=== PATIENT | female | born 1965 | race Caucasian/White ===

== ENCOUNTER → 2017-10-06 16:01 | Outpatient (CLI) | payer OTHER, SELFPAY ==
[2017-10-06 17:27] LABS: Free T3 2.7 pg/mL (2.18-3.98); T4 Free Direct 0.72 ng/dL (0.76-1.46); Thyroid Stim Hormone (TSH) 0.06 uIU/mL (0.358-3.74)
== END ==
PROVIDERS: Family Provider Family Medicine; PCP Family Medicine; Visit Provider Family Medicine
DX: E03.9 Hypothyroidism, unspecified (principal)
CPT/HCPCS: 36415; 84439; 84443; 84481

== ENCOUNTER → 2018-03-02 16:09 | Outpatient (CLI) | payer OTHER, SELFPAY ==
--- NOTE | 2018-03-02 16:12 | RAD_ITS ---
STUDY: X-RAY - CERVICAL SPINE REASON FOR EXAM: Female, 52 years old. Left neck pain TECHNIQUE: Three view(s) of the cervical spine were obtained. COMPARISON: Cervical spine report dated October 14, 2012 FINDINGS: Normal anterior atlantoaxial articulation. Normal odontoid process. There is mild reversal of the normal cervical lordosis. No significant abnormalities are seen in the vertebral bodies. There is moderate disc space narrowing at C5-6 and C6-7. There is mild disc space narrowing at C4-5 and C7-T1. There is no prevertebral soft tissue swelling. The lung apices are unremarkable. RAD/Cerv Spine 2 or 3 Views IMPRESSION: There are moderate degenerative disc changes at C5-6 and C6-7. There are mild degenerative disc changes at C4-5 and C7-T1. Electronically Signed: Aby Wilder MD at 0:14 EDT Tel Direct: [phone], Service support ,
--- NOTE | 2018-03-02 16:12 | RAD_ITS ---
STUDY: X-RAY - LUMBAR SPINE REASON FOR EXAM: Female, 52 years old. Pain TECHNIQUE: Three view(s) of the lumbar spine were obtained. COMPARISON: Lumbar spine MRI dated September 05, 2013 FINDINGS: Normal lumbar lordosis. There is no significant scoliosis. There is normal alignment of the vertebrae. The vertebral bodies show no significant abnormalities. Vertebral body heights are maintained. There is marked disc space narrowing at L5-S1. Cholecystectomy clips are present. RAD/Lumbar Spine 2 or 3 Views IMPRESSION: There are marked degenerative disc changes at L5-S1. This appears worsened compared to the prior MRI. Electronically Signed: Aby Wilder MD at 0:15 EDT Tel Direct: [phone], Service support ,
== END ==
PROVIDERS: Family Provider Family Medicine; PCP Family Medicine; Visit Provider Anesthesiology Pain Medicine
DX: M54.2 Cervicalgia (principal); M54.9 Dorsalgia, unspecified
CPT/HCPCS: 72040; 72100

== ENCOUNTER 2018-04-08 09:00 | Outpatient (RCR) | payer OTHER, SELFPAY ==
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
--- NOTE | 2018-04-15 09:25 | HP.PT.NRP ---
HP - Discharge Summary (1) - Patient Information MITESH KHAN was seen in my office for initial evaluation on 03/03/18. The following Plan of Care was established for this patient: Initial Frequency: 2-3x /Week Initial Duration: 3 Weeks - Anticipated Interventions Patient/Client Instruction: Educate patient on: Condition, Plan of Care For the Purpose of:: To improve self management Therapeutic Exercise to Include: Strength training, Body mechanics, Postural training, Dynamic Lumbar Stabilization For the Purpose of:: To decrease pain, To increase ROM, To improve muscle performance and motor function Cryotherapy (ice pack, ice massage): Yes Thermo therapy (hot pack): Yes For the Purpose of:: To decrease pain This patient was last seen in our office . Pertinent comments regarding their Physical therapy will appear below: Pt cancelled her last appointment. Pt reported she wanted to be finished with PT at this time. Pt is discontinued. At this point I will be discontinuing this patient from physical therapy. I would be happy to see this patient again in the future if found appropriate by the physician. Thank you! Chris More, PT,
== END 2018-04-08 19:00 | disposition home or self-care (01) ==
LOC: PT 09:00
PROVIDERS: Family Provider Family Medicine; PCP Family Medicine; Visit Provider Anesthesiology Pain Medicine
DX: M54.2 Cervicalgia (principal); M54.9 Dorsalgia, unspecified
CPT/HCPCS: 97110; 97162; 97530

== ENCOUNTER → 2018-12-03 | Outpatient (CLI) | payer OTHER, SELFPAY ==
--- NOTE | 2018-12-03 08:52 | BI_ITS ---
MAMMOGRAPHY - BILATERAL SCREENING REASON FOR EXAM: Female, 53 years old. Routine annual screening examination. PERTINENT HISTORY: Aunt with breast cancer. TECHNIQUE: Digital bilateral breast lit (3D mammographic acquisition) in the CC and MLO projections. 2-D mediolateral oblique (MLO) and craniocaudad (CC) views of both breasts were obtained. CAD: Full Field Digital Mammography with Computer Added Detection was performed. COMPARISON: Comparison is made with prior study dated August 26, 2017 and March 24, 2016. FINDINGS: Breast Composition: The breasts are heterogeneously dense, which may obscure small masses. There are no dominant masses or suspicious calcifications. No other significant abnormalities are identified. There has been no significant change since the prior study. BI/SCREEN MAMM (CAD) W/LIT BILAT IMPRESSION: Stable bilateral screening mammogram. Yearly follow-up mammogram recommended. (A) ASSESSMENT CATEGORY: BIRADS Category 1: Negative. A letter regarding these results will be sent to the patient by the facility within 30 days. Approximately 10% of breast cancers are not detected by mammography. A normal mammogram should not delay biopsy of a clinically suspicious abnormality. [id number] Electronically Signed: Linden Ibanez, at 8:14 EDT , Service support ,
== END | disposition home or self-care (01) ==
PROVIDERS: Family Provider Family Medicine; PCP Family Medicine; Referring Provider Family Medicine; Visit Provider Family Medicine
DX: Z12.31 Encounter for screening mammogram for malignant neoplasm of breast (principal)
CPT/HCPCS: 77063; 77067

== ENCOUNTER → 2018-12-21 | Outpatient (CLI) | payer OTHER, SELFPAY ==
[2018-12-21 17:08] LABS: Free T3 4.8 pg/mL (2.18-3.98); T4 Free Direct 0.92 ng/dL (0.76-1.46); Thyroid Stim Hormone (TSH) 0.01 uIU/mL (0.358-3.74)
== END | disposition home or self-care (01) ==
PROVIDERS: Family Provider Family Medicine; PCP Family Medicine; Referring Provider Family Medicine; Visit Provider Family Medicine
DX: E03.9 Hypothyroidism, unspecified (principal)
CPT/HCPCS: 36415; 84439; 84443; 84481

== ENCOUNTER → 2019-01-11 | Outpatient (CLI) | payer OTHER, SELFPAY ==
[2019-01-11 12:21] LABS: Absolute Lymphocyte Count 1.87 X10^3/uL (0.83-4.51); Absolute Neutrophil Count 2.5 X10^3/uL (2.0-7.7); Basophil# 0.04 X10^3/uL; Basophil% 0.8 % (0-1); Eosinophil# 0.21 X10^3/uL; Eosinophils% 4.2 % (0-5); Hemoglobin 13.9 g/dL (12.0-15.0); Lymphocyte # 1.87 X10^3/ul (4.0); Lymphocyte % 37.3 % (19-41); Mean Corp Hgb Conc 33.1 g/dL (32-36); Mean Corpuscular Hgb 30.2 pg (27.0-32.0); Mean Corpuscular Volume 91.1 fL (81-99); Mean Platelet Vol. 9.8 fl (6.2-12.0); Monocyte# 0.35 X10^3/uL; NRBC Flagged by Analyzer 0 % (0-5); Neutrophil # 2.52 X10^3/uL (2.7-7.7); Neutrophil % 50.3 % (47-70); Platelet Count 293 K/mm3 (150-450); RBC Distribution Width CV 12.6 % (11.6-14.6); RBC Distribution Width SD 41.8 fl (35.1-43.9); Red Blood Count 4.61 M/mm3 (4.2-5.4)
[2019-01-11 12:48] LABS: AST(SGOT) 17 U/L (15-37); Alanine Aminotransfer ALT/SGPT 27 U/L (13-56); Albumin, Serum 3.8 g/dL (3.2-5.0); Alkaline Phosphatase 108 U/L (45-117); Anion Gap 8 (5-15); BUN 13 mg/dL (7-18); BUN/Creat Ratio 16.5 RATIO (10-20); Calcium,Total 9.5 mg/dL (8.5-10.1); Chloride 106 mmol/L (98-107); Cholesterol 222 mg/dL (200); Creatinine, Serum 0.79 mg/dL (0.55-1.02); EST Glomerular Filtration Rate 81 mL/min (>60); Est Glom Filt Rate - Afr Amer 98 mL/min (>60); Globulin 3.7 g/dL (2.2-4.2); Glucose 80 mg/dL (74-106); High Density Lipoprotein 63 mg/dL; Protein, Total 7.5 g/dL (6.4-8.2); Sodium Level 142 mmol/L (136-145); Triglycerides 211 mg/dL; Very Low Density Lipoprotein 42 mg/dL (5-40)
[2019-01-11 13:27] LABS: Vitamin D,25 Hydroxy 26.4 ng/mL (29.95-100.01)
== END | disposition home or self-care (01) ==
LOC: BFHLAB 10:17
PROVIDERS: Family Provider Family Medicine; PCP Family Medicine; Visit Provider Family Medicine
DX: Z00.00 Encounter for general adult medical examination without abnormal findings (principal); R53.83 Other fatigue; E55.9 Vitamin D deficiency, unspecified
CPT/HCPCS: 36415; 80053; 80061; 82306; 82533; 85025

== ENCOUNTER → 2019-01-20 | Outpatient (CLI) | payer OTHER, SELFPAY ==
--- NOTE | 2019-01-20 17:03 | MRI_ITS ---
HISTORY: Diplopia, paresthesia COMPARISON: MRI brain 06/08/2014 TECHNIQUE: Multiphasic multiplanar MR imaging of the brain per department protocol without and with 18 ml of Dotarem intravenous gadolinium. # of images including paperwork: [id number] FINDINGS: BRAIN: Diffusion-weighted imaging shows no acute infarct. No remote parenchymal infarct. No parenchymal hemorrhage, intra-axial mass, mass effect, or midline shift. No abnormal extra-axial fluid collections. There are several small foci of scattered subcortical and deep white matter changes as seen by hyperintense signal on FLAIR and T2 weighting with mild interval increase in size particularly within the left frontal and posterior right frontal lobes (previously, these were tiny foci of white matter change). VENTRICLES: Ventricles are normal in size and configuration. No hydrocephalus. POST CONTRAST: No abnormal enhancing parenchymal or dural based lesions. OTHER: Paranasal sinuses are clear. Mastoid air cells are clear. Orbits are unremarkable. MRI/Brain W/WO Contrast IMPRESSION: 1. Several scattered small foci of nonspecific bilateral subcortical and white matter changes, nonspecific finding; with mild interval increase size from May 2014. This may represent sequela of small vessel ischemic disease versus migraine headache versus autoimmune/vasculitis. Demyelinating disease and sequela of postinfectious/postinflammatory process are felt to be less likely. 2. Otherwise, remainder of this pre-and postcontrast MRI brain is within normal limits. at 0302 Reported and signed by: Mane Ellis MD Electronically Signed: Mane Ellis MD at 3:00 EDT Tel , Service support ,
--- NOTE | 2019-01-20 17:03 | MRI_ITS ---
HISTORY: Neck pain and cervical radiculopathy COMPARISON: Cervical radiographs 03/02/2018 TECHNIQUE: Multisequence multiplanar MR imaging of the cervical spine was performed per department protocol without and with 18 ml of Dotarem intravenous gadolinium. # of images incl. 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 Straightening of cervical spine. No acute fracture or subluxation. Vertebral body heights are normal. Mild anterior marginal osteophytes C4, C5, C6 levels. Mild posterior discogenic osteophytosis at the C4-C5 and C5-C6 levels. Mild discogenic endplate marrow changes at the C5-C6 level. No focal marrow signal abnormality is seen to suggest a pathologic process. The visualized posterior fossa is normal in signal. CORD: Cervicomedullary junction and cervical cord are normal in caliber, morphology, and signal characteristics without abnormal enhancement. DISCS: Moderate disc space narrowing at C4-C5 and C5-C6 and C6-C7 levels with moderate disc desiccation at these levels. LEVELS: C2-3: No disc bulges, disc protrusions, canal stenosis or neural foraminal stenosis. C3-4: No disc bulges, disc protrusions, canal stenosis or neural foraminal stenosis. C4-5: Combination of 2 mm broad-based disc osteophyte complex and congenitally narrowed spinal canal results in mild canal stenosis. No neural foraminal stenosis. C5-6: Combination of 2 mm broad-based disc osteophyte complex and congenitally narrowed spinal canal results in mild canal stenosis. No neural foraminal stenosis. C6-7: There is an asymmetric to the left 3 mm broad-based disc protrusion which combines with congenitally narrowed canal results in mild canal stenosis and moderate left foraminal stenosis along the proximal aspect of the exiting nerve root. No right foraminal stenosis. C7-T1: No disc bulges, disc protrusions, canal stenosis or neural foraminal stenosis. POST CONTRAST: No abnormal enhancement is seen involving the cervical cord, nerve roots, or abnormal enhancing osseous or soft tissue lesions. SOFT TISSUES: Paravertebral soft tissues show no gross signal abnormalities. MRI/Spine Cervical W/WO Contrast IMPRESSION: 1. Congenitally narrowed spinal canal on the basis of short pedicles from C2 through the C6 level. 2. Mild canal stenosis at C4-C5 and C5-C6 levels. 3. Mild canal stenosis and moderate left foraminal stenosis at C6-C7. 4. No abnormal enhancement. at 0314 Reported and signed by: Mane Ellis MD Electronically Signed: Mane Ellis MD at 3:13 EDT Tel , Service support ,
== END | disposition home or self-care (01) ==
LOC: MRI 17:00
PROVIDERS: Family Provider Family Medicine; PCP Family Medicine; Referring Provider Family Medicine; Visit Provider Family Medicine
DX: H53.8 Other visual disturbances (principal); R20.2 Paresthesia of skin; R32 Unspecified urinary incontinence; M54.2 Cervicalgia
CPT/HCPCS: 70553; 72156; A9575

== ENCOUNTER → 2019-01-24 | Outpatient (CLI) | payer OTHER, SELFPAY ==
[2019-01-24 07:52] VITALS: BP 117/77; PULSE 54; RESP 16; TEMP 36.5; O2SAT 97; BMI 30.4
[2019-01-24] MEDS: Cosyntropin 0.25 MG Vial IV (08:09)
== END | disposition home or self-care (01) ==
LOC: MEDOUTP 07:44
PROVIDERS: Family Provider Family Medicine; PCP Family Medicine; Referring Provider Family Medicine; Visit Provider Family Medicine
DX: E27.40 Unspecified adrenocortical insufficiency (principal)
CPT/HCPCS: 96374; 82533; A4216; J0834

== ENCOUNTER → 2019-04-13 15:39 | Outpatient (CLI) | payer OTHER, SELFPAY ==
[2019-01-24 07:52] VITALS: BMI 30.4
[2019-04-13 17:36] LABS: T4 Free Direct 0.77 ng/dL (0.76-1.46)
== END ==
PROVIDERS: Family Provider Family Medicine; PCP Family Medicine; Visit Provider Family Medicine
DX: E03.9 Hypothyroidism, unspecified (principal)
CPT/HCPCS: 36415; 84439; 84443; 84481

== ENCOUNTER → 2019-07-19 16:12 | Outpatient (CLI) | payer OTHER, SELFPAY ==
[2019-01-24 07:52] VITALS: BMI 30.4
[2019-07-19 17:29] LABS: Free T3 3.3 pg/mL (2.18-3.98); T4 Free Direct 0.78 ng/dL (0.76-1.46)
== END ==
PROVIDERS: Family Provider Family Medicine; PCP Family Medicine; Visit Provider Family Medicine
DX: E03.9 Hypothyroidism, unspecified (principal)
CPT/HCPCS: 36415; 84439; 84443; 84481

== ENCOUNTER → 2019-11-17 09:18 | Outpatient (CLI) | payer OTHER, SELFPAY ==
[2019-01-24 07:52] VITALS: BMI 30.4
--- NOTE | 2019-11-17 09:22 | BI_ITS ---
MAMMOGRAPHY - BILATERAL DIAGNOSTIC REASON FOR EXAM: Female, 54 years old. Two-month history of left breast lumps. PERTINENT HISTORY: Aunt with breast cancer. Remote left breast aspiration. TECHNIQUE: Digital bilateral breast devyn (3D mammographic acquisition) in the CC and MLO projections. 2-D mediolateral oblique (MLO) and craniocaudad (CC) views of both breasts were obtained. CAD: Full Field Digital Mammography with Computer Added Detection was performed. COMPARISON: Comparison is made with prior examination dated December 03, 2018 and March 24, 2016. FINDINGS: Breast Composition: The breasts are heterogeneously dense, which may obscure small masses. There are no dominant masses or suspicious calcifications. No other significant abnormalities are identified. There has been no significant change since the prior study. BI/DIAG MAMM W/CAD, BILAT IMPRESSION: Stable bilateral diagnostic mammogram. With the patient''s history of palpable lumps in the upper outer quadrant of the left breast, correlation with ultrasound is recommended. ASSESSMENT CATEGORY: BIRADS Category 0: Incomplete. Need additional imaging evaluation. A letter regarding these results will be sent to the patient by the facility within 30 days. Approximately 10% of breast cancers are not detected by mammography. A normal mammogram should not delay biopsy of a clinically suspicious abnormality. Electronically Signed: Linden Ibanez, at 10:25 EDT , Service support ,
--- NOTE | 2019-11-17 10:03 | US_ITS ---
STUDY: ULTRASOUND BREAST - LEFT REASON FOR EXAM: Female, 54 years old. Palpable lump left breast. TECHNIQUE: Axial and longitudinal images of the LEFT breast were performed with a high resolution ultrasound transducer. # OF IMAGES: 57 COMPARISON: Comparison is made with prior mammogram done earlier in the day. FINDINGS: LEFT Breast: The palpable abnormality corresponds to a 1 cm x 0.8 cm x 0.8 cm irregular hypoechoic nodule at the 1:00 position of the breast at the 10 cm from the nipple. A biopsy is recommended. Incidental finding of 2 cysts at the 12:00 position of the breast at 3 cm from the nipple. The largest measures 6 mm x 5 mm x 4 mm. US/Breast Limited Unilateral IMPRESSION: The palpable abnormality corresponds to a 1 cm x 0.8 cm x 0.8 cm irregular hypoechoic solid nodule at the 1:00 position in the breast at 10 cm from nipple. Biopsy recommended. ASSESSMENT CATEGORY: BIRADS Category 4: Suspicious - Biopsy Should Be Considered. A letter regarding these results will be sent to the patient by the facility within 30 days. Electronically Signed: Linden Ibanez, at 12:34 EDT , Service support ,
== END ==
PROVIDERS: PCP Family Medicine; Referring Provider Obstetrics & Gynecology Gynecology; Visit Provider Obstetrics & Gynecology Gynecology
DX: N60.19 Diffuse cystic mastopathy of unspecified breast (principal)
CPT/HCPCS: 76642; 77062; 77066; G0279

== ENCOUNTER → 2019-12-07 09:31 | Outpatient (CLI) | payer OTHER, SELFPAY ==
[2019-01-24 07:52] VITALS: BMI 30.4
--- NOTE | 2019-12-07 09:37 | MRI_ITS ---
STUDY: BILATERAL BREAST MR WITHOUT AND WITH CONTRAST REASON FOR EXAM: Female, 54 years old. upper outer quad left breast ca, estrogen receptor positive, biopsy 11/24/2019 TECHNIQUE: Multi-sequence multi-echo imaging of both breasts was performed with a dedicated breast coil. T1-weighted and T2-weighted images were performed before the administration of contrast. T1-weighted images were also performed after the administration of IV Dotarem 19ml without complications. COMPARISON: Mammograms dated 11/17/2019, 12/03/2018 and a breast ultrasound dated 11/17/2019 FINDINGS: RIGHT BREAST: The breast tissue is heterogeneously dense with mild background enhancement. There are no abnormal enhancing masses or areas of non-mass enhancement in the right breast. LEFT BREAST: The breast tissue is heterogeneously dense with mild background enhancement. There is a 1 cm mass in the superior outer aspect of the left breast approximately 10 cm from the nipple. This area was biopsied and shown to represent a malignancy. There are no additional abnormal enhancing masses or areas of non-mass enhancement in the left breast. There are no enlarged or abnormal lymph nodes. There is no abnormality in the visualized regions of the chest or liver. MRI/Breast Bilateral W/O and W IMPRESSION: There is a known malignancy in the left breast. Surgical consultation is recommended as well as radiation oncology and medical oncology consultation. Short-term six-month follow-up mammogram is also recommended to document stability at the postbiopsy site. CATEGORY: BIRADS Category 6: Known Biopsy-Proven Malignancy - Appropriate Action Should Be Taken. A letter regarding these results will be sent to the patient by the facility within 30 days. Electronically Signed: Khushboo Yun DO at 6:08 EDT Tel , Service support ,
== END ==
PROVIDERS: PCP Family Medicine
DX: C50.412 Malignant neoplasm of upper-outer quadrant of left female breast (principal); Z17.0 Estrogen receptor positive status [ER+]
CPT/HCPCS: 77049; A9575; A4216; C8908

== ENCOUNTER → 2020-05-28 13:22 | Outpatient (CLI) | payer OTHER, SELFPAY ==
[2019-01-24 07:52] VITALS: BMI 30.4
[2020-01-23 09:03] VITALS: BMI 33.0
[2020-05-28 15:34] LABS: D-Dimer Quantitative (DVT/PE) 0.36 FEU/ug/m (0.27-0.49)
== END ==
PROVIDERS: PCP Family Medicine; Visit Provider Family Medicine
DX: M79.605 Pain in left leg (principal)
CPT/HCPCS: 36415; 85379

== ENCOUNTER → 2020-09-16 09:02 | Outpatient (CLI) | payer OTHER, SELFPAY ==
[2019-01-24 07:52] VITALS: BMI 30.4
[2020-01-23 09:03] VITALS: BMI 33.0
[2020-09-16 10:09] LABS: Absolute Lymphocyte Count 2.04 X10^3/uL (0.83-4.51); Basophil# 0.04 X10^3/uL; Basophil% 0.9 % (0-1); Eosinophils% 2.2 % (0-5); Hematocrit 43.3 % (37-47); Lymphocyte # 2.04 X10^3/ul (4.0); Mean Corp Hgb Conc 32.3 g/dL (32-36); Mean Corpuscular Hgb 29.5 pg (27.0-32.0); Mean Corpuscular Volume 91.2 fL (81-99); Mean Platelet Vol. 9.4 fl (6.2-12.0); Monocyte# 0.31 X10^3/uL; Monocyte% 6.8 % (0-10); NRBC Flagged by Analyzer 0 % (0-5); Neutrophil # 2.03 X10^3/uL (2.7-7.7); Neutrophil % 44.9 % (47-70); Platelet Count 288 K/mm3 (150-450); RBC Distribution Width CV 12.7 % (11.6-14.6); RBC Distribution Width SD 42.4 fl (35.1-43.9); Red Blood Count 4.75 M/mm3 (4.2-5.4); White Blood Count 4.5 K/mm3 (4.4-11.0)
[2020-09-16 10:37] LABS: Vitamin B12 509 pg/mL (211-911); Vitamin D,25 Hydroxy 46.8 ng/mL
[2020-09-16 10:42] LABS: ALB/GLOB Ratio 1.1 RATIO (0.9-2.4); AST(SGOT) 21 U/L (15-37); Alanine Aminotransfer ALT/SGPT 41 U/L (13-56); Albumin, Serum 3.8 g/dL (3.2-5.0); Alkaline Phosphatase 85 U/L (45-117); Anion Gap 5 (5-15); BUN 14 mg/dL (7-18); BUN/Creat Ratio 17.1 RATIO (10-20); Calcium,Total 9.2 mg/dL (8.5-10.1); Chloride 111 mmol/L (98-107); Cholesterol 230 mg/dL (200); Creatinine, Serum 0.82 mg/dL (0.55-1.02); EST Glomerular Filtration Rate 77 mL/min (>60); Est Glom Filt Rate - Afr Amer 94 mL/min (>60); Free T3 2.7 pg/mL (2.18-3.98); Globulin 3.6 g/dL (2.2-4.2); Glucose 92 mg/dL (74-106); High Density Lipoprotein 67 mg/dL; Potassium 3.9 mmol/L (3.5-5.1); Protein, Total 7.4 g/dL (6.4-8.2); Sodium Level 141 mmol/L (136-145); T4 Free Direct 0.76 ng/dL (0.76-1.46); Thyroid Stim Hormone (TSH) 0.02 uIU/mL (0.358-3.74); Triglycerides 170 mg/dL; Very Low Density Lipoprotein 34 mg/dL (5-40)
== END ==
PROVIDERS: PCP Family Medicine; Referring Provider Family Medicine; Visit Provider Family Medicine
DX: Z00.00 Encounter for general adult medical examination without abnormal findings (principal); R53.83 Other fatigue; E03.9 Hypothyroidism, unspecified; E55.9 Vitamin D deficiency, unspecified
CPT/HCPCS: 36415; 80053; 80061; 82306; 82607; 84439; 84443; 84481; 85025

== ENCOUNTER 2021-08-20 14:38 | Outpatient (CLI) | payer OTHER, SELFPAY ==
[2020-01-23 09:03] VITALS: BMI 33.0
[2021-08-20 17:21] LABS: T4 Free Direct 1.08 ng/dL (0.76-1.46); Thyroid Stim Hormone (TSH) 0.04 uIU/mL (0.358-3.74)
== END 2021-08-20 23:59 | disposition home or self-care (01) ==
LOC: BIMLAB 14:39
PROVIDERS: PCP Family Medicine; Referring Provider Internal Medicine Endocrinology, Diabetes & Metabolism; Visit Provider Internal Medicine Endocrinology, Diabetes & Metabolism
DX: E03.8 Other specified hypothyroidism (principal); E06.3 Autoimmune thyroiditis
CPT/HCPCS: 36415; 84439; 84443

== ENCOUNTER 2021-09-18 08:54 | Outpatient (CLI) | payer OTHER, SELFPAY ==
[2020-01-23 09:03] VITALS: BMI 33.0
== END 2021-09-18 23:59 | disposition home or self-care (01) ==
LOC: PSN 08:57
PROVIDERS: PCP Family Medicine; Referring Provider Internal Medicine Cardiovascular Disease; Visit Provider Internal Medicine Cardiovascular Disease
DX: R00.2 Palpitations (principal)
CPT/HCPCS: 93225; 93226

== ENCOUNTER 2021-12-09 11:14 | Outpatient (CLI) | payer OTHER, SELFPAY ==
[2020-01-23 09:03] VITALS: BMI 33.0
[2021-12-09 12:38] LABS: Vitamin D,25 Hydroxy 46.2 ng/mL
[2021-12-09 12:53] LABS: T4 Free Direct 1.01 ng/dL (0.76-1.46); Thyroid Stim Hormone (TSH) 0.15 uIU/mL (0.358-3.74)
== END 2021-12-09 23:59 | disposition home or self-care (01) ==
LOC: BIMLAB 11:15
PROVIDERS: PCP Family Medicine; Visit Provider Internal Medicine Endocrinology, Diabetes & Metabolism
DX: E03.8 Other specified hypothyroidism (principal); E06.3 Autoimmune thyroiditis; E55.9 Vitamin D deficiency, unspecified
CPT/HCPCS: 36415; 82306; 84439; 84443

== ENCOUNTER → 2022-02-13 | Outpatient (CLI) | payer OTHER, SELFPAY ==
[2020-01-23 09:03] VITALS: BMI 33.0
[2022-02-13 17:41] LABS: T3 Total - Triiodothyronine 1.16 ng/mL (0.6-1.81)
[2022-02-13 17:48] LABS: ALB/GLOB Ratio 1.2 RATIO (0.9-2.4); AST(SGOT) 20 U/L (15-37); Alanine Aminotransfer ALT/SGPT 30 U/L (13-56); Albumin, Serum 4.2 g/dL (3.2-5.0); Alkaline Phosphatase 88 U/L (45-117); Anion Gap 6 (5-15); BUN 20 mg/dL (7-18); BUN/Creat Ratio 19.4 RATIO (10-20); Calcium,Total 9.1 mg/dL (8.5-10.1); Chloride 106 mmol/L (98-107); Creatinine, Serum 1.03 mg/dL (0.55-1.02); EST Glomerular Filtration Rate 59 mL/min (>60); Est Glom Filt Rate - Afr Amer 71 mL/min (>60); Free T3 2.8 pg/mL (2.18-3.98); Globulin 3.4 g/dL (2.2-4.2); Glucose 90 mg/dL (74-106); Potassium 4.3 mmol/L (3.5-5.1); Protein, Total 7.6 g/dL (6.4-8.2); Sodium Level 138 mmol/L (136-145); T4 Free Direct 1.28 ng/dL (0.76-1.46); T4 Total, Thyroxin 12.3 ug/dL (4.8-13.9); Thyroid Stim Hormone (TSH) 0.23 uIU/mL (0.358-3.74)
== END | disposition home or self-care (01) ==
LOC: MTLAB 15:25
PROVIDERS: PCP Family Medicine; Referring Provider Family Medicine; Visit Provider Family Medicine
DX: E03.9 Hypothyroidism, unspecified (principal); R60.9 Edema, unspecified
CPT/HCPCS: 36415; 80053; 84436; 84439; 84443; 84480; 84481

== ENCOUNTER → 2022-04-08 | Outpatient (CLI) | payer OTHER, SELFPAY ==
[2020-01-23 09:03] VITALS: BMI 33.0
== END | disposition home or self-care (01) ==
LOC: LAB.FUTURE 10:47 → LAB 04-14 15:29
PROVIDERS: PCP Family Medicine; Visit Provider Family Medicine
DX: Z00.00 Encounter for general adult medical examination without abnormal findings (principal)

== ENCOUNTER → 2022-04-14 | Outpatient (CLI) | payer OTHER, SELFPAY ==
[2020-01-23 09:03] VITALS: BMI 33.0
[2022-04-14 16:45] LABS: Free T3 2.2 pg/mL (2.18-3.98); T4 Free Direct 0.63 ng/dL (0.76-1.46); Thyroid Stim Hormone (TSH) 2.47 uIU/mL (0.358-3.74)
== END | disposition home or self-care (01) ==
LOC: LAB 15:33
PROVIDERS: PCP Family Medicine; Referring Provider Family Medicine; Visit Provider Family Medicine
DX: E03.9 Hypothyroidism, unspecified (principal)
CPT/HCPCS: 36415; 84439; 84443; 84481

== ENCOUNTER 2022-05-11 19:01 | Outpatient (CLI) | payer OTHER, SELFPAY ==
[2020-01-23 09:03] VITALS: BMI 33.0
--- NOTE | 2022-05-11 19:20 | CT_ITS ---
STUDY: CT BRAIN WITHOUT CONTRAST REASON FOR EXAM: Female, 56 years old. FACIAL WEAKNESS TECHNIQUE: Transaxial CT imaging of the brain was performed without administration of intravenous contrast material. Individualized dose optimization techniques were used for this CT. COMPARISON: MRI 01/20/2019 FINDINGS: Normal calvarium. Normal soft tissues. Normal size ventricles and extra-axial spaces for the patient''s age. There are areas of decreased attenuation within the white matter tracts of the supratentorial brain, consistent with microvascular disease changes. Normal basal ganglia and thalami. Normal brainstem. Normal cerebellum. There is no intracranial hemorrhage. There are no findings of an acute ischemic infarction. Degenerative changes of the mandibular condyles. ASPECTS 10 CT/Brain/Head without Contrast IMPRESSION: There are no acute intracranial findings. Electronically Signed: Chris Ramirez MD at 19:40 EST ,
== END 2022-05-11 23:59 | disposition home or self-care (01) ==
LOC: CT 19:02
PROVIDERS: PCP Family Medicine; Referring Provider Family Medicine; Visit Provider Family Medicine
DX: R29.810 Facial weakness (principal); Z82.3 Family history of stroke
CPT/HCPCS: 70450

== ENCOUNTER → 2022-06-16 | Outpatient (CLI) | payer OTHER, SELFPAY ==
[2020-01-23 09:03] VITALS: BMI 33.0
--- NOTE | 2022-06-16 16:15 | RAD_ITS ---
INDICATION: BACK,LEG, AND HIP PAIN EXAMINATION/TECHNIQUE: X-RAY - XR Spine Lumbar Min 4 Views COMPARISON: 03/02/2018 FINDINGS: VERTEBRAE: Preserved vertebral body height. No fracture. No spondylolisthesis. Preservation of the normal lumbar lordosis. No significant facet arthropathy. DISCS: Moderate L5-S1 disc space narrowing with vacuum phenomenon. INCLUDED ABDOMEN: Included bowel gas pattern is non-obstructive. RAD/L/S Spine Min 4 Views IMPRESSION: L5-S1 disc space narrowing, similar to 03/02/2018. Electronically Signed: Aman Becker MD at 20:25 EST ,
== END | disposition home or self-care (01) ==
LOC: MTRAD 16:09
PROVIDERS: PCP Family Medicine; Referring Provider Family Medicine; Visit Provider Family Medicine
DX: M54.17 Radiculopathy, lumbosacral region (principal); M25.559 Pain in unspecified hip; M79.606 Pain in leg, unspecified
CPT/HCPCS: 72110

== ENCOUNTER → 2022-07-16 | Outpatient (CLI) | payer OTHER, SELFPAY ==
[2020-01-23 09:03] VITALS: BMI 33.0
--- NOTE | 2022-07-16 16:14 | MRI_ITS ---
STUDY: MRI LUMBAR SPINE WITHOUT CONTRAST REASON FOR EXAM: Female, 57 years old. RIGHT LUMBAR RADICULOPATHY; HISTORY OF BREAST CANCER TECHNIQUE: Standardized fat and water weighted pulse sequences were obtained in the sagittal and axial planes. COMPARISON: Lumbar spine radiographs 06/16 2022. MRI lumbar spine without contrast 09/05/2013. FINDINGS: T10-T11: (Sagittal only). Normal T11 superior endplate. Normal partially included posterior T10 inferior endplate. Normal disc height, hydration and morphology. Normal central canal and the barely included portions of the bilateral intervertebral neural foramina. T11-T12 and T12-L1: (Sagittal only). Normal endplates. Normal disc height, hydration and morphology. No ventral extradural defects. Normal facet joints. Normal central canal and bilateral intervertebral neural foramina. Round to ovoid benign focal fatty infiltration in the left side of T12 vertebral body is unchanged. Normal lumbar lordosis. There is no substantial scoliosis. Normal conus medullaris that terminates at the lower T12 vertebral body level. L1-2: Normal endplates. Normal disc height, hydration and morphology. Normal bilateral facet joints. Normal central canal and bilateral lateral recesses. Normal bilateral intervertebral neural foramina. L2-3: Normal endplates. Normal disc height, hydration and morphology. Normal bilateral facet joints. Normal central canal and bilateral lateral recesses. Normal bilateral intervertebral neural foramina. L3-4: Normal endplates. Minimal disc space height narrowing is unchanged. No ventral extradural defect. Mild right degenerative facet arthropathy. Normal left facet joint. Normal central canal and bilateral lateral recesses. Prominent dorsal epidural lipomatosis. Normal bilateral intervertebral neural foramina. Benign focal fatty infiltration in the left posterior L3 pedicle is unchanged. L4-5: Normal endplates. Normal disc height, hydration and morphology. Mild increase of mild bilateral degenerative facet arthropathy. Normal central canal and bilateral lateral recesses. Normal bilateral intervertebral neural foramina. L5-S1: Moderate Modic type II degenerative vertebral marrow fat infiltration underneath the vertebral endplates, previously mild Modic type I. Pronounced disc space height narrowing. No significant facet arthropathy. Normal central canal and bilateral lateral recesses. Normal bilateral intervertebral neural foramina. Normal visualized sacral ala. Normal visualized paraspinous soft tissue structures. MRI/Spine Lumbar (Routine) IMPRESSION: 1. No MRI evidence of bone metastatic disease to the lumbar spine and included portions of the sacrum. 2. Pronounced L5-S1 disc space height narrowing with moderate Modic type II degenerative changes underneath the vertebral endplates, previously minimal Modic type I. 3. No MRI evidence of lumbar extruded disc fragment, disc protrusion, nerve root displacement or spinal stenosis. 4. Mild increase of mild bilateral L4-5 degenerative facet arthropathy, right more than left. Electronically Signed: Guevara Whitlock MD at 9:42 EST ,
== END | disposition home or self-care (01) ==
LOC: MRI 16:07
PROVIDERS: PCP Family Medicine; Visit Provider Family Medicine
DX: M47.816 Spondylosis without myelopathy or radiculopathy, lumbar region (principal); M54.16 Radiculopathy, lumbar region; M51.36 Other intervertebral disc degeneration, lumbar region; M51.37 Other intervertebral disc degeneration, lumbosacral region; Z85.3 Personal history of malignant neoplasm of breast
CPT/HCPCS: 72148

== ENCOUNTER 2022-10-06 22:49 | Emergency (ER) | payer OTHER, SELFPAY ==
[2020-01-23 09:03] VITALS: BMI 33.0
[2022-10-06 22:51] VITALS: BP 142/86; PULSE 60; RESP 18; TEMP 35.7; O2SAT 97
--- NOTE | 2022-10-07 00:14 | EKG12_ITS ---
Test Reason : HTN Blood Pressure : / mmHG Vent. Rate : 055 BPM Atrial Rate : 055 BPM P-R Int : 210 ms QRS Dur : 080 ms QT Int : 432 ms P-R-T Axes : 015 008 -02 degrees QTc Int : 413 ms Sinus bradycardia with sinus arrhythmia with 1st degree A-V block Inferior infarct , age undetermined Abnormal ECG Confirmed by MATILDE FOSS, GROVER ([id number]), editor news BHANU SOMMERS ([id number]) on 10/12/2022 10:47:02 AM Referred By: BELEM Confirmed By:GROVER CLAYTON MD
[2022-10-07 00:36] VITALS: BMI 32.7
[2022-10-07 00:43] LABS: Absolute Lymphocyte Count 3.29 X10^3/uL (0.83-4.51); Absolute Neutrophil Count 2.7 X10^3/uL (2.0-7.7); Basophil# 0.05 X10^3/uL; Basophil% 0.7 % (0-1); Eosinophil# 0.19 X10^3/uL; Eosinophils% 2.8 % (0-5); Hematocrit 44.5 % (37-47); Hemoglobin 14.3 g/dL (12.0-15.0); Lymphocyte # 3.29 X10^3/ul (0.83-4.51); Lymphocyte % 48.7 % (19-41); Mean Corp Hgb Conc 32.1 g/dL (32-36); Mean Corpuscular Hgb 30.4 pg (27.0-32.0); Mean Corpuscular Volume 94.5 fL (81-99); Mean Platelet Vol. 9.1 fl (6.2-12.0); Monocyte# 0.48 X10^3/uL; Monocyte% 7.1 % (0-10); NRBC Flagged by Analyzer 0 % (0-5); Neutrophil # 2.73 X10^3/uL (2.7-7.7); Neutrophil % 40.6 % (47-70); Platelet Count 284 K/mm3 (150-450); RBC Distribution Width SD 45.6 fl (35.1-43.9); Red Blood Count 4.71 M/mm3 (4.2-5.4); White Blood Count 6.8 K/mm3 (4.4-11.0)
[2022-10-07 01:14] LABS: Anion Gap 3 (5-15); BUN 17 mg/dL (7-18); BUN/Creat Ratio 17.2 RATIO (10-20); Calcium,Total 9.4 mg/dL (8.5-10.1); Chloride 107 mmol/L (98-107); Creatinine, Serum 0.99 mg/dL (0.55-1.02); EST Glomerular Filtration Rate 62 mL/min (>60); Est Glom Filt Rate - Afr Amer 75 mL/min (>60); Glucose 99 mg/dL (74-106); Potassium 3.9 mmol/L (3.5-5.1); Sodium Level 139 mmol/L (136-145); Thyroid Stim Hormone (TSH) 3.19 uIU/mL (0.358-3.74); Troponin-I HS 5 pg/mL (3.0-54.0)
[2022-10-07 02:15] VITALS: BP 119/74; PULSE 54; RESP 13; O2SAT 95
--- NOTE | 2022-10-07 02:34 | EX.ED.DYSGE1 ---
HPI History of Present Illness Chief Complaint: Hypertension Informant: patient and spouse/S.O. Narrative Narrative: Patient is a 57-year-old female with past medical history of Sofía's thyroiditis. She denies any true diagnosis of hypertension. She states however recently she has been checking her blood pressure and it has been elevated. She states that this evening she was checking her blood pressure and it spiked to a value of approximately 170/100. She states that this concerned her and secondary to this she comes in for evaluation. Patient denies any headache chest pain or change in vision associated with the hypertension. 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 Migraine Polycystic ovaries Home Medications rizatriptan 10 mg tablet See Rx Instructions PO .COMPLEX 09/09/21 [History Last Taken Unknown] cholecalciferol (vitamin D3) 50 mcg (2,000 unit) capsule 50 mcg PO DAILY 10/09/21 [History Last Taken Unknown] levothyroxine 112 mcg tablet 112 mcg PO DAILY #90 tabs 10/09/21 [Rx Last Taken Unknown] hydrochlorothiazide 25 mg tablet 25 mg PO DAILY #30 tabs 10/05/22 [Rx Last Taken Unknown] Allergy/AdvReac Type Severity Reaction Status Date / Time cefazolin Allergy Intermediate hives Verified 10/09/21 16:36 anastrozole AdvReac Intermediate Cough, Verified 10/09/21 16:36 facial swelling, body aches Seasonal Allergies: Uncoded AdvReac Intermediate ITCHY, Verified 02/03/22 11:33 WATERY EYES duloxetine AdvReac Tachycardia Verified 10/09/21 16:36 Family History Aunt Breast cancer Grandfather Prostate cancer Surgical History H/O exploratory laparotomy H/O: hysterectomy (10/19/12) History of lumpectomy of left breast (12/24/19) Hx of cholecystectomy (02/19/98) Status post left breast lumpectomy Social History Smoking Status: Never smoker ROS ROS ED Constitutional Constitutional ED: Denies chills or fever(s) Eyes Eyes: Denies change in vision ENT ENT ED: Denies sore throat Cardiovascular Cardiovascular: Denies chest pain, palpitations or racing heartbeat Respiratory/Chest Respiratory/Chest: Denies cough or dyspnea Gastrointestinal Gastrointestinal: Denies abdominal pain, diarrhea, nausea or vomiting Genitourinary Genitourinary ED: Denies dysuria Musculoskeletal Musculoskeletal: Denies myalgias Integumentary Denies rash Neurologic Neurologic: Denies headache(s) or paresthesias Psychiatric Psychiatric: Denies anxiety Hematologic/Lymphatic Hematologic/Lymphatic: Denies easy bleeding or easy bruising EXAM Physical Exam Const Vital Signs: 10/06/22 22:51 10/07/22 00:49 10/07/22 02:15 Temperature 96.3 F L Temperature Source Temporal Pulse Rate 60 54 L Respiratory Rate 18 13 Respiratory Effort Normal Respiratory Pattern Normal Blood Pressure 142/86 H 119/74 Blood Pressure Mean 104 89 Pulse Ox 97 95 Oxygen Delivery Method Room Air Room Air Positive well nourished and well developed General Appearance ED: well developed HEENT Reports moist mucous membranes Eyes PERRL and EOMs intact bilaterally Neck supple Neck Narrative: No nuchal rigidity or meningeal signs Carotid pulses are plus 2 out of 4 bilaterally are equal and symmetric Resp normal respiratory effort and clear to auscultation bilaterally Cardio regular rate and regular rhythm Rate: other Other Details: Radial pulses are plus 2 out of 4 bilaterally are equal and symmetric GI normal to inspection, nondistended, normoactive bowel sounds, non-tender, non-distended and no masses GI Narrative: No voluntary guarding or rigidity no pulsatile mass or fluid wave Auscultation: normoactive bowel sounds Palpation: soft Extremity normal to inspection Extremity Narrative: No asymmetric edema no pitting edema negative Homans' sign bilaterally Neuro oriented x3, CN's II-XII intact bilaterally and no sensory deficits noted Neuro Narrative: Cranial nerves II through XII are grossly intact there are no focal neurologic deficits. No pronator drift no dysmetria no truncal ataxia. NIH stroke scale score of 0 Sensorium / Orientation: alert Psych mental status grossly normal Skin no rashes or lesions noted MDM MDM MDM Narrative Medical decision making narrative: Patient presented to the ER hypertensive but better than she had reported at home without any type of treatment. She had no report or physical exam findings of endorgan damage but with concern for this secondary to her hypertension a basic work-up was obtained. Labs revealed no sign of cardiac event or acute kidney injury and as she did not have a headache or change in mental status she does not have hypertensive encephalopathy or concern for spontaneous rupture of an aneurysm. The patient was watched in the ER for multiple hours her blood pressure slowly improved without treatment and his work-up reveals no signs of endorgan damage blood pressure is now resolved she is otherwise safe for discharge History & Record Review Discussion w/independent historian: Patient and Family Lab Data Attestation: I reviewed the patient's lab results. Labs: Laboratory Results - last 24 hr 10/07/22 10/07/22 00:38 00:38 WBC 6.8 RBC 4.71 Hgb 14.3 Hct 44.5 MCV 94.5 MCH 30.4 MCHC 32.1 RDW Std Deviation 45.6 H RDW Coeff of Luis 13.0 Plt Count 284 MPV 9.1 Immature Gran % (Auto) 0.100 Neut % (Auto) 40.6 L Lymph % (Auto) 48.7 H [place] % (Auto) 7.1 Eos % (Auto) 2.8 Baso % (Auto) 0.7 Absolute Neuts (auto) 2.7 Absolute Lymphs (auto) 3.29 Nucleated RBC % 0 Sodium 139 Potassium 3.9 Chloride 107 Carbon Dioxide 29.0 Anion Gap 3 L BUN 17 Creatinine 0.99 Estim Creat Clear Calc 61.70 Est GFR (MDRD) Af Amer 75 Est GFR (MDRD) Non-Af 62 BUN/Creatinine Ratio 17.2 Glucose 99 Calcium 9.4 Troponin I High Sens 5 TSH 3.19 Discharge Plan Triage Chief Complaint: Hypertension ED Provider: Russel Castillo Dx/Rx/DC Orders Clinical Impression: Accelerated hypertension Instructions: ED Hypertension, To Be Confirmed Prescriptions: No Action rizatriptan 10 mg tablet See Rx Instructions PO .COMPLEX Rx Instructions: take 1 tab at onset of headache; if no relief may repeat 1 tab after at least 2 hrs; max = 3 tabs/24 hr PO cholecalciferol (vitamin D3) 50 mcg (2,000 unit) capsule 50 mcg PO DAILY levothyroxine 112 mcg tablet 112 mcg PO DAILY Qty: 90 3RF hydrochlorothiazide 25 mg tablet 25 mg PO DAILY Qty: 30 11RF Primary Care Provider: Juan Ramon Myles Referrals: Juan Ramon Myles, [Primary Care Provider] - Activity Restrictions/Additional Instructions: Please continue to check your blood pressure a few times each week but deya's visit did not show any signs of endorgan damage associated with this and without treatment your blood pressure returned to normal. Follow-up with your family doctor to discuss need for further testing or the beginning of blood pressure medications and return to the ER should you have any further concerns Disposition Disposition: Home, Self Care Discharge Date/Time: 10/07/22 02:50
[2022-10-07 02:49] VITALS: BP 119/74
== END 2022-10-07 02:50 | disposition home or self-care (01) ==
PROVIDERS: Emergency Provider Emergency Medicine; PCP Family Medicine; Visit Provider Emergency Medicine
DX: I10 Essential (primary) hypertension (principal); G43.909 Migraine, unspecified, not intractable, without status migrainosus; Z79.899 Other long term (current) drug therapy; E03.8 Other specified hypothyroidism; Z85.3 Personal history of malignant neoplasm of breast; Z90.710 Acquired absence of both cervix and uterus; Z90.49 Acquired absence of other specified parts of digestive tract
CPT/HCPCS: 80048; 84443; 84484; 85025; 93005; 99284; A4216

== ENCOUNTER → 2023-03-26 | Outpatient (CLI) | payer OTHER, SELFPAY ==
[2020-01-23 09:03] VITALS: BMI 33.0
--- NOTE | 2023-03-26 15:55 | RAD_ITS ---
STUDY: X-RAY - PELVIS AND RIGHT HIP REASON FOR EXAM: Female, 57 years old. Hip pain. TECHNIQUE: 3 views of the pelvis and right hip. COMPARISON: Right hip radiographs dated 12/20/2013. FINDINGS: There is a non-specific bowel gas pattern. Normal visualized soft tissue structures. Normal bilateral iliac wings, sacroiliac joints and visualized sacrum. Normal bilateral superior and inferior pubic rami. Normal pubic symphysis. Normal bilateral ischial tuberosities. Normal visualized femoral head. There is minimal osteoarthritic spur formation of the acetabular rims bilaterally. There is no significant hip joint space narrowing. There is no acute fracture. RAD/HIP, UNI W/ Pelvis 2-3 Views IMPRESSION: Minimal degenerative arthrosis of the hip joints bilaterally. No acute fracture. Electronically Signed: Tomas Weaver MD at 14:07 EDT ,
== END | disposition home or self-care (01) ==
LOC: MTRAD 15:52
PROVIDERS: PCP Family Medicine; Referring Provider Nurse Practitioner Family; Visit Provider Nurse Practitioner Family
DX: M25.551 Pain in right hip (principal)
CPT/HCPCS: 73502

== ENCOUNTER → 2023-10-18 | Outpatient (CLI) | payer OTHER, SELFPAY ==
[2020-01-23 09:03] VITALS: BMI 33.0
[2023-10-18 18:05] LABS: Rubella IgG Reactive (Nonreactive)
[2023-10-18 18:27] LABS: Free T3 4.8 pg/mL (2.18-3.98); T4 Free Direct 0.83 ng/dL (0.76-1.46); Thyroid Stim Hormone (TSH) 0.37 uIU/mL (0.358-3.74)
[2023-10-20 06:09] LABS: Rubeola IgG Ab 33.4 AU/mL (Immune >16.4)
== END | disposition home or self-care (01) ==
LOC: BFHLAB 16:15
PROVIDERS: PCP Family Medicine; Visit Provider Family Medicine
DX: E03.9 Hypothyroidism, unspecified (principal); Z28.39 Other underimmunization status
CPT/HCPCS: 36415; 84439; 84443; 84481; 86762; 86765

== ENCOUNTER 2024-05-18 07:16 | Inpatient (IN) | payer OTHER, SELFPAY ==
[2020-01-23 09:03] VITALS: BMI 33.0
[2024-05-18] VITALS (11 sets, daily range): BP systolic 91–148; BP diastolic 46–81; PULSE 57–92; RESP 14–18; TEMP 36.4–36.8; O2SAT 87–100; BMI 25.2; BMI 25.7
[2024-05-18] MEDS: Ondansetron 4 MG/2 ML Vial IV ×2 (08:02→09:18)
[2024-05-18] MEDS: 0.9% Normal Saline (1000mL) 1,000 ML 999 ML IV (08:02)
[2024-05-18] MEDS: Morphine 4 MG/ML Syringe IV ×2 (08:03→09:13)
[2024-05-18] MEDS: Dicyclomine 20 MG/2 ML Vial IM (08:06)
[2024-05-18 08:09] LABS: Absolute Lymphocyte Count 2.03 X10^3/uL (0.83-4.51); Absolute Neutrophil Count 4.4 X10^3/uL (2.0-7.7); Basophil# 0.04 X10^3/uL; Basophil% 0.6 % (0-1); Eosinophil# 0.04 X10^3/uL; Eosinophils% 0.6 % (0-5); Hematocrit 42.4 % (37-47); Hemoglobin 14.3 g/dL (12.0-15.0); Lymphocyte # 2.03 X10^3/ul (0.83-4.51); Mean Corp Hgb Conc 33.7 g/dL (32-36); Mean Corpuscular Volume 88.9 fL (81-99); Monocyte# 0.46 X10^3/uL; Monocyte% 6.6 % (0-10); NRBC Flagged by Analyzer 0 % (0-5); Neutrophil # 4.43 X10^3/uL (2.7-7.7); Neutrophil % 63.1 % (47-70); Platelet Count 269 K/mm3 (150-450); RBC Distribution Width CV 12.8 % (11.6-14.6); Red Blood Count 4.77 M/mm3 (4.2-5.4)
[2024-05-18 08:31] LABS: AST(SGOT) 17 U/L (15-37); Alanine Aminotransfer ALT/SGPT 14 U/L (13-56); Albumin, Serum 3.7 g/dL (3.2-5.0); Alkaline Phosphatase 65 U/L (45-117); Anion Gap 6 (5-15); BUN 10 mg/dL (7-18); BUN/Creat Ratio 10.4 RATIO (10-20); Bilirubin, Direct 0.09 mg/dL (0.00-0.30); Calcium,Total 9.9 mg/dL (8.5-10.1); Chloride 107 mmol/L (98-107); Creatinine, Serum 0.96 mg/dL (0.55-1.02); EST Glomerular Filtration Rate 63 mL/min (>60); Est Glom Filt Rate - Afr Amer 77 mL/min (>60); Estimated Creatinine Clearance 62.87 ml/min; Globulin 3.3 g/dL (2.2-4.2); Glucose 108 mg/dL (74-106); Lipase 40 U/L (13-75); Potassium 3.5 mmol/L (3.5-5.1); Sodium Level 142 mmol/L (136-145)
[2024-05-18] MEDS: LORazepam 2 MG/ML Syringe 1 MG IV (09:20)
[2024-05-18] MEDS: Pantoprazole Sodium 40 MG in 0.9% Normal Saline (100mL MB+) 100 ML 330 MG IV ×2 (10:30→22:01)
[2024-05-18] MEDS: proCHLORPERazine 10 MG/2 ML Vial 5 MG IV (12:33)
[2024-05-18] MEDS: Morphine 2 MG/ML Syringe IV (12:33)
[2024-05-18] MEDS: 0.9% Saline Lock 10 ML Syringe IV (12:33)
[2024-05-18] MEDS: 0.9% Normal Saline (1000mL) 1,000 ML 150 ML IV ×2 (12:34→18:36)
[2024-05-18] MEDS: Acetaminophen 325 MG Tablet 650 MG PO (19:59)
[2024-05-19] MEDS: Acetaminophen 325 MG Tablet 650 MG PO ×2 (02:00→08:34)
[2024-05-19 02:04] VITALS: BP 114/62; PULSE 65; RESP 16; TEMP 36.9; O2SAT 95
[2024-05-19 04:14] VITALS: PULSE 55
[2024-05-19 07:45] LABS: Amphetamine Urine VISTA NEGATIVE (<1000 ng/mL); Barbiturate Urine VISTA NEGATIVE (< 200 ng/mL); Benzodiazepine Urine VISTA NEGATIVE (< 200 ng/mL); Cocaine Urine VISTA NEGATIVE (< 300 ng/mL); Ecstacy Urine VISTA NEGATIVE (< 500 ng/mL); Methadone Urine VISTA NEGATIVE (< 300 ng/mL); PCP Urine VISTA NEGATIVE (< 25 ng/mL); THC Urine VISTA NEGATIVE (< 50 ng/mL); Vista UDS pH Range 5
[2024-05-19 07:56] LABS: Absolute Neutrophil Count 3.1 X10^3/uL (2.0-7.7); Basophil# 0.05 X10^3/uL; Basophil% 0.8 % (0-1); Eosinophil# 0.15 X10^3/uL; Eosinophils% 2.4 % (0-5); Hematocrit 36.7 % (37-47); Hemoglobin 12.1 g/dL (12.0-15.0); Lymphocyte % 40.3 % (19-41); Mean Corpuscular Volume 91.1 fL (81-99); Mean Platelet Vol. 9.7 fl (6.2-12.0); Monocyte# 0.43 X10^3/uL; Monocyte% 6.9 % (0-10); NRBC Flagged by Analyzer 0 % (0-5); Neutrophil # 3.06 X10^3/uL (2.7-7.7); Neutrophil % 49.4 % (47-70); Platelet Count 219 K/mm3 (150-450); RBC Distribution Width CV 13.2 % (11.6-14.6); RBC Distribution Width SD 43.8 fl (35.1-43.9); Red Blood Count 4.03 M/mm3 (4.2-5.4); White Blood Count 6.2 K/mm3 (4.4-11.0)
[2024-05-19 07:59] VITALS: O2SAT 93
[2024-05-19] MEDS: Ondansetron 4 MG/2 ML Vial IV (08:28)
[2024-05-19] MEDS: 0.9% Saline Lock 10 ML Syringe IV ×2 (08:28→08:45)
[2024-05-19 08:40] VITALS: BP 127/75; PULSE 61; RESP 18; TEMP 36.6; O2SAT 98
[2024-05-19] MEDS: Pantoprazole Sodium 40 MG in 0.9% Normal Saline (100mL MB+) 100 ML 330 MG IV (08:45)
[2024-05-19] MEDS: Enoxaparin 40 MG/0.4 ML Syringe SC (08:45)
[2024-05-19 09:13] LABS: ALB/GLOB Ratio 1.2 RATIO (0.9-2.4); AST(SGOT) 12 U/L (15-37); Alanine Aminotransfer ALT/SGPT 13 U/L (13-56); Alkaline Phosphatase 49 U/L (45-117); Anion Gap 5 (5-15); BUN 7 mg/dL (7-18); BUN/Creat Ratio 7.4 RATIO (10-20); Calcium,Total 8.7 mg/dL (8.5-10.1); Chloride 110 mmol/L (98-107); Creatinine, Serum 0.95 mg/dL (0.55-1.02); EST Glomerular Filtration Rate 64 mL/min (>60); Est Glom Filt Rate - Afr Amer 78 mL/min (>60); Estimated Creatinine Clearance 68.94 ml/min; Globulin 2.6 g/dL (2.2-4.2); Glucose 86 mg/dL (74-106); Potassium 3.7 mmol/L (3.5-5.1); Protein, Total 5.6 g/dL (6.4-8.2); Sodium Level 142 mmol/L (136-145)
[2024-05-19 10:11] VITALS: PULSE 65
[2024-05-19 15:41] VITALS: BP 123/62; PULSE 62; RESP 18; TEMP 36.7
== END 2024-05-19 15:52 | disposition home or self-care (01) | DRG 392 ==
LOC: ED 11:04 → MS3 11:21
PROVIDERS: Emergency Provider Emergency Medicine; PCP Family Medicine
DX: K29.70 Gastritis, unspecified, without bleeding (principal); E03.9 Hypothyroidism, unspecified; Z90.710 Acquired absence of both cervix and uterus; Z85.3 Personal history of malignant neoplasm of breast; Z90.49 Acquired absence of other specified parts of digestive tract; Z79.899 Other long term (current) drug therapy
CPT/HCPCS: 36415; 74177; 80048; 80053; 80076; 80307; 83690; 85025; 87506; 97802; 99284; J7030; Q9967; A4216; J2405

== ENCOUNTER → 2024-07-11 | Outpatient (CLI) | payer BC, SELFPAY ==
[2020-01-23 09:03] VITALS: BMI 33.0
--- NOTE | 2024-07-11 07:32 | MRI_ITS ---
HISTORY: Low back pain, upper back pain radiates to right ribs and front, pain increasing in frequency and intensity, NKI, history of breast cancer. TECHNIQUE: Multiplanar and multisequence MR images of the thoracic spine were obtained before and after the intravenous administration of 14 cc clear scan. 241 images. COMPARISON: None. FINDINGS: VERTEBRAE: Vertebral body heights maintained. Mild degenerative bone marrow endplate changes at T7-8 and T8-9. Vertebral body hemangioma incidentally noted at T12. No other significant bone marrow signal abnormality or abnormal enhancing lesion. ALIGNMENT: No significant anterior or posterior subluxation. No scoliosis. SPINAL CANAL: Thoracic cord unremarkable in signal and morphology. Morphology and position of the conus medullaris at the lower T12 level. No gross epidural collection or enhancing intradural extramedullary mass. Artifact of the upper thoracic spine on the postcontrast images from incomplete fat saturation. INTERVERTEBRAL DISCS: No pathologic enhancement. Mild posterior disc protrusion at T6/7 without significant central canal stenosis or foraminal narrowing. No significant posterior disc protrusion, central canal stenosis, or foraminal narrowing at the levels. SOFT TISSUES: No paraspinal fluid collections or enhancing soft tissue mass. MRI/Spine Thoracic W/WO Contrast IMPRESSION: Mild degenerative change of the thoracic spine without significant spinal canal stenosis or foraminal narrowing. No evidence for metastatic disease. Electronically Signed: Amanda Haley MD at 14:15 EST ,
== END | disposition home or self-care (01) ==
LOC: MRI 07:18
PROVIDERS: PCP Family Medicine; Referring Provider Family Medicine; Visit Provider Family Medicine
DX: M54.6 Pain in thoracic spine (principal); Z85.3 Personal history of malignant neoplasm of breast; D49.2 Neoplasm of unspecified behavior of bone, soft tissue, and skin
CPT/HCPCS: 72157; A9575

== ENCOUNTER 2024-07-26 05:43 | Day surgery (SDC) | payer BC, SELFPAY ==
[2020-01-23 09:03] VITALS: BMI 33.0
--- NOTE | 2024-07-25 16:28 | PAT.ANESEVAL ---
Pre-Assessment Diagnosis/Proposed Procedure Planned Operative Procedure(s): (N/A) Colonoscopy,EGD Anesthesia History Anesthesia History - section beamer: Anesthesia History - section beamer Hx Hospitalization Yes: ABD ISSUES 04/202407/24/24 11:24 Any Problems With Anesthesia Yes: PONV 07/24/24 11:24 Cholinesterase deficiency No 07/24/24 11:24 You/Your Family Experience No 07/24/24 11:24 fever (hyperthermia) with Relationship Recent Exposure to Contagious Disease Does patient have nerve No 07/24/24 11:24 stimulator Patient instructed to have device shut off --Does patient have Pacemaker or ICD? When Was Last Pacemaker Check QUESTION #4 FULL TEXT: You/Your Family Experience fever (hyperthermia) with Anesthesia Last Oral Intake Last Oral intake: Last Oral Intake NPO since Meds taken in AM with sips of water? Meds patient instructed to take am of surgery PONV PONV - section beamer: PONV - section beamer Female Yes 07/24/24 11:24 HX of Motion Sickness No 07/24/24 11:24 HX of N/V After Surgery Yes 07/24/24 11:24 Non-Smoker Yes 07/24/24 11:24 Duration of Surgery greater No 07/24/24 11:24 than 60 minutes Number of Risk Factors 3 07/24/24 11:24 PONV Score Moderate Risk 07/24/24 11:24 Height & Weight Height & Weight: Anesthesia: Height & Weight Height 5 ft 7 in 05/19/24 13:14 Respiratory Assessment Respiratory Assessment - section beamer: Respiratory Tract Infection Hx - section beamer Hx Respiratory Tract Infection No 07/24/24 11:24 STOP Sleep Apnea STOP Sleep Apnea - section beamer: STOP Sleep Apnea - section beamer Hx Hypertension Yes: DURING 07/24/24 11:24 Hx Sleep Apnea No 07/24/24 11:24 CPAP BIPAP Do you snore loudly (louder No 07/24/24 11:24 than talking or can be heard Do you often feel tired/ No 07/24/24 11:24 fatigued/ sleepy during daytime? Has anyone observed you stop No 07/24/24 11:24 breathing during sleep? STOP Results Negative 07/24/24 11:24 QUESTION #5 FULL TEXT : Do you snore loudly (louder than talking or can be heard through closed doors)? 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 Specify any problems Hx of Preganancy in last 3 No 07/24/24 11:24 Months Nurse Filling Out Transfusion MGJOSE 07/24/24 11:24 & Questions: Date: 07/24/24 07/24/24 11:24 Time: 11:26 07/24/24 11:24 Patient unable to answer at this time (ie. confused, unrespo /Reproduction History /Reproductive History - section beamer: /Reproductive Hx- section beamer Hx Now No 07/24/24 11:24 Gestational Age (in weeks): EDC: Hx Hx Para Hx Section SAB No 07/24/24 11:24 [facility] Medical History (Updated 07/24/24 @ 11:36 by Ara Frias) Wears glasses Cancer Alcohol use PONV (postoperative nausea and vomiting) Non-smoker History of Holter monitoring History of rheumatic fever History of echocardiogram Cardiology follow-up encounter History of irregular heartbeat COVID (04/2020) Breast cancer, left breast History of pre-eclampsia Endometriosis 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 Polycystic ovaries Migraine Sofía's thyroiditis Home Medications ?Medication ?Instructions ?Recorded ?Last Taken ?Type rizatriptan 10 mg tablet See Rx Instructions PO .COMPLEX 09/09/21 Unknown History cholecalciferol (vitamin D3) 50 50 mcg PO DAILY 10/09/21 05/15/24 History mcg (2,000 unit) capsule magnesium L-threonate 48 mg 48 mg PO DAILY 05/18/24 05/17/24 History magnesium (667 mg) capsule (MagMind) magnesium glycinate (LC-655) 118 mg PO DAILY 05/18/24 05/17/24 History omega 3 350 mg-dha 235 mg-epa 90 1 cap PO DAILY 05/18/24 05/17/24 History mg-fish oil 597 mg capsule,delay rel ([place]-3) thyroid (pork) 90 mg tablet 90 mg PO DAILY 05/18/24 05/18/24 History (Adthyza) tirzepatide (weight loss) 10 7.5 mg subcut KRAUS 05/18/24 07/16/24 History mg/0.5 mL subcutaneous pen injector acetaminophen 325 mg tablet 1,000 mg (3.0769 x 325 mg) PO Q8H 05/19/24 Unknown Rx PRN Pain 1-10 Or Fever >100.7 #0 tabs dicyclomine 10 mg capsule 10 mg PO TID PRN abdominal cramp 05/19/24 Unknown Rx #20 caps omeprazole 20 mg capsule,delayed 20 mg PO DAILY #30 caps 05/19/24 Unknown Rx release Allergy/AdvReac Type Severity Reaction Status Date / Time cefazolin Allergy Intermediate hives Verified 07/24/24 11:21 anastrozole AdvReac Intermediate Cough, Verified 07/24/24 11:21 facial swelling, body aches Seasonal Allergies: Uncoded AdvReac Intermediate ITCHY, Verified 07/24/24 11:21 WATERY EYES duloxetine AdvReac Tachycardia Verified 07/24/24 11:21 Family History Aunt Breast cancer Grandfather Prostate cancer Surgical History (Updated 07/24/24 @ 11:24 by Ara Frias) History of lumpectomy of right breast Status post left breast lumpectomy H/O exploratory laparotomy Hx of cholecystectomy (02/19/98) H/O: hysterectomy (10/19/12) History of lumpectomy of left breast (12/24/19) Social History Smoking Status: Never smoker Audit: Pertinent Findings Pertinent Findings EKG Perinent findings: October 12, 2022. Sinus bradycardia at 55 bpm with sinus arrhythmia and first-degree AV block. Inferior infarct age undetermined. April 26, 2023. Sinus bradycardia at 59 bpm. Inferior myocardial infarction age undetermined. Echo (EF%) pertinent findings: April 28, 2023. Ejection fraction 65%. Tricuspid aortic valve. Right ventricular systolic pressure is 27 mmHg. No aortic stenosis noted. Consult pertinent findings: April 26, 2023. Dr. Rowe. 1. Rule out coronary artery disease-patient has elevated blood pressures on occasion. History of breast cancer. Chronic chest pain. Irregular heartbeats. Sometimes gets pressure-like sensation in her chest. Current EKG shows normal sinus rhythm and possible inferior wall PA. To rule out coronary artery disease plan for echo. Additional pertinent findings: Holter monitor on September 18, 2021. Patient ranged from sinus bradycardia at 41 bpm to 174 bpm-tachycardia during exercise. There were a total of 784 premature ventricular beats comprising 0.8% of the total complexes. No atrial fibrillation was noted. Patient diary had 1 symptom of feeling thumping and pauses which was noted to have PVCs at that time. Recommendation Anesthesia Recommendation Anesthesia recommendation: OPTIMIZED for anesthesia
[2024-07-26] VITALS (8 sets, daily range): BP systolic 86–98; BP diastolic 61–65; PULSE 68–90; RESP 16; TEMP 36.2–36.8; O2SAT 93–98; BMI 24.3
--- NOTE | 2024-07-26 06:59 | EX.PCM.CON.G ---
HPI Consult Data Date of Consult: 07/26/24 HPI Narrative HPI Narrative: MITESH KHAN, is a 59 F who presentsChief Complaint: pain Details: 58y/o female presents for consultation of vomiting and diarrhea. She was admitted 05/18/2024 after presenting to ED with complaints of abdominal cramping, diarrhea and emesis. CT was revealing for marked gastric wall thickening mid to distal stomach. Lipase, CBC and transaminases were unremarkable. Patient notes a prior cholecystectomy as well as multiple laparoscopic surgeries for endometriosis in the past. PMH of breast CA Abdomen/Pelvis CT 05/18/24 Marked gastric wall thickening. This may be due to inflammatory process such as gastritis, or other process including malignancy. Endoscopic correlation may be helpful. No bowel obstruction. - 3 episodes - 1st episode about 12 hours - 2nd episodes 2 days - 3rd episode 4 days - she reports she is eating small meals - denies any ongoing N/V or pain - denies any bleeding - stools are back to normal - she c/o intermittent right flank pain that wraps around to the front and this is associated with RUQ fullness CCX 1997 - she started Terzepitide October 2023 - her first episode of this pain was February, second episode a week later - reports all episodes were associated with a couple weeks of Terzepitide - weight loss of about 30lbs - denies any h/o Colon or EGD [facility] Medical History Wears glasses Cancer Alcohol use PONV (postoperative nausea and vomiting) Non-smoker History of Holter monitoring History of rheumatic fever History of echocardiogram Cardiology follow-up encounter History of irregular heartbeat COVID (04/2020) Breast cancer, left breast History of pre-eclampsia Endometriosis 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 Polycystic ovaries Migraine Sofía's thyroiditis Home Medications ?Medication ?Instructions ?Recorded ?Last Taken ?Type rizatriptan 10 mg tablet See Rx Instructions PO .COMPLEX 09/09/21 Unknown History cholecalciferol (vitamin D3) 50 50 mcg PO DAILY 10/09/21 05/15/24 History mcg (2,000 unit) capsule magnesium L-threonate 48 mg 48 mg PO DAILY 05/18/24 05/17/24 History magnesium (667 mg) capsule (MagMind) magnesium glycinate (LC-655) 118 mg PO DAILY 05/18/24 05/17/24 History omega 3 350 mg-dha 235 mg-epa 90 1 cap PO DAILY 05/18/24 05/17/24 History mg-fish oil 597 mg capsule,delay rel ([place]-3) thyroid (pork) 90 mg tablet 90 mg PO DAILY 05/18/24 07/25/24 History (Adthyza) tirzepatide (weight loss) 10 7.5 mg subcut KRAUS 05/18/24 07/16/24 History mg/0.5 mL subcutaneous pen injector acetaminophen 325 mg tablet 1,000 mg (3.0769 x 325 mg) PO Q8H 05/19/24 Unknown Rx PRN Pain 1-10 Or Fever >100.7 #0 tabs dicyclomine 10 mg capsule 10 mg PO TID PRN abdominal cramp 05/19/24 Unknown Rx #20 caps omeprazole 20 mg capsule,delayed 20 mg PO DAILY #30 caps 05/19/24 Unknown Rx release Allergy/AdvReac Type Severity Reaction Status Date / Time cefazolin Allergy Intermediate hives Verified 07/26/24 06:17 anastrozole AdvReac Intermediate Cough, Verified 07/26/24 06:17 facial swelling, body aches Seasonal Allergies: Uncoded AdvReac Intermediate ITCHY, Verified 07/26/24 06:17 WATERY EYES duloxetine AdvReac Tachycardia Verified 07/26/24 06:17 Family History Aunt Breast cancer Grandfather Prostate cancer Surgical History History of lumpectomy of right breast Status post left breast lumpectomy H/O exploratory laparotomy Hx of cholecystectomy (02/19/98) H/O: hysterectomy (10/19/12) History of lumpectomy of left breast (12/24/19) Social History Smoking Status: Never smoker ROS Constitutional Constitutional: Denies fatigue, fever(s), poor appetite, weight gain or weight loss Gastrointestinal Gastrointestinal: Denies belching, bloating, change in bowel habits, change in stool character, chewing difficulty, coffee ground emesis, constipation, cramping, diarrhea, dyspepsia, dysphagia, early satiety, excessive flatus, fecal incontinence, heartburn, hematemesis, hematochezia, hemorrhoids, loose stools, melena, nausea, odynophagia, rectal bleeding, tenesmus, vomiting or weight changes Physical Exam Const alert, oriented x3, no apparent distress and healthy appearing General Appearance: cooperative GI normal to inspection, nondistended, normoactive bowel sounds, soft to palpation, non-tender and non-distended Percussion: normal to percussion Rectal Exam: deferred Assessment & Plan Assessment/Plan (1) Abnormal CT scan, gastrointestinal tract: (2) Gastritis: QUALIFIERS: Gastritis type: unspecified gastritis Chronicity: acute Gastritis bleeding: without bleeding Qualified Code(s): K29.00 - Acute gastritis without bleeding PLAN: Plan Plan 58y/o female presents for consultation of vomiting and diarrhea. She was admitted 05/18/2024 after presenting to ED with her 3rd bout of complaints of abdominal cramping, diarrhea and emesis. She reports this episode was the most severe and the only thing she can associate with all three episodes was a small consumption of alcohol prior to onset. CT was revealing for marked gastric wall thickening mid to distal stomach. Lipase, CBC and transaminases were unremarkable. She reports symptoms are sudden onset with burning and grabbing epigastric pain followed by diarrhea and emesis. She reports her prior GB pain was similar to her current pain. She will continue Omeprazole 20mg daily and schedule colonoscopy and EGD. If she has a recurrent episode of pain she will start dicyclomine. In terms of tirzepatide, we have discussed potential s/e; however, she has been on GLP1 since October 2023 and denies any recent dose increase prior to onset of symtpoms. From a GI standpoint I advised she may resume tirzepatide and monitor symptoms. Plan Details Follow Up: 8 Weeks
--- NOTE | 2024-07-26 07:00 | IMM_PTH ---
PATIENT: MITESH KHAN LOC: EN U#:[id number] AGE/SX: 59/F ROOM: RE07/26/[address]: Dr. Go Aguila DO : 1965 BED: DIS: 07/26/2024 SPEC #: [id number] RECD: 07/26/24 14:37 STATUS: BRAULIO REQ #: [id number] VIDHI: 07/26/24 07:[address]: Go Aguila DEPT: IMMUNOHISTOCHEMISTRY RECD BY: Quang Cisneros ENTERED: 07/26/24 14:37 SP TYPE: IMMUNO OTHR DR: Dr. Juan Ramon Myles DO Tissues: A - Gastric mucous membrane Procedures: H Pylori (initial) PHYSICIAN & INSTITUTION [place] [id number] SPECIMEN INFORMATION: Tissue Source: A- Gastric body biopsy Clinical Info: Abnormal CT scan, gastrointestinal tract, gastritis Specimen Number: [id number] CPT code: 67355 METHODOLOGY: Deparaffinized sections of prefer/formalin-fixed tissue or PAP/DQ stained slides are incubated with monoclonal/polyclonal antibodies/oligonucleotide probes. Localization is made via biotin free immunoperoxidase method. Appropriate controls are performed and reacted as expected. Results on target cell population are indicated in the following table: RESULTS: ANTIBODY / CLONE RESULT Block AH Pylori (polyclonal) negative These tests were developed and their performance characteristics determined by [facility]. They may not have been cleared or approved by the U.S. Food and Drug Administration. The FDA has determined that such clearance or approval is not necessary. The above immunohistochemical/dualISH markers are ordered and reviewed by the Pathologist. INTERPRETATION: A. Gastric body, biopsy: Negative for Helicobacter pylori organisms. 07/27/2024
--- NOTE | 2024-07-26 07:00 | COLBX_PTH ---
PATIENT: MITESH KHAN LOC: EN U#:[id number] AGE/SX: 59/F ROOM: RE07/26/[address]: Dr. Go Aguila DO : 1965 BED: DIS: 07/26/2024 SPEC #: [id number] RECD: 07/26/24 12:30 STATUS: BRAULIO BRENNA #: [id number] VIDHI: 07/26/24 07:[address]: Go Aguila DEPT: SURGICAL PATHOLOGY RECD BY: Cristo Farmer ENTERED: 07/26/24 13:23 SP TYPE: COLON BX OTHR DR: Dr. Juan Ramon Myles DO Tissues: A - Gastric mucous membrane B - Duodenum, NOS C - Esophagus, NOS D - Ileum, NOS E - COLON BIOPSY Procedures: Special Stain Group I Surgery Specimen Level IV Alcian Blue/PAS (control) HEADER OPERATION: Colonoscopy, EGD with biopsy PRE-OP DIAGNOSIS: Abnormal CT scan, gastrointestinal tract, gastritis TISSUE SUBMITTED: A- Gastric body biopsy, B- Duodenum biopsy, C- Distal esophagus biopsy, D- Terminal ileum biopsy, E- Random colon biopsy MICROSCOPIC DIAGNOSIS A. Gastric body, biopsy: Mild gastritis. See microscopic description and comment. B. Duodenum, biopsy: A fragment of duodenal mucosa, no pathologic diagnosis. C. Distal esophagus, biopsy: Fragments of gastroesophageal mucosa with chronic inflammation. Intestinal metaplasia (goblet cell metaplasia) not identified. See comment. D. Terminal ileum, biopsy: Fragments of small intestinal mucosa, no pathologic diagnosis. See comment. E. Colon, random biopsy: Fragments of colonic mucosa, no pathologic diagnosis. SJ. 07/27/2024 COMMENT A. The results of immunohistochemistry for Helicobacter pylori will be reported separately ([id number]). C. Alcian blue/PAS stain with matched control is used in the evaluation of the specimen. D. Prominent lymphoid aggregates are noted. MICROSCOPIC DESCRIPTION Slides are reviewed. A. The specimen shows fragments of gastric mucosa with chronic inflammatory cell infiltrates in the lamina propria consisting of lymphocytes and plasma cells, consistent with mild chronic gastritis. GROSS DESCRIPTION A. Received in fixative is one container labeled with the patient's name and designated Gastric body biopsy. The specimen consists of multiple irregular fragments of light almeida soft tissue that in aggregate measure 1.2 x 0.4 x 0.2 cm. The specimen is totally submitted in one cassette. B. Received in fixative is one container labeled with the patient's name and designated Duodenum biopsy. The specimen consists of one irregular fragment of light almeida soft tissue that measures 0.7 x 0.3 x 0.1 cm. The specimen is totally submitted in one cassette. C. Received in fixative is one container labeled with the patient's name and designated Distal esophagus biopsy. The specimen consists of two irregular fragments of light almeida soft tissue that in aggregate measure 0.9 x 0.3 x 0.2 cm. The specimen is totally submitted in one cassette. D. Received in fixative is one container labeled with the patient's name and designated Terminal ileum biopsy. The specimen consists of multiple irregular fragments of light almeida soft tissue that in aggregate measure 1.5 x 0.3 x 0.2 cm. The specimen is totally submitted in one cassette. E. Received in fixative is one container labeled with the patient's name and designated Random colon biopsy. The specimen consists of multiple irregular fragments of light almeida soft tissue that in aggregate measure 2.5 x 0.3 x 0.2 cm. The specimen is totally submitted in one cassette. JULY 07/26/2024 TC:3 CPT:[id number]
--- NOTE | 2024-07-26 07:01 | PCM.PRE.AN2 ---
ASA Classification* ASA Classification ASA Classification: 2 Assessment & Plan Anesthesia* Anesthesia Assessment Anesthesia Assessment: Discussed sedation and/or anesthesia options, risks, benefits, and alternatives with patient/parents/legal guardian/POA. Questions invited. The patient/parents/legal guardian/POA seems to understand and agrees to proceed with anesthesia plan. Reviewed the physical assessment, medical history, allergy history and patient home medications list prior to surgery/procedure/anesthetic and documented any changes. Performed airway and anesthesia risk assessments. Anesthesia Type Anesthesia Type: MAC Anesthesia Focused Assessment* Temperature: 97.9 F Pulse Rate: 70 Blood Pressure: 93/61 Respiratory Rate: 16 Pulse Ox: 98 Airway Assessment Mouth opens: >3 cm Mallampati Score: II Focused Labs Anesthesia Preop lab: CBC WBC 6.2 K/mm3 (4.4-11.0) 05/19/24 06:52 05/19/24 RBC 4.03 M/mm3 (4.2-5.4) L 05/19/24 06:52 05/19/24 Hgb 12.1 g/dL (12.0-15.0) 05/19/24 06:52 05/19/24 Hct 36.7 % (37-47) L 05/19/24 06:52 05/19/24 Plt Count 219 K/mm3 (150-450) 05/19/24 06:52 05/19/24 CHEMISTRY Potassium 3.7 mmol/L (3.5-5.1) 05/19/24 06:52 05/19/24 Sodium 142 mmol/L (136-145) 05/19/24 06:52 05/19/24 BUN 7 mg/dL (7-18) 05/19/24 06:52 05/19/24 Creatinine 0.95 mg/dL (0.55-1.02) 05/19/24 06:52 05/19/24 Glucose 86 mg/dL (74-106) 05/19/24 06:52 05/19/24 TSH 0.37 uIU/mL (0.358-3.74) 10/18/23 16:15 10/18/23 COAG Pre-Assessment Diagnosis/Proposed Procedure Planned Operative Procedure(s): (N/A) Colonoscopy,EGD Anesthesia History Anesthesia History - intermediate project manager: Anesthesia History - intermediate project manager Hx Hospitalization Yes: ABD ISSUES 04/202407/24/24 11:24 Any Problems With Anesthesia Yes: PONV 07/24/24 11:24 Cholinesterase deficiency No 07/24/24 11:24 You/Your Family Experience No 07/24/24 11:24 fever (hyperthermia) with Relationship Recent Exposure to Contagious No 07/26/24 06:18 Disease Does patient have nerve No 07/24/24 11:24 stimulator Patient instructed to have device shut off --Does patient have Pacemaker No 07/26/24 06:18 or ICD? When Was Last Pacemaker Check QUESTION #4 FULL TEXT: You/Your Family Experience fever (hyperthermia) with Anesthesia Last Oral Intake Last Oral intake: Last Oral Intake NPO since 17:00 07/26/24 06:18 Meds taken in AM with sips of No 07/26/24 06:18 water? Meds patient instructed to take am of surgery PONV PONV - intermediate project manager: PONV - intermediate project manager Female Yes 07/24/24 11:24 HX of Motion Sickness No 07/24/24 11:24 HX of N/V After Surgery Yes 07/24/24 11:24 Non-Smoker Yes 07/24/24 11:24 Duration of Surgery greater No 07/24/24 11:24 than 60 minutes Number of Risk Factors 3 07/24/24 11:24 PONV Score Moderate Risk 07/24/24 11:24 Height & Weight Height & Weight: Anesthesia: Height & Weight Height 5 ft 7 in 07/26/24 06:18 Weight: 70.307 kg 07/26/24 06:18 Body Mass Index (BMI) 24.3 07/26/24 06:18 Respiratory Assessment Respiratory Assessment - intermediate project manager: Respiratory Tract Infection Hx - intermediate project manager Hx Respiratory Tract Infection No 07/24/24 11:24 STOP Sleep Apnea STOP Sleep Apnea - intermediate project manager: STOP Sleep Apnea - intermediate project manager Hx Hypertension Yes: DURING 07/24/24 11:24 Hx Sleep Apnea No 07/24/24 11:24 CPAP BIPAP Do you snore loudly (louder No 07/24/24 11:24 than talking or can be heard Do you often feel tired/ No 07/24/24 11:24 fatigued/ sleepy during daytime? Has anyone observed you stop No 07/24/24 11:24 breathing during sleep? STOP Results Negative 07/24/24 11:24 QUESTION #5 FULL TEXT : Do you snore loudly (louder than talking or can be heard through closed doors)? 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 Specify any problems Hx of Preganancy in last 3 No 07/24/24 11:24 Months Nurse Filling Out Transfusion MGRIFFITH 07/24/24 11:24 & Questions: Date: 07/24/24 07/24/24 11:24 Time: 11:26 07/24/24 11:24 Patient unable to answer at this time (ie. confused, unrespo /Reproduction History /Reproductive History - intermediate project manager: /Reproductive Hx- intermediate project manager Hx Now No 07/24/24 11:24 Gestational Age (in weeks): EDC: Hx Hx Para Hx Section SAB No 07/24/24 11:24 [facility] Medical History Wears glasses Cancer Alcohol use PONV (postoperative nausea and vomiting) Non-smoker History of Holter monitoring History of rheumatic fever History of echocardiogram Cardiology follow-up encounter History of irregular heartbeat COVID (04/2020) Breast cancer, left breast History of pre-eclampsia Endometriosis 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 Polycystic ovaries Migraine Sofía's thyroiditis Home Medications ?Medication ?Instructions ?Recorded ?Last Taken ?Type rizatriptan 10 mg tablet See Rx Instructions PO .COMPLEX 09/09/21 Unknown History cholecalciferol (vitamin D3) 50 50 mcg PO DAILY 10/09/21 05/15/24 History mcg (2,000 unit) capsule magnesium L-threonate 48 mg 48 mg PO DAILY 05/18/24 05/17/24 History magnesium (667 mg) capsule (MagMind) magnesium glycinate (LC-655) 118 mg PO DAILY 05/18/24 05/17/24 History omega 3 350 mg-dha 235 mg-epa 90 1 cap PO DAILY 05/18/24 05/17/24 History mg-fish oil 597 mg capsule,delay rel (Telluride-3) thyroid (pork) 90 mg tablet 90 mg PO DAILY 05/18/24 07/25/24 History (Adthyza) tirzepatide (weight loss) 10 7.5 mg subcut KRAUS 05/18/24 07/16/24 History mg/0.5 mL subcutaneous pen injector acetaminophen 325 mg tablet 1,000 mg (3.0769 x 325 mg) PO Q8H 05/19/24 Unknown Rx PRN Pain 1-10 Or Fever >100.7 #0 tabs dicyclomine 10 mg capsule 10 mg PO TID PRN abdominal cramp 05/19/24 Unknown Rx #20 caps omeprazole 20 mg capsule,delayed 20 mg PO DAILY #30 caps 05/19/24 Unknown Rx release Allergy/AdvReac Type Severity Reaction Status Date / Time cefazolin Allergy Intermediate hives Verified 07/26/24 06:17 anastrozole AdvReac Intermediate Cough, Verified 07/26/24 06:17 facial swelling, body aches Seasonal Allergies: Uncoded AdvReac Intermediate ITCHY, Verified 07/26/24 06:17 WATERY EYES duloxetine AdvReac Tachycardia Verified 07/26/24 06:17 Family History Aunt Breast cancer Grandfather Prostate cancer Surgical History History of lumpectomy of right breast Status post left breast lumpectomy H/O exploratory laparotomy Hx of cholecystectomy (02/19/98) H/O: hysterectomy (10/19/12) History of lumpectomy of left breast (12/24/19) Social History Smoking Status: Never smoker Review of Systems (Anesthesia) ROS Narrative System reviewed and no additional complaints, except as documented.
--- NOTE | 2024-07-26 07:38 | PCM.POST.ANE ---
Anesthesia: Postop Eval I Current Vital Signs Temperature: 98.2 F Pulse Rate: 90 Blood Pressure: 91/65 Respiratory Rate: 16 Pulse Ox: 94 Oxygen Delivery Method: Room Air Assessment Airway patent: Yes Spontaneous unlabored respirations: Yes Mental status: Awake and Calm nausea: No Vomiting: No Anesthesia Complication: No Fluid Hydration Crystalloid volume administer (ml): 10 Total IV fluid infused: 10 Progress Note Anesthesia document: Postop Eval 1 completed: Yes
--- NOTE | 2024-07-26 07:44 | OP.CCLET_ITS ---
07/26/2024 Juan Ramon Myles [address] [facility] [place] [address] Re : Upper GI endoscopy procedure for Marva Crawley Dear Dr. Myles This procedure was performed on Friday, July 26, 2024. My impressions and recommendations are as follows: Impressions : - LA Grade B reflux esophagitis with no bleeding. Biopsied. - Medium-sized hiatal hernia. - Chronic gastritis. Biopsied. - Erythematous duodenopathy. Biopsied. Recommendations : - Discharge patient to home. - Resume previous diet. - Continue present medications. - Await pathology results. - Repeat upper endoscopy to check healing. My findings are described in the full procedure note, which is enclosed. If I can be of further assistance, please feel free to contact me at . Sincerely, Go Aguila, 07/26/2024 7:44:36 AM This report has been signed electronically.
--- NOTE | 2024-07-26 07:44 | OP.EGD_ITS ---
Patient Name: Marva Crawley Procedure Date: 07/26/2024 7:06 AM Date of : 1965 Age: 59 Procedure: Upper GI endoscopy Indications: Epigastric abdominal pain, Dyspepsia Providers: Go Aguila DO Referring MD: Juan Ramon Myles Medicines: Monitored Anesthesia Care Patient Profile: This is a 59 year old female. Refer to note in patient chart for documentation of history and physical. Patient has symptoms of acute epigastric abdominal pain and acute dyspepsia. Complications: No immediate complications. Procedure: Pre-Anesthesia Assessment: - Prior to the procedure, a History and Physical was performed, and patient medications and allergies were reviewed. The patient is competent. The risks and benefits of the procedure and the sedation options and risks were discussed with the patient. All questions were answered and informed consent was obtained. Patient identification and proposed procedure were verified by the physician in the pre-procedure area. Mental Status Examination: alert and oriented. Airway Examination: normal oropharyngeal airway and neck mobility. Respiratory Examination: clear to auscultation. CV Examination: normal. Prophylactic Antibiotics: The patient does not require prophylactic antibiotics. Prior Anticoagulants: The patient has taken no anticoagulant or antiplatelet agents. ASA Grade Assessment: II - A patient with mild systemic disease. After reviewing the risks and benefits, the patient was deemed in satisfactory condition to undergo the procedure. The anesthesia plan was to use monitored anesthesia care (MAC). Immediately prior to administration of medications, the patient was re-assessed for adequacy to receive sedatives. The heart rate, respiratory rate, oxygen saturations, blood pressure, adequacy of pulmonary ventilation, and response to care were monitored throughout the procedure. The physical status of the patient was re-assessed after the procedure. After obtaining informed consent, the endoscope was passed under direct vision. Throughout the procedure, the patient's blood pressure, pulse, and oxygen saturations were monitored continuously. The Colonoscope was introduced through the mouth, and advanced to the second part of duodenum. The upper GI endoscopy was accomplished without difficulty. The patient tolerated the procedure well. Scope In: 7:15:23 AM Scope Out: 7:20:24 AM Total Procedure Duration Time 0 hours 5 minutes 1 second Findings: LA Grade B (one or more mucosal breaks greater than 5 mm, not extending between the tops of two mucosal folds) esophagitis with no bleeding was found 38 to 41 cm from the incisors. Biopsies were taken with a cold forceps for histology. Verification of patient identification for the specimen was done. Estimated blood loss was minimal. A medium-sized hiatal hernia was present. Patchy moderate inflammation characterized by erosions, erythema, friability and granularity was found in the gastric body. Biopsies were taken with a cold forceps for histology. Verification of patient identification for the specimen was done. Estimated blood loss was minimal. Biopsies were taken with a cold forceps for Helicobacter pylori testing. Verification of patient identification for the specimen was done. Estimated blood loss was minimal. Diffuse mildly erythematous mucosa without active bleeding and with no stigmata of bleeding was found in the second portion of the duodenum. Biopsies were taken with a cold forceps for histology. Verification of patient identification for the specimen was done. Estimated blood loss was minimal. Impression: - LA Grade B reflux esophagitis with no bleeding. Biopsied. - Medium-sized hiatal hernia. - Chronic gastritis. Biopsied. - Erythematous duodenopathy. Biopsied. Recommendation: - Discharge patient to home. - Resume previous diet. - Continue present medications. - Await pathology results. - Repeat upper endoscopy to check healing. Procedure Code(s): --- Professional --- 70669, Esophagogastroduodenoscopy, flexible, transoral; with biopsy, single or multiple CPT copyright 2021 [employer]. All rights reserved. The codes documented in this report are preliminary and upon clinical nursing director review may be revised to meet current compliance requirements. Go Aguila DO 07/26/2024 7:44:36 AM This report has been signed electronically. Number of Addenda: 0 Note Initiated On: 07/26/2024 7:06 AM
--- NOTE | 2024-07-26 08:06 | OP.CCLET_ITS ---
07/26/2024 Juan Ramon Myles [address] [place] [address] Re : Colonoscopy procedure for Marva Crawley Dear Dr. Myles This procedure was performed on Friday, July 26, 2024. My impressions and recommendations are as follows: Impressions : - Congested mucosa in the entire examined colon. Biopsied. - Mild inflammation was found in the ileum secondary to ileitis. Biopsied. - Internal hemorrhoids were also seen Recommendations : - Discharge patient to home. - Resume previous diet. - Continue present medications. - Await pathology results. - Repeat colonoscopy in 10 years for screening purposes. My findings are described in the full procedure note, which is enclosed. If I can be of further assistance, please feel free to contact me at . Sincerely, Go Friend, 07/26/2024 8:05:35 AM This report has been signed electronically.
--- NOTE | 2024-07-26 08:06 | OP.COLON_ITS ---
Patient Name: Marva Crawley Procedure Date: 07/26/2024 7:20 AM Date of : 1965 Age: 59 Procedure: Colonoscopy Indications: Clinically significant diarrhea of unexplained origin Providers: Go Aguila DO Referring MD: Juan Ramon Myles Medicines: Monitored Anesthesia Care Patient Profile: This is a 59 year old female. Refer to note in patient chart for documentation of history and physical. Patient has symptoms of acute epigastric abdominal pain and acute dyspepsia. Last Colonoscopy: none. The patient's first colonoscopy is today. Complications: No immediate complications. Procedure: Pre-Anesthesia Assessment: - Prior to the procedure, a History and Physical was performed, and patient medications and allergies were reviewed. The patient is competent. The risks and benefits of the procedure and the sedation options and risks were discussed with the patient. All questions were answered and informed consent was obtained. Patient identification and proposed procedure were verified by the physician in the pre-procedure area. Mental Status Examination: alert and oriented. Airway Examination: normal oropharyngeal airway and neck mobility. Respiratory Examination: clear to auscultation. CV Examination: normal. Prophylactic Antibiotics: The patient does not require prophylactic antibiotics. Prior Anticoagulants: The patient has taken no anticoagulant or antiplatelet agents. ASA Grade Assessment: II - A patient with mild systemic disease. After reviewing the risks and benefits, the patient was deemed in satisfactory condition to undergo the procedure. The anesthesia plan was to use monitored anesthesia care (MAC). Immediately prior to administration of medications, the patient was re-assessed for adequacy to receive sedatives. The heart rate, respiratory rate, oxygen saturations, blood pressure, adequacy of pulmonary ventilation, and response to care were monitored throughout the procedure. The physical status of the patient was re-assessed after the procedure. After I obtained informed consent, the scope was passed under direct vision. Throughout the procedure, the patient's blood pressure, pulse, and oxygen saturations were monitored continuously. The Colonoscope was introduced through the anus and advanced to the terminal ileum. The colonoscopy was performed without difficulty. The patient tolerated the procedure well. The quality of the bowel preparation was adequate. The terminal ileum, ileocecal valve, appendiceal orifice, and rectum were photographed. Scope In: 7:22:35 AM Scope Withdrawal Time 0 hours 7 minutes 26 seconds Scope Out: 7:31:32 AM Total Procedure Duration Time 0 hours 8 minutes 57 seconds Findings: The perianal and digital rectal examinations were normal. An area of moderately congested mucosa was found in the entire colon. Biopsies were taken with a cold forceps for histology. Verification of patient identification for the specimen was done. Estimated blood loss was minimal. Patchy mild inflammation characterized by erythema was found in the terminal ileum. Biopsies were taken with a cold forceps for histology. Verification of patient identification for the specimen was done. Estimated blood loss was minimal. Impression: - Congested mucosa in the entire examined colon. Biopsied. - Mild inflammation was found in the ileum secondary to ileitis. Biopsied. - Internal hemorrhoids were also seen Recommendation: - Discharge patient to home. - Resume previous diet. - Continue present medications. - Await pathology results. - Repeat colonoscopy in 10 years for screening purposes. Procedure Code(s): --- Professional --- 10709, Colonoscopy, flexible; with biopsy, single or multiple CPT copyright 2021 [employer]. All rights reserved. The codes documented in this report are preliminary and upon direct support professional caregiver review may be revised to meet current compliance requirements. Go Aguila DO 07/26/2024 8:05:35 AM This report has been signed electronically. Number of Addenda: 0 Note Initiated On: 07/26/2024 7:20 AM
--- NOTE | 2024-07-26 08:51 | POSTOPAN2_ITS ---
Anesthesia Postop Eval I Sum Postop Eval Completion status Anesthesia document: Postop Eval 1 completed: Yes Anesthesia Postop Eval I Summary Anesthesia Postop Eval I Summary: Anesthesia Postop Eval I: Assessment Summary Airway patent Yes 07/26/24 08:42 DIRECTOR OF RECRUITMENT.[email or web address] Spontaneous unlabored Yes 07/26/24 08:42 DIRECTOR OF RECRUITMENT.GDOTT respirations Mental status Awake,Calm 07/26/24 08:42 DIRECTOR OF RECRUITMENT.GDOTT nausea No 07/26/24 08:42 DIRECTOR OF RECRUITMENT.GDOTT Vomiting No 07/26/24 08:42 DIRECTOR OF RECRUITMENT.GDOTT Anesthesia Postop Eval I: Fluid Summary Crystalloid volume administer 10 07/26/24 08:42 DIRECTOR OF RECRUITMENT.GDOTT (ml) Colloids volume administered ( ml) Blood Product volume administered (ml) Total IV fluid infused 10 07/26/24 08:42 DIRECTOR OF RECRUITMENT.GDOTT Anesthesia Postop Eval I: Summary Notes Anesthesia Complication No 07/26/24 08:42 DIRECTOR OF RECRUITMENT.GDOTT Anesthesia Complication Comment: Post-operative progress note Anesthesia: Postop Eval II Evaluation Mental status: Awake Pain Level: 0 nausea: No Vomiting: No
--- NOTE | 2024-07-26 08:51 | PCM.POSTANE2 ---
Anesthesia Postop Eval I Sum Postop Eval Completion status Anesthesia document: Postop Eval 1 completed: Yes Anesthesia Postop Eval I Summary Anesthesia Postop Eval I Summary: Anesthesia Postop Eval I: Assessment Summary Airway patent Yes 07/26/24 08:42 TOWER EQUIPMENT REPAIRER.GDOTT Spontaneous unlabored Yes 07/26/24 08:42 TOWER EQUIPMENT REPAIRER.GDOTT respirations Mental status Awake,Calm 07/26/24 08:42 TOWER EQUIPMENT REPAIRER.GDOTT nausea No 07/26/24 08:42 TOWER EQUIPMENT REPAIRER.GDOTT Vomiting No 07/26/24 08:42 TOWER EQUIPMENT REPAIRER.GDOTT Anesthesia Postop Eval I: Fluid Summary Crystalloid volume administer 10 07/26/24 08:42 TOWER EQUIPMENT REPAIRER.GDOTT (ml) Colloids volume administered ( ml) Blood Product volume administered (ml) Total IV fluid infused 10 07/26/24 08:42 TOWER EQUIPMENT REPAIRER.GDOTT Anesthesia Postop Eval I: Summary Notes Anesthesia Complication No 07/26/24 08:42 TOWER EQUIPMENT REPAIRER.GDOTT Anesthesia Complication Comment: Post-operative progress note Anesthesia: Postop Eval II Evaluation Mental status: Awake Pain Level: 0 nausea: No Vomiting: No
== END 2024-07-26 08:20 | disposition home or self-care (01) ==
LOC: EN 05:44 → AC 05:45
PROVIDERS: PCP Family Medicine; Referring Provider Family Medicine; Visit Provider Internal Medicine Gastroenterology
PROC: 0DJD8ZZ Inspection of Lower Intestinal Tract, Via Natural or Artificial Opening Endoscopic (ICD-10-PCS; CPT 45378; principal; 2024-07-26 06:55)
DX: K29.00 Acute gastritis without bleeding (principal); K44.9 Diaphragmatic hernia without obstruction or gangrene; Z90.710 Acquired absence of both cervix and uterus; K29.50 Unspecified chronic gastritis without bleeding; K21.00 Gastro-esophageal reflux disease with esophagitis, without bleeding; K64.8 Other hemorrhoids; Z90.49 Acquired absence of other specified parts of digestive tract; Z85.3 Personal history of malignant neoplasm of breast; R93.3 Abnormal findings on diagnostic imaging of other parts of digestive tract; K31.89 Other diseases of stomach and duodenum; K52.9 Noninfective gastroenteritis and colitis, unspecified
CPT/HCPCS: 45380; 43239; 88305; 88312; 88342; A4216

== ENCOUNTER → 2024-07-28 | Outpatient (CLI) | payer BC, SELFPAY ==
[2020-01-23 09:03] VITALS: BMI 33.0
== END | disposition home or self-care (01) ==
LOC: BFHLAB 11:05 → LAB.FUTURE 11:07
PROVIDERS: PCP Family Medicine; Visit Provider Family Medicine
DX: Z00.00 Encounter for general adult medical examination without abnormal findings (principal); E03.9 Hypothyroidism, unspecified

== ENCOUNTER → 2024-07-31 | Outpatient (CLI) | payer BC, SELFPAY ==
[2020-01-23 09:03] VITALS: BMI 33.0
[2024-07-31 13:06] LABS: Cholesterol 241 mg/dL (200); Free T3 2.6 pg/mL (2.18-3.98); High Density Lipoprotein 67 mg/dL; T4 Free Direct 0.86 ng/dL (0.76-1.46); Triglycerides 121 mg/dL; Very Low Density Lipoprotein 24 mg/dL (5-40)
== END | disposition home or self-care (01) ==
LOC: BFHLAB 09:21
PROVIDERS: PCP Family Medicine; Referring Provider Family Medicine; Visit Provider Family Medicine
DX: Z00.00 Encounter for general adult medical examination without abnormal findings (principal); E03.9 Hypothyroidism, unspecified
CPT/HCPCS: 36415; 80061; 84439; 84443; 84481

== ENCOUNTER 2024-10-13 13:00 | Outpatient (RCR) | payer BC, SELFPAY ==
[2020-01-23 09:03] VITALS: BMI 33.0
--- NOTE | 2024-08-21 16:02 | HP.PTEVAL ---
Patient's Visit Information Visit Information Visit Information: MITESH KHAN is a 59 year old F referred to Physical Therapy by Dr. Juan Ramon Myles DO with a diagnosis of Thoracic back pain. Date of Evaluation: 08/21/24 Physical Therapist: Dani Roger DPT Visit Plan Frequency: 2x /Week Duration: 6 Weeks Plan: 1) manual to R erector spinae 2) trunk extension, and rotational stretching 3) DN to erector spinae Subjective Subjective: Pt. is here today for her initial evaluation with diagnosis of thoracic spine pain. pt. reports having pain in her back for no major reason. She thinks it may have stemmed from an accident where she was doing the splits and slipped causing her move awkwardly. Pt. reports pain in the R side of her lower thoracic spine that wraps around the R side at times. pt. reports no issues with breathing, no marked trigger of her symptoms. Pt. will have times where she is fine and other times where it is more intense. no N/T. Pt. did have a CT with nothing showing. Pt. reports no distal LE symptoms. She reports not much change in symptoms with changing of positions well. Pt. is hopeful to reduce symptoms in order to get back to all recreational activities without limitations. 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 Pain Thoracic spine: Pain Intensity (Out of 10): 1 Comment: R side lower aspect. Objective Objective: POSTURE: Pt. has fairly normal posture in stance. Normal lumbar positioning and normal iliac crest heights. PALPATION: Pt. has tenderness along R side of lower thoracic and upper lumbar paraspinals. Pt. has no pain with spring testing throughout thoracic spine, slight soreness at L4/L5 region. No pain with testing of Ribs in either side. NEURO: Pt. has normal sensation of BUEs and BLEs. Pt. is able to rise on heels and toes without issues. ROM: Pt. has good ROM of lumbar and thoracic spine. Slight increase in symptoms with thoracic rotation. Pt. has tightness in her R hip flexor, but is very flexible everywhere else. MMT: Pt. has 5/5 strength throughout B distal LEs. Pt. hsa 4+/5 bilateral hips. Fair- core strength. GAIT: Pt. ambulates well without increase in thoracic pain. Normal pattern noted. STAIRS: normal. Special Tests Thoracic Sitting: Flexion - Mechanical Response: No effect Thoracic Sitting: Flexion - Symptoms During Testing: No effect Thoracic Sitting: Flexion - Symptoms After Testing: No effect Thoracic Sitting: Extension - Mechanical Response: No effect Thoracic Sitting: Extension - Symptoms During Testing: No effect Thoracic Sitting: Extension - Symptoms After Testing: No effect Thoracic Sitting: Left rotation - Mechanical Response: No effect Thoracic Sitting: Left Rotation - Symptoms During Testing: Increases Thoracic Sitting: Left Rotation - Symptoms After Testing: No worse L/S Slump test left side: Negative L/S Slump test right side: Negative L/S Left Straight Leg Raise: Negative L/S Right Straight Leg Raise: Negative Balance/Special Test Scores Oswestry Low Back Score: 19 Goals Goal 1:: LTG: Pt. to be I with HEP. Goal Time Frame: 4-6 Weeks Goal 2:: STG: Pt. to be able to sit for 30min without increase in thoracic spine pain. Goal Time Frame: 2-4 Weeks Goal 3:: LTG: pt. to be able to complete all ADLs and work activities without increase in symptoms. Goal Time Frame: 4-6 Weeks Goal 4:: LTG: Pt. to have full lumbar and thoracic spine ROM without increase in symptoms. Goal Time Frame: 4-6 Weeks Rehabilitation Potential Physical Therapy Diagnosis: Pt. has signs and symptoms consistent with thoracic pain. She did not have nay pain with PAs throughout thoracic spine, but more so in the surrounding musculature. Pt. did not have any N/T, symptoms suggest more soft tissue issues. Rehabilitation Potential: Excellent Anticipated Interventions Patient/Client Instruction: Educate patient on: Condition, Plan of Care, Risk Factors and Benefits of Fitness Program For the Purpose of:: To improve health and function, To foster healthy habits, To improve decision making, To facilitate caregiver knowledge, To improve self management, To prevent re-injury and To improve ability to perform tasks related to life management Therapeutic Exercise to Include: Strength training, Power training, Postural training, Flexibilty training, Passive ROM, Active ROM and Dynamic Lumbar Stabilization For the Purpose of:: To decrease pain, To increase ROM, To improve nutrient delivery to tissue, To increase oxygenation perfusion, To improve muscle performance and motor function, To improve ability to perform ADL's, To decrease soft tissue restriction and To increase flexibility/ROM Manual Therapy Techniques to Include: Scar massage, Mobilization, Functional dry needling and Soft tissue mobilization Comment: IASTIM For the Purpose of:: To decrease pain, To increase ROM, To improve nutrient delivery to tissue, To increase oxygenation perfusion and To improve muscle performance and motor function Text: Thank you for the opportunity to evaluate your patient. For Medicare and Medicare HMO plans, please review the plan of care and approve it. It will need to be FAXED BACK to us at [phone] for Medicare purposes. For Medicare only, by signing this I certify the plan of care. Please let me know if there are questions or concerns regarding this plan of care. Physician Signature: Date:
== END 2024-10-13 19:00 | disposition home or self-care (01) ==
LOC: PT 13:00
PROVIDERS: PCP Family Medicine; Referring Provider Family Medicine; Visit Provider Family Medicine
DX: M54.6 Pain in thoracic spine (principal)
CPT/HCPCS: 97110; 97140; 97161

== ENCOUNTER → 2025-01-24 | Outpatient (CLI) | payer BC, SELFPAY ==
[2020-01-23 09:03] VITALS: BMI 33.0
--- OUTSIDE RECORDS SUMMARY | 2025-01-24 11:37 | XMS RPT_ITS | CCD ---
Author Organization [facility] Care Team Providers Care Swatch Clerk Name Role Phone Dr. Patricia Winston Primary Care Provider Shi Mendoza Attending Provider Unavailable Dr. Patricia Winston Referring Provider [phone] Dr. Liam Chou Attending Provider Patricia Winston DO Primary Care Provider Owen FOSS MD, Daesung Unavailable Filomena Rizvi MD Unavailable Jackie RN, Bethany Unavailable Unavailable Masci DO, Aman A Unavailable Dr. Torres Robin Attending Provider Patricia Winston DO Primary Care Provider Owen FOSS MD, Daesung Unavailable Filomena Rizvi MD Unavailable [phone] Jackie RN, Bethany Unavailable Unavailable Masci DO, Aman A Unavailable Patriica Winston DO Primary Care Provider Owen FOSS MD, Daesung Unavailable Filomena Rizvi MD Unavailable Jackie RN, Bethany Unavailable Unavailable Masci DO, Aman A Unavailable [facility] Miller Referring Unavailable Dr. Patricia Winston Primary Care Unavaila Dr. David Hammond Attending Unava ilclaire Mejia RN, Bethany Unavailable Unavailable Soledad FOSS, Audrey Unavailable Owen FOSS, Daesung Unavailable Catrachitoisaac VANEGAS, Patricia A Primary Care Provider SUZANNE GONZALEZ Attending Unavailable ISABEL WATT Referring Unavailable CATRACHITO, PATRICIA A Primary Care Unavailable CATRACHITO , DR GOMEZ A Primary Care Physician JOSE ALFREDO IVEY MD Attending Unavail able CATRACHITO DO, DR GOMEZ A Primary Care Unavailab le Catrachito, Patricia Attending Unavailable Catrachito, Patricia Referring Unavailable Catrachito, Patricia Primary Care Unavailable Catrachito, Patricia Primary Care Unavailable Jopperi, Jay Attending Unavailable Jopperi, Jay Admitting Unavailable Friend, Go Attending Unavailable Catrachito, Patricia Referring Unavailable Catrachito, Patricia Primary Care Unavailable Catrachito, Patricia Attending Unavailable Catrachito, Patricia Referring Unavailable Catrachito, Patricia Primary Care Unavailable Catrachito, Patricia Primary Care Unavailable Catrachito, Patricia Attending Unavailable Friend, Go Consulting Unavailable Friend, Go Attending Unavailable Catrachito, Patricia Referring Unavailable Catrachito, Patricia Primary Care Unavailable Jopperi, Jay Attending Unavailable Jopperi, Jay Admitting Unavailable Jopperi, Jay Consulting Unavailable Catrachito, Patricia Primary Care Unavailable Aby Figueroa Attending Unavailable Catrachito, Patricia Referring Unavailable Catrachito, Patricia Primary Care Unavailable Aby Figueroa Attending Unavailable Catrachito, Patricia Referring Unavailable Catrachito, Patricia Primary Care Unavailable Friend, Go Attending Unavailable Catrachito, Patricia Primary Care Unavailable Catrachito, Patricia Attending Unavailable Catrachito, Patricia Primary Care Unavailable Catrachito, Patricia Attending Unavailable Catrachito, Patricia Referring Unavailable Catrachito, Patricia Primary Care Unavailable FILOMENA RIZVI Referring Unavailable CATRACHITO, PATRICIA A Primary Care Unavailable FILOMENA RIZVI Attending Unavailable CATRACHITO, PATRICIA Felton Referring Unavailable CATRACHITO, PATRICIA A Primary Care Unavailable FILOMENA RIZVI Referring Unavailable CATRACHITO, PATRICIA A Primary Care Unavailable CATRACHITO, PATRICIA A Primary Care Unavailable LACY REYNOLDS Attending Unavailable CATRACHITO, PATRICIA A Referring Unavailable Allergies Allergy Classification Reported Allergen(s) Allergy Type Date of Onset Reaction(s) Facility (11 sources) anastrozole Drug Allergy 06-27-19 21 Cough, Other: See Comments [facility] (20 sources) ceFAZolin; Translations: [CEFAZOLIN] Drug Allergy 12-18-19 20 Hives [facility] (20 sources) DULoxetine; Translations: [DULOXETINE] Drug Allergy 01-24-20 19 Other: See Comments [facility] (2 sources) Seasonal allergy Propensity to adverse reactions 09-11-19 22 itchy, watery eyes [facility] Work Phone: (1 source) letrozole Drug Allergy 06-27-19 21 Cough [facility] (20 sources) Shellfish; Translations: [SHELLFISH CONTAINING PRODUCTS] Drug Intolerance 11-06-19 17 Diarrhea, GI Upset [facility] (20 sources) Homeopathic Products Propensity to adverse reactions 09-11-19 09 Itching [facility] Work Phone: (9 sources) Seasonal Allergies: Uncoded; Translations: [Seasonal Allergies: Uncoded] Propensity to adverse reactions 02-04-20 22 ITCHY, WATERY EYES [facility] (1 source) thyroid (SHELTER); Translations: [thyroid desiccated] Drug Allergy Swelling (morphologic abnormality) [facility] (1 source) anastrozole Drug Allergy 08-09-19 25 [facility] (1 source) ceFAZolin Drug Allergy 08-09-19 25 [facility] (1 source) DULoxetine Drug Allergy 08-09-19 25 [facility] Rep[facility] Medications Current Medications Medication Drug Class(es) Dates Sig (Normalized) Sig (Original) acetaminophen 500 mg oral tablet (20 sources) Start: 07-30-2023 take 2 tablets by mouth every six hours as needed acetaminophen (TYLENOL EXTRA STRENGTH) 500 mg tablet Take 2 tablets by mouth every 6 hours as needed for pain. 20 tablet 07/30/2023 Active End: 11-15-2024 take 1 tablet by mouth every eight hours as needed acetaminophen (TYLENOL EXTRA STRENGTH) 500 mg tablet Take 500 mg by mouth every 8 hours as needed. 11/15/2024 Discontinued (Course of therapy completed) Comment on above: Take 500 mg by mouth every 8 hours as needed. Take 2 tablets by mo ut every 6 hours as needed for pain. cholecalciferol 0.05 mg oral capsule (20 sources) Vitamin D Start: 2 take 50 ug by mouth once daily Cholecalciferol (Vitamin D3) Active 50 MCG PO DAILY October 09, 2021 12:00am take 1 tablet by mouth once jerry y cholecalciferol (VITAMIN D3) 50 mcg (2,000 unit) tablet Take 2,000 Units by mouth once daily. Active Comment on above: Take 2,000 Units by mouth once daily. hydroCHLOROthiazide 25 mg oral tablet (2 sources) Thiazide Diuretic Start: 023 take 25 mg by mouth once daily Hydrochlorothiazide Active 25 MG PO DAILY October 05, 2022 12:00am levothyroxine sodium 0.112 mg oral tablet (20 sources) l-Thyroxine Start: 022 take 112 ug by mouth once daily Levothyroxine Active 112 MCG PO DAILY October 09, 2021 12:00am Start: 05-05-2021 End: 04-26-2023 levothyroxine (SYNTHROID) 12 5 mcg tablet Take 112 mcg by mouth once daily. 0 05/05/2021 04/26/2023 Discontinued (Course of therapy completed) Start: 05-05-2021 End: 10-09-2021 take 125 ug by mouth once daily Levothyroxine Discontinued 125 MCG PO DAILY May 05, 2021 1:00am October 09, 2021 4:47pm Comment on above: Take 125 mcg by mout h once daily. Take 112 mcg by mout h once daily. MAGNESIUM MAL, THREON, CHELATE ORAL (17 sources) take 1 capsule by mouth once daily MAGNESIUM MAL, THREON, CHELATE ORAL Take 1 capsule by mouth once daily. Active take 1 capsule by mouth once steffany ly MAGNESIUM MAL, THREON, CHELATE ORAL Take 1 capsule by mouth once daily. 0 Active Comment on above: Take 1 capsule by mo uth once daily. meloxicam 15 mg oral tablet (1 source) Nonsteroidal Anti-inflammatory Drug Start: 03-12-2022 End: 04-11-2022 take 1 tablet by mouth once daily meloxicam (MOBIC) 15 mg tablet Take 1 tablet by mouth once daily. 30 tablet 1 03/12/2022 04/11/2022 Active Comment on above: Take 1 tablet by kanwal once daily. nosta-6-cbm-epa-dpa -fish oil 1,050 mg(300 mg -675 mg-75 mg) cap (1 source) take 1 capsule by mouth once daily mumjg-2-utw-epa-dp a-fish oil 1,050 mg(300 mg -675 mg-75 mg) cap Take 1 capsule by mouth once daily. Active OTC PRODUCT (18 sources) take 1 capsule by mouth once daily OTC PRODUCT Take 1 capsule by mouth once daily. K2 Active take 1 capsule by mouth once steffany ly OTC PRODUCT Take 1 capsule by mouth once daily. Rauri mushroom gummy- 3000 mg of functional mushrooms Active take 1 capsule by mouth once steffany ly OTC PRODUCT Take 1 capsule by mouth once daily. Rauri mushroom gummy- 3000 mg of functional mushrooms 0 Active Comment on above: Take 1 capsule by mo uth once daily. 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 naturethroid 0 04/26/2023 Discontinued (Course of therapy completed) take 2 tablets by mo ut once daily thyroid 30 mg tablet Take 60 mg by mouth once daily. naturethroid 0 Active Comment on above: Take 60 mg by mouth once daily. naturethroid Take 90 mg by mouth once daily. naturethroid Take 90 mg by mouth once daily. thyroid (SHELTER) 90 MG Oral Tablet [Adthyza] (1 source) Start: 025 take 1 tablet by mouth once daily in the morning Adthyza 90 mg oral tablet take 1 tablet by mouth every morning ON empty contents Start Date: 08/03/24 Status: Ordered Repeat number: 1 tirzepatide (MOUNJARO) 5 mg/0.5 mL pen injector (11 sources) inject 5 mg by subcutaneous injection every week tirzepatide (MOUNJARO) 5 mg/0.5 mL pen injector Inject 5 mg subcutaneously one time a week. Active inject 5 mg by subcu taneous injection every week tirzepatide (MOUNJARO) 5 mg/0.5 mL pen injector Inject 5 mg subcutaneously one time a week. 0 Active Completed/Discontinued Medications Medication Drug Class(es) Dates Sig (Normalized) Sig (Original) anastrozole 1 mg oral tablet (13 sources) Aromatase Inhibitor Start: 12-09-2021 take 1 tablet by mouth once daily anastrozole (ARIMIDEX) 1 mg tablet Take 1 tablet by mouth once daily. 90 tablet 3 12/09/2021 Active Start: 03-07-2020 End: 09-09-2021 take 1 mg by mouth once daily Anastrozole Discontinued 1 MG PO DAILY March 07, 2020 12:00am September 09, 2021 1:20pm Comment on above: Take 1 tablet by kanwal th once daily. Ascorbic Acid (4 sources) Vitamin C take 1 tablet by mouth once daily ascorbic acid (VITAMIN C ORAL) Take 1 tablet by mouth once daily. 0 Active Comment on above: Take 1 tablet by kanwal th once daily. exemestane 25 mg oral tablet (10 sources) Aromatase Inhibitor Start: 2 End: 2 take 25 mg by mouth once daily after mealtime Exemestane Discontinued 25 MG PO DAILY September 09, 2021 12:00am September 10, 2021 11:51am must administer after a meal flaxseed oil (OMEGA 3 ORAL) (20 sources) End: 5 take 1 capsule by mouth once daily flaxseed oil (OMEGA 3 ORAL) Take 1 capsule by mouth once daily. 11/15/2024 Discontinued (Course of therapy completed) take 1 capsule by mouth once steffany ly flaxseed oil (OMEGA 3 ORAL) Take 1 capsule by mouth once daily. Active take 1 capsule by mouth once steffany ly flaxseed oil (OMEGA 3 ORAL) Take 1 capsule by mouth once daily. 0 Active take 1 tablet by mouth once jerry y flaxseed oil (OMEGA 3 ORAL) Take 1 tablet by mouth once daily. 0 Active Comment on above: Take 1 tablet by kanwal th once daily. Take 1 capsule by mo [facility] once daily. hydroquinone 40 mg/ml topical cream (4 sources) Melanin Synthesis Inhibitor Start: 3 End: 3 hydroquinone (ELDOQUIN FORTE) 4 % cream Apply to face daily at night 46 g 0 08/05/2022 04/26/2023 Discontinued (Course of therapy completed) Comment on above: Apply to face daily at night ibuprofen 600 mg oral tablet (20 sources) Nonsteroidal Anti-inflammatory Drug Start: End: take 1 tablet by mouth every eight hours as needed ibuprofen (MOTRIN) 600 mg tablet Take 1 tablet by mouth every 8 hours as needed for pain. 15 tablet 07/30/2023 11/15/2024 Discontinued (Course of therapy completed) Start: 09-09-2021 End: 09-10-2021 take 400 mg by mouth once daily Ibuprofen Discontinued 400 MG PO DAILY September 09, 2021 12:00am September 10, 2021 11:51am Comment on above: Take 1 tablet by kanwal th every 8 hours as needed for pain. iv contrast (will be provided with radiology test) (20 sources) Start: 04-18-2024 End: 04-19-2024 iv contrast (will be provided with radiology test) MRI Breast TIM Inject, intravenously, once for 1 dose. No IV access, insert saline lock prior to the beginning of sedation, infusion, injection of imaging exam. Discontinue saline lock post exam. If Pt has a central line or IVAD, may access for administration according to line specific nursing protocol. Once exam is complete flush line and de-access according to line specific nursing protocol in the MR contrast administration guidelines link 1 Each 04/18/2024 04/19/2024 Start: 04-29-2023 End: 04-30-2023 iv contrast (will be provide d with radiology test) MRI RT Breast Bx Inject, intravenously, once for 1 dose. No IV access, insert saline lock prior to the beginning of sedation, infusion, injection of imaging exam. Discontinue saline lock post exam. If Pt has a central line or IVAD, may access for administration according to line specific nursing protocol. Once exam is complete flush line and de-access according to line specific nursing protocol in the MR contrast administration guidelines link 1 Each 0 04/29/2023 04/30/2023 Start: 04-29-2023 End: 04-30-2023 iv contrast (will be provide d with radiology test) MRI RT Breast Bx Inject, intravenously, once for 1 dose. No IV access, insert saline lock prior to the beginning of sedation, infusion, injection of imaging exam. Discontinue saline lock post exam. If Pt has a central line or IVAD, may access for administration according to line specific nursing protocol. Once exam is complete flush line and de-access according to line specific nursing protocol in the MR contrast administration guidelines link 1 Each 0 04/29/2023 04/30/2023 Active Start: 11-30-2022 End: 11-15-2024 iv contrast (will be provide d with radiology test) MRI Breast TIM Inject, intravenously, once for 1 dose. No IV access, insert saline lock prior to the beginning of sedation, infusion, injection of imaging exam. Discontinue saline lock post exam. If Pt has a central line or IVAD, may access for administration according to line specific nursing protocol. Once exam is complete flush line and de-access according to line specific nursing protocol in the MR contrast administration guidelines link 1 Each 11/30/2022 11/15/2024 Discontinued (Course of therapy completed) Start: 11-30-2022 iv contrast (w ill be provided with radiology test) MRI Breast TIM Inject, intravenously, once for 1 dose. No IV access, insert saline lock prior to the beginning of sedation, infusion, injection of imaging exam. Discontinue saline lock post exam. If Pt has a central line or IVAD, may access for administration according to line specific nursing protocol. Once exam is complete flush line and de-access according to line specific nursing protocol in the MR contrast administration guidelines link 1 Each 11/30/2022 Active Start: 11-30-2022 iv contrast (w ill be provided with radiology test) MRI Breast TIM Inject, intravenously, once for 1 dose. No IV access, insert saline lock prior to the beginning of sedation, infusion, injection of imaging exam. Discontinue saline lock post exam. If Pt has a central line or IVAD, may access for administration according to line specific nursing protocol. Once exam is complete flush line and de-access according to line specific nursing protocol in the MR contrast administration guidelines link 1 Each 0 11/30/2022 Active Comment on above: MRI Breast TIM Injec t, intravenously, once for 1 dose. No IV access, insert saline lock prior to the beginning of sedation, infusion, injection of imaging exam. Discontinue saline lock post exam. If Pt has a central line or IVAD, may access for administration according to line specific nursing protocol. Once exam is complete flush line and de-access according to line specific nursing protocol in the MR contrast administration guidelines link MRI RT Breast Bx Inj ect, intravenously, once for 1 dose. No IV access, insert saline lock prior to the beginning of sedation, infusion, injection of imaging exam. Discontinue saline lock post exam. If Pt has a central line or IVAD, may access for administration according to line specific nursing protocol. Once exam is complete flush line and de-access according to line specific nursing protocol in the MR contrast administration guidelines link magnesium gluconate 550 mg oral tablet (10 sources) Start: 0 End: 2 Magnesium Discontinued 30 MG PO March 07, 2020 12:00am September 09, 2021 1:22pm magnesium Z-bfnhqu-ypzynbjvl de 42 mg (500 mg)- 250 mg TbER (13 sources) End: 3 take 1 capsule by mouth once daily magnesium L-mzcida-mzewozxycgj 42 mg (500 mg)- 250 mg TbER Take 1 capsule by mouth once daily. 0 04/26/2023 Discontinued (Course of therapy completed) take 1 capsule by mouth once steffany ly magnesium X-lpnhay-njxpgdbedqy 42 mg (500 mg)- 250 mg TbER Take 1 capsule by mouth once daily. 0 Active Comment on above: Take 1 capsule by [facility] once daily. naltrexone hydrochloride 50 mg oral tablet (10 sources) Opioid Antagonist Start: 01-23-20 End: 09-10-19 take 1 mg by mouth once daily Naltrexone Discontinued 1 MG PO DAILY January 23, 2020 12:00am September 09, 2021 1:22pm prescribed off label for velma nitroglycerin 0.3 mg sublingual tablet (17 sources) Nitrate Vasodilator Start: 04-26-20 End: 11-16-19 25 take 1 tablet under the tongue once nitroglycerin sublingual (NITROQUICK) 0.3 mg SL tablet Dissolve 1 tablet under the tongue one time only for 1 dose. To be administered in Radiology for CTA exam 1 tablet 04/26/2023 11/15/2024 Discontinued (Course of therapy completed) Comment on above: Dissolve 1 tablet un [place] the tongue one time only for 1 dose. To be administered in Radiology for CTA exam 24 hr oxybutynin chloride 10 mg extended release oral tablet (10 sources) Cholinergic Muscarinic Antagonist Start: 09-10-19 End: 09-11-19 take 10 mg by mouth once daily Oxybutynin Chloride Discontinued 10 MG PO DAILY September 09, 2021 12:00am September 10, 2021 11:51am Pediatric Multivitamin (10 sources) Start: 03-07-20 End: 09-11-19 Pediatric Multivitamin Discontinued 1 EACH PO DAILY March 07, 2020 9:31am September 10, 2021 11:51am Start: 03-07-2020 End: 09-10-2021 Pediatric Multivitamin Disco ntinued 1 EACH PO DAILY March 06, 2020 11:00pm September 10, 2021 10:51am Start: 03-07-2020 End: 09-10-2021 Pediatric Multivitamin Disco ntinued 1 EACH PO DAILY March 07, 2020 12:00am September 10, 2021 11:51am rizatriptan 5 mg oral tablet (20 sources) Serotonin-1b and Serotonin-1d Receptor Agonist Start: 03-07-2020 End: 09-09-2021 Rizatriptan Discontinued 5 MG PO .X1 PRN March 07, 2020 12:00am September 09, 2021 1:21pm Start: 12-28-2019 take 1 tablet by kanwal th every two hours rizatriptan (MAXALT) 10 mg tablet take 1 tablet by mouth AT ONSET OF MIGRAINE - REPEAT IN 2 HOURS IF NEEDED 12/28/2019 Active Comment on above: take 1 tablet by kanwal th AT ONSET OF MIGRAINE - REPEAT IN 2 HOURS IF NEEDED tamoxifen 20 mg oral tablet (9 sources) Estrogen Agonist/Antagoni st Start: 02-05-20 End: 04-26-20 take 1 tablet by mouth once daily tamoxifen (NOLVADEX) 20 mg tablet Take 1 tablet (20 mg) by mouth once daily. 90 tablet 3 02/04/2022 04/26/2023 Discontinued (Course of therapy completed) Comment on above: Take 1 tablet (20 mg ) by mouth once daily. TIRZEPATIDE 20MG/ML (VIAL) (1ML) (2 DOSES/VIAL) 10MG/0.5ML (1 source) Start: 08-03-19 inject 0.5 mL by subcutaneous injection every week TIRZEPATIDE 20MG/ML (VIAL) (1ML) (2 DOSES/VIAL) 10MG/0.5ML TIRZEPATIDE 20MG/ML (VIAL) (1ML) (2 DOSES/VIAL) 10MG/0.5ML, Inject 0.5 ML (10mg) subcutaneously ONCE WEEKLY Start Date: 08/03/24 Status: Ordered Repeat number: 1 tretinoin 0.25 mg/ml topical cream (4 sources) Retinoid Start: 08-05-19 End: 04-26-20 tretinoin (RETIN-A) 0.025 % topical cream Apply to face every morning 45 g 0 08/05/2022 04/26/2023 Discontinued (Course of therapy completed) Comment on above: Apply to face every morning Vitamin B Complex (20 sources) Start: 01-23-20 End: 09-11-19 Vitamin B Complex Discontinued 1 EACH PO DAILY January 23, 2020 9:02am September 10, 2021 11:51am Start: 01-23-2020 End: 09-10-2021 Vitamin B Complex Discontinu ed 1 EACH PO DAILY January 22, 2020 11:00pm September 10, 2021 10:51am Start: 01-23-2020 End: 09-10-2021 Vitamin B Complex Discontinu ed 1 EACH PO DAILY January 23, 2020 12:00am September 10, 2021 11:51am End: 11-15-2024 take 1 capsule by mouth once daily vitamin B complex (B COMPLEX 1 ORAL) Take 1 capsule by mouth once daily. 11/15/2024 Discontinued (Course of therapy completed) take 1 capsule by mo uth once daily vitamin B complex (B COMPLEX 1 ORAL) Take 1 capsule by mouth once daily. Active take 1 capsule by mo uth once daily vitamin B complex (B COMPLEX 1 ORAL) Take 1 capsule by mouth once daily. 0 Active Comment on above: Take 1 capsule by mo uth once daily. Vitamin D3 (10 sources) Start: 01-23-2020 End: 09-10-2021 take 5000 mg by mouth once daily Vitamin D3 Discontinued 5000 MG PO DAILY January 23, 2020 9:02am September 10, 2021 11:51am Start: 01-23-2020 End: 09-10-2021 take 5000 mg by mouth once daily Vitamin D3 Discontinued 5000 MG PO DAILY January 22, 2020 11:00pm September 10, 2021 10:51am Start: 01-23-2020 End: 09-10-2021 take 5000 mg by mouth once daily Vitamin D3 Discontinued 5000 MG PO DAILY January 23, 2020 12:00am September 10, 2021 11:51am vitamin e 100 unt oral capsule (10 sources) Start: 01-23-2020 End: 09-10-2021 take 100 [IU] by mouth once daily Vitamin E Discontinued 100 UNIT PO DAILY January 23, 2020 12:00am September 10, 2021 11:52am Start: 01-23-2020 End: 09-10-2021 take 100 [IU] by mouth once daily Vitamin E Discontinued 100 UNIT PO DAILY January 23, 2020 12:00am September 10, 2021 11:52am Problems Active Problems Problem Classification Problem Date Documented Date Episodic/Chronic Acquired foot deformities (1 source) Acquired hallux limitus of right great toe; Translations: [Other deformities of toe(s) (acquired), right foot] Episodic Anxiety disorders (1 source) Anxiety 07-28-2024 Chronic Cancer of breast (20 sources) Malignant tumor of breast ; Translations: [Malignant neoplasm of unspecified site of left female breast] Onset: 12-05-2019 12-18-2019 Chronic Comment on above: left Cardiac dysrhythmias (20 sources) Supraventricular tachycardia; Translations: [Supraventricular tachycardia] Onset: 07-20-2023 09-09-2021 Chronic Complications of surgical procedures or medical care (20 sources) Postsurgical menopause; 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] Onset: 11-05-2016 11-05-2016 Chronic Conduction disorders (1 source) Atrioventricular block 07-28-2024 Chronic Comment on above: 1st degree Endometriosis (20 sources) Endometriosis (clinical); Translations: [Endometriosis, unspecified] Onset: 11-05-2016 11-05-2016 Chronic Essential hypertension (4 sources) Malignant hypertension; Translations: [Essential (primary) hypertension] 10-07-2022 Chronic Gastritis and duodenitis (5 sources) Gastritis; Translations: [Gastritis, unspecified, without bleeding] Onset: 05-19-2024 05-30-2024 Episodic Headache; including migraine (20 sources) Migraine; Translations: [Migraine without aura, not intractable, without status migrainosus] Onset: 11-05-2016 11-05-2016 Chronic Nonmalignant breast conditions (13 sources) Lump of axillary tail of right breast; Translations: [Unspecified lump in axillary tail of the right breast] Onset: 11-15-2024 Episodic Nonspecific chest pain (2 sources) Chest pain; Translations: [Chest pain, unspecified] 04-26-2023 Episodic Nutritional deficiencies (20 sources) Vitamin D deficiency; Translations: [Vitamin D deficiency, unspecified] Onset: 11-05-2016 11-05-2016 Chronic Osteoarthritis (1 source) Osteoarthritis 07-28-2024 Chronic Other and unspecified benign neoplasm (20 sources) Papilloma of breast; Translations: [Benign neoplasm of right breast] Onset: 06-07-2023 07-23-2023 Episodic Other connective tissue disease (1 source) Plantar fasciitis of left foot; Translations: [Plantar fascial fibromatosis] Episodic Other diseases of veins and lymphatics (20 sources) Lymphedema; Translations: [Lymphedema, not elsewhere classified] Onset: 03-05-2021 03-05-2021 Chronic Other endocrine disorders (1 source) Polycystic ovary syndrome 07-28-2024 Chronic Other lower respiratory disease (1 source) Rib pain 08-03-2024 Episodic Other nervous system disorders (1 source) Peripheral nerve disease 07-28-2024 Chronic Other nutritional; endocrine; and metabolic disorders (20 sources) Obese class I; Translations: [Obesity, unspecified] Onset: 11-24-2019 11-24-2019 Chronic Residual codes; unclassified (10 sources) History of pre-eclampsia; Translations: [Personal history of other complications of , childbirth and the puerperium] 09-09-2021 Episodic Residual codes; unclassified (2 sources) Pain; Translations: [Pain, unspecified] Episodic Residual codes; unclassified (2 sources) Patient encounter status; Translations: [Encounter for cosmetic surgery] Episodic Residual codes; unclassified (1 source) Insomnia 07-28-2024 Episodic Spondylosis; intervertebral disc disorders; other back problems (1 source) Cervical spondylosis 07-28-2024 Chronic Thyroid disorders (20 sources) 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; Translations: [Other specified hypothyroidism] Onset: 10-31-2015 Resolved: 11-05-2016 11-05-2016 Chronic Unclassified (1 source) Mitotane (substance) 07-28-2024 Comment on above: thoracic degenerativ e disc disease Viral infection (1 source) Herpes zoster 07-28-2024 Episodic Past or Other Problems Problem Classification Problem Date Documented Da te Episodic/Chronic Abdominal pain (1 source) Unspecified abdominal pain; Translations: [Unspecified abdominal pain] Onset: 05-24-2024 Episodic Cancer of breast (20 sources) History of malignant neoplasm of breast; Translations: [Personal history of malignant neoplasm of breast] Onset: 11-30-2022 11-30-2022 Episodic Cardiac dysrhythmias (20 sources) Palpitations; Translations: [Palpitations] Onset: 07-20-2023 Episodic Malaise and fatigue (20 sources) Fatigue; Translations: [Other fatigue] Onset: 11-05-2016 11-05-2016 Episodic Nausea and vomiting (13 sources) Postoperative nausea and vomiting; Translations: [Nausea with vomiting, unspecified] Onset: 07-30-2023 07-30-2023 Episodic Other and unspecified benign neoplasm (1 source) Benign neoplasm of right breast; Translations: [Papilloma of right breast] Onset: 07-30-2023 Episodic Other gastrointestinal disorders (20 sources) Constipation; Translations: [Constipation, unspecified] Onset: 11-05-2016 11-05-2016 Episodic Other gastrointestinal disorders (1 source) Diarrhea, unspecified; Translations: [Diarrhea, unspecified] Onset: 05-24-2024 Episodic Other screening for suspected conditions (not mental disorders or infectious disease) (20 sources) Breast finding ; Translations: [Inconclusive mammogram] Onset: 11-24-2019 Resolved: 11-30-2022 11-24-2019 Episodic Residual codes; unclassified (20 sources) Disturbance in sleep behavior; Translations: [Sleep disorder, unspecified] Onset: 11-05-2016 11-05-2016 Episodic Residual codes; unclassified (20 sources) Exposure to mercury; Translations: [Contact with and (suspected) exposure to other hazardous metals] Onset: 11-05-2016 11-05-2016 Episodic Residual codes; unclassified (20 sources) Family history of breast cancer; Translations: [Family history of malignant neoplasm of breast] Onset: 11-24-2019 11-24-2019 Episodic Spondylosis; intervertebral disc disorders; other back problems (20 sources) Acute low back pain; Translations: [Acute low back pain without sciatica] Onset: 11-05-2016 11-05-2016 Episodic Results Test Name Value Interpretation Reference Range Facility [facility] 11-15-2024 CNOV Office Visit (HEMBAK ) MARVA KHAN ([id number]) 1965 F Date Time Provider Department 11/15/24 9:00 AM LACY REYNOLDS During your visit today, we recorded the following information about you: Pulse Blood pressure Weight Height 51/minute 118/72 68.5 kg 1.702 m Noe Spann LPN 11/15/2024 1:39 PM Signed Marva Khan is a 59 year old female who presents to follow up for 6 Month Exam and Results Pt c/o 4/10 bilateral breast pain, onset left breast 2020 and right breast 9 mo and right nipple itching. Pt also c/o pain under breast that radiated into the right side of ribs. C/o Right nipple retraction LM Bosch Amy, APRN.JEREMIAH 11/15/2024 1:39 PM Signed [facility] [address] [place], [place] [id number] Date of Visit: 11/15/2024 Patient Name: Marva Khan Date of : 1965 Established / High Risk Surveillance Visit Breast Surgeon: Filomena Rizvi MD Medical Oncologist: Radiation Oncologist: SUBJECTIVE Chief Complaint: Patient presents with: 6 Month Exam Results HPI Marva Khan is a 59 year old female who presents today for review of recent breast MRI (11/02/2024) and clinical breast exam. She is an established [facility] patient and was last seen in the [facility] 04/18/2024. She denies palpable breast lumps or masses, enlarged lymph nodes, skin changes, erythema, nipple discharge or breast trauma. She does, however, present with a lengthy history of bilateral breast pain which she relates to surgery. She rates LEFT breast pain as a 4/10 with onset 2019, RIGHT breast pain approximately 9 months ago. She describes RIGHT breast pain as starting at both lower quadrants and wrapping around her right side. She further describes pain as not constant but is often triggered by holding her hands in front of her. Pain generally stops if she is flat on her back, does not always start immediately when she stands up but often does. She further describes RIGHT breast pain as low grade to burning to sharp, sometime starting at the areola and extending to the axilla. History of left breast cancer. 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 Final pathology showed 4 negative lymph nodes and 0.8 cm cancer with negative margins. Final pathological stage IA [pT1b(0.8cm)N0(0/4)M0]. Completed adjuvant radiation in January 2020. No longer seeing Dr Cardoso. No chemo due to low oncotype.Unable to tolerate adjuvant endocrine. She is status post excision of papilloma of right breast on 07/30/2023. Pathology benign. There are no exam notes on file for this visit. No question data found. Family and personal medical histories reviewed and updated. REVIEW OF SYSTEMS: Complete 10 system ROS done and negative except as stated above in the HPI. Current Outpatient Medications Medication Sig Dispense Refill OTC PRODUCT Take 1 capsule by mouth once daily. K2 [id number]-epa-dpa-fis h oil 1,050 mg(300 mg -675 mg-75 mg) cap Take 1 capsule by mouth once daily. tirzepatide (MOUNJARO) 5 mg/0.5 mL pen injector Inject 5 mg subcutaneously one time a week. acetaminophen (TYLENOL EXTRA STRENGTH) 500 mg tablet Take 2 tablets by mouth every 6 hours as needed for pain. 20 tablet 0 OTC PRODUCT Take 1 capsule by mouth once daily. Rauri mushroom gummy- 3000 mg of functional mushrooms ARMOUR THYROID 90 mg tablet Take 90 mg by mouth once daily. MAGNESIUM MAL, THREON, CHELATE ORAL Take 1 capsule by mouth once daily. cholecalciferol (VITAMIN D3) 50 mcg (2,000 unit) tablet Take 2,000 Units by mouth once daily. rizatriptan (MAXALT) 10 mg tablet take 1 tablet by mouth AT ONSET OF MIGRAINE - REPEAT IN 2 HOURS IF NEEDED No current facility-administered medications for this visit. I have performed the physical exam on 11/15/2024 - all new findings noted below. PAST MEDICAL HISTORY Diagnosis Date Breast cancer (HCC) 2019 radiation and left lumpectomy COVID 04/2020 Delayed emergence from anesthesia Velma's thyroiditis oN SYNTHROID EQUIVALENT Irregular heart beat Noted when she was first diagonsed with the thytoriditis and when on synthoid. Is pressure like and heavy and can go fastand stutters and then a big one Migraine Papilloma of right breast PONV (postoperative nausea and vomiting) Macy Martins auricular syndrome PAST SURGICAL HISTORY Procedure Laterality Date ASPIRATION/BIOPSY Left 2011 breast FNA BX OF BREAST; INCISIONAL 06/07/2023 BX OF BREAST; INCISIONAL Right 07/30/2023 CHOLECYSTECTOMY 1998 HYSTERECTOMY HX 2012 with rso PARTIAL MASTECTOMY Left 2019 Social History Tobacco Use Smoking status: Never Smokeless tobacco: Never Tobacco comments: Smoked very little in colle (more content not included)... Normal [facility] MR Breast - bilateral WO and W contrast Kennedy 11-02-2024 IMPRESSION: There is no MRI evidence of malignancy in either breast. Routine screening mammogram is recommended. Annual mammogram will be due in 1 year. Patient is followed by Dr. Rizvi. BI-RADS Category 2: Benign Interpreting Radiologist: Abdiaziz Hammond M.D. Electronically signed on: 11/02/2024 Electro Mechanical Engineer: CANDY Transcribe Date/Time: Nov 02 2024 7:37A Dictated by : ABDIAZIZ HAMMOND MD This examination was interpreted and the report reviewed and electronically signed by: ABDIAZIZ HAMMOND MD on Nov 02 2024 10:33AM [facility] RADIOLOGY SYNGO * * *Final Report* * * DATE OF EXAM: Nov 02 2024 8:06AM [facility] 0773 - MRI BREAST WO/W IVCON TIM / PROCEDURE REASON: Malignant neoplasm of female breast, unspecified estrogen receptor status, unspe * * * * Physician Interpretation * * * * [facility] [address] [place] [address] #[id number] - MRI BREAST WO/W IVCON TIM HISTORY: 59 year-old patient seen for diagnostic evaluation of personal breast cancer history. The patient has the following personal history of breast cancer: breast cancer in the left breast in 2019. The patient has a family history of breast and ovarian cancer. This patient has a remote history of left breast cancer; status post left lumpectomy and radiation therapy. Additionally, she had a papilloma excised from the right breast 07-30-23. MRI to evaluate for occult disease. COMPARISON STUDIES: The present examination has been compared to prior imaging studies dated 04/27/2023 (MRI), 05/18/2023 (ultrasound), 06/03/2023 (mammogram), 07/23/2023 (mammogram), 04/18/2024 (ultrasound) and 04/18/2024 (mammogram). BREAST MRI: TECHNIQUE: The patient was studied using the dedicated breast coil in the Siemens 1.5 Amanda scanner. Initial axial T1W NFS, STIR imaging was carried out followed by axial T1-weighted GRE imaging both before and after IV administration of 7.3 ml of Elucirem. Subsequently, subtraction imaging and 3-D reconstruction were completed on an independent workstation. An additional 9-dobzdc-yukx resolution sequence was performed after the first two 1 minute post-contrast sequences. Complex volumetric analysis requiring post processing was performed using a semi-automated software Dyn[employer]ad, on an independent workstation by the physician, with images created, reviewed, and archived. FINDINGS: There is scattered fibroglandular tissue. There is mild background parenchymal enhancement. The background parenchymal enhancement is symmetrical. Left breast: There are changes related to prior left lumpectomy and radiation therapy. There is no suspicious mass or enhancement in the left breast. There is no left axillary nor internal mammary lymphadenopathy. Right breast: There are changes related to prior right excisional biopsy in the upper outer, anterior right breast. Previously described enhancing mass is no longer present. There is no new suspicious mass or enhancement in the right breast. There is no right axillary nor internal mammary lymphadenopathy. [facility] Provider, [facility] - 11/02/2024 * * *Final Report* * * DATE OF EXAM: Nov 02 2024 8:06AM [facility] 0773 - MRI BREAST WO/W IVCON TIM / PROCEDURE REASON: Malignant neoplasm of female breast, unspecified estrogen receptor status, unspe * * * * Physician Interpretation * * * * [facility] [address] [facility] [place] [id number] #[id number] - MRI BREAST WO/W IVCON TIM HISTORY: 59 year-old patient seen for diagnostic evaluation of personal breast cancer history. The patient has the following personal history of breast cancer: breast cancer in the left breast in 2019. The patient has a family history of breast and ovarian cancer. This patient has a remote history of left breast cancer; status post left lumpectomy and radiation therapy. Additionally, she had a papilloma excised from the right breast 07-30-23. MRI to evaluate for occult disease. COMPARISON STUDIES: The present examination has been compared to prior imaging studies dated 04/27/2023 (MRI), 05/18/2023 (ultrasound), 06/03/2023 (mammogram), 07/23/2023 (mammogram), 04/18/2024 (ultrasound) and 04/18/2024 (mammogram). BREAST MRI: TECHNIQUE: The patient was studied using the dedicated breast coil in the Siemens 1.5 Amanda scanner. Initial axial T1W NFS, STIR imaging was carried out followed by axial T1-weighted GRE imaging both before and after IV administration of 7.3 ml of Elucirem. Subsequently, subtraction imaging and 3-D reconstruction were completed on an independent workstation. An additional 7-gptrzc-nmpg resolution sequence was performed after the first two 1 minute post-contrast sequences. Complex volumetric analysis requiring post processing was performed using a semi-automated software [employer]acad, on an independent workstation by the physician, with images created, reviewed, and archived. FINDINGS: There is scattered fibroglandular tissue. There is mild background parenchymal enhancement. The background parenchymal enhancement is symmetrical. Left breast: There are changes related to prior left lumpectomy and radiation therapy. There is no suspicious mass or enhancement in the left breast. There is no left axillary nor internal mammary lymphadenopathy. Right breast: There are changes related to prior right excisional biopsy in the upper outer, anterior right breast. Previously described enhancing mass is no longer present. There is no new suspicious mass or enhancement in the right breast. There is no right axillary nor internal mammary lymphadenopathy. IMPRESSION IMPRESSION: There is no MRI evidence of malignancy in either breast. Routine screening mammogram is recommended. Annual mammogram will be due in 1 year. Patient is followed by Dr. Rizvi. BI-RADS Category 2: Benign Interpreting Radiologist: Abdiaziz Hammond M.D. Electronically signed on: 11/02/2024 Electro Mechanical Engineer: CANDY Transcribe Date/Time: Nov 02 2024 7:37A Dictated by : ABDIAZIZ HAMMOND MD This examination was interpreted and the report reviewed and electronically signed by: ABDIAZIZ HAMMOND MD on Nov 02 2024 10:33AM EST [facility] Radiology Study observation (narrative) [facility] MR Breast - bilateral WO and W contrast IVOrdered By: [facility] Provider on 11-02-2024 [facility] MRI BREAST WO/W IVCON BILon 11-02-2024 MRI BREAST WO/W IVCON TIM * * *Final Report* * * DATE OF EXAM: Nov 02 2024 8:06AM [facility] 0773 - MRI BREAST WO/W IVCON TIM / PROCEDURE REASON: Malignant neoplasm of female breast, unspecified estrogen receptor status, unspe * * * * Physician Interpretation * * * * [facility] [address] [facility] [place] [id number] #[id number] - MRI BREAST WO/W IVCON TIM HISTORY: 59 year-old patient seen for diagnostic evaluation of personal breast cancer history. The patient has the following personal history of breast cancer: breast cancer in the left breast in 2019. The patient has a family history of breast and ovarian cancer. This patient has a remote history of left breast cancer; status post left lumpectomy and radiation therapy. Additionally, she had a papilloma excised from the right breast 07-30-23. MRI to evaluate for occult disease. COMPARISON STUDIES: The present examination has been compared to prior imaging studies dated 04/27/2023 (MRI), 05/18/2023 (ultrasound), 06/03/2023 (mammogram), 07/23/2023 (mammogram), 04/18/2024 (ultrasound) and 04/18/2024 (mammogram). BREAST MRI: TECHNIQUE: The patient was studied using the dedicated breast coil in the Siemens 1.5 Amanda scanner. Initial axial T1W NFS, STIR imaging was carried out followed by axial T1-weighted GRE imaging both before and after IV administration of 7.3 ml of Elucirem. Subsequently, subtraction imaging and 3-D reconstruction were completed on an independent workstation. An additional 1-kvzhxu-bhxv resolution sequence was performed after the first two 1 minute post-contrast sequences. Complex volumetric analysis requiring post processing was performed using a semi-automated software [employer] ([employer]acad, on an independent workstation by the physician, with images created, reviewed, and archived. FINDINGS: There is scattered fibroglandular tissue. There is mild background parenchymal enhancement. The background parenchymal enhancement is symmetrical. Left breast: There are changes related to prior left lumpectomy and radiation therapy. There is no suspicious mass or enhancement in the left breast. There is no left axillary nor internal mammary lymphadenopathy. Right breast: There are changes related to prior right excisional biopsy in the upper outer, anterior right breast. Previously described enhancing mass is no longer present. There is no new suspicious mass or enhancement in the right breast. There is no right axillary nor internal mammary lymphadenopathy. IMPRESSION: There is no MRI evidence of malignancy in either breast. Routine screening mammogram is recommended. Annual mammogram will be due in 1 year. Patient is followed by Dr. Rizvi. BI-RADS Category 2: Benign Interpreting Radiologist: Abdiaziz Hammond M.D. Electronically signed on: 11/02/2024 Electro Mechanical Engineer: CANDY Transcribe Date/Time: Nov 02 2024 7:37A Dictated by : ABDIAZIZ HAMMOND MD This examination was interpreted and the report reviewed and electronically signed by: ABDIAZIZ HAMMOND MD on Nov 02 2024 10:33AM EST [id number] [facility] AGUSTIAN Telephone (AGGBRCR) MARVA KHAN ([id number]) 1965 F Date Time Provider Department 10/11/24 LACY REYNOLDS During your visit today, we recorded the following information about you: Lacy Reynolds APRN.CNP 10/11/2024 2:12 PM Signed Peer to Peer completed with Dr Saleem at [facility]. Breast MRI was approved - scheduled for 10/17/2024. Authorization # [id number], valid 10/11/2024 - 11/30/2024. Lacy Reynolds APRN-OCCUPATIONAL WORK EXPERIENCE TEACHER Allergies As of Date: 10/11/2024 Noted Allergy Reaction ANCEF (CEFAZOLIN) 12/18/2019 4 - Hives DULOXETINE 01/23/2019 14 - Other: See Comments SHELLFISH CONTAINING PRODUCTS 11/05/2016 6 - Diarrhea 8 - GI Upset Date Reviewed: 04/18/2024 Reviewed by: Filomena Rizvi MD - Fully Assessed Reason for Visit: Breast MRI approval [Other] Prescriptions as of 10/11/2024 - tirzepatide (MOUNJARO) 5 mg/0.5 mL pen injector Inject 5 mg subcutaneously one time a week. - acetaminophen (TYLENOL EXTRA STRENGTH) 500 mg tablet Take 500 mg by mouth every 8 hours as needed. - acetaminophen (TYLENOL EXTRA STRENGTH) 500 mg tablet Take 2 tablets by mouth every 6 hours as needed for pain. - ibuprofen (MOTRIN) 600 mg tablet Take 1 tablet by mouth every 8 hours as needed for pain. - flaxseed oil (OMEGA 3 ORAL) Take 1 capsule by mouth once daily. - vitamin B complex (B COMPLEX 1 ORAL) Take 1 capsule by mouth once daily. - OTC PRODUCT Take 1 capsule by mouth once daily. Rauri mushroom gummy- 3000 mg of functional mushrooms - ARMOUR THYROID 90 mg tablet Take 90 mg by mouth once daily. - MAGNESIUM MAL, THREON, CHELATE ORAL Take 1 capsule by mouth once daily. - nitroglycerin sublingual (NITROQUICK) 0.3 mg SL tablet Dissolve 1 tablet under the tongue one time only for 1 dose. To be administered in Radiology for CTA exam - iv contrast (will be provided with radiology test) MRI Breast TIM Inject, intravenously, once for 1 dose. No IV access, insert saline lock prior to the beginning of sedation, infusion, injection of imaging exam. Discontinue saline lock post exam. If Pt has a central line or IVAD, may access for administration according to line specific nursing protocol. Once exam is complete flush line and de-access according to line specific nursing protocol in the MR contrast administration guidelines link - cholecalciferol (VITAMIN D3) 50 mcg (2,000 unit) tablet Take 2,000 Units by mouth once daily. - rizatriptan (MAXALT) 10 mg tablet take 1 tablet by mouth AT ONSET OF MIGRAINE - REPEAT IN 2 HOURS IF NEEDED Problem List As Of Date 10/11/2024 Noted Resolved Acquired hypothyroidism [E03.9] 10/31/2015 11/05/2016 Velma's disease [E06.3] 11/05/2016 Fatigue [R53.83] 11/05/2016 Sleep disturbance [G47.9] 11/05/2016 Surgical menopause [E89.40] 11/05/2016 Constipation [K59.00] 11/05/2016 Nonintractable migraine [G43.009] 11/05/2016 Endometriosis [N80.9] 11/05/2016 Acute low back pain without sciatica [M54.50] 11/05/2016 Vitamin D deficiency [E55.9] 11/05/2016 Exposure to mercury [Z77.018] 11/05/2016 Obesity, Class I, BMI 30-34.9 [E66.811] 11/24/2019 Dense breast tissue [R92.30] 11/24/2019 11/30/2022 Family history of breast cancer [Z80.3] 11/24/2019 Malignant neoplasm of upper-outer quadrant of l*12/05/2019 Lymphedema [I89.0] 03/05/2021 History of breast cancer [Z85.3] 11/30/2022 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] 06/07/2023 Supraventricular tachycardia [I47.10] 07/20/2023 Diagnosed: 07/20/2023 Palpitations [R00.2] 07/20/2023 Diagnosed: 07/20/2023 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 [place] [address] / REHABILITATION SERVICES INITIAL EVALUATION MR#: [id number] Acct: [id number] Name: MARVA KHAN Rep #: [id number] : 1965 59 From: Dani HOWARDT Referring Dr.: Dr. Patricia Winston DO Status: RE G RCR Insurance: [employer] SELF PAY INSURANCE Patient's Visit Information Visit Information Visit Information: MARVA KHAN is a 59 year old F referred to Physical Therapy by Dr. Patricia Winston DO with a diagnosis of Thoracic back pain. Date of Evaluation: 08/21/24 Physical Therapist: Dani Roger DPT Visit Plan Frequency: 2x /Week Duration: 6 Weeks Plan: 1) manual to R erector spinae 2) trunk extension, and rotational stretching 3) DN to erector spinae Subjective Subjective: Pt. is here today for her initial evaluation with diagnosis of thoracic spine pain. pt. reports having pain in her back for no major reason. She thinks it may have stemmed from an accident where she was doing the splits and slipped causing her move awkwardly. Pt. reports pain in the R side of her lower thoracic spine that wraps around the R side at times. pt. reports no issues with breathing, no marked trigger of her symptoms. Pt. will have times where she is fine and other times where it is more intense. no N/T. Pt. did have a CT with nothing showing. Pt. reports no distal LE symptoms. She reports not much change in symptoms with changing of positions well. Pt. is hopeful to reduce symptoms in order to get back to all recreational activities without limitations. 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 Pain Thoracic spine: Pain Intensity (Out of 10): 1 Comment: R side lower aspect. Objective Objective: POSTURE: Pt. has fairly normal posture in stance. Normal lumbar positioning and normal iliac crest heights. PALPATION: Pt. has tenderness along R side of lower thoracic and upper lumbar paraspinals. Pt. has no pain with spring testing throughout thoracic spine, slight soreness at L4/L5 region. No pain with testing of Ribs in either side. NEURO: Pt. has normal sensation of BUEs and BLEs. Pt. is able to rise on heels and toes without issues. ROM: Pt. has good ROM of lumbar and thoracic spine. Slight increase in symptoms with thoracic rotation. Pt. has tightness in her R hip flexor, but is very flexible everywhere else. MMT: Pt. has 5/5 strength throughout B distal LEs. Pt. hsa 4+/5 bilateral hips. Fair- core strength. GAIT: Pt. ambulates well without increase in thoracic pain. Normal pattern noted. STAIRS: normal. Special Tests Thoracic Sitting: Flexion - Mechanical Response: No effect Thoracic Sitting: Flexion - Symptoms During Testing: No effect Thoracic Sitting: Flexion - Symptoms After Testing: No effect Thoracic Sitting: Extension - Mechanical Response: No effect Thoracic Sitting: Extension - Symptoms During Testing: No effect Thoracic Sitting: Extension - Symptoms After Testing: No effect Thoracic Sitting: Left rotation - Mechanical Response: No effect Thoracic Sitting: Left Rotation - Symptoms During Testing: Increases Thoracic Sitting: Left Rotation - Symptoms After Testing: No worse L/S Slump test left side: Negative L/S Slump test right side: Negative L/S Left Straight Leg Raise: Negative L/S Right Straight Leg Raise: Negative Balance/Special Test Scores Oswestry Low Back Score: 19 Goals Goal 1:: LTG: Pt. to be I with HEP. Goal Time Frame: 4-6 Weeks Goal 2:: STG: Pt. to be able to sit for 30min without increase in thoracic spine pain. Goal Time Frame: 2-4 Weeks Goal 3:: LTG: pt. to be able to complete all ADLs and work activities without increase in symptoms. Goal Time Frame: 4-6 Weeks Goal 4:: LTG: Pt. to have full lumbar and thoracic spine ROM without increase in symptoms. Goal Time Frame: 4-6 Weeks Rehabilitation Potential Physical Therapy Diagnosis: Pt. has signs and symptoms consistent with thoracic pain. She did not have nay pain with PAs throughout thoracic spine, but more so in the surrounding musculature. Pt. did not have any N/T, symptoms suggest more soft tissue issues. Rehabilitation Potential: Excellent Anticipated Interventions Patient/Client Instruction: Educate patient on: Condition, Plan of Care, Risk Factors and Benefits of Fitness Program For the Purpose of:: To improve health and function, To foster healthy habits, To improve decision making, To facilitate caregiver knowledge, To improve self management, To prevent re-injury and To improve ability to perform tasks related to life management Therapeutic Exercise to Include: Strength training, Power training, Postural training, Flexibilty training, Passive ROM, Active ROM and Dynamic Lumbar Stabilization For the Purpose of:: To decrease pain, To increase ROM, To improve nutrient delivery to tissue, To increase oxygenation perfusion (more content not included)... Normal [facility] Gastroenterology Visit Repor ton 08-09-2024 Gastroenterology Visit Report [facility]astroenterology [address] [place] [address] OFFICE VISIT Date of Service: 08/09/24 MR#: [id number] Acct: [id number] Name: MARVA KHAN [facility] Rep #: [id number] : 1965 Provider: LIZETH john Age/Sex: 59/F [place] [facility]: Signed Intake Vital Signs 05/19/24 13:14 07/26/24 06:18 08/09/24 09:33 Height 5 ft 7 in 5 ft 7 in 5 ft 7 in Weight: 160 lb BMI 25.0 BP 97/64 Respiration 16 Pulse 69 Pulse Oximetry (%) 97 Oxygen Delivery Method room air Intake Visit Reasons: Test Result Chief Complaint: pain 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: No Is patient in pain?: No Allergies cefazolin Allergy (Intermediate, Verified 08/09/24 09:36) hives anastrozole Adverse Reaction (Intermediate, Verified 08/09/24 09:36) Cough, facial swelling, body aches Seasonal Allergies: Uncoded Adverse Reaction (Intermediate, Verified 08/09/24 09:36) ITCHY, WATERY EYES duloxetine Adverse Reaction (Verified 08/09/24 09:36) Tachycardia Medications ???Medication ???Instructions ???Recorded ???Confirmed ???Type rizatriptan 10 mg tablet See Rx Instructions PO .COMPLEX 08/09/24 History cholecalciferol (vitamin D3) 50 50 mcg PO DAILY 10/09/21 08/09/24 History mcg (2,000 unit) capsule magnesium L-threonate 48 mg 48 mg PO DAILY 05/18/24 08/09/24 H istory magnesium (667 mg) capsule (MagMind) magnesium glycinate (LC-655) 118 mg PO DAILY 05/18/24 08/09/24 History omega 3 350 mg-dha 235 mg-epa 90 1 cap PO DAILY 05/18/24 08/09/24 H istory mg-fish oil 597 mg capsule,delay rel ([place]-3) thyroid (pork) 90 mg tablet 90 mg PO DAILY 05/18/24 08/09/24 H istory (Adthyza) tirzepatide (weight loss) 10 7.5 mg subcut KRAUS 05/18/24 08/09/24 History mg/0.5 mL subcutaneous pen injector acetaminophen 325 mg tablet 1,000 mg (3.0769 x 325 mg) PO Q8H 05/19/24 08/09/24 Rx PRN Pain 1-10 Or Fever >100.7 #0 tabs vonoprazan 20 mg tablet (Voquezna) 20 mg PO QDAY #30 tabs 08/09/24 08/09/24 Rx PFSH Medical History Wears glasses Cancer Alcohol use PONV (postoperative nausea and vomiting) Non-smoker History of Holter monitoring History of rheumatic fever History of echocardiogram Cardiology follow-up encounter History of irregular heartbeat COVID (04/2020) Breast cancer, left breast History of pre-eclampsia Endometriosis 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 She was admitted 05/18/2024 after presenting to ED with her 3rd bout of complaints of abdominal cramping, diarrhea and emesis. She reports this episode was the most severe and the only thing she can associate with all three episodes was a small consumption of alcohol prior to onset. CT was revealing for marked gastric wall thickening mid to distal stomach. Lipase, CBC and transaminases were unremarkable. She reports symptoms are sudden onset with burning and grabbing epigastric pain followed by diarrhea and emesis. She reports her prior GB pain was similar to her current pain. She will continue Omeprazole 20mg daily and schedule colonoscopy and EGD. If she has a recurrent episode of pain she will start dicyclomine. In terms of tirzepatide, we have discussed potential s/e; however, she has been on GLP1 since October 2023 and denies any recent dose increase prior to onset of symptoms. From a GI standpoint I advised she may resume tirzepatide and monitor symptoms. EGD: 07/26/2024 - negative for Zavala's, H. pylori and celiac sprue - LA Grade B reflux esophagitis with no bleeding. Biopsied. - Medium-sized hiatal hernia. - Chronic gastritis. Biopsied. - Erythematous duodenopathy. Biopsied. COLON: 07/26/2024 - TI and random colon biopsies unremarkable Congested mucosa in the entire examined colon. Biopsied. - Mild inflammation was found in the ileum secondary to ileitis. Biopsied. - Internal hemorrhoids were also seen -she reports having periodic episodes of bloating - she is taking OTC digestive enzymes that are helping (more content not included)... Normal [facility] Ivan 08-02-2024 [facility] Telephone (CATHMN) ERINMARVA ([id number]) 1965 F Date Time Provider Department 08/02/24 AUDREY ROWE During your visit today, we recorded the following information about you: Hi Mercado Babita 08/02/2024 7:54 AM Signed Allergies As of Date: 08/02/2024 Noted Allergy Reaction ANCEF (CEFAZOLIN) 12/18/2019 4 - Hives DULOXETINE 01/23/2019 14 - Other: See Comments SHELLFISH CONTAINING PRODUCTS 11/05/2016 6 - Diarrhea 8 - GI Upset Date Reviewed: 04/18/2024 Reviewed by: Filomena Rizvi MD - Fully Assessed Reason for Visit: Office note faxed [Other] Cmt: to [facility] dated 04/26/23 Prescriptions as of 08/02/2024 - tirzepatide (MOUNJARO) 5 mg/0.5 mL pen injector Inject 5 mg subcutaneously one time a week. - acetaminophen (TYLENOL EXTRA STRENGTH) 500 mg tablet Take 500 mg by mouth every 8 hours as needed. - acetaminophen (TYLENOL EXTRA STRENGTH) 500 mg tablet Take 2 tablets by mouth every 6 hours as needed for pain. - ibuprofen (MOTRIN) 600 mg tablet Take 1 tablet by mouth every 8 hours as needed for pain. - flaxseed oil (OMEGA 3 ORAL) Take 1 capsule by mouth once daily. - vitamin B complex (B COMPLEX 1 ORAL) Take 1 capsule by mouth once daily. - OTC PRODUCT Take 1 capsule by mouth once daily. Rauri mushroom gummy- 3000 mg of functional mushrooms - ARMOUR THYROID 90 mg tablet Take 90 mg by mouth once daily. - MAGNESIUM MAL, THREON, CHELATE ORAL Take 1 capsule by mouth once daily. - nitroglycerin sublingual (NITROQUICK) 0.3 mg SL tablet Dissolve 1 tablet under the tongue one time only for 1 dose. To be administered in Radiology for CTA exam - iv contrast (will be provided with radiology test) MRI Breast TIM Inject, intravenously, once for 1 dose. No IV access, insert saline lock prior to the beginning of sedation, infusion, injection of imaging exam. Discontinue saline lock post exam. If Pt has a central line or IVAD, may access for administration according to line specific nursing protocol. Once exam is complete flush line and de-access according to line specific nursing protocol in the MR contrast administration guidelines link - cholecalciferol (VITAMIN D3) 50 mcg (2,000 unit) tablet Take 2,000 Units by mouth once daily. - rizatriptan (MAXALT) 10 mg tablet take 1 tablet by mouth AT ONSET OF MIGRAINE - REPEAT IN 2 HOURS IF NEEDED Problem List As Of Date 08/02/2024 Noted Resolved Acquired hypothyroidism [E03.9] 10/31/2015 11/05/2016 Velma's disease [E06.3] 11/05/2016 Fatigue [R53.83] 11/05/2016 Sleep disturbance [G47.9] 11/05/2016 Surgical menopause [E89.40] 11/05/2016 Constipation [K59.00] 11/05/2016 Nonintractable migraine [G43.009] 11/05/2016 Endometriosis [N80.9] 11/05/2016 Acute low back pain without sciatica [M54.50] 11/05/2016 Vitamin D deficiency [E55.9] 11/05/2016 Exposure to mercury [Z77.018] 11/05/2016 Obesity, Class I, BMI 30-34.9 [E66.811] 11/24/2019 Dense breast tissue [R92.30] 11/24/2019 11/30/2022 Family history of breast cancer [Z80.3] 11/24/2019 Malignant neoplasm of upper-outer quadrant of l*12/05/2019 Lymphedema [I89.0] 03/05/2021 History of breast cancer [Z85.3] 11/30/2022 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] 06/07/2023 Supraventricular tachycardia [I47.10] 07/20/2023 Diagnosed: 07/20/2023 Palpitations [R00.2] 07/20/2023 Diagnosed: 07/20/2023 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, [address] Free T3on 07-31-2024 Free T3 [Mass/Vol] 2.6 pg/mL Normal 2.18-3.98 [facility] Comment on above: Performed By: #### L 501.9520, L501.10558, L506.0400, L500.4100 ####[facility] [address] [place], [address] Lipid Profileon 07-31-2024 Cholesterol [Mass/Vol] 241 mg/dL High 200 [facility] Comment on above: Result Comment: <200 mg/dL Desirable 200-240 mg/dL Borderline >240 mg/dL High Risk Performed By: #### L 501.9520, L501.38811, L506.0400, L500.4100 ####[facility] [address] [place], [address] Cholesterol in HDL [Mass/Vol] 67 mg/dL Normal [facility] Comment on above: Result Comment: The drugs N-Acetylcysteine and Metamizole may falsely depress this assay. Reference Range HDL <40 mg/dL Low HDL Cholesterol HDL >or= 60 mg/dL High HDL Cholesterol Performed By: #### L 501.9520, L501.52065, L506.0400, L500.4100 ####[facility] [address] [place], [address] Cholesterol in LDL [Mass/Vol] 150 mg/dL High 0-130 [facility] Comment on above: Performed By: #### L 501.9520, L501.57665, L506.0400, L500.4100 ####[facility] [address] [place], [address] Cholesterol in VLDL [Mass/Vol] 24 mg/dL Normal 5-40 [facility] Comment on above: Performed By: #### L 501.9520, L501.50825, L506.0400, L500.4100 ####[facility] [address] [place], [address] Triglyceride [Mass/Vol] 121 mg/dL Normal [facility] Comment on above: Result Comment: The drugs N-Acetylcysteine and Metamizole may falsely depress this assay. Serum Triglycerides Reference Interval Normal <150 mg/dL Borderline high 150 - 199 mg/dL High 200 - 499 mg/dL Very High > or = 500 mg/dL Performed By: #### L 501.9520, L501.99778, L506.0400, L500.4100 ####[facility] [address] [place], [address] T4 Free Directon 07-31-2024 T4 FREE DIRECT 0.86 ng/dL Normal 0.76-1.46 [facility] Comment on above: Performed By: #### L 501.9520, L501.47488, L506.0400, L500.4100 ####[facility] [address] [place], [address] Colonoscopy Reporton 025 Colonoscopy Report [facility] Medical Records Department [address] [place] [address] Colonoscopy Report MR#: [id number] Acct: [id number] Name: MARVA KHAN [facility] Rep #: [id number] : 1965 59 From: Go Aguila DO PCP: Dr. Patricia Winston DO Status:[facility] [place] Patient Name: Marva Khan Procedure Date: 07/26/2024 7:20 AM Date of : 1965 Age: 59 Procedure: Colonoscopy Indications: Clinically significant diarrhea of unexplained origin Providers: Go Aguila DO Referring MD: Patricia Winston Medicines: Monitored Anesthesia Care Patient Profile: This is a 59 year old female. Refer to note in patient chart for documentation of history and physical. Patient has symptoms of acute epigastric abdominal pain and acute dyspepsia. Last Colonoscopy: none. The patient's first colonoscopy is today. Complications: No immediate complications. Procedure: Pre-Anesthesia Assessment: - Prior to the procedure, a History and Physical was performed, and patient medications and allergies were reviewed. The patient is competent. The risks and benefits of the procedure and the sedation options and risks were discussed with the patient. All questions were answered and informed consent was obtained. Patient identification and proposed procedure were verified by the physician in the pre-procedure area. Mental Status Examination: alert and oriented. Airway Examination: normal oropharyngeal airway and neck mobility. Respiratory Examination: clear to auscultation. CV Examination: normal. Prophylactic Antibiotics: The patient does not require prophylactic antibiotics. Prior Anticoagulants: The patient has taken no anticoagulant or antiplatelet agents. ASA Grade Assessment: II - A patient with mild systemic disease. After reviewing the risks and benefits, the patient was deemed in satisfactory condition to undergo the procedure. The anesthesia plan was to use monitored anesthesia care (MAC). Immediately prior to administration of medications, the patient was re-assessed for adequacy to receive sedatives. The heart rate, respiratory rate, oxygen saturations, blood pressure, adequacy of pulmonary ventilation, and response to care were monitored throughout the procedure. The physical status of the patient was re-assessed after the procedure. After I obtained informed consent, the scope was passed under direct vision. Throughout the procedure, the patient's blood pressure, pulse, and oxygen saturations were monitored continuously. The Colonoscope was introduced through the anus and advanced to the terminal ileum. The colonoscopy was performed without difficulty. The patient tolerated the procedure well. The quality of the bowel preparation was adequate. The terminal ileum, ileocecal valve, appendiceal orifice, and rectum were photographed. Scope In: 7:22:35 AM Scope Withdrawal Time 0 hours 7 minutes 26 seconds Scope Out: 7:31:32 AM Total Procedure Duration Time 0 hours 8 minutes 57 seconds Findings: The perianal and digital rectal examinations were normal. An area of moderately congested mucosa was found in the entire colon. Biopsies were taken with a cold forceps for histology. Verification of patient identification for the specimen was done. Estimated blood loss was minimal. Patchy mild inflammation characterized by erythema was found in the terminal ileum. Biopsies were taken with a cold forceps for histology. Verification of patient identification for the specimen was done. Estimated blood loss was minimal. Impression: - Congested mucosa in the entire examined colon. Biopsied. - Mild inflammation was found in the ileum secondary to ileitis. Biopsied. - Internal hemorrhoids were also seen Recommendation: - Discharge patient to home. - Resume previous diet. - Continue present medications. - Await pathology results. - Repeat colonoscopy in 10 years for screening purposes. Procedure Code(s): --- Professional --- 37417, Colonoscopy, flexible; with biopsy, single or multiple CPT copyright 2021 [employer]. All rights reserved. The codes documented in this report are preliminary and upon operator maintainer review may be revised to meet current compliance requirements. Go Aguila DO 07/26/2024 8:05:35 AM This report has been signed electronically. Number of Addenda: 0 Note Initiated On: 07/26/2024 7:20 AM 07/26/24 0805 Date Go Aguila DO Cosigner Signature: Date (if indicated) CC: Dr. Patricia Winston DO; Go Aguila DO Date Dictated: 07/26/24 0720 Date Transcribed: Electro Mechanical Engineer: RL Signed Normal [facility] EGD Reporton 07-26-2024 EGD Report [facility] Medical Records Department [address] [place] [address] EGD Report MR#: [id number] Acct: [id number] Name: MARVA KHAN [facility] Rep #: [id number] : 1965 59 From: Go Aguila DO PCP: Dr. Patricia Winston DO Status:[facility] [place] [place] Patient Name: Marva Khan Procedure Date: 07/26/2024 7:06 AM Date of : 1965 Age: 59 Procedure: Upper GI endoscopy Indications: Epigastric abdominal pain, Dyspepsia Providers: Go Aguila DO Referring MD: Ptaricia Winston Medicines: Monitored Anesthesia Care Patient Profile: This is a 59 year old female. Refer to note in patient chart for documentation of history and physical. Patient has symptoms of acute epigastric abdominal pain and acute dyspepsia. Complications: No immediate complications. Procedure: Pre-Anesthesia Assessment: - Prior to the procedure, a History and Physical was performed, and patient medications and allergies were reviewed. The patient is competent. The risks and benefits of the procedure and the sedation options and risks were discussed with the patient. All questions were answered and informed consent was obtained. Patient identification and proposed procedure were verified by the physician in the pre-procedure area. Mental Status Examination: alert and oriented. Airway Examination: normal oropharyngeal airway and neck mobility. Respiratory Examination: clear to auscultation. CV Examination: normal. Prophylactic Antibiotics: The patient does not require prophylactic antibiotics. Prior Anticoagulants: The patient has taken no anticoagulant or antiplatelet agents. ASA Grade Assessment: II - A patient with mild systemic disease. After reviewing the risks and benefits, the patient was deemed in satisfactory condition to undergo the procedure. The anesthesia plan was to use monitored anesthesia care (MAC). Immediately prior to administration of medications, the patient was re-assessed for adequacy to receive sedatives. The heart rate, respiratory rate, oxygen saturations, blood pressure, adequacy of pulmonary ventilation, and response to care were monitored throughout the procedure. The physical status of the patient was re-assessed after the procedure. After obtaining informed consent, the endoscope was passed under direct vision. Throughout the procedure, the patient's blood pressure, pulse, and oxygen saturations were monitored continuously. The Colonoscope was introduced through the mouth, and advanced to the second part of duodenum. The upper GI endoscopy was accomplished without difficulty. The patient tolerated the procedure well. Scope In: 7:15:23 AM Scope Out: 7:20:24 AM Total Procedure Duration Time 0 hours 5 minutes 1 second Findings: LA Grade B (one or more mucosal breaks greater than 5 mm, not extending between the tops of two mucosal folds) esophagitis with no bleeding was found 38 to 41 cm from the incisors. Biopsies were taken with a cold forceps for histology. Verification of patient identification for the specimen was done. Estimated blood loss was minimal. A medium-sized hiatal hernia was present. Patchy moderate inflammation characterized by erosions, erythema, friability and granularity was found in the gastric body. Biopsies were taken with a cold forceps for histology. Verification of patient identification for the specimen was done. Estimated blood loss was minimal. Biopsies were taken with a cold forceps for Helicobacter pylori testing. Verification of patient identification for the specimen was done. Estimated blood loss was minimal. Diffuse mildly erythematous mucosa without active bleeding and with no stigmata of bleeding was found in the second portion of the duodenum. Biopsies were taken with a cold forceps for histology. Verification of patient identification for the specimen was done. Estimated blood loss was minimal. Impression: - LA Grade B reflux esophagitis with no bleeding. Biopsied. - Medium-sized hiatal hernia. - Chronic gastritis. Biopsied. - Erythematous duodenopathy. Biopsied. Recommendation: - Discharge patient to home. - Resume previous diet. - Continue present medications. - Await pathology results. - Repeat upper endoscopy to check healing. Procedure Code(s): --- Professional --- 83779, Esophagogastroduodenosc opy, flexible, transoral; with biopsy, single or multiple CPT copyright 2021 [employer]. All rights reserved. The codes documented in this report are preliminary and upon operator maintainer review may be revised to meet current compliance requirements. Go Aguila DO 07/26/2024 7:44:36 AM This report has been signed electronically. Number of Addenda: 0 Note Initiated On: 07/26/2024 7:06 AM 07/26/24 0744 Date Go Carter (more content not included)... Normal [facility] H Pylori (initial)on 025 H Pylori (initial) --- Patient Age/Sex Location Account Attending Physician MARVA KHAN NVLindsay 59/F EN [id number] Go Aguila DO Specimen: [id number] Received: 07/26/24 Status: BRAULIO Moore Num: [id number] Spec Type: IMMUNO Subm Dr: Go Aguila, PHYSICIAN INSTITUTION [place] [address] SPECIMEN INFORMATION: Tissue Source: A- Gastric body biopsy Clinical Info: Abnormal CT scan, gastrointestinal tract, gastritis Specimen Number: [id number] CPT code: 90102 METHODOLOGY: Deparaffinized sections of prefer/formalin-fixed tissue or PAP/DQ stained slides are incubated with monoclonal/polyclonal antibodies/oligonucleot jamie probes. Localization is made via biotin free immunoperoxidase method. Appropriate controls are performed and reacted as expected. Results on target cell population are indicated in the following table: RESULTS: ANTIBODY / CLONE RESULT Block AH Pylori (polyclonal) negative These tests were developed and their performance characteristics determined by [facility]. They may not have been cleared or approved by the U.S. Food and Drug Administration. The FDA has determined that such clearance or approval is not necessary. The above immunohistochemical/anupam Bisi markers are ordered and reviewed by the Pathologist. INTERPRETATION: A. Gastric body, biopsy: Negative for Helicobacter pylori organisms. 07/27/2024 Signed (signature on file) Dr. Frank Barba MD 07/27/24 1247 Normal [facility] Comment on above: Performed By: #### P H.PYLORI #### [facility] [address] [facility] [place], [address] MR/CON.PCM.GIon 07-26-2024 MR/CON.PCM.GI [facility] Medical Records Department [address] [place] [address] Consultation - GI 07/26/24 0659 MR#: [id number] Acct: [id number] Name: MARVA KHAN [facility] Rep #: [id number] : 1965 59 From: Go Friend DO PCP: Dr. Patricia Winston, DO Status:[facility] Location: [place] [address] HPI Consult Data Date of Consult: 07/26/24 HPI Narrative HPI Narrative: MARVA KHAN, is a 59 F who presentsChief Complaint: pain Details: 58y/o female presents for consultation of vomiting and diarrhea. She was admitted 05/18/2024 after presenting to ED with complaints of abdominal cramping, diarrhea and emesis. CT was revealing for marked gastric wall thickening mid to distal stomach. Lipase, CBC and transaminases were unremarkable. Patient notes a prior cholecystectomy as well as multiple laparoscopic surgeries for endometriosis in the past. PMH of breast CA Abdomen/Pelvis CT 05/18/24 Marked gastric wall thickening. This may be due to inflammatory process such as gastritis, or other process including malignancy. Endoscopic correlation may be helpful. No bowel obstruction. - 3 episodes - 1st episode about 12 hours - 2nd episodes 2 days - 3rd episode 4 days - she reports she is eating small meals - denies any ongoing N/V or pain - denies any bleeding - stools are back to normal - she c/o intermittent right flank pain that wraps around to the front and this is associated with RUQ fullness CCX 1997 - she started Terzepitide October 2023 - her first episode of this pain was February, second episode a week later - reports all episodes were associated with a couple weeks of Terzepitide - weight loss of about 30lbs - denies any h/o Colon or EGD PFSH Medical History Wears glasses Cancer Alcohol use PONV (postoperative nausea and vomiting) Non-smoker History of Holter monitoring History of rheumatic fever History of echocardiogram Cardiology follow-up encounter History of irregular heartbeat COVID (04/2020) Breast cancer, left breast History of pre-eclampsia Endometriosis 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 Polycystic ovaries Migraine Velma's thyroiditis Home Medications ???Medication ???Instructions ???Recorded ???Last Taken ???Type rizatriptan 10 mg tablet See Rx Instructions PO .COMPLEX Unknown History cholecalciferol (vitamin D3) 50 50 mcg PO DAILY 10/09/21 05/15/24 History mcg (2,000 unit) capsule magnesium L-threonate 48 mg 48 mg PO DAILY 05/18/24 05/17/24 H istory magnesium (667 mg) capsule (MagMind) magnesium glycinate (LC-655) 118 mg PO DAILY 05/18/24 05/17/24 History omega 3 350 mg-dha 235 mg-epa 90 1 cap PO DAILY 11/28/24 11/27/24 H istory mg-fish oil 597 mg capsule,delay rel ([place]-3) thyroid (pork) 90 mg tablet 90 mg PO DAILY 05/18/24 07/25/24 H istory (Adthyza) tirzepatide (weight loss) 10 7.5 mg subcut KRAUS 05/18/24 07/16/24 History mg/0.5 mL subcutaneous pen injector acetaminophen 325 mg tablet 1,000 mg (3.0769 x 325 mg) PO Q8H 05/19/24 Unknown Rx PRN Pain 1-10 Or Fever >100.7 #0 tabs dicyclomine 10 mg capsule 10 mg PO TID PRN abdominal cramp 1 07/19/23 Unknown Rx #20 caps omeprazole 20 mg capsule,delayed 20 mg PO DAILY #30 caps 05/19/24 U nknown Rx release Allergy/AdvReac Type Severity Reaction Status Date / Time cefazolin Allergy Intermediate hives Verified 07/26/24 06:17 anastrozole AdvReac Intermediate Cough, Verified 07/26/24 06:17 facial swelling, body aches Seasonal Allergies: Uncoded AdvReac Intermediate ITCHY, Verified 07/26/24 06:17 WATERY EYES duloxetine AdvReac Tachycardia Verified 07/26/24 06:17 Family History Aunt Breast cancer Grandfather Prostate cancer Surgical History History of lumpectomy of right breast Status post left breast lumpectomy H/O exploratory laparotomy Hx of cholecystectomy (02/19/98) H/O: hysterectomy (10/19/12) History of lumpectomy of left breast (12/24/19) Social History Smoking Status: Never smoker ROS Constitutional Constitutional: Denies fatigue, fever(s), poor appetite, weight gain or weight loss Gastrointestinal Gastrointestinal: Denies belching, bloating, change in bowel habits, change in stool character, chewing difficulty, coffee ground emesis, constipation, cramping, diarrhea, dyspepsia, dysphagia, early satiety, excessive flatus, fecal incontinence, heartburn, hematemesis, hematochezia, hemorrhoids, loose stools, melena, nausea, odynophagia, rectal bleeding, tenesmus, vomiting or weight changes Physical Exam Const a (more content not included)... [facility] MR/POSTOP.ANEon 07-26-2024 MR/POSTOP.[facility] Medical Records Department [address] [address] Anesthesia Postop Eval I 07/26/24 0738 MR#: [id number] Acct: [id number] Name: MARVA KHAN [facility] Rep #: [id number] : 1965 59 From: Ashley Guillen PCP: Dr. Patricia Winston, DO Status:[facility] Y Race: C Location: EN Anesthesia: Postop Eval I Current Vital Signs Temperature: 98.2 F Pulse Rate: 90 Blood Pressure: 91/65 Respiratory Rate: 16 Pulse Ox: 94 Oxygen Delivery Method: Room Air Assessment Airway patent: Yes Spontaneous unlabored respirations: Yes Mental status: Awake and Calm nausea: No Vomiting: No Anesthesia Complication: No Fluid Hydration Crystalloid volume administer (ml): 10 Total IV fluid infused: 10 Progress Note Anesthesia document: Postop Eval 1 completed: Yes 07/26/24 0842 Date Ashley Joyce Signature: Date CC: Signed [facility] MR/EYJJWHNC8yr 07-26-2024 MR/POSTOPAN2 [facility] Medical Records Department [address] [place] [place] [address] Anesthesia Postop Eval II 07/26/24 0851 MR#: [id number] Acct: [id number] Name: MARVA KHAN [facility] Rep #: [id number] : 1965 59 From: Jamarcus Hill MD PCP: Dr. 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 Spontaneous unlabored Yes 07/26/24 08:42 BLOW MACHINE TENDER STARCH SPRAYING.GDOTT respirations Mental status Awake,Calm 07/26/24 08:42 BLOW MACHINE TENDER STARCH SPRAYING.GDOTT nausea No 07/26/24 08:42 BLOW MACHINE TENDER STARCH SPRAYING.GDOTT Vomiting No 07/26/24 08:42 BLOW MACHINE TENDER STARCH SPRAYING.GDOTT Anesthesia Postop Eval I: Fluid Summary Crystalloid volume administer 10 07/26/24 08:42 BLOW MACHINE TENDER STARCH SPRAYING.GDOTT (ml) Colloids volume administered ( ml) Blood Product volume administered (ml) Total IV fluid infused 10 07/26/24 08:42 BLOW MACHINE TENDER STARCH SPRAYING.GDOTT Anesthesia Postop Eval I: Summary Notes Anesthesia Complication No 07/26/24 08:42 BLOW MACHINE TENDER STARCH SPRAYING.GDOTT Anesthesia Complication Comment: Post-operative progress note Anesthesia: Postop Eval II Evaluation Mental status: Awake Pain Level: 0 nausea: No Vomiting: No 07/26/2451 Date Jamarcus Joyce Signature: Date CC: Signed Normal [facility] Special Stain Group Ion 02-0 Special Stain Group I ----- Patient Age/Sex Location Account Attending Physician ERINMARVA NATALIIA 59/F EN [id number] Go Aguila DO Specimen: [id number] Received: 07/26/24 Status: BRAULIO Oscar Num: [id number] Spec Type: COLON BX Subm Dr: Go Aguila DO HEADANNEMARIE OPERATION: Colonoscopy, EGD with biopsy PRE-OP DIAGNOSIS: Abnormal CT scan, gastrointestinal tract, gastritis TISSUE SUBMITTED: A- Gastric body biopsy, B- Duodenum biopsy, C- Distal esophagus biopsy, D- Terminal ileum biopsy, E- Random colon biopsy MICROSCOPIC DIAGNOSIS A. Gastric body, biopsy: Mild gastritis. See microscopic description and comment. B. Duodenum, biopsy: A fragment of duodenal mucosa, no pathologic diagnosis. C. Distal esophagus, biopsy: Fragments of gastroesophageal mucosa with chronic inflammation. Intestinal metaplasia (goblet cell metaplasia) not identified. See comment. D. Terminal ileum, biopsy: Fragments of small intestinal mucosa, no pathologic diagnosis. See comment. E. Colon, random biopsy: Fragments of colonic mucosa, no pathologic diagnosis. RODRIGUEZ. 07/27/2024 COMMENT A. The results of immunohistochemistry for Helicobacter pylori will be reported separately ([id number]). C. Alcian blue/PAS stain with matched control is used in the evaluation of the specimen. D. Prominent lymphoid aggregates are noted. MICROSCOPIC DESCRIPTION Slides are reviewed. A. The specimen shows fragments of gastric mucosa with chronic inflammatory cell infiltrates in the lamina propria consisting of lymphocytes and plasma cells, consistent with mild chronic gastritis. Patient Age/Sex Location Account Attending Physician MARVA KHAN NVLindsay 59/F EN [id number] Go Aguila DO GROSS DESCRIPTION A. Received in fixative is one container labeled with the patient's name and designated Gastric body biopsy. The specimen consists of multiple irregular fragments of light almeida soft tissue that in aggregate measure 1.2 x 0.4 x 0.2 cm. The specimen is totally submitted in one cassette. B. Received in fixative is one container labeled with the patient's name and designated Duodenum biopsy. The specimen consists of one irregular fragment of light almeida soft tissue that measures 0.7 x 0.3 x 0.1 cm. The specimen is totally submitted in one cassette. C. Received in fixative is one container labeled with the patient's name and designated Distal esophagus biopsy. The specimen consists of two irregular fragments of light almeida soft tissue that in aggregate measure 0.9 x 0.3 x 0.2 cm. The specimen is totally submitted in one cassette. D. Received in fixative is one container labeled with the patient's name and designated Terminal ileum biopsy. The specimen consists of multiple irregular fragments of light almeida soft tissue that in aggregate measure 1.5 x 0.3 x 0.2 cm. The specimen is totally submitted in one cassette. E. Received in fixative is one container labeled with the patient's name and designated Random colon biopsy. The specimen consists of multiple irregular fragments of light almeida soft tissue that in aggregate measure 2.5 x 0.3 x 0.2 cm. The specimen is totally submitted in one cassette. 07/26/2024 TC:3 [facility]:[id number] Patient Age/Sex Location Account Attending Physician MARVA KHAN 59/F XIMENA [id number] Go Aguila DO Signed (signature on file) Dr. Frank Barba MD 07/27/24 1224 Normal [facility] Comment on above: Performed By: #### P SSI ####[facility] [id number] [facility] [address] [place], [place], [address] MR/PATJUANJOSEon 07-25-2024 MR/PAT.[facility] Medical Records Department [address] [place] [address] PAT - Anesthesia 07/25/24 1628 MR#: [id number] Acct: [id number] Name: MARVA KHAN [facility] Rep #: [id number] : 1965 59 From: Johan Albright MD PCP: Dr. Patricia Winston, DO Status:PRE [facility] Y Race: C Location: EN Pre-Assessment Diagnosis/Proposed Procedure Planned Operative Procedure(s): (N/A) Colonoscopy,EGD Anesthesia History Anesthesia History - nurse leader: Anesthesia History - nurse leader Hx Hospitalization Yes: ABD ISSUES 04/202407/24/24 11:24 Any Problems With Anesthesia Yes: PONV 07/24/24 11:24 Cholinesterase deficiency No 07/24/24 11:24 You/Your Family Experience No 07/24/24 11:24 fever (hyperthermia) with Relationship Recent Exposure to Contagious Disease Does patient have nerve No 07/24/24 11:24 stimulator Patient instructed to have device shut off --Does patient have Pacemaker or ICD? When Was Last Pacemaker Check QUESTION #4 FULL TEXT: You/Your Family Experience fever (hyperthermia) with Anesthesia Last Oral Intake Last Oral intake: Last Oral Intake NPO since Meds taken in AM with sips of water? Meds patient instructed to take am of surgery PONV PONV - nurse leader: PONV - nurse leader Female Yes 07/24/24 11:24 HX of Motion Sickness No 07/24/24 11:24 HX of N/V After Surgery Yes 07/24/24 11:24 Non-Smoker Yes 07/24/24 11:24 Duration of Surgery greater No 07/24/24 11:24 than 60 minutes Number of Risk Factors 3 07/24/24 11:24 PONV Score Moderate Risk 07/24/24 11:24 Height Weight Height Weight: Anesthesia: Height Weight Height 5 ft 7 in 05/19/24 13:14 Respiratory Assessment Respiratory Assessment - nurse leader: Respiratory Tract Infection Hx - nurse leader Hx Respiratory Tract Infection No 07/24/24 11:24 STOP Sleep Apnea STOP Sleep Apnea - nurse leader: STOP Sleep Apnea - nurse leader Hx Hypertension Yes: DURING 07/24/24 11:24 Hx Sleep Apnea No 07/24/24 11:24 CPAP BIPAP Do you snore loudly (louder No 07/24/24 11:24 than talking or can be heard Do you often feel tired/ No 07/24/24 11:24 fatigued/ sleepy during daytime? Has anyone observed you stop No 07/24/24 11:24 breathing during sleep? STOP Results Negative 07/24/24 11:24 QUESTION #5 FULL TEXT : Do you snore loudly (louder than talking or can be heard through closed doors)? 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 Specify any problems Hx of Preganancy in last 3 No 07/24/24 11:24 Months Nurse Filling Out Transfusion TAMIE 07/24/24 11:24 Questions: Date: 07/24/24 07/24/24 11:24 Time: 11:26 07/24/24 11:24 Patient unable to answer at this time (ie. confused, unrespo /Reproduction History /Reproductive History - nurse leader: /Reproductive Hx- nurse leader Hx Now No 07/24/24 11:24 Gestational Age (in weeks): EDC: Hx Hx Para Hx Section SAB No 07/24/24 11:24 [facility] Medical History (Updated 07/24/24 @ 11:36 by Ara Frias) Wears glasses Cancer Alcohol use PONV (postoperative nausea and vomiting) Non-smoker History of Holter monitoring History of rheumatic fever History of echocardiogram Cardiology follow-up encounter History of irregular heartbeat COVID (04/2020) Breast cancer, left breast History of pre-eclampsia Endometriosis 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 Normal [facility] Spine Thoracic W/WO Contrast on 07-11-2024 Spine Thoracic W/WO Contrast [facility] Imaging Services [address] [place] [address] Spine Thoracic W/WO Contrast MR#: [id number] Acct: [id number] Name: MARVA KHAN [facility] Rep #: [id number] : 1965 F 59 From: Amanda beckman MD PCP: Dr. Patricia Winston DO Status: REG CLI Study: Spine Thoracic W/WO Contrast Date of Exam: Exam# [id number] Ordering Dr: [place] [id number] HISTORY: Low back pain, upper back pain radiates to right ribs and front, pain increasing in frequency and intensity, NKI, history of breast cancer. TECHNIQUE: Multiplanar and multisequence MR images of the thoracic spine were obtained before and after the intravenous administration of 14 cc clear scan. 241 images. COMPARISON: None. FINDINGS: VERTEBRAE: Vertebral body heights maintained. Mild degenerative bone marrow endplate changes at T7-8 and T8-9. Vertebral body hemangioma incidentally noted at T12. No other significant bone marrow signal abnormality or abnormal enhancing lesion. ALIGNMENT: No significant anterior or posterior subluxation. No scoliosis. SPINAL CANAL: Thoracic cord unremarkable in signal and morphology. Morphology and position of the conus medullaris at the lower T12 level. No gross epidural collection or enhancing intradural extramedullary mass. Artifact of the upper thoracic spine on the postcontrast images from incomplete fat saturation. INTERVERTEBRAL DISCS: No pathologic enhancement. Mild posterior disc protrusion at T6/7 without significant central canal stenosis or foraminal narrowing. No significant posterior disc protrusion, central canal stenosis, or foraminal narrowing at the levels. SOFT TISSUES: No paraspinal fluid collections or enhancing soft tissue mass. MRI/Spine Thoracic W/WO Contrast IMPRESSION: Mild degenerative change of the thoracic spine without significant spinal canal stenosis or foraminal narrowing. No evidence for metastatic disease. Electronically Signed: Amanda Haley MD at 14:15 EST , CC: Dr. 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 Normal [facility] ([id number]) 1965 F Date Time Provider Department 06/01/24 JONATHAN BARR During your visit today, we recorded the following information about you: Maliha Apple RN 06/01/2024 3:55 PM Signed Patient on schedule for EGD and colonoscopy with DR Barr Needs follow up after with ordering provider Suzanne Gonzalez sent to schedulers to schedule Maliha Apple RN June 01, 2024 3:54 PM Allergies As of Date: 06/01/2024 Noted Allergy Reaction ANCEF (CEFAZOLIN) 12/18/2019 4 - Hives DULOXETINE 01/23/2019 14 - Other: See Comments SHELLFISH CONTAINING PRODUCTS 11/05/2016 6 - Diarrhea 8 - GI Upset Date Reviewed: 04/18/2024 Reviewed by: Filomena Rizvi MD - Fully Assessed Reason for Visit: Appointment [[id number]] Prescriptions as of 06/05/2024 - tirzepatide (MOUNJARO) 5 mg/0.5 mL pen injector Inject 5 mg subcutaneously one time a week. - acetaminophen (TYLENOL EXTRA STRENGTH) 500 mg tablet Take 500 mg by mouth every 8 hours as needed. - acetaminophen (TYLENOL EXTRA STRENGTH) 500 mg tablet Take 2 tablets by mouth every 6 hours as needed for pain. - ibuprofen (MOTRIN) 600 mg tablet Take 1 tablet by mouth every 8 hours as needed for pain. - flaxseed oil (OMEGA 3 ORAL) Take 1 capsule by mouth once daily. - vitamin B complex (B COMPLEX 1 ORAL) Take 1 capsule by mouth once daily. - OTC PRODUCT Take 1 capsule by mouth once daily. Rauri mushroom gummy- 3000 mg of functional mushrooms - ARMOUR THYROID 90 mg tablet Take 90 mg by mouth once daily. - MAGNESIUM MAL, THREON, CHELATE ORAL Take 1 capsule by mouth once daily. - nitroglycerin sublingual (NITROQUICK) 0.3 mg SL tablet Dissolve 1 tablet under the tongue one time only for 1 dose. To be administered in Radiology for CTA exam - iv contrast (will be provided with radiology test) MRI Breast TIM Inject, intravenously, once for 1 dose. No IV access, insert saline lock prior to the beginning of sedation, infusion, injection of imaging exam. Discontinue saline lock post exam. If Pt has a central line or IVAD, may access for administration according to line specific nursing protocol. Once exam is complete flush line and de-access according to line specific nursing protocol in the MR contrast administration guidelines link - cholecalciferol (VITAMIN D3) 50 mcg (2,000 unit) tablet Take 2,000 Units by mouth once daily. - rizatriptan (MAXALT) 10 mg tablet take 1 tablet by mouth AT ONSET OF MIGRAINE - REPEAT IN 2 HOURS IF NEEDED Problem List As Of Date 06/01/2024 Noted Resolved Acquired hypothyroidism [E03.9] 10/31/2015 11/05/2016 Velma's disease [E06.3] 11/05/2016 Fatigue [R53.83] 11/05/2016 Sleep disturbance [G47.9] 11/05/2016 Surgical menopause [E89.40] 11/05/2016 Constipation [K59.00] 11/05/2016 Nonintractable migraine [G43.009] 11/05/2016 Endometriosis [N80.9] 11/05/2016 Acute low back pain without sciatica [M54.50] 11/05/2016 Vitamin D deficiency [E55.9] 11/05/2016 Exposure to mercury [Z77.018] 11/05/2016 Obesity, Class I, BMI 30-34.9 [E66.811] 11/24/2019 Dense breast tissue [R92.30] 11/24/2019 11/30/2022 Family history of breast cancer [Z80.3] 11/24/2019 Malignant neoplasm of upper-outer quadrant of l*12/05/2019 Lymphedema [I89.0] 03/05/2021 History of breast cancer [Z85.3] 11/30/2022 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] 06/07/2023 Supraventricular tachycardia [I47.10] 07/20/2023 Diagnosed: 07/20/2023 Palpitations [R00.2] 07/20/2023 Diagnosed: 07/20/2023 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 [*04/20/2022 Diagnosed: 07/20/2023 Pre-op testing [Z01.818] 07/20/2023 PONV (postoperative nausea and vomiting) [R11.2*07/30/2023 Preop testing [Z01.818] 07/30/2023 Encounter Status:Closed by MALIHA APPLE on 06/05/24 Normal [facility] Gastroenterology Visit Repor ton 05-24-2024 Gastroenterology Visit Report [facility] Gastroenterology [address] [place] [address] OFFICE VISIT Date of Service: 05/24/24 MR#: [id number] Acct: [id number] Name: MARVA KHAN [facility] Rep #: [id number] : 1965 Provider: LIZETH john Age/Sex: 58/F Location: [facility] [place] Status: Signed Intake Vital Signs 05/19/24 13:14 05/24/24 08:40 05/24/24 08:42 Height 5 ft 7 in Weight: 168 lb 4 oz BP 105/68 Respiration 16 Pulse 68 Pulse Oximetry (%) 94 Oxygen Delivery Method room air Intake Visit Reasons: Vomiting and diarrhea Chief Complaint: pain 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: No Is patient in pain?: Yes (stomach but not as bad as usual) Pain scale (1-10): 2 Allergies cefazolin Allergy (Intermediate, Verified 05/24/24 08:37) hives anastrozole Adverse Reaction (Intermediate, Verified 05/24/24 08:37) Cough, facial swelling, body aches Seasonal Allergies: Uncoded Adverse Reaction (Intermediate, Verified 05/24/24 08:37) ITCHY, WATERY EYES duloxetine Adverse Reaction (Verified 05/24/24 08:37) Tachycardia Medications ???Medication ???Instructions ???Recorded ???Confirmed ???Type rizatriptan 10 mg tablet See Rx Instructions PO .COMPLEX 09/09/21 05/24/24 History cholecalciferol (vitamin D3) 50 50 mcg PO DAILY 10/09/21 05/24/24 History mcg (2,000 unit) capsule magnesium L-threonate 48 mg 48 mg PO DAILY 05/18/24 05/24/24 History magnesium (667 mg) capsule (MagMind) magnesium glycinate (LC-655) 118 mg PO DAILY 05/18/24 05/24/24 History omega 3 350 mg-dha 235 mg-epa 90 1 cap PO DAILY 05/18/24 05/24/24 History mg-fish oil 597 mg capsule,delay rel ([place]-3) thyroid (pork) 90 mg tablet 90 mg PO DAILY 05/18/24 05/24/24 History (Adthyza) tirzepatide (weight loss) 10 7.5 mg subcut QWEEK 05/18/24 05/24/24 History mg/0.5 mL subcutaneous pen injector acetaminophen 325 mg tablet 1,000 mg (3.0769 x 325 mg) PO Q8H 05/19/24 05/24/24 Rx PRN Pain 1-10 Or Fever >100.7 #0 tabs dicyclomine 10 mg capsule 10 mg PO TID PRN abdominal cramp 05/19/24 05/24/24 Rx #20 caps omeprazole 20 mg capsule,delayed 20 mg PO DAILY #30 caps 05/19/24 05/24/24 Rx release Have you fallen in the past year?: No Nurse's Note: vomiting and diarrhea for 4 days last week. Unsure if there has been blood present. Abdominal spasm like cramping in mid area. 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 She was admitted 05/18/2024 after presenting to ED with complaints of abdominal cramping, diarrhea and emesis. CT was revealing for marked gastric wall thickening mid to distal stomach. Lipase, CBC and transaminases were unremarkable. Patient notes a prior cholecystectomy as well as multiple laparoscopic surgeries for endometriosis in the past. PMH of breast CA Abdomen/Pelvis CT 05/18/24 Marked gastric wall thickening. This may be due to inflammatory process such as gastritis, or other process including malignancy. Endoscopic correlation may be helpful. No bowel obstruction. - 3 episodes - 1st episode about 12 hours - 2nd episodes 2 days - 3rd episode 4 days - she reports she is eating small meals - denies any ongoing N/V or pain - denies any bleeding - stools are back to normal - she c/o intermittent right flank pain that wraps around to the front and this is associated with RUQ fullness CCX 1997 - she started Terzepitide October 2023 - her first episode of this pain was February, second episode a week later - reports all episodes were associated with a couple weeks of Terzepitide - weight loss of about 30lbs - denies any h/o Colon or EGD ROS Const Constitutional: Positive for fatigue and headache(s); No fever(s) or weight change ENT ENT: Positive for headache(s); No difficulty swallowing Cardio Cardiology: Positive for leg pain with exertion Gastro GI: Positive for abdominal pain, change in bowel habits, diarrhea, Vomiting blood/hematemesis and nausea/dyspepsia; No belching, bloating, change in stool character, coffee (more content not included)... Normal [facility] ENTERIC PATHOGEN PANEL STOOL on 05-20-2024 EP PANEL Normal Reference Ran ge = Not Detected GI pathogens Pnl Stl SUSI+probe Nucleic acid amplification test method GI pathogens Pnl Stl SUSI+probe Not detected for Campylobacter group, Salmonella species, Shigella species, Vibrio Group, Yersinia enterocolitica, EHEC (Shiga Toxin 1, Shiga Toxin 2), Norovirus Gl/Gll, and Rotavirus A. Other common stool pathogens are not detected on this panel include: Aeromonas/Plesiomonas or parasites. Order testing for these organisms separately if suspected. This is an amplified DNA test which makes it both specific and sensitive. CAMPYLOBACTER Not Detected Norovirus Not Detected Rotavirus Not Detected Salmonella Not Detected Shiga Toxin Not Detected Shigella sp. Not Detected VIBRIO Not Detected Yersinia Not Detected Normal [facility] Comment on above: Performed By: #### M 100.928 ####[facility] [address] [place], [address] CBC W/Diff, Automatedon 11- Absolute Lymph 2.50 X10 3/uL Normal 0.83-4.51 [facility] Comment on above: Performed By: #### L 500.4050, L100.0100 ####[facility] [address] [place], [address] Absolute Neut 3.1 X10 3/uL Normal 2.0-7.7 [facility] Comment on above: Performed By: #### L 500.4050, L100.0100 ####[facility] [address] [place], [address] Basophils/100 WBC (Bld) 0.8 % Normal 0-1 [facility] Comment on above: Performed By: #### L 500.4050, L100.0100 ####[facility] [address] [place], [address] Eosinophils/100 WBC (Bld) 2.4 % Normal 0-5 [facility] Comment on above: Performed By: #### L 500.4050, L100.0100 ####[facility] [address] [place], [address] Erythrocyte distribution width (RBC) [Ratio] 13.2 % Normal 11.6-14.6 [facility] Comment on above: Performed By: #### L 500.4050, L100.0100 ####[facility] [address] [place], [address] Hematocrit (Bld) [Volume fraction] 36.7 % Low 37-47 [facility] Comment on above: Performed By: #### L 500.4050, L100.0100 ####[facility] [address] [place], [address] Hemoglobin (Bld) [Mass/Vol] 12.1 g/dL Normal 12.0-15.0 [facility] Comment on above: Performed By: #### L 500.4050, L100.0100 ####[facility] [address] [place], [address] IG% 0.200 Normal 0.0-0.9 [facility] Comment on above: Result Comment: IG% - Immature Granulocytes (promyelocytes, myelocytes and metamyelocytes) > 1% indicates that a LEFT SHIFT is Present. Performed By: #### L 500.4050, L100.0100 ####[facility] [address] [place], [address] Lymphocytes/100 WBC (Bld) 40.3 % Normal 19-41 [facility] Comment on above: Performed By: #### L 500.4050, L100.0100 ####[facility] [address] [place], [address] MCH (RBC) [Entitic mass] 30.0 pg Normal 27.0-32.0 [facility] Comment on above: Performed By: #### L 500.4050, L100.0100 ####[facility] [address] [place], [address] MCHC (RBC) [Mass/Vol] 33.0 g/dL Normal 32-36 [facility] Comment on above: Performed By: #### L 500.4050, L100.0100 ####[facility] [address] [place], [address] MCV (RBC) [Entitic vol] 91.1 fL Normal 81-99 [facility] Comment on above: Performed By: #### L 500.4050, L100.0100 ####[facility] [address] [place], [address] Monocytes/100 WBC (Bld) 6.9 % Normal 0-10 [facility] Comment on above: Performed By: #### L 500.4050, L100.0100 ####[facility] [address] [place], [address] Neutrophils/100 WBC (Bld) 49.4 % Normal 47-70 [facility] Comment on above: Performed By: #### L 500.4050, L100.0100 ####[facility] [address] [place], [address] Nucleated RBC (Bld) [#/Vol] 0 10*3/uL Normal 0-5 [facility] Comment on above: Performed By: #### L 500.4050, L100.0100 ####[facility] [address] [place], [address] Platelet mean volume (Bld) [Entitic vol] 9.7 fL Normal 6.2-12.0 [facility] Comment on above: Performed By: #### L 500.4050, L100.0100 ####[facility] [address] [place], [address] Platelets (Bld) [#/Vol] 219 10*3/uL Normal 150-450 [facility] Comment on above: Performed By: #### L 500.4050, L100.0100 ####[facility] [address] [place], [address] RBC (Bld) [#/Vol] 4.03 10*6/uL Low 4.2-5.4 [facility] Comment on above: Performed By: #### L 500.4050, L100.0100 ####[facility] [address] [place], [address] RDW SD 43.8 fl Normal 35.1-43.9 [facility] Comment on above: Performed By: #### L 500.4050, L100.0100 ####[facility] [address] [place], [address] WBC (Bld) [#/Vol] 6.2 10*3/uL Normal 4.4-11.0 [facility] Comment on above: Performed By: #### L 500.4050, L100.0100 ####[facility] [address] [place], [address] Comprehensive Metabolic Prof ilon 05-19-2024 Albumin [Mass/Vol] 3.0 g/dL Low 3.2-5.0 [facility] Comment on above: Performed By: #### L 500.4050, L100.0100 ####[facility] [address] [place], [address] Albumin/Globulin [Mass ratio] 1.2 {ratio} Normal 0.9-2.4 [facility] Comment on above: Performed By: #### L 500.4050, L100.0100 ####[facility] [address] [place], [address] ALK P 49 U/L Normal 45-117 [facility] Comment on above: Performed By: #### L 500.4050, L100.0100 ####[facility] [address] [place], [address] ALT [Catalytic activity/Vol] 13 U/L Normal 13-56 [facility] Comment on above: Performed By: #### L 500.4050, L100.0100 ####[facility] [address] [place], [address] AST [Catalytic activity/Vol] 12 U/L Low 15-37 [facility] Comment on above: Performed By: #### L 500.4050, L100.0100 ####[facility] [address] [place], [address] Bilirubin [Mass/Vol] 0.30 mg/dL Normal 0.20-1.00 [facility] Comment on above: Result Comment: For patients on eltrombopag therapy, use of Dimension Kincaid TBIL is not recommended. Performed By: #### L 500.4050, L100.0100 ####[facility] [address] [place], [address] BUN/CRE 7.4 RATIO Low 10-20 [facility] Comment on above: Performed By: #### L 500.4050, L100.0100 ####[facility] [address] [place], [address] CA,Total 8.7 mg/dL Normal 8.5-10.1 [facility] Comment on above: Performed By: #### L 500.4050, L100.0100 ####[facility] [address] [place], [address] Chloride [Moles/Vol] 110 mmol/L High 98-107 [facility] Comment on above: Performed By: #### L 500.4050, L100.0100 ####[facility] [address] [place], [address] CO2 [Moles/Vol] 26.0 mmol/L Normal 21.0-32.0 [facility] Comment on above: Performed By: #### L 500.4050, L100.0100 ####[facility] [address] [place], [address] Creatinine [Mass/Vol] 0.95 mg/dL Normal 0.55-1.02 [facility] Comment on above: Result Comment: The validity of the calculated GFR GFRAA in patients over 70 years has not been determined. Clinical correlation is essential. Performed By: #### L 500.4050, L100.0100 ####[facility] [address] [place], [address] ECRCL 68.94 ml/min Normal [facility] Comment on above: Performed By: #### L 500.4050, L100.0100 ####[facility] [address] [place], [address] EST GFR - AA 78 mL/min Normal >60 [facility] Comment on above: Result Comment: Afri can Solomon Islander GFR Calc Performed By: #### L 500.4050, L100.0100 ####[facility] [address] [place], [address] GAP 5 Normal 5-15 [facility] Comment on above: Performed By: #### L 500.4050, L100.0100 ####[facility] [address] [place], [address] GFR/1.73 sq M.predicted among non-blacks MDRD (S/P/Bld) [Vol rate/Area] 64 mL/min/{1.73_m2} Normal >60 [facility] Comment on above: Result Comment: Non- GFR Calc Performed By: #### L 500.4050, L100.0100 ####[facility] [address] [place], [address] Globulin (S) [Mass/Vol] 2.6 g/dL Normal 2.2-4.2 [facility] Comment on above: Performed By: #### L 500.4050, L100.0100 ####[facility] [address] [place], [address] Glucose [Mass/Vol] 86 mg/dL Normal 74-106 [facility] Comment on above: Performed By: #### L 500.4050, L100.0100 ####[facility] [address] [place], [address] Potassium [Moles/Vol] 3.7 mmol/L Normal 3.5-5.1 [facility] Comment on above: Performed By: #### L 500.4050, L100.0100 ####[facility] [address] [place], [address] Sodium [Moles/Vol] 142 mmol/L Normal 136-145 [facility] Comment on above: Performed By: #### L 500.4050, L100.0100 ####[facility] [address] [place], [address] T PROT 5.6 g/dL Low 6.4-8.2 [facility] Comment on above: Performed By: #### L 500.4050, L100.0100 ####[facility] [address] [place], [address] Urea nitrogen [Mass/Vol] 7 mg/dL Normal 7-18 [facility] Comment on above: Performed By: #### L 500.4050, L100.0100 ####[facility] [address] [place], [address] Urine Drug Screen (VISTA)on 05-19-2024 AMPHETAMINES Negative Normal <1000 ng/mL [facility] Comment on above: Performed By: #### L 505.5000 ####[facility] [address] [place], [address] BARBITIURATES Negative Normal < 200 ng/mL [facility] Comment on above: Performed By: #### L 505.5000 ####[facility] [address] [place], [address] BENZODIAZIPINE Negative Normal < 200 ng/mL [facility] Comment on above: Performed By: #### L 505.5000 ####[facility] [address] [place], [address] COCAINE Negative Normal < 300 ng/mL [facility] Comment on above: Performed By: #### L 505.5000 ####[facility] [address] [place], [address] ECSTACY Negative Normal < 500 ng/mL [facility] Comment on above: Performed By: #### L 505.5000 ####[facility] [address] [place], [address] METHADONE Negative Normal < 300 ng/mL [facility] Comment on above: Performed By: #### L 505.5000 ####[facility] [address] [place], [address] OPIATES Positive Abnormal < 300 ng/mL [facility] Comment on above: Performed By: #### L 505.5000 ####[facility] [address] [place], [address] PCP Negative Normal < 25 ng/mL [facility] Comment on above: Performed By: #### L 505.5000 ####[facility] [address] [place], [address] THC Negative Normal < 50 ng/mL [facility] Comment on above: Performed By: #### L 505.5000 ####[facility] [address] [place], [address] VISTA UDS PH 5 Normal [facility] Comment on above: Performed By: #### L 505.5000 ####[facility] [address] [place], [address] Abdomen/Pelvis W IV Cont ONL Yon 05-18-2024 Abdomen/Pelvis W IV Cont ONLY [facility] [address] [place] [address] Abdomen/Pelvis W IV Cont ONLY MR#: [id number] Acct: [id number] Name: MARVA KHAN [facility] Rep #: [id number] : 1965 F 58 From: Regina Larkin PCP: Dr. Patricia Winston, Status: REG ER Study: Abdomen/Pelvis W IV Cont ONLY Date of Exam: Exam# [id number] Ordering [place]: [place] [id number] EXAM: CT Abdomen And Pelvis W/ Contrast Injection HISTORY: abdominal pain N/V/D ABD P AIN X4 DAYS HX-LEFT BREAST CA W/ LUMPECTOMY,POLYCYSTIC OVARIES SURG-GB,HYST TECHNIQUE: Routine protocol CT abdomen pelvis. IV Contrast: IV 100mL Isovue-370 . Oral Contrast: without. Sagittal and coronal images were reconstructed. RADIATION DOSAGE (If Supplied By Facility): CTDIvol = ( 14.62 ) mGy, DLP = ( 877.34 ) mGycm Individualized dose optimization techniques were used for this CT. COMPARISON: None. LIMITATIONS: None. FINDINGS: LOWER CHEST: Unremarkable. LIVER: Unremarkable. GALLBLADDER/BILE DUCTS: Gallbladder is surgically absent. PANCREAS: Unremarkable. SPLEEN: Unremarkable. ADRENAL GLANDS: Unremarkable. KIDNEYS / URETERS: Unremarkable. BOWEL / MESENTERY: Marked gastric wall thickening mid to distal stomach with relative luminal narrowing. No bowel obstruction. APPENDIX: Identified and normal. No evidence of acute appendicitis. PERITONEUM: No free air. No free fluid. VESSELS: Abdominal aorta is normal caliber. RETROPERITONEUM: Unremarkable. REPRODUCTIVE ORGANS: Uterus surgically absent. BLADDER: Unremarkable. ABDOMINAL WALL: Unremarkable. BONES: No acute abnormality. Degenerative changes lumbar spine. OTHER: None. CT/Abdomen/Pelvis W IV Cont ONLY IMPRESSION: Marked gastric wall thickening. This may be due to inflammatory process such as gastritis, or other process including malignancy. Endoscopic correlation may be helpful. No bowel obstruction. Electronically Signed: Regina Pool MD at 10:12 EST , CC: Dr. Hudson Medley, DO; Dr. Patricia Winston, DO Electro Mechanical Engineer: Signed Normal [facility] Basic Metabolic Profile (BMP )on 05-18-2024 BUN/CRE 10.4 RATIO Normal 10-20 [facility] Comment on above: Performed By: #### L 100.0100, L501.2450, L500.2500, L500.3400 #### [facility] [address] [place], [address] CA,Total 9.9 mg/dL Normal 8.5-10.1 [facility] Comment on above: Performed By: #### L 100.0100, L501.2450, L500.2500, L500.3400 #### [facility] [address] [place], [address] Chloride [Moles/Vol] 107 mmol/L Normal 98-107 [facility] Comment on above: Performed By: #### L 100.0100, L501.2450, L500.2500, L500.3400 #### [facility] [address] [place], [address] CO2 [Moles/Vol] 29.0 mmol/L Normal 21.0-32.0 [facility] Comment on above: Performed By: #### L 100.0100, L501.2450, L500.2500, L500.3400 #### [facility] [address] [place], [address] Creatinine [Mass/Vol] 0.96 mg/dL Normal 0.55-1.02 [facility] Comment on above: Result Comment: The validity of the calculated GFR GFRAA in patients over 70 years has not been determined. Clinical correlation is essential. Performed By: #### L 100.0100, L501.2450, L500.2500, L500.3400 #### [facility] [address] [place], [address] ECRCL 62.87 ml/min Normal [facility] Comment on above: Performed By: #### L 100.0100, L501.2450, L500.2500, L500.3400 #### [facility] [address] [place], [address] EST GFR - AA 77 mL/min Normal >60 [facility] Comment on above: Result Comment: Afri can [place] GFR Calc Performed By: #### L 100.0100, L501.2450, L500.2500, L500.3400 #### [facility] [address] [place], [address] GAP 6 Normal 5-15 [facility] Comment on above: Performed By: #### L 100.0100, L501.2450, L500.2500, L500.3400 #### [facility] [address] [place], [address] GFR/1.73 sq M.predicted among non-blacks MDRD (S/P/Bld) [Vol rate/Area] 63 mL/min/{1.73_m2} Normal >60 [facility] Comment on above: Result Comment: Non- GFR Calc Performed By: #### L 100.0100, L501.2450, L500.2500, L500.3400 #### [facility] [address] [place], [address] Glucose [Mass/Vol] 108 mg/dL High 74-106 [facility] Comment on above: Result Comment: Fast ing Glucose result from 100 to 125 mg/dL suggests IMPAIRED HOMEOSTASIS per A.D.A. criteria. Performed By: #### L 100.0100, L501.2450, L500.2500, L500.3400 #### [facility] [address] [place], [address] Potassium [Moles/Vol] 3.5 mmol/L Normal 3.5-5.1 [facility] Comment on above: Performed By: #### L 100.0100, L501.2450, L500.2500, L500.3400 #### [facility] [address] [place], [address] Sodium [Moles/Vol] 142 mmol/L Normal 136-145 [facility] Comment on above: Performed By: #### L 100.0100, L501.2450, L500.2500, L500.3400 #### [facility] [address] [place], [address] Urea nitrogen [Mass/Vol] 10 mg/dL Normal 7-18 [facility] Comment on above: Performed By: #### L 100.0100, L501.2450, L500.2500, L500.3400 #### [facility] [address] [place], [address] CBC W/Diff, Automatedon 11- Absolute Lymph 2.03 X10 3/uL Normal 0.83-4.51 [facility] Comment on above: Performed By: #### L 100.0100, L501.2450, L500.2500, L500.3400 #### [facility] [address] [place], [address] Absolute Neut 4.4 X10 3/uL Normal 2.0-7.7 [facility] Comment on above: Performed By: #### L 100.0100, L501.2450, L500.2500, L500.3400 #### [facility] [address] [place], [address] Basophils/100 WBC (Bld) 0.6 % Normal 0-1 [facility] Comment on above: Performed By: #### L 100.0100, L501.2450, L500.2500, L500.3400 #### [facility] [address] [place], [address] Eosinophils/100 WBC (Bld) 0.6 % Normal 0-5 [facility] Comment on above: Performed By: #### L 100.0100, L501.2450, L500.2500, L500.3400 #### [facility] [address] [place], [address] Erythrocyte distribution width (RBC) [Ratio] 12.8 % Normal 11.6-14.6 [facility] Comment on above: Performed By: #### L 100.0100, L501.2450, L500.2500, L500.3400 #### [facility] [address] [place], [address] Hematocrit (Bld) [Volume fraction] 42.4 % Normal 37-47 [facility] Comment on above: Performed By: #### L 100.0100, L501.2450, L500.2500, L500.3400 #### [facility] [address] [place], [address] Hemoglobin (Bld) [Mass/Vol] 14.3 g/dL Normal 12.0-15.0 [facility] Comment on above: Performed By: #### L 100.0100, L501.2450, L500.2500, L500.3400 #### [facility] [address] [place], [address] IG% 0.100 Normal 0.0-0.9 [facility] Comment on above: Result Comment: IG% - Immature Granulocytes (promyelocytes, myelocytes and metamyelocytes) > 1% indicates that a LEFT SHIFT is Present. Performed By: #### L 100.0100, L501.2450, L500.2500, L500.3400 #### [facility] [address] [place], [address] Lymphocytes/100 WBC (Bld) 29.0 % Normal 19-41 [facility] Comment on above: Performed By: #### L 100.0100, L501.2450, L500.2500, L500.3400 #### [facility] [address] [place], [address] MCH (RBC) [Entitic mass] 30.0 pg Normal 27.0-32.0 [facility] Comment on above: Performed By: #### L 100.0100, L501.2450, L500.2500, L500.3400 #### [facility] [address] [place], [address] MCHC (RBC) [Mass/Vol] 33.7 g/dL Normal 32-36 [facility] Comment on above: Performed By: #### L 100.0100, L501.2450, L500.2500, L500.3400 #### [facility] [address] [place], [address] MCV (RBC) [Entitic vol] 88.9 fL Normal 81-99 [facility] Comment on above: Performed By: #### L 100.0100, L501.2450, L500.2500, L500.3400 #### [facility] [address] [place], [address] Monocytes/100 WBC (Bld) 6.6 % Normal 0-10 [facility] Comment on above: Performed By: #### L 100.0100, L501.2450, L500.2500, L500.3400 #### [facility] [address] [place], [address] Neutrophils/100 WBC (Bld) 63.1 % Normal 47-70 [facility] Comment on above: Performed By: #### L 100.0100, L501.2450, L500.2500, L500.3400 #### [facility] [address] [place], [address] Nucleated RBC (Bld) [#/Vol] 0 10*3/uL Normal 0-5 [facility] Comment on above: Performed By: #### L 100.0100, L501.2450, L500.2500, L500.3400 #### [facility] [address] [place], [address] Platelet mean volume (Bld) [Entitic vol] 9.0 fL Normal 6.2-12.0 [facility] Comment on above: Performed By: #### L 100.0100, L501.2450, L500.2500, L500.3400 #### [facility] [address] [place], [address] Platelets (Bld) [#/Vol] 269 10*3/uL Normal 150-450 [facility] Comment on above: Performed By: #### L 100.0100, L501.2450, L500.2500, L500.3400 #### [facility] [address] [place], [place], [address] RBC (Bld) [#/Vol] 4.77 10*6/uL Normal 4.2-5.4 [facility] Comment on above: Performed By: #### L 100.0100, L501.2450, L500.2500, L500.3400 #### [facility] [address] [place], [address] RDW SD 42.0 fl Normal 35.1-43.9 [facility] Comment on above: Performed By: #### L 100.0100, L501.2450, L500.2500, L500.3400 #### [facility] [address] [place], [address] WBC (Bld) [#/Vol] 7.0 10*3/uL Normal 4.4-11.0 [facility] Comment on above: Performed By: #### L 100.0100, L501.2450, L500.2500, L500.3400 #### [facility] [address] [place], [address] Emergency Department Summary on 05-18-2024 Emergency Department Summary [facility] Medical Records Department [address] [place] [address] Emergency Department Summary 05/18/24 MR#: [id number] Acct: [id number] Name: MARVA KHAN [facility] Rep #: [id number] : 1965 58 From: Hudson Medley DO PCP: Dr. Patricia Winston DO Status:ADM IN Location: [facility] [id number] HPI History of Present Illness Chief Complaint: Nausea/Vomiting/Diarrhe a Informant: patient and spouse/S.O. Narrative Narrative: 58-year-old female presenting to the emergency room with intermittent abdominal cramping diarrhea and vomiting. Patient went out to eat Wednesday evening. She states that she had some some mild amount of solid and a glass of pain in her water. She states that she developed diarrhea and a central abdominal cramp-like gets severe and then backs off. She has not had fever runny nose sore throat. has recently been diagnosed with COVID. She describes the stool as brown watery. She states that she had 2 prior similar occurrences this but not as long lived recently when she drank some beer. Patient notes a prior cholecystectomy as well as multiple laparoscopic surgeries for endometriosis in the past. Patient describes her emesis now as a lot of dry heaving with some bilious vomiting. 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 Polycystic ovaries Migraine Velma's thyroiditis Home Medications ???Medication ???Instructions ???Recorded ???Last Taken ???Type rizatriptan 10 mg tablet See Rx Instructions PO .COMPLEX 09/09/21 Unknown History cholecalciferol (vitamin D3) 50 50 mcg PO DAILY 10/09/21 Unknown History mcg (2,000 unit) capsule magnesium L-threonate 48 mg 48 mg PO DAILY 05/18/24 05/17/24 History magnesium (667 mg) capsule (MagMind) magnesium glycinate (LC-655) 118 mg PO DAILY 05/18/24 05/17/24 History omega 3 350 mg-dha 235 mg-epa 90 1 cap PO DAILY 05/18/24 05/17/24 History mg-fish oil 597 mg capsule,delay rel ([place]-3) thyroid (pork) 90 mg tablet 90 mg PO DAILY 05/18/24 Unknown History (Adthyza) tirzepatide (weight loss) 10 7.5 mg subcut QWEEK 05/18/24 Unknown History mg/0.5 mL subcutaneous pen injector Allergy/AdvReac Type Severity Reaction Status Date / Time cefazolin Allergy Intermediate hives Verified 05/18/24 07:40 anastrozole AdvReac Intermediate Cough, Verified 05/18/24 07:40 facial swelling, body aches Seasonal Allergies: Uncoded AdvReac Intermediate ITCHY, Verified 05/18/24 07:40 WATERY EYES duloxetine AdvReac Tachycardia Verified 05/18/24 07:40 Family History Aunt Breast cancer Grandfather Prostate cancer Surgical History Status post left breast lumpectomy H/O exploratory laparotomy Hx of cholecystectomy (02/19/98) H/O: hysterectomy (10/19/12) History of lumpectomy of left breast (12/24/19) Social History Smoking Status: Never smoker ROS ROS ED Constitutional Constitutional ED: Denies chills, fever(s) or weight loss Eyes Eyes: Denies change in vision or diplopia ENT ENT ED: Denies ear pain, rhinorrhea or sore throat Cardiovascular Cardiovascular: Denies chest pain, orthopnea, palpitations or racing heartbeat Respiratory/Chest Respiratory/Chest: Denies cough, dyspnea or orthopnea Gastrointestinal Gastrointestinal: Reports abdominal pain, diarrhea, nausea and vomiting Genitourinary Genitourinary ED: Denies dysuria, hematuria or urinary frequency Musculoskeletal Musculoskeletal: Denies arthralgias or myalgias Integumentary Denies abscess or rash Neurologic Neurologic: Denies headache(s) or weakness Psychiatric Psychiatric: Denies anxiety, depression, suicidal ideation or suicidal thoughts Endocrine Endocrinology: Denies polydipsia, polyphagia or polyuria Allergic/Immunologic Allergic/Immunologic ED: Denies mouth swelling, tongue swelling or urticaria EXAM Physical Exam Narrative Exam Narrative: Patient laying on her left side with her knees drawn up. Intermittently wincing with pain. Const Vital Signs: 05/18/24 07:16 05/18/24 09:31 05/18/24 09:33 Temperature 97.9 F Temperature Source Oral Pulse Rate 92 64 63 Respiratory Rate 18 14 14 Blood Pressure 148/64 H 91/58 L 123/81 H Blood Pressure Mean 92 69 95 Pulse Ox 98 87 98 Oxygen Delivery Method Room Air Room Air Nasal Cannula Oxygen Flow Rate (L/min) 2.5 Positive well nourished and well developed General Appearance ED: well developed and NAD HEENT Reports normocephalic, head/scalp atraumatic and moist mucous (more content not included)... Normal [facility] H AND P Exam - Hospitaliston 05-18-2024 H&P Exam - Hospitalist [facility] Medical Records Department [address] [place] [address] H P Exam - Hospitalist 05/18/24 1150 MR#: [id number] Acct: [id number] Name: MARVA KHAN [facility] Rep #: [id number] : 1965 58 From: Jay Seymour DO PCP: Dr. Patricia Winston DO Status:ADM IN Location: [facility] [id number] HPI - General General Date of Admission: 05/18/24 Date of Service: 05/18/24 Chief Complaint: abdominal pain, vomiting, diarrhea. HPI Narrative MARVA KHAN, is a 58 F who presents with abdominal pain, vomiting and diarrhea that began on 05/15 after drinking some alcohol. This has happened before after having drank alcohol, but those episodes were less severe and shorter lived (she had not drank any alcohol in the interim). She presented to the ED and CT showed marked gastric wall thickening. Her abdominal pain is crampy and intermittent. She received ondansetron, morphine, dicyclomin lorazepam and pantoprazole in the ED. 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 Polycystic ovaries Migraine Velma's thyroiditis Home Medications ???Medication ???Instructions ???Recorded ???Last Taken ???Type rizatriptan 10 mg tablet See Rx Instructions PO .COMPLEX 09/09/21 Unknown History cholecalciferol (vitamin D3) 50 50 mcg PO DAILY 10/09/21 05/15/24 History mcg (2,000 unit) capsule magnesium L-threonate 48 mg 48 mg PO DAILY 05/18/24 05/17/24 History magnesium (667 mg) capsule (MagMind) magnesium glycinate (LC-655) 118 mg PO DAILY 05/18/24 05/17/24 History omega 3 350 mg-dha 235 mg-epa 90 1 cap PO DAILY 05/18/24 05/17/24 History mg-fish oil 597 mg capsule,delay rel ([place]-3) thyroid (pork) 90 mg tablet 90 mg PO DAILY 05/18/24 05/18/24 History (Adthyza) tirzepatide (weight loss) 10 7.5 mg subcut QWEEK 05/18/24 05/08/24 History mg/0.5 mL subcutaneous pen injector Allergy/AdvReac Type Severity Reaction Status Date / Time cefazolin Allergy Intermediate hives Verified 05/18/24 07:40 anastrozole AdvReac Intermediate Cough, Verified 05/18/24 07:40 facial swelling, body aches Seasonal Allergies: Uncoded AdvReac Intermediate ITCHY, Verified 05/18/24 07:40 WATERY EYES duloxetine AdvReac Tachycardia Verified 05/18/24 07:40 Family History Aunt Breast cancer Grandfather Prostate cancer Surgical History Status post left breast lumpectomy H/O exploratory laparotomy Hx of cholecystectomy (02/19/98) H/O: hysterectomy (10/19/12) History of lumpectomy of left breast (12/24/19) Social History Smoking Status: Never smoker ROS ROS Narrative Some abdominal distention. All review of systems were negative except as mentioned above in the history of present illness and the other review of systems. Vital Signs Vital Signs Vital Signs: 05/18/24 07:16 05/18/24 09:31 05/18/24 09:33 Temperature 36.6 C Temperature Source Oral Pulse Rate 92 64 63 Respiratory Rate 18 14 14 Blood Pressure 148/64 H 91/58 L 123/81 H Blood Pressure Mean 92 69 95 Pulse Ox 98 87 98 Oxygen Delivery Method Room Air Room Air Nasal Cannula Oxygen Flow Rate (L/min) 2.5 05/18/24 11:00 05/18/24 11:25 Temperature 36.7 C Temperature Source Pulse Rate 65 57 L Respiratory Rate 16 18 Blood Pressure 146/78 H 136/79 H Blood Pressure Mean 100 98 Pulse Ox 97 100 Oxygen Delivery Method Oxygen Flow Rate (L/min) Weight Weight: 73.028 kg Body Mass Index (BMI) 25.2 Physical Exam Const alert Constitutional Narrative: Alert but appears uncomfortable when her abdominal pain strikes her which happened several times during the encounter. HEENT normocephalic, head/scalp atraumatic, hearing grossly normal bilaterally and moist oral mucous membranes Eyes conjunctivae normal Eyes Narrative: no icterus. Resp normal respiratory effort, no retractions, no use of accessory muscles and clear to auscultation bilaterally Cardio regular rate, regular rhythm, S1 normal heart sound and S2 normal heart sound GI non-distended GI Narrative: epigastric abdominal tenderness. Auscultation: hypoactive bowel sounds Extremity normal to inspection and no clubbing, cyanosis or edema Neuro moves all extremities Sensorium / Orientation: awake and alert Psych Mood Affect: anxious Results Lab / Micro Data Attestation: I reviewed the patient's lab results. 05/18/24 08:04 05/18/24 08:04 Labs: Laboratory Results - last 24 hr 05/18/24 08:04: WBC 7.0, (more content not included)... Normal [facility] Lipaseon 05-18-2024 Lipase [Catalytic activity/Vol] 40 U/L Normal 13-75 [facility] Comment on above: Result Comment: Linette crews note: LIPASE revised reference range effective 22. New Lipase methodology. Expected to produce lower values than the previous assay method. NEW Reference Range: 13 - 75 U/L Performed By: #### L 100.0100, L501.2450, L500.2500, L500.3400 #### [facility] [address] [place], [address] Liver Profileon 05-18-2024 Albumin [Mass/Vol] 3.7 g/dL Normal 3.2-5.0 [facility] Comment on above: Performed By: #### L 100.0100, L501.2450, L500.2500, L500.3400 #### [facility] [address] [place], [address] ALK P 65 U/L Normal 45-117 [facility] Comment on above: Performed By: #### L 100.0100, L501.2450, L500.2500, L500.3400 #### [facility] [address] [place], [address] ALT [Catalytic activity/Vol] 14 U/L Normal 13-56 [facility] Comment on above: Performed By: #### L 100.0100, L501.2450, L500.2500, L500.3400 #### [facility] [address] [place], [address] AST [Catalytic activity/Vol] 17 U/L Normal 15-37 [facility] Comment on above: Performed By: #### L 100.0100, L501.2450, L500.2500, L500.3400 #### [facility] [address] [place], [address] Bilirubin [Mass/Vol] 0.30 mg/dL Normal 0.20-1.00 [facility] Comment on above: Result Comment: For patients on eltrombopag therapy, use of Dimension Kincaid TBIL is not recommended. Performed By: #### L 100.0100, L501.2450, L500.2500, L500.3400 #### [facility] [address] [place], [address] Bilirubin.direct [Mass/Vol] 0.09 mg/dL Normal 0.00-0.30 [facility] Comment on above: Performed By: #### L 100.0100, L501.2450, L500.2500, L500.3400 #### [facility] [address] [place], [address] Globulin (S) [Mass/Vol] 3.3 g/dL Normal 2.2-4.2 [facility] Comment on above: Performed By: #### L 100.0100, L501.2450, L500.2500, L500.3400 #### [facility] [address] [place], [address] T PROT 7.0 g/dL Normal 6.4-8.2 [facility] Comment on above: Performed By: #### L 100.0100, L501.2450, L500.2500, L500.3400 #### [facility] [address] [place], [address] CNOVon 04-18-2024 CN Office Visit ([facility]) MARVA KHAN ([id number]) 1965 F Date Time Provider Department 04/18/24 1:30 PM FILOMENA RIZVI [facility] During your visit today, we recorded the following information about you: Pulse Blood pressure Weight Height 52/minute 119/80 73.9 kg 1.702 Davidson Blakely LPN 05/01/2024 12:03 PM Signed Patient presents for follow up after imaging.Patient stated right side pain that wraps around her rib cage the pain is intermittent. LM Ibrahim Amanda M, MD 05/01/2024 12:03 PM Signed Filomena Rizvi MD [place] [phone] SUBJECTIVE Chief Complaint: Patient presents with: Follow Up Tests Results HPI Marva Khan is a 58 year old female here today for follow up. History of left breast cancer. 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 Final pathology showed 4 negative lymph nodes and 0.8 cm cancer with negative margins. Final pathological stage IA [pT1b(0.8cm)N0(0/4)M0]. Completed adjuvant radiation in January 2020. Seeing Dr Cardoso. No chemo due to low oncotype.Unable to tolerate adjuvant endocrine. She is status post excision of papilloma of right breast on 07/30/23. Pathology benign. Today, mammograms done which were negative for anything suspicious Breast density BIRADS B. There are no exam notes on file for this visit. No question data found. Review of Systems Constitutional: Negative for fever, malaise/fatigue and weight loss. Breast: See HPI PAST MEDICAL HISTORY Diagnosis Date Breast cancer (HCC) 2019 radiation and left lumpectomy COVID 04/2020 Delayed emergence from anesthesia Velma's thyroiditis oN SYNTHROID EQUIVALENT Irregular heart beat Noted when she was first diagonsed with the thytoriditis and when on synthoid. Is pressure like and heavy and can go fastand stutters and then a big one Migraine Papilloma of right breast PONV (postoperative nausea and vomiting) [place] Martins auricular syndrome PAST SURGICAL HISTORY Procedure Laterality Date ASPIRATION/BIOPSY Left 2011 breast FNA BX OF BREAST; INCISIONAL 06/07/2023 BX OF BREAST; INCISIONAL Right 07/30/2023 CHOLECYSTECTOMY 1998 HYSTERECTOMY HX 2012 with rso PARTIAL MASTECTOMY Left 2019 Social History Tobacco Use Smoking status: Never Smokeless tobacco: Never Tobacco comments: Smoked very little in college Vaping Use Vaping status: Never Used Substance Use Topics Alcohol use: Yes Comment: occasional Drug use: No FAMILY HISTORY Problem Relation Age of Onset Thyroid Mother Coronary Artery Disease Father dad garrick have had CAD and bypass at the time of valve Stroke Father 68 Hypertension Father no ms other (bicuspid mitral valve) Father Stroke Brother Hypertension Brother Breast Cancer Paternal Aunt 60 triple negative Ovarian cancer No Family History The ROS, medical, surgical, family, and social history were reviewed by Filomena Rizvi MD ALLERGIES Allergen Reactions Ancef [Cefazolin] Hives Duloxetine Other: See Comments Shellfish Containin* Diarrhea, GI Upset Current Outpatient Medications Medication Sig tirzepatide (MOUNJARO) 5 mg/0.5 mL pen injector Inject 5 mg subcutaneously one time a week. acetaminophen (TYLENOL EXTRA STRENGTH) 500 mg tablet Take 500 mg by mouth every 8 hours as needed. ibuprofen (MOTRIN) 600 mg tablet Take 1 tablet by mouth every 8 hours as needed for pain. flaxseed oil (OMEGA 3 ORAL) Take 1 capsule by mouth once daily. vitamin B complex (B COMPLEX 1 ORAL) Take 1 capsule by mouth once daily. OTC PRODUCT Take 1 capsule by mouth once daily. Rauri mushroom gummy- 3000 mg of functional mushrooms ARMOUR THYROID 90 mg tablet Take 90 mg by mouth once daily. MAGNESIUM MAL, THREON, CHELATE ORAL Take 1 capsule by mouth once daily. cholecalciferol (VITAMIN D3) 50 mcg (2,000 unit) tablet Take 2,000 Units by mouth once daily. rizatriptan (MAXALT) 10 mg tablet take 1 tablet by mouth AT ONSET OF MIGRAINE - REPEAT IN 2 HOURS IF NEEDED acetaminophen (TYLENOL EXTRA STRENGTH) 500 mg tablet Take 2 tablets by mouth every 6 hours as needed for pain. nitroglycerin sublingual (NITROQUICK) 0.3 mg SL tablet Dissolve 1 tablet under the tongue one time only for 1 dose. To be administered in Radiology for CTA exam iv contrast (will be provided with radiology test) MRI Breast TIM Inject, intravenously, once for 1 dose. No IV access, insert saline lock prior to the beginning of sedation, infusion, injection of imaging exam. Discontinue saline lock post exam. If Pt has a central line or IVAD, may access for administration according to line specific nursing protocol. Once exam is complete flush line and de-access according to line specific nursing protocol (more content not included)... Normal [facility] DBT Breast - bilateral diagn ostic for implanton 04-18-2024 IMPRESSION: There is no mammographic evidence of malignancy. Clinical follow up recommended for the reported palpable finding in the right axilla. Annual screening mammogram is recommended. The patient will be due in 1 year. BI-RADS Category 2: Benign Interpreting Radiologist: Tg Pardo M.D. Electronically signed on: 04/18/2024 Electro Mechanical Engineer: CANDY Transcribe Date/Time: Apr 18 2024 1:32P Dictated by : TG PARDO MD This examination was interpreted and the report reviewed and electronically signed by: TG PARDO MD on Apr 18 2024 4:33PM EST [employer] [facility] * * *Final Report* * * DATE OF EXAM: Apr 18 2024 1:41PM AAW [id number] - BRYSON DIAG W GEOFFREY TIM / PROCEDURE REASON: Papilloma of right breast * * * * Physician Interpretation * * * * [facility] [address] [place] [address] HISTORY: Patient is 58 years old and is seen for diagnostic evaluation of a palpable abnormality in the axillary tail of the right breast and short term follow-up from a previous mammogram in the right breast. The patient has a history of left breast cancer in 2019. COMPARISON STUDIES: The present examination has been compared to prior imaging studies dated 08/26/2017 (mammogram), 11/20/2020 (mammogram), 11/24/2021 (mammogram), 12/30/2021 (mammogram), 12/17/2022 (mammogram), 06/03/2023 (mammogram) and 07/23/2023 (mammogram). MAMMOGRAM TECHNIQUE: The study was acquired using full field digital technology and interpreted from soft copy. Digital Breast Tomosynthesis (DBT) images were obtained and used to assist in the interpretation of this examination. Computer-aided detection was utilized by the radiologist in the interpretation of this examination. MAMMOGRAM FINDINGS: There are scattered areas of fibroglandular density. Finding 1: There are post-operative changes in the left breast. Finding 2: There are no suspicious mammographic findings to correspond with the area of palpable concern in the right axilla. No suspicious masses, calcifications or other abnormalities are seen in either breast. ULTRASOUND TECHNIQUE: Targeted ultrasound of the indicated area was performed. Sylvester scale images were saved. ULTRASOUND FINDINGS: Finding 2: There are multiple similar appearing oval axillary lymph nodes in the right axilla. Findings correlate to the area of palpable concern in the right axilla. Lymph nodes demonstrate normal morphology. No suspicious findings. There is no evidence of any suspicious sonographic findings. [facility] Provider, Cc Diana waldron [employer] - 04/18/2024 * * *Final Report* * * DATE OF EXAM: Apr 18 2024 1:41PM AAW 0627 - BRYSON SHIN MURRIETA TIM / PROCEDURE REASON: Papilloma of right breast * * * * Physician Interpretation * * * * [facility] [address] [place] [address] HISTORY: Patient is 58 years old and is seen for diagnostic evaluation of a palpable abnormality in the axillary tail of the right breast and short term follow-up from a previous mammogram in the right breast. The patient has a history of left breast cancer in 2019. COMPARISON STUDIES: The present examination has been compared to prior imaging studies dated 08/26/2017 (mammogram), 11/20/2020 (mammogram), 11/24/2021 (mammogram), 12/30/2021 (mammogram), 12/17/2022 (mammogram), 06/03/2023 (mammogram) and 07/23/2023 (mammogram). MAMMOGRAM TECHNIQUE: The study was acquired using full field digital technology and interpreted from soft copy. Digital Breast Tomosynthesis (DBT) images were obtained and used to assist in the interpretation of this examination. Computer-aided detection was utilized by the radiologist in the interpretation of this examination. MAMMOGRAM FINDINGS: There are scattered areas of fibroglandular density. Finding 1: There are post-operative changes in the left breast. Finding 2: There are no suspicious mammographic findings to correspond with the area of palpable concern in the right axilla. No suspicious masses, calcifications or other abnormalities are seen in either breast. ULTRASOUND TECHNIQUE: Targeted ultrasound of the indicated area was performed. Sylvester scale images were saved. ULTRASOUND FINDINGS: Finding 2: There are multiple similar appearing oval axillary lymph nodes in the right axilla. Findings correlate to the area of palpable concern in the right axilla. Lymph nodes demonstrate normal morphology. No suspicious findings. There is no evidence of any suspicious sonographic findings. IMPRESSION IMPRESSION: There is no mammographic evidence of malignancy. Clinical follow up recommended for the reported palpable finding in the right axilla. Annual screening mammogram is recommended. The patient will be due in 1 year. BI-RADS Category 2: Benign Interpreting Radiologist: Tg Pardo M.D. Electronically signed on: 04/18/2024 Electro Mechanical Engineer: CANDY Transcririccardo Date/Time: Apr 18 2024 1:32P Dictated by : TG PARDO MD This examination was interpreted and the report reviewed and electronically signed by: TG PARDO MD on Apr 18 2024 4:33PM EST [facility] Radiology Study observation (narrative) [facility] BRYSON GUOO BILon 2023 BRYSON BRIANChun Felipe GEOFFREY TIM * * *Final Report* * * DATE OF EXAM: Apr 18 2024 1:41PM AAW 0627 - BRYSON Wagn GEOFFREY TIM / PROCEDURE REASON: Papilloma of right breast * * * * Physician Interpretation * * * * [facility] [address] [place] [id number] HISTORY: Patient is 58 years old and is seen for diagnostic evaluation of a palpable abnormality in the axillary tail of the right breast and short term follow-up from a previous mammogram in the right breast. The patient has a history of left breast cancer in 2019. COMPARISON STUDIES: The present examination has been compared to prior imaging studies dated 08/26/2017 (mammogram), 11/20/2020 (mammogram), 11/24/2021 (mammogram), 12/30/2021 (mammogram), 12/17/2022 (mammogram), 06/03/2023 (mammogram) and 07/23/2023 (mammogram). MAMMOGRAM TECHNIQUE: The study was acquired using full field digital technology and interpreted from soft copy. Digital Breast Tomosynthesis (DBT) images were obtained and used to assist in the interpretation of this examination. Computer-aided detection was utilized by the radiologist in the interpretation of this examination. MAMMOGRAM FINDINGS: There are scattered areas of fibroglandular density. Finding 1: There are post-operative changes in the left breast. Finding 2: There are no suspicious mammographic findings to correspond with the area of palpable concern in the right axilla. No suspicious masses, calcifications or other abnormalities are seen in either breast. ULTRASOUND TECHNIQUE: Targeted ultrasound of the indicated area was performed. Sylvester scale images were saved. ULTRASOUND FINDINGS: Finding 2: There are multiple similar appearing oval axillary lymph nodes in the right axilla. Findings correlate to the area of palpable concern in the right axilla. Lymph nodes demonstrate normal morphology. No suspicious findings. There is no evidence of any suspicious sonographic findings. IMPRESSION: There is no mammographic evidence of malignancy. Clinical follow up recommended for the reported palpable finding in the right axilla. Annual screening mammogram is recommended. The patient will be due in 1 year. BI-RADS Category 2: Benign Interpreting Radiologist: Tg Pardo M.D. Electronically signed on: 04/18/2024 Electro Mechanical Engineer: CANDY Transcribe Date/Time: Apr 18 2024 1:32P Dictated by : TG PARDO MD This examination was interpreted and the report reviewed and electronically signed by: TG PARDO MD on Apr 18 2024 4:33PM EST [id number] Normal [facility] US AXILLA ONLY RTon 10-2 [facility] US AXILLA ONLY RT * * *Final Report* * * DATE OF EXAM: Apr 18 2024 2:26PM AAW [id number] - [facility] US AXILLA ONLY RT / PROCEDURE REASON: Papilloma of right breast * * * * Physician Interpretation * * * * [facility] BREAST [facility] [address] [place] [id number] HISTORY: Patient is 58 years old and is seen for diagnostic evaluation of a palpable abnormality in the axillary tail of the right breast and short term follow-up from a previous mammogram in the right breast. The patient has a history of left breast cancer in 2019. COMPARISON STUDIES: The present examination has been compared to prior imaging studies dated 08/26/2017 (mammogram), 11/20/2020 (mammogram), 11/24/2021 (mammogram), 12/30/2021 (mammogram), 12/17/2022 (mammogram), 06/03/2023 (mammogram) and 07/23/2023 (mammogram). MAMMOGRAM TECHNIQUE: The study was acquired using full field digital technology and interpreted from soft copy. Digital Breast Tomosynthesis (DBT) images were obtained and used to assist in the interpretation of this examination. Computer-aided detection was utilized by the radiologist in the interpretation of this examination. MAMMOGRAM FINDINGS: There are scattered areas of fibroglandular density. Finding 1: There are post-operative changes in the left breast. Finding 2: There are no suspicious mammographic findings to correspond with the area of palpable concern in the right axilla. No suspicious masses, calcifications or other abnormalities are seen in either breast. ULTRASOUND TECHNIQUE: Targeted ultrasound of the indicated area was performed. Sylvester scale images were saved. ULTRASOUND FINDINGS: Finding 2: There are multiple similar appearing oval axillary lymph nodes in the right axilla. Findings correlate to the area of palpable concern in the right axilla. Lymph nodes demonstrate normal morphology. No suspicious findings. There is no evidence of any suspicious sonographic findings. IMPRESSION: There is no mammographic evidence of malignancy. Clinical follow up recommended for the reported palpable finding in the right axilla. Annual screening mammogram is recommended. The patient will be due in 1 year. BI-RADS Category 2: Benign Interpreting Radiologist: Tg Pardo M.D. Electronically signed on: 04/18/2024 Electro Mechanical Engineer: CANDY Transcribe Date/Time: Apr 18 2024 2:16P Dictated by : TG PARDO MD This examination was interpreted and the report reviewed and electronically signed by: TG PARDO MD on Apr 18 2024 4:33PM EST [id number] Normal [facility] No Panel InformationOrdered By: Ccf Provider on 04-18-2024 [facility] Axilla - righton 04-18-20 IMPRESSION: There is no mammographic evidence of malignancy. Clinical follow up recommended for the reported palpable finding in the right axilla. Annual screening mammogram is recommended. The patient will be due in 1 year. BI-RADS Category 2: Benign Interpreting Radiologist: Tg Pardo M.D. Electronically signed on: 04/18/2024 Electro Mechanical Engineer: CANDY Transcribe Date/Time: Apr 18 2024 2:16P Dictated by : TG PARDO MD This examination was interpreted and the report reviewed and electronically signed by: TG PARDO MD on Apr 18 2024 4:33PM EST [facility] * * *Final Report* * * DATE OF EXAM: Apr 18 2024 2:26PM MIKA 0592 - [facility] US AXILLA ONLY RT / PROCEDURE REASON: Papilloma of right breast * * * * Physician Interpretation * * * * [facility] [address] [facility] [place] [id number] HISTORY: Patient is 58 years old and is seen for diagnostic evaluation of a palpable abnormality in the axillary tail of the right breast and short term follow-up from a previous mammogram in the right breast. The patient has a history of left breast cancer in 2019. COMPARISON STUDIES: The present examination has been compared to prior imaging studies dated 08/26/2017 (mammogram), 11/20/2020 (mammogram), 11/24/2021 (mammogram), 12/30/2021 (mammogram), 12/17/2022 (mammogram), 06/03/2023 (mammogram) and 07/23/2023 (mammogram). MAMMOGRAM TECHNIQUE: The study was acquired using full field digital technology and interpreted from soft copy. Digital Breast Tomosynthesis (DBT) images were obtained and used to assist in the interpretation of this examination. Computer-aided detection was utilized by the radiologist in the interpretation of this examination. MAMMOGRAM FINDINGS: There are scattered areas of fibroglandular density. Finding 1: There are post-operative changes in the left breast. Finding 2: There are no suspicious mammographic findings to correspond with the area of palpable concern in the right axilla. No suspicious masses, calcifications or other abnormalities are seen in either breast. ULTRASOUND TECHNIQUE: Targeted ultrasound of the indicated area was performed. Sylvester scale images were saved. ULTRASOUND FINDINGS: Finding 2: There are multiple similar appearing oval axillary lymph nodes in the right axilla. Findings correlate to the area of palpable concern in the right axilla. Lymph nodes demonstrate normal morphology. No suspicious findings. There is no evidence of any suspicious sonographic findings. [facility] * * *Final Report* * * DATE OF EXAM: Apr 18 2024 2:26PM MIKA 0[address] [facility] US AXILLA ONLY RT / PROCEDURE REASON: Papilloma of right breast * * * * Physician Interpretation * * * * [facility] [address] [place] [address] HISTORY: Patient is 58 years old and is seen for diagnostic evaluation of a palpable abnormality in the axillary tail of the right breast and short term follow-up from a previous mammogram in the right breast. The patient has a history of left breast cancer in 2019. COMPARISON STUDIES: The present examination has been compared to prior imaging studies dated 08/26/2017 (mammogram), 11/20/2020 (mammogram), 11/24/2021 (mammogram), 12/30/2021 (mammogram), 12/17/2022 (mammogram), 06/03/2023 (mammogram) and 07/23/2023 (mammogram). MAMMOGRAM TECHNIQUE: The study was acquired using full field digital technology and interpreted from soft copy. Digital Breast Tomosynthesis (DBT) images were obtained and used to assist in the interpretation of this examination. Computer-aided detection was utilized by the radiologist in the interpretation of this examination. MAMMOGRAM FINDINGS: There are scattered areas of fibroglandular density. Finding 1: There are post-operative changes in the left breast. Finding 2: There are no suspicious mammographic findings to correspond with the area of palpable concern in the right axilla. No suspicious masses, calcifications or other abnormalities are seen in either breast. ULTRASOUND TECHNIQUE: Targeted ultrasound of the indicated area was performed. Sylvester scale images were saved. ULTRASOUND FINDINGS: Finding 2: There are multiple similar appearing oval axillary lymph nodes in the right axilla. Findings correlate to the area of palpable concern in the right axilla. Lymph nodes demonstrate normal morphology. No suspicious findings. There is no evidence of any suspicious sonographic findings. IMPRESSION IMPRESSION: There is no mammographic evidence of malignancy. Clinical follow up recommended for the reported palpable finding in the right axilla. Annual screening mammogram is recommended. The patient will be due in 1 year. BI-RADS Category 2: Benign Interpreting Radiologist: Tg Pardo M.D. Electronically signed on: 04/18/2024 Electro Mechanical Engineer: MAGVIW Transcribe Date/Time: Apr 18 2024 2:16P Dictated by : TG PARDO MD This examination was interpreted and the report reviewed and electronically signed by: TG PARDO MD on Apr 18 2024 4:33PM EST [facility] Radiology Study observation (narrative) [facility] Serum measles virus IgG anti body assay by immunoassay (units/volume)Ordered By: Patricia Winston on 10-19-2023 MeV IgG IA Qn (S) 33.4 AU/mL Immune >16.4 [facility] Comment on above: Negative <13.5 Equiv ocal 13.5 - 16.4 Positive >16.4Presence of antibodies to Rubeola is presumptive evidenceof immunity except when acute infection is suspected.Performed at: [facility] [id number] Director: Rajesh Myles PhD, Phone: [phone] No Panel InformationOrdered By: Patricia Winston on 10-18-2023 Free Triiodothyronine (T3) pg/dL 4.8 pg/mL 2.18-3.98 [facility] Rubella IgG Antibody Reactive Nonreactive [facility] Comment on above: Antibody Results Int erpretation of Immune Status Non Reactive Presumed Non-Immune Equivocal Equivocal Reactive Presumed Immune Serum or plasma thyroid stim ulating hormone (TSH) measurement (units/volume)Ordered By: Patricia Winston on 10-18-2023 TSH Qn 0.37 uIU/mL 0.358-3.74 [facility] Thin prep Papanicolaou smear with manual screeningOrdered By: Patricia Winston on 10-18-2023 Thin prep Papanicolaou smear with manual screening 0.83 ng/dL 0.76-1.46 [facility] US BREAST LTD RIGHTon 2022 [facility] CTA CORONARY W IVCONon 04-30 [facility] ECG COMPLETEon 04-27-2023 Atrial Rate 59 BPM [facility] Calculated P [place] 9 degrees [facility] Calculated R [place] -7 degrees [facility] Calculated T [place] 7 degrees [facility] P-R Interval 178 ms [facility] QRS Duration 84 ms [facility] QT Interval 422 ms [facility] QTC Calculation (Bazett) 417 ms [facility] Ventricular Rate 59 BPM [facility] MRI BREAST WO/W IVCON BILATE RALon 04-27-2023 [facility] BRYSON DIAG W GEOFFREY BILATERALon 12-17-2022 [facility] No Panel Informationon 12-17 [facility] Absolute lymphocyte countOrd ered By: Russel Castillo on 10-07-2022 Lymphocytes Auto (Unsp spec) [#/Vol] 3.29 10*3/uL 0.83-4.51 [facility] Basophil percentageOrdered B y: Russel Castillo on 10-07-2022 Basophils/100 WBC (Bld) 0.7 % 0-1 [facility] Chloride [Moles/Vol] 107 mmol/L 98-107 [facility] Eosinophils/100 WBC (Bld) 2.8 % 0-5 [facility] Glucose [Mass/Vol] 99 mg/dL 74-106 [facility] Neutrophils (Bld) [#/Vol] 2.7 10*3/uL 2.0-7.7 [facility] Neutrophils/100 WBC (Bld) 40.6 % 47-70 [facility] Potassium [Moles/Vol] 3.9 mmol/L 3.5-5.1 [facility] Sodium [Moles/Vol] 139 mmol/L 136-145 [facility] WBC (Bld) [#/Vol] 6.8 10*3/uL 4.4-11.0 [facility] Blood erythrocytes count (nu mber/volume)Ordered By: Russel Castillo on 10-07-2022 RBC (Bld) [#/Vol] 4.71 10*6/uL 4.2-5.4 [facility] Blood hemoglobin measurement (mass/volume)Ordered By: Russel Castillo on 10-07-2022 Hemoglobin (Bld) [Mass/Vol] 14.3 g/dL 12.0-15.0 [facility] Blood lymphocytes/100 leukoc ytesOrdered By: Russel Castillo on 10-07-2022 Lymphocytes/100 WBC (Bld) 48.7 % 19-41 [facility] Blood monocytes/100 leukocyt esOrdered By: Russel Castillo on 10-07-2022 Monocytes/100 WBC (Bld) 7.1 % 0-10 [facility] Blood platelet mean volumeOr dered By: Russel Castillo on 10-07-2022 Platelet mean volume (Bld) [Entitic vol] 9.1 fL 6.2-12.0 [facility] Determination of erythrocyte mean corpuscular volume (MCV)Ordered By: Russel Castillo on 10-07-2022 MCV (RBC) [Entitic vol] 94.5 fL 81-99 [facility] Hematocrit Auto (Bld) [Volum e fraction]Ordered By: Russel Castillo on 10-07-2022 Hematocrit (Bld) [Volume fraction] 44.5 % 37-47 [facility] Laboratory - Chemistry and C hemistry - challengeOrdered By: Russel Castillo on 10-07-2022 CO2 [Moles/Vol] 29.0 mmol/L 21.0-32.0 [facility] Urea nitrogen/Creatinine [Mass ratio] 17.2 mg/mg 10-20 [facility] Laboratory - Hematology and Cell countsOrdered By: Russel Castillo on 10-07-2022 Erythrocyte distribution width (RBC) [Entitic vol] 45.6 fL 35.1-43.9 [facility] Erythrocyte distribution width (RBC) [Ratio] 13.0 % 11.6-14.6 [facility] Immature granulocytes/100 WBC (Bld) 0.100 % 0.0-0.9 [facility] Comment on above: IG% - Immature Granu locytes (promyelocytes, myelocytes and metamyelocytes) > 1% indicates that a LEFT SHIFT is Present. MCH (RBC) [Entitic mass] 30.4 pg 27.0-32.0 [facility] Nucleated RBC/100 WBC (Bld) [Ratio] 0 % 0-5 [facility] MCHC Auto (RBC) [Mass/Vol]Or dered By: Russel Castillo on 10-07-2022 MCHC (RBC) [Mass/Vol] 32.1 g/dL 32-36 [facility] No Panel InformationOrdered By: Russel Castillo on 10-07-2022 Estimated Creatinine Clearance Calc 61.70 ml/min [facility] Estimated GFR (MDRD) Amer 75 mL/min >60 [facility] Comment on above: GFR Calc Estimated GFR (MDRD) Non-Af Amer 62 mL/min >60 [facility] Comment on above: Non- GFR Calc Thyroid Stimulating Hormone (TSH) 3.19 uIU/mL 0.358-3.74 [facility] Troponin I High Sensitivity 5 pg/mL 3.0-54.0 [facility] Comment on above: Please Note: [place] t Units and Gender Specific Reference Ranges. For more information see Policy Stat Procedure Kincaid High Sensitivity Troponin (TNIH) and attachments. Platelets bldOrdered By: Luis F Castillo on 10-07-2022 Platelets (Bld) [#/Vol] 284 10*3/uL 150-450 [facility] Serum or plasma calcium ana urement (mass/volume)Ordered By: Russel Castillo on 10-07-2022 Calcium [Mass/Vol] 9.4 mg/dL 8.5-10.1 [facility] Serum or plasma creatinine m easurement (mass/volume)Ordered By: Russel Castillo on 10-07-2022 Creatinine [Mass/Vol] 0.99 mg/dL 0.55-1.02 [facility] Comment on above: The validity of the calculated GFR & GFRAA in patients over 70 years has not been determined. Clinical correlation is essential. Serum or plasma urea nitroge n measurement (mass/volume)Ordered By: Russel Castillo on 10-07-2022 Urea nitrogen [Mass/Vol] 17 mg/dL 7-18 [facility] Thin prep Papanicolaou smear with manual screeningOrdered By: Russel Castillo on 10-07-2022 Thin prep Papanicolaou smear with manual screening 3 5-15 [facility] Laboratory - Chemistry and C hemistry - challengeOrdered By: Dr. Winston on 04-14-2022 Free T4 [Mass/Vol] 0.63 ng/dL 0.76-1.46 [facility] No Panel InformationOrdered By: Dr. Winston on 04-14-2022 Free Triiodothyronine (T3) pg/dL 2.2 pg/mL 2.18-3.98 [facility] Thyroid Stimulating Hormone (TSH) 2.47 uIU/mL 0.358-3.74 [facility] Basophil percentageon 2021 Bilirubin [Mass/Vol] 0.30 mg/dL 0.20-1.00 [facility] Work Phone: [phone] Comment on above: For patients on eltr ombopag therapy, use of Dimension Kincaid TBIL is not recommended. Chloride [Moles/Vol] 106 mmol/L 98-107 [facility] Work Phone: Glucose [Mass/Vol] 90 mg/dL 74-106 [facility] Work Phone: Potassium [Moles/Vol] 4.3 mmol/L 3.5-5.1 [facility] Work Phone: Protein [Mass/Vol] 7.6 g/dL 6.4-8.2 [facility] Work Phone: Sodium [Moles/Vol] 138 mmol/L 136-145 [facility] Work Phone: [phone] Laboratory - Chemistry and C hemistry - challengeon 02-13-2022 ALP [Catalytic activity/Vol] 88 U/L 45-117 [facility] Work Phone: ALT [Catalytic activity/Vol] 30 U/L 13-56 [facility] Work Phone: CO2 [Moles/Vol] 26.0 mmol/L 21.0-32.0 [facility] Work Phone: Free T4 [Mass/Vol] 1.28 ng/dL 0.76-1.46 [facility] Work Phone: Globulin (S) [Mass/Vol] 3.4 g/dL 2.2-4.2 [facility] Work Phone: T4 [Mass/Vol] 12.3 ug/dL 4.8-13.9 [facility] Work Phone: Urea nitrogen/Creatinine [Mass ratio] 19.4 mg/mg 10-20 [facility] Work Phone: No Panel Informationon 02-13 Estimated GFR (MDRD) Amer 71 mL/min >60 [facility] Work Phone: Comment on above: GFR Calc Estimated GFR (MDRD) Non-Af Amer 59 mL/min >60 [facility] Work Phone: Comment on above: Non- GFR Calc Free Triiodothyronine (T3) pg/dL 2.8 pg/mL 2.18-3.98 [facility] Work Phone: Thyroid Stimulating Hormone (TSH) 0.23 uIU/mL 0.358-3.74 [facility] Work Phone: Total Triiodothyronine 1.16 ng/mL 0.6-1.81 [facility] Work Phone: Serum or plasma albumin ana urement (mass/volume)on 02-13-2022 Albumin [Mass/Vol] 4.2 g/dL 3.2-5.0 [facility] Work Phone: Serum or plasma albumin/glob ulin mass ratioon 02-13-2022 Albumin/Globulin [Mass ratio] 1.2 {ratio} 0.9-2.4 [facility] Work Phone: Serum or plasma calcium ana urement (mass/volume)on 02-13-2022 Calcium [Mass/Vol] 9.1 mg/dL 8.5-10.1 [facility] Work Phone: Serum or plasma creatinine m easurement (mass/volume)on 02-13-2022 Creatinine [Mass/Vol] 1.03 mg/dL 0.55-1.02 [facility] Work Phone: Comment on above: The validity of the calculated GFR & GFRAA in patients over 70 years has not been determined. Clinical correlation is essential. Serum or plasma urea nitroge n measurement (mass/volume)on 02-13-2022 Urea nitrogen [Mass/Vol] 20 mg/dL 7-18 [facility] Work Phone: Thin prep Papanicolaou smear with manual screeningon 02-13-2022 Thin prep Papanicolaou smear with manual screening 20 U/L 15-37 [facility] Work Phone: Thin prep Papanicolaou smear with manual screening 6 5-15 [facility] Work Phone: [facility]YS[facility] MURRIETA LTon 12-30- 022 [facility] US BREAST LTD LTon 2 [facility] Laboratory - Chemistry and C hemistry - challengeon 12-09-2021 Free T4 [Mass/Vol] 1.01 ng/dL 0.76-1.46 [facility] Work Phone: No Panel Informationon 12-09 Thyroid Stimulating Hormone (TSH) 0.15 uIU/mL 0.358-3.74 [facility] Work Phone: Vitamin D 25-Hydroxy 46.2 ng/mL [facility] Work Phone: Comment on above: Vitamin D 25(OH) Sta tus Range Deficiency <20 ng/mL (50nmol/L) Insufficiency 20 - 30 ng/mL (50 - 75 nmol/L) Sufficiency 30 - 100 ng/mL (75 - 250 nmol/L) Toxicity >100 ng/mL (>250 nmol/L) Laboratory - Chemistry and C hemistry - challengeon 08-20-2021 Free T4 [Mass/Vol] 1.08 ng/dL 0.76-1.46 [facility] Work Phone: No Panel Informationon 08-20 Thyroid Stimulating Hormone (TSH) 0.04 uIU/mL 0.358-3.74 [facility] Work Phone: [facility] NDL LOC W BRYS[place] GD LTon [facility] NDL LOC W [facility] GD LT Final Report DATE OF EXAM: Dec 18 2019 8:53AM AAW [id number] - [facility] NDL LOC W BR[place] GD LT / PROCEDURE REASON: multiple diagnoses Physician Interpretation #[id number] - [facility] NDL LOC W BR[place] GD LT DIGITAL MAMMOGRAPHY GUIDED WIRE LOCALIZATION LEFT BREAST WITH POST DIGITAL MAMMOGRAPHIC IMAGIN12/18/2019 HISTORY: Multiple Diagnoses/ Patient presents for needle localization of left breast. PATIENT CONSENT: The risks, benefits and alternatives were explained to the patient. Both written and verbal consent was obtained. The patient's name, date of and site were verified before the procedure began. The appropriate side was marked. The case was discussed with Dr. Rizvi prior to the procedure. Audible Time Out:804 Procedure Start:819 Procedure End:844 PROCEDURE: Correlation is made to exams dated: 11/24/2019 ultrasound biopsy, 11/24/2019 mammogram, 11/24/2019 ultrasound - [facility], 11/17/2019 mammogram, and 11/17/2019 ultrasound - [facility]. A wire localization using digital mammography guidance was performed for the marker clip located in the left breast upper outer aspect posterior depth. This was described on the previous biopsy report. The skin was prepped in the usual manner. Local anesthetic was administered to the access site. The localization was approached from the lateral aspect. A wire was inserted adjacent to the marker under digital mammography guidance. Post placement digital mammographic imaging demonstrates the tip traverses adjacent to the marker. IMPRESSION: WIRE LOCALIZATION Wire localization for the marker clip in the left breast upper outer aspect posterior depth was successful. A specimen radiograph is recommended. Miah wilkinson/muna:12/18/2019 09:19:21 copy to: FILOMENA RIZVI, ph: [phone] Box Toe Buffer(s): RT Laura(R)(M), [facility] Multiple national specialty organizations have released breast cancer screening guidelines for women at average risk for developing breast cancer - guidelines that are based on both evidence and opinion, yet differ on when to start and how often to screen for breast cancer. With representation from Breast Imaging, Internal Medicine, Women's Health, Family Medicine, and Medical/Surgical Oncology, the [facility] has carefully reviewed the data and reached the following consensus: 1) All women should engage in shared decision-making with their providers to decide when to start and how often to screen; 2) All women should have the opportunity to start screening mammography at age 40; 3) For women ages 45-55, we recommend annual screening mammograms; 4) For women ages 55 and over, we support both the transition from an annual to a biennial interval if this aligns more with patient's values and preferences, or continuation with annual screening; 5) All women should discuss with their providers when to stop screening mammograms. Electro Mechanical Engineer: Mnua Transcribe Date/Time: Dec 18 2019 8:53A Dictated by : MIAH WILKINSON MD This examination was interpreted and the report reviewed and electronically signed by: MIAH WILKINSON MD on Dec 18 2019 9:19AM EST Normal [facility] SURGICAL BREAST SPECIMEN LTon 12-18-2019 [facility] SURGICAL BREAST SPECIMEN LT Final Report DATE OF EXAM: Dec 18 2019 12:04PM AKO [id number] - [facility] SURGICAL BREAST SPECIMEN LT / PROCEDURE REASON: NEEDLE LOC BIOPSY Physician Interpretation #[id number] - [facility] SURGICAL BREAST SPECIMEN LT UNI-PLANAR RADIOGRAPH SPECIMEN IMAGING LEFT BREAST: 12/18/2019 HISTORY: Needle Loc Biopsy Breast specimen radiograph. Correlation is made to exams dated: 12/18/2019 localization, 11/24/2019 mammogram, 11/24/2019 ultrasound biopsy, 11/24/2019 ultrasound - [facility], 11/17/2019 mammogram, and 11/17/2019 ultrasound - [facility]. A lumpectomy specimen was imaged using uni-planar radiograph specimen imaging for the previous biopsy site located in the left breast. IMPRESSION: UNI-PLANAR RADIOGRAPH SPECIMEN IMAGING The imaged specimen includes a biopsy clip and the distal portion of the localization wire. The specimen shows characteristics of the findings. Miah Wilkinson M.D. tab/penrad:12/18/2019 15:05:03 copy to: FILOMENA RIZVI, ph: [phone] Box Toe Buffer(s): [facility] Multiple national specialty organizations have released breast cancer screening guidelines for women at average risk for developing breast cancer - guidelines that are based on both evidence and opinion, yet differ on when to start and how often to screen for breast cancer. With representation from Breast Imaging, Internal Medicine, Women's Health, Family Medicine, and Medical/Surgical Oncology, the [facility] has carefully reviewed the data and reached the following consensus: 1) All women should engage in shared decision-making with their providers to decide when to start and how often to screen; 2) All women should have the opportunity to start screening mammography at age 40; 3) For women ages 45-55, we recommend annual screening mammograms; 4) For women ages 55 and over, we support both the transition from an annual to a biennial interval if this aligns more with patient's values and preferences, or continuation with annual screening; 5) All women should discuss with their providers when to stop screening mammograms. Electro Mechanical Engineer: Muna Transcribe Date/Time: Dec 18 2019 2:49P Dictated by : MIAH WILKINSON MD This examination was interpreted and the report reviewed and electronically signed by: MIAH WILKINSON MD on Dec 18 2019 3:05PM EST [facility] NM INJ SENT NODE BREAST LTon 12-18-2019 NM INJ SENT NODE BREAST LT Final Report DATE OF EXAM: Dec 18 2019 10:56AM VAN 2191 - NM INJ SENT NODE BREAST LT / PROCEDURE REASON: sen node Physician Interpretation INJECTION FOR BREAST SENTINEL NODE LOCALIZATION: HISTORY: Breast cancer. TECHNIQUE: Prior to radiopharmaceutical administration, the injection site was verified with the electronic medical record and with the cytotechnologist. 1.0 mCi of filtered technetium-99m Lymphoseek were injected in left breast by Dr. Wilkinson. No images were acquired. IMPRESSION: Injection in left breast for intraoperative [place] lymph node localization. Electro Mechanical Engineer: STACEY Transcribe Date/Time: Dec 25 2019 4:42P Dictated by : STEPHAN MAGALLANES MD This examination was interpreted and the report reviewed and electronically signed by: STEPHAN MAGALLANES MD on Dec 25 2019 4:54PM EST [facility] Pathology Miscellaneouson Pathology Miscellaneous Test performed at [place] [id number] NAME: MARVA KHAN REQUESTING: FILOMENA RIZVI M.D. DIAGNOSIS: Oncotype DX: See complete report from [employer]. SPECIMEN: (A) TISSUE FOR SEND-OUT, Oncotype (B) SLIDE REVIEW FOR SENDOUTS EXTERNAL CONSULT, PATHOLOGIST (Electronic signature on file) Signed out: 01/04/2020 10:10 PRINTED: 01/04/2020 Page 1 of 1 [facility] Comment on above: Performed By: #### M ISC #### [place] [id number] Surgical Tissue Examon 12-17 Surgical Tissue Exam Test performed at A [address], [place], [place] [address] NAME: MARVA KHAN REQUESTING: FILOMENA RIZVI M.D. COPY TO: [facility] RADIOLOGY; TUMOR REGISTRY; ASSEMBLER FOR PULLER OVER MACHINE FINAL DIAGNOSIS: A) LEFT SENTINEL LYMPH NODE # 1 - NEGATIVE FOR MALIGNANCY. B) LEFT SENTINEL LYMPH NODE # 2 - NEGATIVE FOR MALIGNANCY. C) LEFT SENTINEL LYMPH NODE # 3 - NEGATIVE FOR MALIGNANCY. D) LEFT SENTINEL LYMPH NODE # 4 - NEGATIVE FOR MALIGNANCY. E) EXCISIONAL BIOPSY OF LEFT BREAST - 0.8 CM INVASIVE, MODERATELY DIFFERENTIATED DUCTAL CARCINOMA. PREVIOUS CORE BIOPSY SITE. RESECTION MARGINS ARE FREE OF TUMOR INVOLVEMENT. FIBROCYSTIC CHANGE WITH APOCRINE CYSTS, USUAL DUCTAL HYPERPLASIA, AND FLAT EPITHELIAL ATYPIA. F) NEW POSTERIOR MARGIN - NEGATIVE FOR MALIGNANCY. G) NEW SUPERIOR MARGIN - NEGATIVE FOR MALIGNANCY. H) NEW INFERIOR MARGIN - FIBROCYSTIC CHANGE WITH APOCRINE CYSTS AND USUAL DUCTAL HYPERPLASIA. NEGATIVE FOR MALIGNANCY. I) NEW MEDIAL MARGIN - NEGATIVE FOR MALIGNANCY. J) NEW LATERAL MARGIN - NEGATIVE FOR MALIGNANCY. K) NEW ANTERIOR MARGIN - NEGATIVE FOR MALIGNANCY. Invasive Carcinoma of the Breast Cancer Case Summary Procedure: Excision. Specimen laterality: Left. Tumor size: 0.8 cm (as measured on the microscopic slide). Histologic type: Invasive ductal carcinoma of no special type. Histologic grade: Glandular: 3. Nuclear: 2. Mitotic rate: 1. Overall grade: 6 corresponding to a grade 2 tumor. Tumor focality: Single focus of invasive carcinoma. DCIS: Not identified. Lymphovascular invasion: Not identified. Tumor extension: Skin: Not included in the specimen. Nipple: Not included in the specimen. Skeletal muscle: Not included in the specimen. Margins - Invasive carcinoma: Negative. Distance to closest margin: Approximately 1.5 cm. Specify margin: Medial. Regional lymph nodes: Number of sentinel nodes examined: 4. Total number of nodes examined: 4. Number involved: None. Pathologic stage: pT1b pN0(sn). OPERATIVE PROCEDURE: Left breast lumpectomy CLINICAL INFORMATION: Breast cancer GROSS DESCRIPTION: A) Left sentinel lymph #1 (one) hot and blue ex-vivo count 2026 Received in formalin labeled sentinel lymph node #1 hot and blue count = 2026 is a segment of almeida soft tissue measuring 3.5 x 2.4 x 1 cm. Palpation reveals one possible lymph node measuring 2.4 x 1.7 x 0.7 cm. Sectioning reveals almeida-white glistening cut surfaces. Totally submitted in 3 cassettes. B) Left sentinel lymph #2 (two) hot and blue ex-vivo count 61886 Received in formalin labeled sentinel lymph node #2 hot and blue ex-vivo 05979 is one almeida soft lymph node measuring 0.8 x 0.7 x 0.3 cm. Sectioning reveals almeida smooth cut surfaces. Totally submitted in 1 cassette. C) Left sentinel lymph #3 (three) hot and blue level two ex-vivo 2233 Received in formalin labeled left sentinel lymph node #3 hot and blue ex-vivo 2233 is a almeida soft possible lymph node measuring 1.5 x 0.8 x 0.7 cm, surrounded by adherent soft tissue. Serially sectioning reveals almedia smooth cut surfaces. Totally submitted in 2 cassettes. D) Left sentinel lymph node #4 hot ex-vivo 3908 Received in formalin labeled left sentinel lymph node #4 hot ex-vivo 3908 is a almeida soft lymph node measuring 2 x 1 x 0.5 cm with adherent almeida soft tissue. Sectioning reveals almeida-pink smooth cut surfaces. Totally submitted in 2 cassettes. E) Left breast lumpectomy, short stitch superior, long stitch lateral, out at 1140, in formalin at 1210 Received in formalin labeled left breast lumpectomy long lateral short superior is a partial mastectomy specimen measuring 3.4 cm superior to inferior, 3.2 cm anterior to posterior and 2.4 cm from medial to lateral, weighing 14 gm. The specimen is oriented with a long stitch at the lateral margin and short stitch at the superior margin. A needle localization wire is present. The specimen is inked in the following manner: Superior blue, inferior green, anterior yellow, posterior black, medial orange, and lateral red. The specimen is sectioned from the superior to inferior margin into 9 slices to reveal a almeida firm, slightly ill-defined mass in slices 2-3 measuring 1.4 x 1.2 x 1.1 cm. Embedded within this mass in slice #2 is a coil shaped clip. The mass is abutting the anterior, medial and lateral margins, and is located 1 cm from the posterior margin, 1.3 cm from the superior margin, and 2 cm from the inferior margin. Totally submitted as follows: E1 - slice 1 superior margin perpendicular sections. E2 - slice 2 to include mass and clip site with superior, anterior, medial, lateral margins. E3 - slice 3 to include mass with anterior, medial, lateral, posterior margin and some superior margin. E4 -slice 3 with medial, lateral, some anterior margin and some superior margin. E5 - slice 4 with medial (more content not included)... [facility] Comment on above: Performed By: #### S URG #### [place] [id number] Vital Signs Date Time Vital Sign Value Performing Clinician Enrique mcmillan 11-15-2024 09:15-0400 Body height 170.2 cm Lacy Reynolds APRN.OCCUPATIONAL WORK EXPERIENCE TEACHER Work Phone: [facility] 11-15-2024 09:15-0400 Body mass index (BMI) [Ratio] 23.65 kg/m2 Lacy Mitch LIBRARY SCIENCE INSTRUCTOR.OCCUPATIONAL WORK EXPERIENCE TEACHER Work Phone: [facility] 11-15-2024 09:15-0400 Body weight 68.49 kg Lacy Mitch LIBRARY SCIENCE INSTRUCTOR.OCCUPATIONAL WORK EXPERIENCE TEACHER Work Phone: [facility] 11-15-2024 09:15-0400 Diastolic blood pressure 72 mm[Hg] Lacy Reynolds LIBRARY SCIENCE INSTRUCTOR.OCCUPATIONAL WORK EXPERIENCE TEACHER Work Phone: [facility] 11-15-2024 09:15-0400 Heart rate 51 /min Lacy Reynolds LIBRARY SCIENCE INSTRUCTOR.OCCUPATIONAL WORK EXPERIENCE TEACHER Work Phone: [facility] 11-15-2024 09:15-0400 Systolic blood pressure 118 mm[Hg] Lacy Reynolds LIBRARY SCIENCE INSTRUCTOR.OCCUPATIONAL WORK EXPERIENCE TEACHER Work Phone: [facility] 04-18-2024 14:56-0400 Body height 170.2 cm Filomena Rizvi MD Work Phone: [facility] 04-18-2024 14:56-0400 Body mass index (BMI) [Ratio] 25.53 kg/m2 Filomena Rizvi MD Work Phone: [facility] 04-18-2024 14:56-0400 Body weight 73.94 kg Filomena Rizvi MD Work Phone: [facility] 04-18-2024 14:56-0400 Diastolic blood pressure 80 mm[Hg] Filomena Rizvi MD Work Phone: [facility] 04-18-2024 14:56-0400 Heart rate 52 /min Filomena Rizvi MD Work Phone: [facility] 04-18-2024 14:56-0400 Systolic blood pressure 119 mm[Hg] Filomena Rizvi MD Work Phone: [facility] 01-13-2024 15:59-0400 Body height 167.6 cm Patricia Foglietti DO Work Phone: [facility] 01-13-2024 15:59-0400 Body mass index (BMI) [Ratio] 28.25 kg/m2 Patricia Foglietti DO Work Phone: [facility] 01-13-2024 15:59-0400 Body weight 79.38 kg Patricia Foglietti DO Work Phone: [facility] 08-10-2023 12:55-0500 Body height 167.6 cm Filomena Rizvi MD Work Phone: [facility] 08-10-2023 12:55-0500 Body weight 87.09 kg Filomena Rizvi MD Work Phone: [facility] 08-10-2023 12:55-0500 Diastolic blood pressure 86 mm[Hg] Filomena Rizvi MD Work Phone: [facility] 08-10-2023 12:55-0500 Heart rate 65 /min Filomena Rizvi MD Work Phone: [facility] 08-10-2023 12:55-0500 Systolic blood pressure 138 mm[Hg] Filomena Rizvi MD Work Phone: [facility] 04-30-2023 09:34-0500 Diastolic blood pressure 77 mm[Hg] Ct (I-Stat) Work Phone: [facility] 04-30-2023 09:34-0500 Heart rate 63 /min Ct (I-Stat) Work Phone: [facility] 04-30-2023 09:34-0500 Systolic blood pressure 137 mm[Hg] Ct (I-Stat) Work Phone: [facility] 04-26-2023 14:21-0500 Body height 167.6 cm Audrey Rowe MD Work Phone: [facility] 04-26-2023 14:21-0500 Body weight 84.37 kg Audrey Rowe MD Work Phone: [facility] 04-26-2023 14:21-0500 Diastolic blood pressure 85 mm[Hg] Audrey Rowe MD Work Phone: [facility] 04-26-2023 14:21-0500 Heart rate 51 /min Audrey Rowe MD Work Phone: [facility] 04-26-2023 14:21-0500 Respiratory rate 18 /min Audrey Rowe MD Work Phone: [facility] 04-26-2023 14:21-0500 SaO2% (BldA) [Mass fraction] 100 % Audrey Rowe MD Work Phone: [facility] 04-26-2023 14:21-0500 Systolic blood pressure 145 mm[Hg] Audrey Rowe MD Work Phone: [facility] 10-07-2022 02:49-0400 Diastolic blood pressure 74 mm[Hg] [facility] 10-07-2022 02:49-0400 Systolic blood pressure 119 mm[Hg] [facility] 10-07-2022 02:15-0400 Heart rate 54 /min [facility] 10-07-2022 02:15-0400 Respiratory rate 13 /min [facility] 10-07-2022 02:15-0400 SaO2% (BldA) [Mass fraction] 95 % [facility] 10-07-2022 00:36-0400 Body mass index (BMI) [Ratio] 32.7 kg/m2 [facility] 10-07-2022 00:36-0400 Body weight 94.[address] [facility] 10-06-2022 22:51-0400 Body height 170.[address] [facility] 10-06-2022 22:51-0400 Body temperature 96.3 [degF] [facility] 07-30-2022 17:12-0500 Body temperature 98.1 [degF] Kasandra Souza MD Work Phone: [facility] 07-30-2022 17:12-0500 Diastolic blood pressure 68 mm[Hg] Kasandra Souza MD Work Phone: [facility] 07-30-2022 17:12-0500 Heart rate 55 /min Kasandra Souza MD Work Phone: [facility] 07-30-2022 17:12-0500 Systolic blood pressure 134 mm[Hg] Kasandra Souza MD Work Phone: [facility] 12-09-2021 10:12-0400 Body temperature 97.5 [degF] Aman Masci DO Work Phone: [facility] 12-09-2021 10:12-0400 Body weight 90.95 kg Aman Masci DO Work Phone: [facility] 12-09-2021 10:12-0400 Diastolic blood pressure 83 mm[Hg] Aman Masci DO Work Phone: [facility] 12-09-2021 10:12-0400 Heart rate 60 /min Aman Masci DO Work Phone: [facility] 12-09-2021 10:12-0400 SaO2% (BldA) [Mass fraction] 96 % Aman Masci DO Work Phone: [facility] 12-09-2021 10:12-0400 Systolic blood pressure 132 mm[Hg] Aman Masci DO Work Phone: [facility] 10-09-2021 16:33-0400 Body height 167.[address] Patricia Winston Work Phone: [facility] Work Phone: 10-09-2021 16:33-0400 Body mass index (BMI) [Ratio] 32.1 kg/m2 Dr. Patricia Winston Work Phone: [facility] Work Phone: 10-09-2021 16:33-0400 Body temperature 97.3 [degF] Dr. Patricia Winston Work Phone: [facility] Work Phone: 10-09-2021 16:33-0400 Body weight 90.[address] Patricia Winston Work Phone: [facility] Work Phone: 10-09-2021 16:33-0400 Diastolic blood pressure 78 mm[Hg] Dr. Patricia Winston Work Phone: [facility] Work Phone: 10-09-2021 16:33-0400 Heart rate 88 /min Dr. Patricia Winston Work Phone: [facility] Work Phone: 10-09-2021 16:33-0400 Respiratory rate 18 /min Dr. Patricia Winston Work Phone: [facility] Work Phone: 10-09-2021 16:33-0400 SaO2% (BldA) [Mass fraction] 96 % Dr. Patricia Winston Work Phone: [facility] Work Phone: 10-09-2021 16:33-0400 Systolic blood pressure 122 mm[Hg] Dr. Patricia Winston Work Phone: [facility] Work Phone: 09-10-2021 11:50-0400 Body mass index (BMI) [Ratio] 32.8 kg/m2 Dr. Patricia Winston Work Phone: [facility] Work Phone: 09-10-2021 11:50-0400 Body weight 92.[address] Patricia Winston Work Phone: [facility] Work Phone: 09-10-2021 11:50-0400 Body height 167.[address] Patricia Winston Work Phone: [facility] Work Phone: 09-10-2021 11:50-0400 Body mass index (BMI) [Ratio] 32.8 kg/m2 Dr. Patricia Winston Work Phone: [facility] Work Phone: 09-10-2021 11:50-0400 Body weight 92.[address] Patricia Winston Work Phone: [facility] Work Phone: Encounters Encounter Date Encounter Type Care Provider Facility Start: 01-15-2025 ambulatory Go Aguila Facility :[facility] Start: 11-15-2024 End: 11-15-2024 ambulatory PATRICIA WINSTON Facility:[facility] Start: 11-15-2024 End: 11-15-2024 Patient encounter procedure Lacy Reynolds APRN.CNP Work Phone: [facility] Comment on above: Malignant neoplasm o f female breast, unspecified estrogen receptor status, unspecified laterality, unspecified site of breast (HCC) (Primary Dx); Papilloma of right breast; Unspecified lump in axillary tail of the right breast; Breast pain, left; Breast pain, right Start: 11-02-2024 ambulatory FILOMENA Silvestre ity:[facility] Start: 11-02-2024 End: 11-02-2024 Subsequent hospital visit by physician Mri [facility] [place] [facility] (I-Stat/Lg Bore/1.5t) Work Phone: [facility] Comment on above: Malignant neoplasm o f female breast, unspecified estrogen receptor status, unspecified laterality, unspecified site of breast (HCC) [C50.919] Start: 10-13-2024 ambulatory [facility] Facility: [facility] Start: 10-11-2024 End: 10-11-2024 Telephone encounter Lacy Reynolds APRN.CNP Work Phone: [facility] Comment on above: Breast MRI approval Start: 08-15-2024 Encounter for genera l adult medical examination without abnormal findings [facility] Start: 08-09-2024 End: 08-09-2024 ambulatory Aby Figueroa Facility:[facility] Start: 08-03-2024 End: 08-03-2024 ambulatory JOSE ALFREDO IVEY MD Facility:A Start: 08-03-2024 End: 08-03-2024 Patient encounter procedure JOSE ALFREDO IVEY MD [facility] Start: 08-02-2024 End: 08-02-2024 Telephone encounter Audrey Rowe MD Work Phone: Cardiology Comment on above: Office note faxed (t o [facility] dated 04/26/23) Start: 07-31-2024 End: 07-31-2024 ambulatory [facility] Facility:[facility] Start: 07-28-2024 End: 07-28-2024 ambulatory [facility] Facility:[facility] Start: 07-26-2024 ambulatory [facility] Facility :[facility] Start: 07-26-2024 End: 07-26-2024 ambulatory [facility] Facility:[facility] Start: 07-11-2024 End: 07-11-2024 ambulatory [facility] Facility:[facility] Start: 06-01-2024 End: 06-05-2024 Telephone encounter Jonathan Barr MD Work Phone: General Surgery Comment on above: Appointment Start: 05-30-2024 End: 05-30-2024 Admission to same day surgery center Jonathan Barr MD Work Phone: Ambulatory Surgery Comment on above: MUST READ BOWEL PREP INSTRUCTIONS Start: 05-30-2024 End: 05-30-2024 E-mail encounter from caregiver Jonathan Barr MD Work Phone: Ambulatory Surgery Start: 05-30-2024 End: 05-30-2024 ambulatory Suzanne Gonzalez PAULIE Work Phone: Gastroenterology Comment on above: Gastritis, presence of bleeding unspecified, unspecified chronicity, unspecified gastritis type (Primary Dx); Personal history of breast cancer; Abnormal CT of the abdomen; Colon cancer screening Start: 05-30-2024 End: 05-30-2024 Telemedicine consultation with patient Suzanne Gonzalez PAULIE Work Phone: Gastroenterology Start: 05-25-2024 End: 05-25-2024 ambulatory Isabel Watt APRN.CNP Work Phone: Hematology/Oncology Comment on above: CT SCAN OF STOMACH Start: 05-24-2024 End: 05-24-2024 ambulatory Aby Figueroa Facility:[facility] Start: 05-18-2024 ambulatory Jay Seymour Facility:[facility] Start: 05-18-2024 End: 05-19-2024 Evaluation and management of inpatient [facility] Facility:[facility] Start: 04-18-2024 End: 04-18-2024 Patient encounter procedure Filomena Rizvi MD Work Phone: [facility] Comment on above: Malignant neoplasm o f female breast, unspecified estrogen receptor status, unspecified laterality, unspecified site of breast (HCC) (Primary Dx); Papilloma of right breast; History of breast cancer Start: 04-18-2024 End: 04-18-2024 ambulatory FILOMENA RIZVI Facility:[facility] Start: 04-18-2024 End: 04-18-2024 Subsequent hospital visit by physician Diagnostic Mamm[facility] Comment on above: Papilloma of right b reast [D24.1] Start: 01-22-2024 ambulatory [facility] Facility: [facility] Start: 01-13-2024 End: 01-13-2024 Office outpatient new 30 minutes Patricia Metz DO Work Phone: Patricia Wilder. Comment on above: Encounter for cosmet ic surgery (Primary Dx) Start: 10-18-2023 End: 10-18-2023 ambulatory [facility] Work Phone: Start: 10-18-2023 End: 10-18-2023 Patient encounter procedure [facility]-Ivette Turner [facility] Start: 08-10-2023 End: 08-10-2023 Patient encounter procedure Filomena Rizvi MD Work Phone: [facility] Comment on above: Papilloma of right b reast (Primary Dx) Start: 07-30-2023 Patient encounter status Filomena Rizvi MD Work Phone: [facility] Work Phone: Start: 07-23-2023 End: 07-23-2023 Subsequent hospital visit by physician Stereo/Ultrasound Bi[facility] Comment on above: Papilloma of right b reast [D24.1] Start: 07-20-2023 Patient encounter status Stereo/Ultrasound Hosp [facility] Work Phone: Start: 05-18-2023 End: 05-18-2023 Subsequent hospital visit by physician Procedure [facility]amm[facility] Comment on above: Mass overlapping mul tiple quadrants of left breast [N63.25] Start: 04-30-2023 End: 04-30-2023 Subsequent hospital visit by physician [facility] (I-Stat) Work Phone: Radiology Comment on above: Chest pain, unspecif ied type [R07.9] Start: 04-29-2023 Telephone encounter Filomena restrepo MD Work Phone: [facility] Comment on above: Appointment Start: 04-27-2023 End: 04-27-2023 Subsequent hospital visit by physician Mri [place] (1.5t/Lg Bore 70cm) Work Phone: [facility] Comment on above: Unspecified lump in axillary tail of the right breast [N63.31] Start: 04-26-2023 End: 04-26-2023 Office outpatient new 45 minutes Audrey Rowe MD Work Phone: Cardiology Comment on above: Chest pain, unspecif ied type (Primary Dx); Abnormal ECG Start: 12-17-2022 End: 12-17-2022 Subsequent hospital visit by physician Procedure Mammo [facility] Comment on above: Unspecified lump in axillary tail of the right breast [N63.31] Start: 10-06-2022 End: 10-07-2022 Emergency department patient visit [facility]-Emergency Department Start: 08-25-2022 ambulatory [facility] Facility: [id number] Start: 08-06-2022 Telephone encounter Shi tracey Aesthetic Specialist Plastic Surgery Comment on above: Plastic Surg Skin Ca re (Called pt per Dr. Souza's request to offer consulation on products/services. Pt declined, has no questions at this time.) Start: 07-30-2022 End: 07-30-2022 Patient encounter procedure Kasandra Souza MD Work Phone: Plastic Surgery Comment on above: Encounter for cosmet ic surgery (Primary Dx) Start: 07-30-2022 Chart abstracting Kasandra andrade MD Work Phone: Plastic Surgery Comment on above: PHOTOS TAKEN Start: 07-16-2022 End: 07-16-2022 ambulatory [facility] Work Phone: Start: 07-16-2022 End: 07-16-2022 Patient encounter procedure [facility]-MRI - [facility] Start: 06-16-2022 End: 06-16-2022 ambulatory [facility] Work Phone: Start: 06-16-2022 End: 06-16-2022 Patient encounter procedure [facility]-Radiology, [place] Start: 05-11-2022 End: 05-11-2022 ambulatory [facility] Work Phone: Start: 05-11-2022 End: 05-11-2022 Patient encounter procedure [facility]-Cat Scan, [facility] Start: 05-03-2022 ambulatory Isabel horton OCCUPATIONAL WORK EXPERIENCE TEACHER Work Phone: Hematology/Oncology Comment on above: cancellation Start: 04-14-2022 End: 04-14-2022 Patient encounter procedure [facility] Start: 04-08-2022 End: 04-08-2022 ambulatory [facility] Work Phone: Start: 04-08-2022 End: 04-08-2022 Patient encounter procedure [facility] Start: 03-12-2022 End: 03-12-2022 Patient encounter procedure Jonathan Rubioviviana Work Phone: Podiatry Comment on above: Plantar fasciitis of left foot (Primary Dx); Acquired hallux limitus of right foot Start: 03-12-2022 End: 03-12-2022 Subsequent hospital visit by physician [facility] Work Phone: Radiology Comment on above: Pain [R52] Start: 03-11-2022 Orders Only Jonathan Contreras noreen Work Phone: [facility] Comment on above: Pain (Primary Dx) Start: 02-13-2022 End: 02-13-2022 ambulatory [facility] [facility] Work Phone: Start: 02-13-2022 End: 02-13-2022 Patient encounter procedure [facility] Start: 12-30-2021 End: 12-30-2021 Subsequent hospital visit by physician Diagnostic Mammo [facility] W[facility] Mammogram Comment on above: Malignant neoplasm o f upper-outer quadrant of left breast in female, estrogen receptor positive (HCC) [C50.412, Z17.0] Start: 12-09-2021 End: 12-09-[address] Patricia Winston Work Phone: [facility] [place] Start: 12-09-2021 End: 12-09-2021 ambulatory Aman Cardoso DO Work Phone: Hematology/Oncology Comment on above: Malignant neoplasm o f upper-outer quadrant of left breast in female, estrogen receptor positive (HCC) (Primary Dx) Start: 12-09-2021 End: 12-09-2021 Patient encounter procedure Aman Purnima Cardoso DO Work Phone: [facility] Start: 11-25-2021 Telephone encounter Noreen Doe MD Work Phone: Mammography Comment on above: Mammogram Result Lenard l Back Start: 10-09-2021 End: 10-09-[address] Patricia Winston Work Phone: [facility] Start: 09-18-2021 End: 09-18-[address] Patricia Winston Work Phone: [facility]Neurology Start: 09-10-2021 End: 09-10-[address] Patricia Winston Work Phone: [facility] Start: 09-09-2021 Non-patient / Non-visit Dr. Patricia Winston Work Phone: [facility] Start: 08-20-2021 End: 08-20-[address] Patricia Winston Work Phone: [facility]-Laboratory, [facility] Procedures Date Procedure Procedure Detail Performing Clinician Start: 11-02-2024 Mri breast without&w ith contrast w/cad bilateral Filomena Rizvi MD Work Phone: Start: 04-18-2024 Us lmtd joint/oth no nvasc xtr strux r-t w/img [facility] Provider Start: 04-18-2024 Digital breast tomosynthesis bilateral Filomena Rizvi MD Work Phone: Start: 05-18-2023 Us breast uni real t kassandra with image limited Filomena Rizvi MD Work Phone: Start: 04-30-2023 Cta hrt cornry art/b ypass grfts contrst 3d post Audrey Rowe MD Work Phone: Start: 04-27-2023 Mri breast without&w ith contrast w/cad bilateral Filomena Rizvi MD Work Phone: Start: 04-26-2023 Ecg routine ecg w/le ast 12 lds i&r only [facility] Provider Start: 12-17-2022 Us breast uni real t kassandra with image limited Filomena Rizvi MD Work Phone: Start: 12-17-2022 Us breast uni real t kassandra with image limited Filomena Rizvi MD Work Phone: Start: 12-17-2022 End: 12-17-2022 Digital breast tomosynthesis bilateral Filomena Rizvi MD Work Phone: Start: 08-25-2022 Follow-up visit Start: 07-16-2022 MRI of lumbar spine Start: 06-16-2022 X-ray of lumbosacral spine Start: 05-11-2022 CT of head without contrast Start: 12-30-2021 Us breast uni real t kassandra with image limited Isabel Watt LIBRARY SCIENCE INSTRUCTOR.OCCUPATIONAL WORK EXPERIENCE TEACHER Work Phone: Start: 12-30-2021 BRYSON DIAG W GEOFFREY LT Shannon Watt LIBRARY SCIENCE INSTRUCTOR.OCCUPATIONAL WORK EXPERIENCE TEACHER Work Phone: Start: 12-08-2021 Adult depression scr eening assessment Aman Antoniajose DO Work Phone: Start: 11-24-2021 Mammography Noreen thorne MD Work Phone: Start: 04-23-2020 Adult depression scr eening assessment Noreen Doe MD Work Phone: Cholecystectomy JOSE ALFREDO DAVIS MD Comment on above: 1997 Excision of mass JOSE ALFREDO CARRIZALES MD Comment on above: right breast 07/2023 Hysterectomy JOSE ALFREDO LASSITER MD Comment on above: 2012 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 [facility] Comment on above: bilat diagnostic bryson mogram and ultrasound to see dr Rizvi afterwards. Start: 04-19-2025 End: 12-15-2025 DBT Breast - bilateral diagnostic for implant BRYSON DIAG W GEOFFREY BILATERAL Radiology Routine Papilloma of right breast Malignant neoplasm of female breast, unspecified estrogen receptor status, unspecified laterality, unspecified site of breast (HCC) Expected: 04/19/2025, Expires: 12/15/2025 [facility] Work Phone: Comment on above: Expected: 04/19/2025 , Expires: 12/15/2025 Start: 04-19-2025 End: 12-15-2025 US Breast - left limited US BREAST LTD LEFT Radiology Routine Malignant neoplasm of female breast, unspecified estrogen receptor status, unspecified laterality, unspecified site of breast (HCC) Expected: 04/19/2025, Expires: 12/15/2025 [facility] Comment on above: Expected: 04/19/2025 , Expires: 12/15/2025 Start: 04-19-2025 End: 12-15-2025 US Breast - right limited US BREAST LTD RIGHT Radiology Routine Papilloma of right breast Unspecified lump in axillary tail of the right breast Expected: 04/19/2025, Expires: 12/15/2025 [facility] Comment on above: Expected: 04/19/2025 , Expires: 12/15/2025 Start: 04-19-2025 End: 04-19-2025 Patient encounter procedure 04/19/2025 12:45 PM EDT Appointment [facility] [address] [place] [address] bilat diagnostic mammogram and bilat ultrasounds to see dr Rizvi afterwards. [facility] Comment on above: bilat diagnostic bryson mogram and bilat ultrasounds to see dr Rizvi afterwards. Start: 04-18-2025 Screening for malign ant neoplasm of breast Mammogram Screening [facility] Start: 11-15-2024 End: 11-15-2024 Patient encounter procedure 11/15/2024 9:00 AM EDT Office Visit [facility] [address] [place] [phone] Lacy Reynolds, LIBRARY SCIENCE INSTRUCTOR.OCCUPATIONAL WORK EXPERIENCE TEACHER [address] [place] [address] follow up mri results. [facility] Comment on above: follow up mri result s. Start: 10-24-2024 End: 10-24-2024 Patient encounter procedure 10/24/2024 11:30 AM EDT Office Visit [facility] [address] [place] [phone] Lacy Reynolds, LIBRARY SCIENCE INSTRUCTOR.OCCUPATIONAL WORK EXPERIENCE TEACHER [address] [place] [address] mri follow up results. [facility] Comment on above: mri follow up result s. Start: 10-17-2024 End: 05-18-2025 MR Breast - bilateral WO and W contrast IV MRI BREAST WO/W IVCON BILATERAL Radiology Routine Malignant neoplasm of female breast, unspecified estrogen receptor status, unspecified laterality, unspecified site of breast (HCC) Expected: 10/17/2024, Expires: 05/18/2025 [facility] Work Phone: Comment on above: Expected: 10/17/2024 , Expires: 05/18/2025 Start: 10-17-2024 End: 05-18-2025 MRI BREAST 3D POST PROCESSING MRI BREAST 3D POST PROCESSING Radiology Routine Papilloma of right breast History of breast cancer Expected: 10/17/2024, Expires: 05/18/2025 [facility] Comment on above: Expected: 10/17/2024 , Expires: 05/18/2025 Start: 10-17-2024 End: 10-17-2024 Patient encounter procedure 10/17/2024 12:45 PM EDT Appointment [facility] [address] [place] [address] mri wo/w ivcon bilat [id number] [facility] Comment on above: mri wo/w ivcon bilat [id number] Start: 09-22-2024 Shingrix Vaccine (2 of 2) Castro grix Vaccine (2 of 2) [facility] Start: 07-25-2024 End: 07-25-2024 Patient encounter procedure 07/25/2024 1:00 PM EST Appointment Ambulatory Surgery [address] [place] [phone] Della Walker MD [address] [place] [address] COLONOSCOPY SCREENING, Personal history of breast cancer [Z85.3] Ambulatory Surgery Comment on above: COLONOSCOPY SCREENIN G, Personal history of breast cancer [Z85.3] Start: 06-15-2024 End: 06-15-2024 Patient encounter procedure 06/15/2024 9:45 AM EST Appointment [facility] [address] [place] [address] Jonathan Barr MD [address] [place] [address] Gastritis, presence of bleeding unspecified, unspecified chronicity, unspecified... [facility] Comment on above: Gastritis, presence of bleeding unspecified, unspecified chronicity, unspecified... Start: 03-10-2024 End: 03-10-2024 Patient encounter procedure 03/10/2024 1:00 PM EDT Office Visit [facility] [address] [facility] [address] [place] [address] Zoraida German, MS [facility] [address] [place], [place] [id number] family history of breast cancer [facility] Comment on above: family history of br east cancer Start: 02-20-2024 Covid-19 Vaccine ( season) Covid-19 Vaccine ( season) [facility] Start: 02-20-2024 Influenza vaccination Influenza Vacc ine (#1) [facility] Start: 02-16-2024 End: 02-16-2024 Patient encounter procedure 02/16/2024 1:45 PM EDT Office Visit [facility] [address] [facility] [address] [place] [address] Filomena Rizvi MD [address] [facility] [address] [place] [address] 6 month follow up [facility] Comment on above: 6 month follow up Start: 02-16-2024 End: 02-16-2024 Patient encounter procedure 02/16/2024 12:15 PM EDT Appointment [facility] [address] [place] [address] Diagnostic Mammogram with Geoffrey Bilateral [facility] Comment on above: Diagnostic Mammogram with Geoffrey Bilateral Start: 12-18-2023 Mammography [facility] Start: 12-18-2023 Screening for malign ant neoplasm of breast Mammogram Screening [facility] Start: 06-21-2023 Depression Assessment Depression Ass essment [facility] Start: 04-27-2023 End: 04-26-2024 Echocardiography ECHO Cardiology Routine Chest pain, unspecified type Abnormal ECG Expected: 04/27/2023, Expires: 04/26/2024 [facility] Work Phone: Comment on above: Expected: 04/27/2023 , Expires: 04/26/2024 Start: 02-19-2023 Influenza vaccination INFLUENZ A (Season Ended) [facility] Start: 12-08-2022 Adult depression scr eening assessment DEPRESSION SCREENING [facility] Start: 11-24-2022 Mammography MAMMOGRAM [facility] Start: 06-21-2022 DEPRESSION ASSESSMENT DEPRESSION ASS ESSMENT [facility] Start: 02-19-2022 Influenza vaccination [facility] Start: 12-09-2021 End: 02-08-2022 25-hydroxyvitamin D3 [Mass/volume] in Serum or Plasma VITAMIN D 25 HYDROXY Lab Routine Malignant neoplasm of upper-outer quadrant of left breast in female, estrogen receptor positive (HCC) Expected: 12/09/2021, Expires: 02/08/2022 [facility] Work Phone: Comment on above: Expected: 12/09/2021 , Expires: 02/08/2022 Start: 09-10-2021 Evaluation of diagno stic study results [facility] Work Phone: Start: 09-03-2021 COVID-19 VACCINE (4 - Booster for Pfizer series) COVID-19 VACCINE (4 - Booster for Pfizer series) [facility] Start: 08-06-2021 COVID-19 VACCINE (4 - Booster for Pfizer series) COVID-19 VACCINE (4 - Booster for Pfizer series) [facility] Start: 07-01-2021 COVID-19 VACCINE (4 - Booster for Pfizer series) COVID-19 VACCINE (4 - Booster for Pfizer series) [facility] Start: 06-21-2021 DEPRESSION ASSESSMENT DEPRESSION ASS ESSMENT [facility] Start: 04-23-2021 Adult depression scr eening assessment DEPRESSION SCREENING [facility] Start: 11-07-2019 DIABET[facility]CREEN [facility] Start: 11-07-2019 Diabetes Screening Diabetes Screenin g [facility] Start: 2016 Pneumococcal Vaccine : 50+ (1 of 1 - PCV) Pneumococcal Vaccine: 50+ (1 of 1 - PCV) [facility] Start: 2016 SHINGRIX VACCINE (1 of 2) CASTRO GRIX VACCINE (1 of 2) [facility] Start: 2011 COLOGUARD (FIT-DNA) COLOGUARD (FIT-D NA) [facility] Start: 2011 Colonoscopy COLONOSCOPY [facility] Start: 2011 COLORECTAL CANCER SCREENING COLORECTAL CANCER SCREENING [facility] Start: [address] COLONOGRAPHY [facility] Start: 2011 FECAL OCCULT BLOOD FECAL OCCULT BLOO D [facility] Start: 2011 Lipid 1996 panel - S francoise or Plasma Lipid Screening [facility] Start: 2011 Lipid panel Lipid Screening [facility] Start: 2011 LIPID SCREEN LIPID SCREEN [facility] Start: 2011 Screening for malign ant neoplasm of colon [facility] Start: 2011 SIGMOIDOSCOPY SIGMOIDOSCOPY [facility] Start: 1996 HPV TESTING HPV TESTING [facility] Start: 1996 Screening for malign ant neoplasm of cervix HPV Testing [facility] Start: 1987 PAP TESTING PAP TESTING [facility] Start: 1987 Screening for malign ant neoplasm of cervix [facility] Start: 1985 Hepatitis B Vaccine (1 of 3 - 19+ 3-dose series) Hepatitis B Vaccine (1 of 3 - 19+ 3-dose series) [facility] Start: 1985 SHINGRIX VACCINE (1 of 2) CASTRO GRIX VACCINE (1 of 2) [facility] Start: 1985 Urine microalbumin profile [facility] Start: 1984 Annual PCP Team Collection Manager zachary Disease Visit Annual PCP Team Chronic Disease Visit [facility] Start: 1984 Anxiety Screening Anxiety Screening [facility] Start: 1984 Depression Screening Depression Scre ening [facility] Start: 1984 HEPATITIS C SCREENING HEPATITIS C [facility] Start: 1984 Hepatitis C screening Hepatitis C [facility] Start: 1984 HIV SCREENING HIV SCREENING [facility] Start: 1984 HIV screening HIV Screening [facility] Start: 1972 PNEUMOCOCCAL (1 - PCV) PNEUMOCOCCAL (1 - PCV) [facility] Start: 1966 HEPATITIS B (1 of 3 - 3-dose series) HEPATITIS B (1 of 3 - 3-dose series) [facility] Start: 1966 Hepatitis B Vaccine (1 of 3 - 3-dose series) Hepatitis B Vaccine (1 of 3 - 3-dose series) [facility] End: 05-25-2024 Cta hrt cornry art/bypass grfts contrst 3d post CTA CORONARY W IVCON Radiology Routine Chest pain, unspecified type Abnormal ECG 1 Occurrences starting 04/26/2023 until 05/25/2024 [facility] Work Phone: Comment on above: 1 Occurrences starti ng 04/26/2023 until 05/25/2024 End: 09-08-2024 DBT Breast - bilateral diagnostic for implant BRYSON DIAG W GEOFFREY BILATERAL Radiology Routine Papilloma of right breast 1 Occurrences starting 08/10/2023 until 09/08/2024 [facility] Work Phone: Comment on above: 1 Occurrences starti ng 08/10/2023 until 09/08/2024 End: 04-26-2024 ECG COMPLETE ECG COMPLETE ECG Routine Chest pain, unspecified type Abnormal ECG 1 Occurrences starting 04/26/2023 until 04/26/2024 [facility] Work Phone: Comment on above: 1 Occurrences starti ng 04/26/2023 until 04/26/2024 End: 05-30-2025 EGD DIAGNOSTIC EGD DIAGNOSTIC Endoscopy Routine Abnormal CT of the abdomen Gastritis, presence of bleeding unspecified, unspecified chronicity, unspecified gastritis type 1 Occurrences starting 05/30/2024 until 05/30/2025 [facility] Work Phone: Comment on above: 1 Occurrences starti ng 05/30/2024 until 05/30/2025 Evaluation of diagno stic study results [facility] Work Phone: End: 05-28-2024 MRI BREAST BX WO/W IVCON RIGHT MRI BREAST BX WO/W IVCON RIGHT Radiology Routine Mass overlapping multiple quadrants of left breast 1 Occurrences starting 04/29/2023 until 05/28/2024 [facility] Work Phone: Comment on above: 1 Occurrences starti ng 04/29/2023 until 05/28/2024 Patient Education ED Hypertensio n, To Be Confirmed [facility] Work Phone: Patient referral [facility] Work Phone: End: 05-30-2025 Screening colonoscopy COLONOSCOPY SCREENING Endoscopy Routine Personal history of breast cancer Colon cancer screening 1 Occurrences starting 05/30/2024 until 05/30/2025 [facility] Comment on above: 1 Occurrences starti ng 05/30/2024 until 05/30/2025 End: 05-28-2024 US BIOPSY BREAST RIGHT US BIOPSY BREAST RIGHT Radiology Routine Mass overlapping multiple quadrants of left breast 1 Occurrences starting 04/29/2023 until 05/28/2024 [facility] Work Phone: Comment on above: 1 Occurrences starti ng 04/29/2023 until 05/28/2024 End: 05-28-2024 US BREAST LTD RIGHT US BREAST LTD RIGHT Radiology Routine Mass overlapping multiple quadrants of left breast 1 Occurrences starting 04/29/2023 until 05/28/2024 [facility] Work Phone: Comment on above: 1 Occurrences starti ng 04/29/2023 until 05/28/2024 [facility] Work Phone: US LOC BREAST RIGHT US LOC BREAS T RIGHT Radiology Routine Papilloma of right breast 07/23/2023 3:21 PM EST [facility] Work Phone: End: 04-10-2023 XR FOOT GENERAL 3V AP/LAT/OBL BILATERAL XR FOOT GENERAL 3V AP/LAT/OBL BILATERAL Radiology Routine Pain 1 Occurrences starting 03/11/2022 until 04/10/2023 [facility] Work Phone: Comment on above: 1 Occurrences starti ng 03/11/2022 until 04/10/2023 End: 03-12-2022 XR FOOT GENERAL 3V AP/LAT/OBL BILATERAL [facility] Work Phone: Comment on above: 1 Occurrences starti ng 03/12/2022 until 03/12/2022 [facility] Immunizations Immunization Date Immunization Notes Care Provider Gama allen 03-15-2023 influenza virus vacc ine, unspecified formulation Patricia Pollackfabiomisbah DO Work Phone: [facility] Payers Date Payer Category Payer Blue Cross Blue [facility] BLUE CARD PPO [id number] 2024 Unknown [id number] 2024 Self-pay [id number] 2020 Private Health Insurance MMO SUP ERMED PPO [id number] 2020 Unknown MMO MMO SUPER[employer] PLUS [id number] 2020-Present [phone] [address] [place] [address] PPO [id number] 2020 Unknown [id number] 2020 Unknown [id number] 2013 Private Health Insurance [id number] 1966 Unknown [id number] 1966 Unknown [id number] [id number] Unknown [id number]. 462 Unknown [id number]. 462 Unknown [id number]. 462 Unknown [id number] .[id number]. 462 Unknown [id number]. 462 Unknown [id number] [id number]. 462 Unknown [id number]. 462 Unknown [id number] 2.840.1.266712.3.579.2. 462 Unknown [id number]. 462 Unknown [id number] [id number]. 462 Unknown [id number]. 462 Unknown [id number]. 462 Unknown [id number] 462 Social History Date Type Detail Facility Start: 09-10-2021 End: 10-07-2022 Tobacco smoking status NHIS Unknown if ever smoked [facility] Start: 1965 Sex Assigned At Female [facility] Start: 11-24-2019 End: 04-26-2023 Tobacco smoking status NHIS Never smoked tobacco [facility] Start: 06-10-2021 End: 11-15-2024 Alcohol intake Current drinker of alcohol (finding) [facility] Start: 11-14-2021 End: 03-12-2022 Exposure to SARS-CoV-2 (event) Not sure [facility] Start: 11-24-2019 End: 04-26-2023 Tobacco use and exposure Smokeless tobacco non-user [facility] Start: 11-23-2022 End: 04-26-2023 History of Social function [facility] Start: 11-23-2022 End: 04-26-2023 Tobacco use panel [facility] Adult Depression Screening Assessment 0 [facility] Start: 04-26-2023 Tobacco Comment Smoked very li ttle in college [facility] Start: 04-23-2020 Gender identity Identifies as female gender (finding) [facility] Start: 04-23-2020 Sexual orientation Heterosexual (lindsay smyth) [facility] Sexual Orientation Khai Foodzie Start: 08-11-2018 Sex Female (finding) [facility] Functional Status Date Assessment Result Facility 07-04-2014 Are you deaf, or do you have serious difficulty hearing No 07/04/2014 3:27 PM Tg Crump)(Hist), [place] No [facility] 07-04-2014 Are you blind, or do you have serious difficulty seeing, even when wearing glasses Yes 07/04/2014 3:27 PM Tg Crump)(Hist), [place] Yes [facility] 07-04-2014 Do you have serious difficulty walking or climbing stairs Yes 07/04/2014 3:27 PM Tg Crump)(Hist), [place] Yes [facility] 07-04-2014 Do you have difficul ty dressing or bathing No 07/04/2014 3:27 PM Tg Crump)(Hist), [place] No [facility] 07-04-2014 Because of a physica l, mental, or emotional condition, do you have difficulty doing errands alone such as visiting a physician's office or shopping No 07/04/2014 3:27 PM Tg Crump)(Hist), [place] No [facility] Mental Status Date Assessment Result Facility 10-07-2022 Cognitive function Level Of Cons ciousness Awake;Alert;Appropriate;Fol lows Commands [facility] Work Phone: 07-04-2014 Because of a physica l, mental, or emotional condition, do you have serious difficulty concentrating, remembering, or making decisions Yes 07/04/2014 3:27 PM Tg Crump)(Hist), [place] Yes [facility] Clinical Notes 10-31-2015 to 11-15-2024 Patient InstructionsCoLacy gupta APRN.[facility] - 11/15/2024 9:25 AM EDNoe Hdez LPN - 11/15/2024 9:05 AM Adolfo De La Cruz MRI Tech - 11/02/2024 7:30 AM EDTPatient Instructions Note Date & Type Note Facility 11-15-2024 Instructions Lacy Reynolds APRN.[facility] - 11/15/2024 9:52 AM EDT Images from the original note were not included. Breast Self-Exam What is a breast self-exam? A breast self-exam is a technique that a woman can use to examine her breasts to look for changes (such lumps or thickenings) that may signal breast cancer. When a woman detects breast cancer in its early stages, she greatly improves her chances for surviving the disease. Most breast lumps (80 percent) are not cancerous, but you can help ensure your breast health by regularly performing a breast self-exam. When should I perform a breast self-exam? You should perform a breast self-exam once a month, three to five days after your menstrual period ends. If you have stopped menstruating, perform the exam on the same day of each month, such as the first day of the month or a day easy for you to remember, like your date. The exam will take several minutes to perform. With each exam, you will become familiar with the contours and feel of your breasts and will be more alert to changes. 1. The first part of the exam is the inspection, or looking at your breasts. Stand undressed from waist up in front of a large mirror in a well-lit room. Look at your breasts. Don't be alarmed if they do not look equal in size or shape. Most women's breasts are not. With your arms relaxed by your sides, look for any changes in your breasts' size, shape, texture, or skin. Look for any sores as well as any puckering, dimpling, or discoloration of the skin. Inspect your nipples and look for any sores, peeling, or change in the direction of the nipples. 2. Next, place your hands on your hips and press down firmly to tighten the chest muscles beneath your breasts. Turn from side to side so you can inspect the outer part of your breasts. 3. Bend forward toward the mirror. Roll your shoulders and elbows forward to tighten your chest muscles. Your breasts will fall forward. Look for any changes in the shape or contour of your breasts. 4. Now, clasp your hands behind your head and press your hands forward. Again, turn from side to side to inspect your breasts' outer portions. Remember to inspect the border underneath your breasts. You may need to lift your breasts with your hand to see this area. 5. Check your nipples for discharge (fluid). Place your thumb and forefinger on the tissue surrounding the nipple, and pull outward toward the end of the nipple. Look for any discharge. Repeat on your other breast. In the shower 6. The second part of the exam is palpation, or feeling for changes. Use the finger pads of your three middle fingers on each hand to feel for lumps. It is helpful to have your hands slippery with soap and water. Check for any lumps or thickening in your underarm area. Place your left hand on your hip and reach with your right hand to feel in the left armpit. Repeat on the other side. 7. Check both sides for lumps or thickenings below your collarbone. 8. With soapy hands, support the breast with one hand while using the other hand to feel the tissue. Use the flat part of your fingers to press gently into the breast. Follow an up-and-down pattern along the breast, moving from bra line to collarbone. Continue the pattern until you have covered the entire breast. Repeat on the other side. Lying down 9. Next, lie down and place a small pillow or folded towel under your right shoulder. Put your right hand behind your head. Place your left hand on the upper portion of your right breast with fingers together and flat. Body lotion may help to make palpation easier. 10. Think of your breast as a face on a clock. Start at 12 o'clock and move toward 1 o'clock in small circular motions. Continue around the entire twenty-nine palms until you reach 12 o'clock again. Keep your fingers flat and in constant contact with your breast. When the twenty-nine palms is complete, move in one inch toward the nipple and complete another twenty-nine palms around the clock. Continue in this pattern until your entire breast has been palpated. Make sure to palpate the upper outer areas that extend into your armpit. 11. Place your fingers flat and directly on top of your nipple. Feel beneath the nipple for any changes. Gently press your nipple inward. It should move easily. Repeat steps 9, 10, and 11 on your other breast. What should I do if I find a lump? See your physician if you discover any new breast changes, changes that persist after your menstrual cycle, or changes that concern you. Conditions that should be checked by a physician include: An area that is distinctly different from any other area on either breast A lump or thickening in or near the breast or in the underarm that persists through the menstrual cycle A change in the size, shape, or contour of the breast A mass or lump, which may feel as small as a pea A marble-like area under the skin A change in the feel or appearance of the skin on the breast or nipple (dimpled, puckered, scaly, or inflamed [red, warm, or swollen]) Bloody or clear fluid discharge from the nipples Redness of the skin on the breast or nipple References [employer]. Breast Cancer Accessed 05/22/2013. Luisa P, Patricio M, Buzz H. Breast disorders and breast cancer screening. In: Gaviota DYER, ed. [facility]: Current Clinical Medicine 2010. 2nd ed. [place]: Edward Mendez; 2010:section 15. Copyright 0206-8640 The [facility]. All rights reserved This information is provided by the [facility] and is not intended to replace the medical advice of your doctor or health care provider. Please consult your health care provider for advice about a specific medical condition. For additional health information, please contact the Center for Consumer Health Information at the [facility] or toll-free extension [phone]. If you prefer, you may visit [email or web address] documented in this encounter [facility] 11-15-2024 Note HNO ID: [id number] Author: LACY REYNOLDS APRN.CNP Service: ? Author Type: Nurse Practitioner Type: Progress Notes Filed: 11/15/2024 13:39 Note Text: [facility] [address] [place], [place] [id number] Date of Visit: 11/15/2024 Patient Name: Marva Khan Date of : 1965 Established / High Risk Surveillance Visit Breast Surgeon: Filomena Rizvi MD Medical Oncologist: Radiation Oncologist: SUBJECTIVE Chief Complaint: Patient presents with: 6 Month Exam Results HPI Marva Khan is a 59 year old female who presents today for review of recent breast MRI (11/02/2024) and clinical breast exam. She is an established [facility] patient and was last seen in the Breast Center 04/18/2024. She denies palpable breast lumps or masses, enlarged lymph nodes, skin changes, erythema, nipple discharge or breast trauma. She does, however, present with a lengthy history of bilateral breast pain which she relates to surgery. She rates LEFT breast pain as a 4/10 with onset 2020, RIGHT breast pain approximately 9 months ago. She describes RIGHT breast pain as starting at both lower quadrants and wrapping around her right side. She further describes pain as not constant but is often triggered by holding her hands in front of her. Pain generally stops if she is flat on her back, does not always start immediately when she stands up but often does. She further describes RIGHT breast pain as low grade to burning to sharp, sometime starting at the areola and extending to the axilla. History of left breast cancer. 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 Final pathology showed 4 negative lymph nodes and 0.8 cm cancer with negative margins. Final pathological stage IA [pT1b(0.8cm)N0(0/4)M0]. Completed adjuvant radiation in January 2020. No longer seeing Dr Cardoso. No chemo due to low oncotype.Unable to tolerate adjuvant endocrine. She is status post excision of papilloma of right breast on 07/30/2023. Pathology benign. There are no exam notes on file for this visit. No question data found. Family and personal medical histories reviewed and updated. REVIEW OF SYSTEMS: Complete 10 system ROS done and negative except as stated above in the HPI. Current Outpatient Medications Medication Sig Dispense Refill OTC PRODUCT Take 1 capsule by mouth once daily. K2 [id number]-[id number]-zoz-aty-unam oil 1,050 mg(300 mg -675 mg-75 mg) cap Take 1 capsule by mouth once daily. tirzepatide (MOUNJARO) 5 mg/0.5 mL pen injector Inject 5 mg subcutaneously one time a week. acetaminophen (TYLENOL EXTRA STRENGTH) 500 mg tablet Take 2 tablets by mouth every 6 hours as needed for pain. 20 tablet 0 OTC PRODUCT Take 1 capsule by mouth once daily. Rauri mushroom gummy- 3000 mg of functional mushrooms ARMOUR THYROID 90 mg tablet Take 90 mg by mouth once daily. MAGNESIUM MAL, THREON, CHELATE ORAL Take 1 capsule by mouth once daily. cholecalciferol (VITAMIN D3) 50 mcg (2,000 unit) tablet Take 2,000 Units by mouth once daily. rizatriptan (MAXALT) 10 mg tablet take 1 tablet by mouth AT ONSET OF MIGRAINE - REPEAT IN 2 HOURS IF NEEDED No current facility-administered medications for this visit. I have performed the physical exam on 11/15/2024 - all new findings noted below. PAST MEDICAL HISTORY Diagnosis Date Breast cancer (HCC) 2019 radiation and left lumpectomy COVID 04/2020 Delayed emergence from anesthesia Velma's thyroiditis oN SYNTHROID EQUIVALENT Irregular heart beat Noted when she was first diagonsed with the thytoriditis and when on synthoid. Is pressure like and heavy and can go fastand stutters and then a big one Migraine Papilloma of right breast PONV (postoperative nausea and vomiting) [place] Martins auricular syndrome PAST SURGICAL HISTORY Procedure Laterality Date ASPIRATION/BIOPSY Left 2011 breast FNA BX OF BREAST; INCISIONAL 06/07/2023 BX OF BREAST; INCISIONAL Right 07/30/2023 CHOLECYSTECTOMY 1998 HYSTERECTOMY HX 2012 with rso PARTIAL MASTECTOMY Left 2019 Social History Tobacco Use Smoking status: Never Smokeless tobacco: Never Tobacco comments: Smoked very little in college Vaping Use Vaping status: Never Used Substance Use Topics Alcohol use: Yes Comment: occasional Drug use: No FAMILY HISTORY Problem Relation Age of Onset Thyroid Mother Coronary Artery Disease Father dad garrick have had CAD and bypass at the time of valve Stroke Father 68 Hypertension Father no ms other (bicuspid mitral valve) Father Stroke Brother Hypertension Brother Breast Cancer Paternal Aunt 60 triple negative Ovarian cancer No Family History The ROS, medical, surgical, family, and social history were reviewed by Lacy Reynolds APRN.JEREMIAH ALLERGIES Allergen Reactions A (more content not included)... [facility] 11-15-2024 History of Present illness Narrative Images from the original note were not included. Lacy Reynolds APRN-[place] [id number] Date of Visit: 11/15/2024 Patient Name: Marva Khan Date of : 1965 Established / High Risk Surveillance Visit Breast Surgeon: Filomena Rizvi MD Medical Oncologist: Radiation Oncologist: SUBJECTIVE Chief Complaint: Patient presents with: 6 Month Exam Results HPI Marva Khan is a 59 year old female who presents today for review of recent breast MRI (11/02/2024) and clinical breast exam. She is an established [facility] patient and was last seen in the Breast Center 04/18/2024. She denies palpable breast lumps or masses, enlarged lymph nodes, skin changes, erythema, nipple discharge or breast trauma. She does, however, present with a lengthy history of bilateral breast pain which she relates to surgery. She rates LEFT breast pain as a 4/10 with onset 2019, RIGHT breast pain approximately 9 months ago. She describes RIGHT breast pain as starting at both lower quadrants and wrapping around her right side. She further describes pain as not constant but is often triggered by holding her hands in front of her. Pain generally stops if she is flat on her back, does not always start immediately when she stands up but often does. She further describes RIGHT breast pain as low grade to burning to sharp, sometime starting at the areola and extending to the axilla. History of left breast cancer. 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 Final pathology showed 4 negative lymph nodes and 0.8 cm cancer with negative margins. Final pathological stage IA [pT1b(0.8cm)N0(0/4)M0]. Completed adjuvant radiation in January 2020. No longer seeing Dr Cardoso. No chemo due to low oncotype.Unable to tolerate adjuvant endocrine. She is status post excision of papilloma of right breast on 07/30/2023. Pathology benign. There are no exam notes on file for this visit. No question data found. Family and personal medical histories reviewed and updated. REVIEW OF SYSTEMS: Complete 10 system ROS done and negative except as stated above in the HPI. Current Outpatient Medications Medication Sig Dispense Refill OTC PRODUCT Take 1 capsule by mouth once daily. K2 awgmi-7-gsh-rty-cae-ojlf oil 1,050 mg(300 mg -675 mg-75 mg) cap Take 1 capsule by mouth once daily. tirzepatide (MOUNJARO) 5 mg/0.5 mL pen injector Inject 5 mg subcutaneously one time a week. acetaminophen (TYLENOL EXTRA STRENGTH) 500 mg tablet Take 2 tablets by mouth every 6 hours as needed for pain. 20 tablet 0 OTC PRODUCT Take 1 capsule by mouth once daily. Rauri mushroom gummy- 3000 mg of functional mushrooms ARMOUR THYROID 90 mg tablet Take 90 mg by mouth once daily. MAGNESIUM MAL, THREON, CHELATE ORAL Take 1 capsule by mouth once daily. cholecalciferol (VITAMIN D3) 50 mcg (2,000 unit) tablet Take 2,000 Units by mouth once daily. rizatriptan (MAXALT) 10 mg tablet take 1 tablet by mouth AT ONSET OF MIGRAINE - REPEAT IN 2 HOURS IF NEEDED No current facility-administered medications for this visit. I have performed the physical exam on 11/15/2024 - all new findings noted below. PAST MEDICAL HISTORY Diagnosis Date Breast cancer (HCC) 2019 radiation and left lumpectomy COVID 04/2020 Delayed emergence from anesthesia Velma's thyroiditis oN SYNTHROID EQUIVALENT Irregular heart beat Noted when she was first diagonsed with the thytoriditis and when on synthoid. Is pressure like and heavy and can go fastand stutters and then a big one Migraine Papilloma of right breast PONV (postoperative nausea and vomiting) [place] Martins auricular syndrome PAST SURGICAL HISTORY Procedure Laterality Date ASPIRATION/BIOPSY Left 2011 breast FNA BX OF BREAST; INCISIONAL 06/07/2023 BX OF BREAST; INCISIONAL Right 07/30/2023 CHOLECYSTECTOMY 1998 HYSTERECTOMY HX 2012 with rso PARTIAL MASTECTOMY Left 2019 Social History Tobacco Use Smoking status: Never Smokeless tobacco: Never Tobacco comments: Smoked very little in college Vaping Use Vaping status: Never Used Substance Use Topics Alcohol use: Yes Comment: occasional Drug use: No FAMILY HISTORY Problem Relation Age of Onset Thyroid Mother Coronary Artery Disease Father dad garrick have had CAD and bypass at the time of valve Stroke Father 68 Hypertension Father no ms other (bicuspid mitral valve) Father Stroke Brother Hypertension Brother Breast Cancer Paternal Aunt 60 triple negative Ovarian cancer No Family History The ROS, medical, surgical, family, and social history were reviewed by Lacy Reynolds APRN.OCCUPATIONAL WORK EXPERIENCE TEACHER ALLERGIES Allergen Reactions Ancef [Cefazolin] Hives Duloxetine Other: See Comments Shellfish Containin* Diarrhea, GI Upset Current Outpatient Medications Medication Sig OTC PRODUCT Take 1 capsule by mouth once daily. K2 uzmcv-8-hnr-cbd-ayr-obdb oil 1,050 mg(300 mg -675 mg-75 mg) cap Take 1 capsule by mouth once daily. tirzepatide (MOUNJARO) 5 mg/0.5 mL pen injector Inject 5 mg subcutaneously one time a week. acetaminophen (TYLENOL EXTRA STRENGTH) 500 mg tablet Take 2 tablets by mouth every 6 hours as needed for pain. OTC PRODUCT Take 1 capsule by mouth once daily. Rauri mushroom gummy- 3000 mg of functional mushrooms ARMOUR THYROID 90 mg tablet Take 90 mg by mouth once daily. MAGNESIUM MAL, THREON, CHELATE ORAL Take 1 capsule by mouth once daily. cholecalciferol (VITAMIN D3) 50 mcg (2,000 unit) tablet Take 2,000 Units by mouth once daily. rizatriptan (MAXALT) 10 mg tablet take 1 tablet by mouth AT ONSET OF MIGRAINE - REPEAT IN 2 HOURS IF NEEDED No current facility-administered medications for this visit. OBJECTIVE BP 118/72 Pulse (!) 51 Ht 170.2 cm (5' 7) Wt 68.5 kg (151 lb) BMI 23.65 kg/m BMI 23.65 kg/(m^2) Physical Exam BREAST EXAM: RIGHT Skin changes: periareolar incisional scar noted Nipple retraction / inversion: Yes, not new Axillary adenopathy: No Supraclavicular adenopathy: No Palpable masses: No Tenderness: Yes Nipple discharge: No Lymphedema: No LEFT Skin changes: incisional scars UOQ, axilla Nipple retraction / inversion: No Axillary adenopathy: No Supraclavicular adenopathy: No Palpable masses: No Tenderness: Yes Nipple discharge: No Lymphedema: No The sensitive examination was discussed with the Patient or Patient's Authorized Protective Services Case Worker. As applicable, any other physician, advance practice provider, medical student, or other health professional student that will be observing or involved in the sensitive examination for educational or training purposes was discussed with the Patient or Authorized Protective Services Case Worker. The Patient or Authorized Protective Services Case Worker has agreed to proceed with the sensitive examination. (Sensitive examination includes inspection and/or palpation of the breasts, pelvis, prostate and anorectal regions) ASSESSMENT/PLAN: 1. Malignant neoplasm of female breast, unspecified estrogen receptor status, unspecified laterality, unspecified site of breast (HCC) - ICD9: 174.9, ICD10: C50.919 (primary diagnosis) - [facility] DIAG W GEOFFREY BILATERAL - US BREAST LTD LEFT 2. 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 Unspecified lump in axillary tail of the right breast - ICD9: 611.72, ICD10: N63.31 - US BREAST LTD RIGHT 4. Breast pain, left - ICD9: 611.71, ICD10: N64.4 5. Breast pain, right - ICD9: 611.71, ICD10: N64.4 Marva Khan is a 59 year old female who presents today for review of recent bilateral breast imaging and clinical breast exam. She denies any breast related concerns or complaints. There are no concerning or suspicious findings demonstrated on today's clinical breast exam. We discussed the report from bilateral breast MRI 11/02/2024 as follows: FINDINGS: There is scattered fibroglandular tissue. There is mild background parenchymal enhancement. The background parenchymal enhancement is symmetrical. Left breast: There are changes related to prior left lumpectomy and radiation therapy. There is no suspicious mass or enhancement in the left breast. There is no left axillary nor internal mammary lymphadenopathy. Right breast: There are changes related to prior right excisional biopsy in the upper outer, anterior right breast. Previously described enhancing mass is no longer present. There is no new suspicious mass or enhancement in the right breast. There is no right axillary nor internal mammary lymphadenopathy. IMPRESSION: There is no MRI evidence of malignancy in either breast. Routine screening mammogram is recommended. Patient is followed by Dr. Rizvi. BI-RADS Category 2: Benign Plan every 6 month imaging alternating with MRI for continued surveillance due to dense breast tissue, ongoing bilateral pain, etc. Plan bilateral diagnostic mammogram and US in 6 months. She will maintain vigilant breast awareness and continue monthly self breast exams. She will contact us with any concerns. She is clinically stable and has no evidence of disease. The above reflects my independent exam and review. I saw and examined the patient myself personally. Parts of the HPI, ROS, exam and impression/plan may have been copied from my personal previous clinical note and remain pertinent. Current changes have been made and documented today. Other parts or data were deleted if not relevant for today. Plan as outlined. Follow up: Return in about 5 months (around 04/19/2025) for diagnostic breast imaging, clinical exam. Medical Decision Making: Problems: Low: Stable chronic illness Data: Unique test result(s) reviewed: 3+ Unique test(s) ordered: 3+ Risk: Low: Low risk from testing/treatment Medical Decision Making Level: 3 - Low Lacy Reynolds APRN.OCCUPATIONAL WORK EXPERIENCE TEACHER I verified the hospital medical biller/nurse documentation in the medical record, and made appropriate changes. I personally performed a history,physical exam and medical decision making. Lacy Reynolds LIBRARY SCIENCE INSTRUCTOR-OCCUPATIONAL WORK EXPERIENCE TEACHER, OCN Marva Khan is a 59 year old female who presents to follow up for 6 Month Exam and Results Pt c/o 4/10 bilateral breast pain, onset left breast 2020 and right breast 9 mo and right nipple itching. Pt also c/o pain under breast that radiated into the right side of ribs. C/o Right nipple retraction Noe Spann LPN documented in this encounter [facility] 11-15-2024 Note HNO ID: [id number] Author: NOE SPANN LPN Service: ? Author Type: LICENSED NURSE Type: Progress Notes Filed: 11/15/2024 13:39 Note Text: Marva Khan is a 59 year old female who presents to follow up for 6 Month Exam and Results Pt c/o 4/10 bilateral breast pain, onset left breast 2020 and right breast 9 mo and right nipple itching. Pt also c/o pain under breast that radiated into the right side of ribs. C/o Right nipple retraction Noe Spann LPN [facility] 11-02-2024 History of Present illness Narrative Radiology Service Progress Note DATE OF SERVICE: November 02, 2024 TIME: 7:38 AM PATIENT IDENTITY VERIFICATION COMPLETED USING TWO (2) STANDARD IDENTIFIERS: Name and Date of confirmed by patient verbally. FALL SCREENING: Has the patient had 2 falls in the last year or 1 fall with injury or currently using an Ambulatory Assistive Device (Walker, Cane, Wheelchair, Crutches, etc.)? No PATIENT GENDER DATA: Assigned female at . status: : No status: NO. PATIENT RELEVANT IMPLANT DATA REVIEWED: Yes PATIENT PRESENTS WITH AN IMPLANTABLE OR ATTACHED SECURITY OPERATIONS CENTER OPERATOR: No ALLERGIES: Reviewed and unchanged CONTRAST ALLERGY: NO. EXAM: MRI - CONTRAST TYPE: GROUP II PERIPHERAL IV DATA: Ambulatory: A peripheral IV was started in the Right antecubital site with a Angio cath: 22 gauge. RADIOLOGY DEPARTMENT: MR; Exam(s) Completed: Chest: Breast. Lavender Administered: No SIGNATURE: Adolfo AISHA Licona PATIENT NAME: Marva Khan DATE: November 02, 2024 TIME: 7:38 AM documented in this encounter [facility] 11-02-2024 Note HNO ID: [id number] Author: ADOLFO LICONA MRI Tech Service: Radiology Author Type: Technologist Type: Progress Notes Filed: 11/02/2024 07:41 Note Text: Radiology Service Progress Note DATE OF SERVICE: November 02, 2024 TIME: 7:38 AM PATIENT IDENTITY VERIFICATION COMPLETED USING TWO (2) STANDARD IDENTIFIERS: Name and Date of confirmed by patient verbally. FALL SCREENING: Has the patient had 2 falls in the last year or 1 fall with injury or currently using an Ambulatory Assistive Device (Walker, Cane, Wheelchair, Crutches, etc.)? No PATIENT GENDER DATA: Assigned female at . status: : No status: NO. PATIENT RELEVANT IMPLANT DATA REVIEWED: Yes PATIENT PRESENTS WITH AN IMPLANTABLE OR ATTACHED SECURITY OPERATIONS CENTER OPERATOR: No ALLERGIES: Reviewed and unchanged CONTRAST ALLERGY: NO. EXAM: MRI - CONTRAST TYPE: GROUP II PERIPHERAL IV DATA: Ambulatory: A peripheral IV was started in the Right antecubital site with a Angio cath: 22 gauge. RADIOLOGY DEPARTMENT: MR; Exam(s) Completed: Chest: Breast. Lavender Administered: No SIGNATURE: Adolfo BrewerdanettejoseAISHA PATIENT NAME: Marva Khan DATE: November 02, 2024 TIME: 7:38 AM [facility] 10-11-2024 Telephone encounter Note Peer to Peer completed with Dr Saleem at [facility]. Breast MRI was approved - scheduled for 10/17/2024. Authorization # [id number], valid 10/11/2024 - 11/30/2024. Lacy MENDOZA [facility] Work Phone: 10-11-2024 Miscellaneous Notes Peer to Peer completed with Dr Saleem at [facility]. Breast MRI was approved - scheduled for 10/17/2024. Authorization # [id number], valid 10/11/2024 - 11/30/2024. Lacy MENDOZA documented in this encounter [facility] 08-02-2024 Telephone encounter Note Images from the original note were not included. [facility] 08-02-2024 Miscellaneous Notes Images from the original note were not included. documented in this encounter [facility] 06-01-2024 Telephone encounter Note Patient on schedule for EGD and colonoscopy with DR Barr Needs follow up after with ordering provider Suzanne Gonzalez sent to schedulers to schedule Maliha Apple RN June 01, 2024 3:54 PM [facility] 06-01-2024 Miscellaneous Notes Patient on schedule for EGD and colonoscopy with DR Barr Needs follow up after with ordering provider Suzanne Gonzalez sent to schedulers to schedule Maliha Apple RN June 01, 2024 3:54 PM documented in this encounter [facility] 05-30-2024 Instructions Suzanne Gonzalez PA-C - 05/30/2024 10:19 AM EST Please call [phone] to schedule your EGD and colonoscopy Prep instructions listed below Continue omeprazole Avoid NSAID's COLONOSCOPY BOWEL PREPARATION INSTRUCTIONS MiraLAX Your doctor has scheduled you for a colonoscopy. To have a successful colonoscopy, you must have a clean colon, that is empty. A clean colon allows your doctor to see the entire colon & diagnose issues like polyps or cancer. For doctors, a clean colon is like driving on a xenia day; a dirty colon like driving in a storm. It is very important that you follow these instructions exactly, or your colonoscopy may not be as effective, could be canceled, and you may need to do the bowel prep and colonoscopy again. TRANSPORTATION REQUIREMENTS You are receiving IV sedation. For your safety, a responsible adult escort must accompany you to and from your procedure: Your adult escort MUST be present with you at check-in for your colonoscopy. Your adult escort MUST remain in the endoscopy area until you are discharged. Your adult escort MUST transport you home once you are discharged. You are NOT allowed to operate any form of transportation (i.e. drive a car, bicycle, etc) or leave the Endoscopy Center ALONE. It is not safe to do so. If you cannot meet these requirements, your procedure will be canceled. MEDICATION REQUIREMENTS For your safety, certain medications will need to be stopped or adjusted before you can have your procedure: BLOOD THINNERS: If you take blood thinners, such as Coumadin (warfarin), Plavix (clopidogrel), Ticlid (ticlopidine hydrochloride), Agrylin (anagrelide), Xarelto (Rivaroxaban), Pradaxa (Dabigatran), Eliquis (Apixaban), or Effient (Prasugrel), contact the physician who is prescribing these medications at least 2 weeks prior to your procedure to discuss any necessary adjustments. DIABETES: If you take medications for diabetes, your dosage may need to be adjusted. If you are being treated for diabetes with insulin, diabetic pills, or other injectable medications do not take your REGULAR dose after midnight on the day of your procedure. If you are taking any other types of insulin such as Lantus, Humalog, NPH (long-acting insulin), or 70/30 insulin, take half your normal dose the day before your procedure. DIABETES/WEIGHT MANAGEMENT: If you take medications for weight-loss, your dosage may need to be adjusted Contact the doctor who prescribes this medication for further instructions. If you take medications for weight-loss like semaglutide (Ozempic, Wegovy, Rybelsus), dulaglutide (Trulicity), liraglutide (Victoza, Saxenda), exenatide (Byetta, Bydureon), or lixisenatide (Adylyxin), stop your medication 1 week prior to your procedure. If you take medications like canagliflozin (Invokana), dapagliflozin (Farxiga, Forxiga), empagliflozin (Jardiance), stop your medication 3 days prior to your procedure. If you take ertugliflozin (Steglatro) stop your medication 4 days prior to your procedure. IRON: If you take iron pills, STOP them 1 week BEFORE your procedure, may resume after. OTHER MEDS: May take all other medications (including aspirin, antibiotics, water pills / diuretics like Lasix or Metolozone, blood pressure meds, etc.) at their usual scheduled time with water. DIET REQUIREMENTS The day before your colonoscopy, you may have a clear liquid diet (see below). The day of your colonoscopy, you may continue a clear liquid diet until 3 hours before your colonoscopy. Within 3 hours of your colonoscopy, take only any medications (as above) with a sip of water. Clear Liquid Diet Broth (chicken, beef or vegetable broth or bullion. Just the broth, no solids). Water Coffee or Tea (NO milk or creamer), but sugar and sugar substitutes are allowed. Clear liquids including clear, yellow, green, blue (NO red, NO orange, NO purple) Sodas / soft drinks; Gatorade or other sports drinks Fruit juice (strained; no-pulp); Donavan-Aid or flavored drinks Plain Jell-O or other gelatins Popsicles or hard candy Bowel prep can work differently from person to person. Some people's bowels move slowly and they may need different instructions. Please see your doctor in office or virtually for personalized bowel prep instructions if you have: BOWEL PREPARATION (MIRALAX/GATORADE) Split Dosing Bowel Prep: This means drinking your bowel prep in two doses. Split dosing helps clean your colon better and makes it less likely that your procedure will be canceled. You will need to purchase the following (no prescriptions are needed): 64 ounces Gatorade, Propel, Crystal Lite or other noncarbonated clear liquid sports drink (NOT red, orange, or purple). Diabetic patients buy sugar-free, e.g. Gatorade G2 4 Dulcolax laxative tablets containing 5mg bisacodyl each (do not buy the stool softener) 8.3 oz MiraLAX (238g) powder or generic polyethylene glycol 3350 (find in laxative aisle) The day before your colonoscopy mix 64 oz of the sports drink with 8.3 oz MiraLAX (238 g) in a pitcher. Stir or shake until MiraLAX completely dissolved. Chill if desired. On the evening before your colonoscopy: 5 PM take 4 Dulcolax laxative tablets with water by mouth. 6 PM drink the first half of the Gatorade/MiraLAX solution Drink one 8-ounce glass every 15 minutes. Six hours before your colonoscopy, drink the second half of the solution. Drink one 8-ounce glass every 15 minutes. You may continue a clear liquid diet until 3 hours before your colonoscopy. Bowel prep can work differently from person to person. Some people's bowels move slowly and they may need different instructions. Please see your doctor in office or virtually for personalized bowel prep instructions if you have: Medical condition that needs special accommodations Had a poor bowel prep results or failed bowel prep attempts in the past. Had difficulty with anesthesia during the procedure. FREQUENTLY ASKED QUESTIONS Q: What if I suffer from constipation? A: Recommend taking extra laxatives to resolve your constipation days prior to entering the bowel prep day. Q: What if have had prior poor preps results in past? A: Contact your physician as you will likely need additional bowel prep instructions. Q: What if I have motility issues like Parkinson's, MS (multiple sclerosis), wheelchair dependent, etc.? or on medications that slow colonic transit times (narcotics, gabapentin, anticholinergic medications etc.) A: Contact your physician as you will likely need extra time and additional laxatives to complete your bowel prep. Q: What if I cannot drink large volume of liquid? A: Start your prep 2-3 hours earlier to allow yourself more time to complete the entire prep. Q: What if I had bariatric surgery? Do I still have to complete the entire prep? A: Yes, gastric bypass surgery involves the stomach & small bowel. You may need to drink smaller amounts, slower (may need more time to complete your bowel prep). Gastric bypass does not alter the length of your colon so you will need to complete the entire bowel prep, it may just take longer time to complete it. Q: What if I am on dialysis? A: Please consult your supervisor blood donor recruiters prior to scheduling to get instructions pertinent to you. In general, dialysis patients take the Golytely bowel prep and have the procedure same day of their dialysis (colonoscopy in AM, dialysis in PM). Q: How do I know if something is considered as clear liquid diet? A: If you can pour it in a glass and you can see through it, it is considered clear liquid Q: Can I eat nuts, seeds, beans, popcorn, dried fruits, vegetables & fruits that have skin peel? A: No, you will need to not eat these items starting 3 days prior to procedure. Q: Can I take Uber/Lyft/taxi/bus home? A: An adult MUST be present with you at check-in for your colonoscopy and remain in the endoscopy area until you are discharged. You can take Uber home only if this adult escort is with you at check in, remain in the endoscopy area until you are discharged, and takes the Uber with you to home. Q: Can I sleep it off here and drive myself home? A: No, you must have an adult with you at time of procedure check in, remain in the endoscopy center during your procedure, and drive you home. You cannot drive a vehicle after your procedure the rest of the day. Q: What if I can't finish my bowel prep? A: If you cannot complete your entire bowel prep, there is high likelihood that your colonoscopy will need to be rescheduled due to inadequate prep quality. documented in this encounter [facility] 05-30-2024 History of Present illness Narrative Images from the original note were not included. VIRTUAL VISIT NEW PATIENT NAME: Marva Tracey Jackson [facility] NO: [id number] DATE: 05/30/2024 REASON FOR VISIT Marva Figueroagoner [id number] 1965 has requested a video telemedicine initial consultation at the request of Isabel Watt. Marva Khan verbalized informed consent to proceed with the video telemedicine initial consultation. Marva Khan was informed that the details of this video visit would be recorded as part of their electronic medical record. My recommendations will be conveyed to the consulting provider by way of shared electronic medical record, fax, or U.S. Mail. Patient location at time of call: [place] This visit was conducted as a virtual visit. I have communicated my name and active licensure. The patient's identity and physical location were verified at the time of this visit. Either the patient or their legal guest relations representative has been informed of the risks and benefits of -- and alternatives to -- treatment through a remote evaluation and consents to proceed with the evaluation remotely. No chief complaint on file. 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 Pt was hospitalized Thanks weekend after having multiple episodes of nausea, vomiting and diarrhea. States she had wine for dinner prior to onset of symptoms. Presented to the ED for further evaluation, underwent CT revealing gastric wall thickening. States she had a few episodes after having alcohol a few weeks prior. She has been taking naproxen or advil a few times a month for back pain. No family hx of GI malignancy. Former smoker, reports social etoh use and denies illicit drug use. Was previously on Npthyroid and switched to adthyza. On omeprazole daily since hospitalization. Has been on zepbound since October. Denies fevers/chills, chest pain, sob, n/v, abdominal pain, hematemesis, hematochezia, melena, dysphagia, odynophagia or unintentional weight loss at this time. CTAP 05/18/24: Answers submitted by the patient for this visit: Review of Systems Gastroenterology (Submitted on 05/30/2024) Fever: No Chills: No Night Sweats: No Unitentional Weight Change: No A Cough: No Difficulty Breathing: No Chest Pain: No Belly pain: Yes A feeling of fullness or have belly pain after eating: Yes Food getting stuck in your throat or chest after eating: No Nausea - that is, a feeling like you could vomit: Yes Regurgitation - that is, food or liquid coming back up into your throat or mouth without vomiting, or feel burning behind your breast bone: No Loss of appetite: No To throw up or vomit: Yes Blood in your stools: No Black tarry stools: No Loose or watery stools: Yes The feeling like you need to empty your bowels right away - that is, feel as if you would have an accident: Yes Bowel incontinence - that is, have an accident because you cannot make it to the bathroom in time: No Problems with straining while having bowel movements , hard or lumpy stools, or feel unfinished (that you have not passed all your stool): No Pain in rectum or anus during bowel movements: No Problems with jaundice - that is, yellow discoloration of your skin or eyes, now or in the past: No Problems with having to flush the toilet more than two times due to oily stool, or see stool floating with oil: No CURRENT MEDICATIONS Current Outpatient Medications Medication Sig Dispense Refill tirzepatide (MOUNJARO) 5 mg/0.5 mL pen injector Inject 5 mg subcutaneously one time a week. acetaminophen (TYLENOL EXTRA STRENGTH) 500 mg tablet Take 500 mg by mouth every 8 hours as needed. acetaminophen (TYLENOL EXTRA STRENGTH) 500 mg tablet Take 2 tablets by mouth every 6 hours as needed for pain. 20 tablet 0 ibuprofen (MOTRIN) 600 mg tablet Take 1 tablet by mouth every 8 hours as needed for pain. 15 tablet 0 flaxseed oil (OMEGA 3 ORAL) Take 1 capsule by mouth once daily. vitamin B complex (B COMPLEX 1 ORAL) Take 1 capsule by mouth once daily. OTC PRODUCT Take 1 capsule by mouth once daily. Rauri mushroom gummy- 3000 mg of functional mushrooms ARMOUR THYROID 90 mg tablet Take 90 mg by mouth once daily. MAGNESIUM MAL, THREON, CHELATE ORAL Take 1 capsule by mouth once daily. nitroglycerin sublingual (NITROQUICK) 0.3 mg SL tablet Dissolve 1 tablet under the tongue one time only for 1 dose. To be administered in Radiology for CTA exam 1 tablet 0 iv contrast (will be provided with radiology test) MRI Breast TIM Inject, intravenously, once for 1 dose. No IV access, insert saline lock prior to the beginning of sedation, infusion, injection of imaging exam. Discontinue saline lock post exam. If Pt has a central line or IVAD, may access for administration according to line specific nursing protocol. Once exam is complete flush line and de-access according to line specific nursing protocol in the MR contrast administration guidelines link 1 Each 0 cholecalciferol (VITAMIN D3) 50 mcg (2,000 unit) tablet Take 2,000 Units by mouth once daily. rizatriptan (MAXALT) 10 mg tablet take 1 tablet by mouth AT ONSET OF MIGRAINE - REPEAT IN 2 HOURS IF NEEDED No current facility-administered medications for this visit. Ancef [Cefazolin], Duloxetine, and Shellfish Containing Products Recent Labs: CBC: WBC (k/uL) Date Value 11/06/2016 8.05 Hematocrit (%) Date Value 11/06/2016 42.8 MCV (fL) Date Value 11/06/2016 94.9 Platelet Count (k/uL) Date Value 11/06/2016 292 Lymph% (%) Date Value 11/06/2016 25.1 Hepatic Function Panel: Albumin (g/dL) Date Value 11/06/2016 4.3 Bilirubin, Total (mg/dL) Date Value 11/06/2016 0.3 Alkaline Phosphatase (U/L) Date Value 11/06/2016 86 AST (U/L) Date Value 11/06/2016 21 ALT (U/L) Date Value 11/06/2016 14 Protein, Total (g/dL) Date Value 11/06/2016 6.8 PAST MEDICAL HISTORY PAST MEDICAL HISTORY Diagnosis Date Breast cancer (HCC) 2019 radiation and left lumpectomy COVID 04/2020 Delayed emergence from anesthesia Velma's thyroiditis oN SYNTHROID EQUIVALENT Irregular heart beat Noted when she was first diagonsed with the thytoriditis and when on synthoid. Is pressure like and heavy and can go fastand stutters and then a big one Migraine Papilloma of right breast PONV (postoperative nausea and vomiting) [place] Martins auricular syndrome PAST SURGICAL HISTORY PAST SURGICAL HISTORY Procedure Laterality Date ASPIRATION/BIOPSY Left 2011 breast FNA BX OF BREAST; INCISIONAL 06/07/2023 BX OF BREAST; INCISIONAL Right 07/30/2023 CHOLECYSTECTOMY 1998 HYSTERECTOMY HX 2012 with rso PARTIAL MASTECTOMY Left 2019 FAMILY HISTORY FAMILY HISTORY Problem Relation Age of Onset Thyroid Mother Coronary Artery Disease Father dad garrick have had CAD and bypass at the time of valve Stroke Father 68 Hypertension Father no ms other (bicuspid mitral valve) Father Stroke Brother Hypertension Brother Breast Cancer Paternal Aunt 60 triple negative Ovarian cancer No Family History SOCIAL HISTORY Social History Tobacco Use Smoking status: Never Smokeless tobacco: Never Tobacco comments: Smoked very little in college Vaping Use Vaping status: Never Used Substance Use Topics Alcohol use: Yes Comment: occasional Drug use: No ROS EyesNegative for vision changes, diplopia or epiphora. Ears, Mouth, nose, throat:No problems Cardiovascular: No Problems Respiratory: Negative for cough, wheezing and shortness of breath Gastrointestinal : SEE HPI Genitourinary: Negative Musuloskeletal: Normal Integumentary: no rashes, lesions, or jaundice Neurological: No history of neurologic problems Endocrine: Negative for cold or heat intolerance, polyuria, polydipsia and goiter. Psychiatric: Cooperative and agreeable Allergic/ Immunologic: Negative All others negative PHYSICAL EXAMINATION General: alert and appropriate, in no distress and well-hydrated, well nourished, Psych: Appropriate mood and interaction Skin: no rash noted, Head: normocephalic, no abnormality or lesion noted, Eyes: EOMI, Ears: external ears normal without erythema or edema, Nose: external nose normal without rhinorrhea, Oropharynx: moist mucus membranes Neck: full ROM Respiratory: breathing non-labored, and no grunting/flaring/retractions, Chest: equal chest rise with normal respiratory effort, Abdomen: flat appearing. Visible protrusions or hernias: No Incisions/scars: None Areas of pain/tenderness: Denies Neuro: Patient seen sitting with normal appearing strength and coordination. No focal motor deficits. 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 Patient presented OSH thanksgi weekend after having multiple episodes of n/v/d that lasted 4 days. Presented to the ED where she underwent CT revealing marked gastric wall thickening. Will take NSAID's a few times a month for back pain. On trizepitide, recently switched thyroid medication from npthyroid to adthyza. No family hx of GI malignancy. No dysphagia or odynophagia. Denies unintentional weight loss. Also due for initial screening colonoscopy. PLAN Continue Omeprazole Avoid NSAID's EGD and colonoscopy orders placed Follow up prn I spent a total of 25 minutes on the date of the service which included [id number] patient care, completing clinical documentation, counseling and educating the patient/family/caregiver, and ordering medications, tests, or procedures. Suzanne Gonzalez PA-C May 30, 2024 10:00 AM documented in this encounter [facility] 05-30-2024 Note HNO ID: [id number] Author: SUZANNE GONZALEZ PA-C Service: ? Author Type: Physician Radiographer Technologist Type: Progress Notes Filed: 05/30/2024 11:07 Note Text: VIRTUAL VISIT NEW PATIENT NAME: Marva Khan [facility] NO: [id number] DATE: 05/30/2024 REASON FOR VISIT Marva Khan [id number] 1965 has requested a video telemedicine initial consultation at the request of Isabel Watt. Marva Khan verbalized informed consent to proceed with the video telemedicine initial consultation. Marva Khan was informed that the details of this video visit would be recorded as part of their electronic medical record. My recommendations will be conveyed to the consulting provider by way of shared electronic medical record, fax, or U.S. Mail. Patient location at time of call: [place] This visit was conducted as a virtual visit. I have communicated my name and active licensure. The patient's identity and physical location were verified at the time of this visit. Either the patient or their legal guest relations representative has been informed of the risks and benefits of -- and alternatives to -- treatment through a remote evaluation and consents to proceed with the evaluation remotely. No chief complaint on file. 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 Pt was hospitalized Thanksgi weekend after having multiple episodes of nausea, vomiting and diarrhea. States she had wine for dinner prior to onset of symptoms. Presented to the ED for further evaluation, underwent CT revealing gastric wall thickening. States she had a few episodes after having alcohol a few weeks prior. She has been taking naproxen or advil a few times a month for back pain. No family hx of GI malignancy. Former smoker, reports social etoh use and denies illicit drug use. Was previously on Npthyroid and switched to adthyza. On omeprazole daily since hospitalization. Has been on zepbound since October. Denies fevers/chills, chest pain, sob, n/v, abdominal pain, hematemesis, hematochezia, melena, dysphagia, odynophagia or unintentional weight loss at this time. CTA 05/18/24: Answers submitted by the patient for this visit: Review of Systems Gastroenterology (Submitted on 05/30/2024) Fever: No Chills: No Night Sweats: No Unitentional Weight Change: No A Cough: No Difficulty Breathing: No Chest Pain: No Belly pain: Yes A feeling of fullness or have belly pain after eating: Yes Food getting stuck in your throat or chest after eating: No Nausea - that is, a feeling like you could vomit: Yes Regurgitation - that is, food or liquid coming back up into your throat or mouth without vomiting, or feel burning behind your breast bone: No Loss of appetite: No To throw up or vomit: Yes Blood in your stools: No Black tarry stools: No Loose or watery stools: Yes The feeling like you need to empty your bowels right away - that is, feel as if you would have an accident: Yes Bowel incontinence - that is, have an accident because you cannot make it to the bathroom in time: No Problems with straining while having bowel movements , hard or lumpy stools, or feel unfinished (that you have not passed all your stool): No Pain in rectum or anus during bowel movements: No Problems with jaundice - that is, yellow discoloration of your skin or eyes, now or in the past: No Problems with having to flush the toilet more than two times due to oily stool, or see stool floating with oil: No CURRENT MEDICATIONS Current Outpatient Medications Medication Sig Dispense Refill tirzepatide (MOUNJARO) 5 mg/0.5 mL pen injector Inject 5 mg subcutaneously one time a week. acetaminophen (TYLENOL EXTRA STRENGTH) 500 mg tablet Take 500 mg by mouth every 8 hours as needed. acetaminophen (TYLENOL EXTRA STRENGTH) 500 mg tablet Take 2 tablets by mouth every 6 hours as needed for pain. 20 tablet 0 ibuprofen (MOTRIN) 600 mg tablet Take 1 tablet by mouth every 8 hours as needed for pain. 15 tablet 0 flaxseed oil (OMEGA 3 ORAL) Take 1 capsule by mouth once daily. vitamin B complex (B COMPLEX 1 ORAL) Take 1 capsule by mouth once daily. OTC PRODUCT Take 1 capsule by mouth once daily. Rauri mushroom gummy- 3000 mg of functional mushrooms ARMOUR THYROID 90 mg tablet Take 90 mg by mouth once daily. MAGNESIUM MAL, THREON, CHELATE ORAL Take 1 capsule by mouth once daily. nitroglycerin sublingual (NITROQUICK) 0.3 mg SL tablet Dissolve 1 tablet under the tongue one time only for 1 dose. To be administered in Radiology for CTA exam 1 tablet 0 iv contrast (will be provided with radiology test) MRI Breast TIM Inject, intravenously, once for 1 dose. No IV access, insert saline lock prior to the beginning of sedation, (more content not included)... [facility] 05-25-2024 Telephone encounter Note Please see my chart message. Pt. cancelled follow ups here since 2021. Please assist in GI consult in [facility] for abnormal CT abd-gastric thickening. Needs EGD. Thank you. Isabel Watt APRN.OCCUPATIONAL WORK EXPERIENCE TEACHER [facility] 05-25-2024 Miscellaneous Notes Please see my chart message. Pt. cancelled follow ups here since 2021. Please assist in GI consult in [facility] for abnormal CT abd-gastric thickening. Needs EGD. Thank you. Isabel Watt APRN.OCCUPATIONAL WORK EXPERIENCE TEACHER documented in this encounter [facility] 05-19-2024 Note [facility] Medical Records Department [address] [place] [address] Discharge Summary 05/19/24 [id number] MR#: [id number] Acct: [id number] Name: MARVA KHAN [facility] Rep #: [id number] : 1965 58 From: Jay Seymour DO PCP: Dr. Patricia Winston DO Status:ADM IN Location: [place] [address] Providers Date of Admission: 05/18/24 Primary Care Physician: Dr. Patricia Winston DO Reason For Visit: GASTRITIS Diagnosis Discharge Diagnosis (1) Gastritis: Status: Acute Code(s): K29.70 - Gastritis, unspecified, without bleeding Plan: Unclear etiology. Pt states that it started with alcohol consumption. I doubt the alcohol she ingested on the is still an ongoing issue. Concerned this could be viral. Check enteric viral panel. UDS negative for cannabinoids, therefore this is not due to cannabinoid hyperemesis syndrome Mgmt: antiemetics, pain medication, dicyclomine, pantoprazole. CLD Given the thickening of the gastic wall, she will need endoscopy at some point. If improving, can follow up as outpt. Plan Chronic conditions: * Breast cancer: in remission. * Hypothryoidism: hold pork thyroid. VTE prophylaxis: enoxaparin Medications at Discharge Home Medications rizatriptan 10 mg tablet See Rx Instructions PO .COMPLEX 09/09/21 cholecalciferol (vitamin D3) 50 mcg (2,000 unit) capsule 50 mcg PO DAILY 10/09/21 magnesium L-threonate 48 mg magnesium (667 mg) capsule (MagMind) 48 mg PO DAILY 05/18/24 magnesium glycinate (LC-655) 118 mg PO DAILY 05/18/24 omega 3 350 mg-dha 235 mg-epa 90 mg-fish oil 597 mg capsule,delay rel ([place]-3) 1 cap PO DAILY 05/18/24 thyroid (pork) 90 mg tablet (Adthyza) 90 mg PO DAILY 05/18/24 tirzepatide (weight loss) 10 mg/0.5 mL subcutaneous pen injector 7.5 mg subcut QWEEK 05/18/24 acetaminophen 325 mg tablet 1,000 mg (3.0769 x 325 mg) PO Q8H PRN Pain 1-10 Or Fever >100.7 #0 tabs 11/29/24 dicyclomine 10 mg/mL intramuscular solution 20 mg (2 mL) IM 4X/DAY PRN abdominal cramping #20 mL 05/19/24 omeprazole 20 mg capsule,delayed release 20 mg PO DAILY #30 caps 05/19/24 ondansetron 8 mg disintegrating tablet 8 mg PO Q8H PRN nausea and vomiting #30 tabs 05/19/24 oxycodone 5 mg tablet 5 mg PO Q4H PRN PRN Pain Score 4-10 3 days #12 tabs 05/19/24 Hospital Course Operations None Procedures None Summary of Care Provided Minutes Spent on Discharge: 32 Hospital Course: Patient presents with intractable nausea vomiting diarrhea. Also was having severe abdominal spasms. Patient a CAT scan that showed gastric wall thickening generalized. Patient was started on pain control, Bentyl. Overall her symptoms have improved but they are still ongoing. I did advise her to follow-up with gastroenterology to evaluate this gastric wall thickening. Told her that it could be just a benign finding that may have happened when she was having a spasm of her stomach but I would recommend that she follow-up to ensure is not something else more severe. Her symptoms to be begin with the consumption of alcohol but is only 1 drink. Patient has similar but less severe short episodes related with alcohol in the past. Patient advised to not drink alcohol. Patient improved much faster than initially anticipated when she first presented. Weight / BMI Weight Weight: 74.707 kg Body Mass Index (BMI) 25.7 ABG / Lab / Microbiology Data 05/19/24 06:52 05/19/24 06:52 Laboratory: Laboratory Results - last 24 hr 05/19/24 06:45: Urine Opiates Screen POSITIVE H, Urine Methadone Screen NEGATIVE, Ur Barbiturates Screen NEGATIVE, Ur Phencyclidine Scrn NEGATIVE, Ur Amphetamines Screen NEGATIVE, MDMA (Ecstasy) Screen NEGATIVE, U Benzodiazepines Scrn NEGATIVE, Urine Cocaine Screen NEGATIVE, U Cannabinoids Screen NEGATIVE, Ur Drug Screen Comment 05/19/24 06:52: WBC 6.2, RBC 4.03 L, Hgb 12.1, Hct 36.7 L, MCV 91.1, MCH 30.0, MCHC 33.0, RDW Std Deviation 43.8, RDW Coeff of Luis 13.2, Plt Count 219, MPV 9.7, Immature Gran % (Auto) 0.200, Neut % (Auto) 49.4, Lymph % (Auto) 40.3, Bond % (Auto) 6.9, Eos % (Auto) 2.4, Baso % (Auto) 0.8, Absolute Neuts (auto) 3.1, Absolute Lymphs (auto) 2.50, Nucleated RBC % 0, Sodium 142, Potassium 3.7, C hloride 110 H, Carbon Dioxide 26.0, Anion Gap 5, BUN 7, Creatinine 0.95, Estim Creat Clear Calc 68.94, Est GFR (MDRD) Af Amer 78, Est GFR (MDRD) Non-Af 64, BUN/Creatinine Ratio 7.4 L, Glucose 86, Calcium 8.7, Total Bilirubin 0.30, AST 12 L, ALT 13, Alkaline Phosphatase 49, Total Protein 5.6 L, A lbumin 3.0 L, Globulin 2.6, Albumin/Globulin Ratio 1.2 D/C Instructions Discharge Diet: - (bland diet, advance as tolerated. ) DC O2, CPAP, BIPAP Needs Additional Home O2 Discharge instructions: No DC home with Oxygen: No Meaningful Use Info Meaningful Use Meaningful Use Diagnoses (Choose all that apply): None applicable Ischemic Stroke Statin Dosing Therapy Refe (more content not included)... [facility] 04-18-2024 Note HNO ID: [id number] Author: FILOMENA RIZVI MD Service: ? Author Type: Physician Type: Progress Notes Filed: 05/01/2024 12:03 Note Text: Filomena Rizvi MD Breast [facility] [address] [place], [place] [id number] SUBJECTIVE Chief Complaint: Patient presents with: Follow Up Tests Results HPI Marva Khan is a 58 year old female here today for follow up. History of left breast cancer. 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 Final pathology showed 4 negative lymph nodes and 0.8 cm cancer with negative margins. Final pathological stage IA [pT1b(0.8cm)N0(0/4)M0]. Completed adjuvant radiation in January 2020. Seeing Dr Cardoso. No chemo due to low oncotype.Unable to tolerate adjuvant endocrine. She is status post excision of papilloma of right breast on 07/30/23. Pathology benign. Today, mammograms done which were negative for anything suspicious Breast density BIRADS B. There are no exam notes on file for this visit. No question data found. Review of Systems Constitutional: Negative for fever, malaise/fatigue and weight loss. Breast: See HPI PAST MEDICAL HISTORY Diagnosis Date Breast cancer (HCC) 2019 radiation and left lumpectomy COVID 04/2020 Delayed emergence from anesthesia Velma's thyroiditis oN SYNTHROID EQUIVALENT Irregular heart beat Noted when she was first diagonsed with the thytoriditis and when on synthoid. Is pressure like and heavy and can go fastand stutters and then a big one Migraine Papilloma of right breast PONV (postoperative nausea and vomiting) [place] Martins auricular syndrome PAST SURGICAL HISTORY Procedure Laterality Date ASPIRATION/BIOPSY Left 2011 breast FNA BX OF BREAST; INCISIONAL 06/07/2023 BX OF BREAST; INCISIONAL Right 07/30/2023 CHOLECYSTECTOMY 1998 HYSTERECTOMY HX 2012 with rso PARTIAL MASTECTOMY Left 2019 Social History Tobacco Use Smoking status: Never Smokeless tobacco: Never Tobacco comments: Smoked very little in college Vaping Use Vaping status: Never Used Substance Use Topics Alcohol use: Yes Comment: occasional Drug use: No FAMILY HISTORY Problem Relation Age of Onset Thyroid Mother Coronary Artery Disease Father dad garrick have had CAD and bypass at the time of valve Stroke Father 68 Hypertension Father no ms other (bicuspid mitral valve) Father Stroke Brother Hypertension Brother Breast Cancer Paternal Aunt 60 triple negative Ovarian cancer No Family History The ROS, medical, surgical, family, and social history were reviewed by Filomena Rizvi MD ALLERGIES Allergen Reactions Ancef [Cefazolin] Hives Duloxetine Other: See Comments Shellfish Containin* Diarrhea, GI Upset Current Outpatient Medications Medication Sig tirzepatide (MOUNJARO) 5 mg/0.5 mL pen injector Inject 5 mg subcutaneously one time a week. acetaminophen (TYLENOL EXTRA STRENGTH) 500 mg tablet Take 500 mg by mouth every 8 hours as needed. ibuprofen (MOTRIN) 600 mg tablet Take 1 tablet by mouth every 8 hours as needed for pain. flaxseed oil (OMEGA 3 ORAL) Take 1 capsule by mouth once daily. vitamin B complex (B COMPLEX 1 ORAL) Take 1 capsule by mouth once daily. OTC PRODUCT Take 1 capsule by mouth once daily. Rauri mushroom gummy- 3000 mg of functional mushrooms ARMOUR THYROID 90 mg tablet Take 90 mg by mouth once daily. MAGNESIUM MAL, THREON, CHELATE ORAL Take 1 capsule by mouth once daily. cholecalciferol (VITAMIN D3) 50 mcg (2,000 unit) tablet Take 2,000 Units by mouth once daily. rizatriptan (MAXALT) 10 mg tablet take 1 tablet by mouth AT ONSET OF MIGRAINE - REPEAT IN 2 HOURS IF NEEDED acetaminophen (TYLENOL EXTRA STRENGTH) 500 mg tablet Take 2 tablets by mouth every 6 hours as needed for pain. nitroglycerin sublingual (NITROQUICK) 0.3 mg SL tablet Dissolve 1 tablet under the tongue one time only for 1 dose. To be administered in Radiology for CTA exam iv contrast (will be provided with radiology test) MRI Breast TIM Inject, intravenously, once for 1 dose. No IV access, insert saline lock prior to the beginning of sedation, infusion, injection of imaging exam. Discontinue saline lock post exam. If Pt has a central line or IVAD, may access for administration according to line specific nursing protocol. Once exam is complete flush line and de-access according to line specific nursing protocol in the MR contrast administration guidelines link No current facility-administered medications for this visit. OBJECTIVE BP 119/80 Pulse (!) 52 Ht 170.2 cm (5' 7) Wt 73.9 kg (163 lb) BMI 25.53 kg/m? BMI 25.53 kg/(m2) The sensitive examination was discussed with the Patient or Patient's Authorized Protective Services Case Worker. As applicable, any other physician, advance practice provider, medical student, or other health professional student that will be observing or (more content not included)... [facility] 04-18-2024 History of Present illness Narrative Images from the original note were not included. Filomena Rizvi MD [facility] [address] [id number] SUBJECTIVE Chief Complaint: Patient presents with: Follow Up Tests Results HPI Marva Khan is a 58 year old female here today for follow up. History of left breast cancer. 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 Final pathology showed 4 negative lymph nodes and 0.8 cm cancer with negative margins. Final pathological stage IA [pT1b(0.8cm)N0(0/4)M0]. Completed adjuvant radiation in January 2020. Seeing Dr Cardoso. No chemo due to low oncotype.Unable to tolerate adjuvant endocrine. She is status post excision of papilloma of right breast on 07/30/23. Pathology benign. Today, mammograms done which were negative for anything suspicious Breast density BIRADS B. There are no exam notes on file for this visit. No question data found. Review of Systems Constitutional: Negative for fever, malaise/fatigue and weight loss. Breast: See HPI PAST MEDICAL HISTORY Diagnosis Date Breast cancer (HCC) 2019 radiation and left lumpectomy COVID 04/2020 Delayed emergence from anesthesia Velma's thyroiditis oN SYNTHROID EQUIVALENT Irregular heart beat Noted when she was first diagonsed with the thytoriditis and when on synthoid. Is pressure like and heavy and can go fastand stutters and then a big one Migraine Papilloma of right breast PONV (postoperative nausea and vomiting) Hock[place]in Martins auricular syndrome PAST SURGICAL HISTORY Procedure Laterality Date ASPIRATION/BIOPSY Left 2011 breast FNA BX OF BREAST; INCISIONAL 06/07/2023 BX OF BREAST; INCISIONAL Right 07/30/2023 CHOLECYSTECTOMY 1998 HYSTERECTOMY HX 2012 with rso PARTIAL MASTECTOMY Left 2019 Social History Tobacco Use Smoking status: Never Smokeless tobacco: Never Tobacco comments: Smoked very little in college Vaping Use Vaping status: Never Used Substance Use Topics Alcohol use: Yes Comment: occasional Drug use: No FAMILY HISTORY Problem Relation Age of Onset Thyroid Mother Coronary Artery Disease Father dad garrick have had CAD and bypass at the time of valve Stroke Father 68 Hypertension Father no ms other (bicuspid mitral valve) Father Stroke Brother Hypertension Brother Breast Cancer Paternal Aunt 60 triple negative Ovarian cancer No Family History The ROS, medical, surgical, family, and social history were reviewed by Filomena Rizvi MD ALLERGIES Allergen Reactions Ancef [Cefazolin] Hives Duloxetine Other: See Comments Shellfish Containin* Diarrhea, GI Upset Current Outpatient Medications Medication Sig tirzepatide (MOUNJARO) 5 mg/0.5 mL pen injector Inject 5 mg subcutaneously one time a week. acetaminophen (TYLENOL EXTRA STRENGTH) 500 mg tablet Take 500 mg by mouth every 8 hours as needed. ibuprofen (MOTRIN) 600 mg tablet Take 1 tablet by mouth every 8 hours as needed for pain. flaxseed oil (OMEGA 3 ORAL) Take 1 capsule by mouth once daily. vitamin B complex (B COMPLEX 1 ORAL) Take 1 capsule by mouth once daily. OTC PRODUCT Take 1 capsule by mouth once daily. Rauri mushroom gummy- 3000 mg of functional mushrooms ARMOUR THYROID 90 mg tablet Take 90 mg by mouth once daily. MAGNESIUM MAL, THREON, CHELATE ORAL Take 1 capsule by mouth once daily. cholecalciferol (VITAMIN D3) 50 mcg (2,000 unit) tablet Take 2,000 Units by mouth once daily. rizatriptan (MAXALT) 10 mg tablet take 1 tablet by mouth AT ONSET OF MIGRAINE - REPEAT IN 2 HOURS IF NEEDED acetaminophen (TYLENOL EXTRA STRENGTH) 500 mg tablet Take 2 tablets by mouth every 6 hours as needed for pain. nitroglycerin sublingual (NITROQUICK) 0.3 mg SL tablet Dissolve 1 tablet under the tongue one time only for 1 dose. To be administered in Radiology for CTA exam iv contrast (will be provided with radiology test) MRI Breast TIM Inject, intravenously, once for 1 dose. No IV access, insert saline lock prior to the beginning of sedation, infusion, injection of imaging exam. Discontinue saline lock post exam. If Pt has a central line or IVAD, may access for administration according to line specific nursing protocol. Once exam is complete flush line and de-access according to line specific nursing protocol in the MR contrast administration guidelines link No current facility-administered medications for this visit. OBJECTIVE BP 119/80 Pulse (!) 52 Ht 170.2 cm (5' 7) Wt 73.9 kg (163 lb) BMI 25.53 kg/m BMI 25.53 kg/(m^2) The sensitive examination was discussed with the Patient or Patient's Authorized Protective Services Case Worker. As applicable, any other physician, advance practice provider, medical student, or other health professional student that will be observing or involved in the sensitive examination for educational or training purposes was discussed with the Patient or Authorized Protective Services Case Worker. The Patient or Authorized Protective Services Case Worker has agreed to proceed with the sensitive examination. (Sensitive examination includes inspection and/or palpation of the breasts, pelvis, prostate and anorectal regions) Physical Exam Neck: Thyroid: No thyromegaly. Chest: Breasts: Breasts are symmetrical. Right: No inverted nipple, mass, nipple discharge, skin change or tenderness. Left: No inverted nipple, mass, nipple discharge, skin change or tenderness. Lymphadenopathy: Head: Right side of head: No submental, submandibular or tonsillar adenopathy. Left side of head: No submental, submandibular or tonsillar adenopathy. Cervical: No cervical adenopathy. Upper Body: Right upper body: No supraclavicular or axillary adenopathy. Left upper body: No supraclavicular or axillary adenopathy. Neurological: Mental Status: She is alert and oriented to person, place, and time. Plan ASSESSMENT/PLAN History of breast cancer Marva Khan is a 58 year old female here today for follow up. History of left breast cancer. 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 Final pathology showed 4 negative lymph nodes and 0.8 cm cancer with negative margins. Final pathological stage IA [pT1b(0.8cm)N0(0/4)M0]. Completed adjuvant radiation in January 2020. Seeing Dr Cardoso. No chemo due to low oncotype.Unable to tolerate adjuvant endocrine. She is status post excision of papilloma of right breast on 07/30/23. Pathology benign. Today, mammograms and clinical exam negative. According to NCCN guidelines, she should have an H&P 1-4 times per year and annual mammograms. Discussed MRI for surveillance due to dense tissue and difficult clinical exam. Follow up in survivorship in 6 months with MRI. Follow up: Return for MRI and [employer] 6 months. Filomena Rizvi MD 04/18/2024 3:01 PM Patient presents for follow up after imaging.Patient stated right side pain that wraps around her rib cage the pain is intermittent. Davidson Wilkinson LPN documented in this encounter [facility] 04-18-2024 Note HNO ID: [id number] Author: DAVIDSON WILKINSON LPN Service: ? Author Type: LICENSED NURSE Type: Progress Notes Filed: 05/01/2024 12:03 Note Text: Patient presents for follow up after imaging.Patient stated right side pain that wraps around her rib cage the pain is intermittent. Davidson Wilkinson LPN [facility] 04-18-2024 History of Present illness Narrative Radiology Service Progress Note PATIENT NAME: Marva Khan DATE OF SERVICE: April 18, 2024 TIME: 1:32 PM PATIENT IDENTITY VERIFICATION COMPLETED USING TWO (2) IDENTIFIERS: Name and Date of confirmed by patient verbally. FALL SCREENING: Has the patient had 2 falls in the last year or 1 fall with injury or currently using an Ambulatory Assistive Device (Walker, Cane, Wheelchair, Crutches, etc.)? No PATIENT GENDER DATA: Female. status: : No status: NO. PATIENT RELEVANT IMPLANT DATA REVIEWED: Not Applicable PATIENT PRESENTS WITH AN IMPLANTABLE OR ATTACHED SECURITY OPERATIONS CENTER OPERATOR: No RADIOLOGY DEPARTMENT: Mammography PERIPHERAL IV DATA: Not applicable SIGNED BY: JOSE JUAN Rodriguez) April 18, 2024 1:32 PM documented in this encounter [facility] 04-18-2024 Note HNO ID: [id number] Author: SHANKAR KELLY RT (R) Service: ? Author Type: Technologist Type: Progress Notes Filed: 04/18/2024 13:32 Note Text: Radiology Service Progress Note PATIENT NAME: Marva Khan DATE OF SERVICE: April 18, 2024 TIME: 1:32 PM PATIENT IDENTITY VERIFICATION COMPLETED USING TWO (2) IDENTIFIERS: Name and Date of confirmed by patient verbally. FALL SCREENING: Has the patient had 2 falls in the last year or 1 fall with injury or currently using an Ambulatory Assistive Device (Walker, Cane, Wheelchair, Crutches, etc.)? No PATIENT GENDER DATA: Female. status: : No status: NO. PATIENT RELEVANT IMPLANT DATA REVIEWED: Not Applicable PATIENT PRESENTS WITH AN IMPLANTABLE OR ATTACHED SECURITY OPERATIONS CENTER OPERATOR: No RADIOLOGY DEPARTMENT: Mammography PERIPHERAL IV DATA: Not applicable SIGNED BY: JOSE JUAN Rodriguez) April 18, 2024 1:32 PM [facility] 01-13-2024 History of Present illness Narrative [facility] Patricia Metz DO, [facility], [facility] [place]* Name: Marva Khan She is here to discuss left neuroplasty. She is an excellent candidate for an upper and lower blepharoplasty, she does have brow ptosis and I would recommend an endoscopic brow lift. She is very pretty, she is fairly tanned. She is planning to lose another 30 pounds on medication and I would like to at least see her when she's lost 15 to see if it'll make any difference and we will follow to document this. I have today, in the presence of my nurse, discussed the operation of upper and lower blepharoplasty in considerable detail. I shared with the patient photographs of people who have undergone similar procedures, shown the patient the sites of incisions and subsequent scars. The upper lid blepharoplasty leaves incisions and subsequent scars in the fold of the eyelid. The recuperation is about 7 to 10 days, during which time there will be swelling and bruising. Some people encounter blurry vision changes due to the swelling overlying the cornea, however this will progressively return to normal. I have discussed the time of convalescence, potential risks and possible complications in detail. Scars vary according to the individual patient's healing potential and may become hypertrophic or keloid. Asymmetry is a potential risk as no patient has identical eyelids. Infection is rare and all my patients receive antibiotics. Delayed healing, which is more common in smokers. Bleeding can occur and is increased with the use of aspirin products. Bleeding around the eye can lead to blindness, although this is extremely rare. Risks of lower lid blepharoplasty include; ectropion, which is pulling down of the lower eyelid and this is usually a result of lower eyelid laxity, in an older patient this may occur due to weakness of the orbicularis muscle and occasionally requires a secondary procedure to correct the droopiness of the eyelid. So, having discussed the operation in detail, shown the patient pictures of other patients, the patient should now be fully informed as to the nature of the procedure including risks and potential complications. The patient was invited to return or call with any further questions before making a decision for surgery. IT HAS BEEN EXPLAINED IN DETAIL NOT TO TAKE ASPIRIN, ASPIRIN-CONTAINING PRODUCTS AND VITAMIN E FOR TWO TO THREE WEEKS PRIOR TO ELECTIVE SURGERY THESE INCREASE THE RISK OF BLEEDING AND HEMATOMA FORMATION. THE PATIENT WAS INFORMED THAT SMOKERS HAVE A GREATER RISK OF SKIN LOSS, SCARRING AND WOUND HEALING COMPLICATIONS. THE PATIENT WAS GIVEN NO GUARANTEE OF RESULTS. MAF/nn (Dictated, but not read.) I have discussed in detail in the presence of my nurse the procedure of endoscopic brow lift. The patient understands that the endoscopic brow lift procedure is done through four to five small incisions set back from the hairline. These small incisions are used to allow the endoscope to be inserted and do the majority of the procedure through this minimally-invasive technique. The small access incisions replace the larger bicoronal incision that was the traditional way to do a brow lift. The operation requires lifting the skin of the forehead off of the underlying bone all the way down to the eyebrow level. I explained that during this procedure, muscles of frowning are weakened in an attempt to reduce the lines, wrinkles and furrows of the brow and glabella area. The results of lifting are not permanent and the effects of aging continue. Other risks include: infection, which is rare and all my patients receive antibiotics; bleeding, which may cause a collection of blood, or hematoma; seroma, a fluid collection which may need to be drained; permanent weakness of frowning due to injury of the frontal branch of the facial nerve may occur but this is exceptionally rare; alopecia at the incisions sites; hypertrophic or keloid scarring from the incisions; delayed healing, more common in smokers; possible asymmetry and recurrence of the brow ptosis. The patient was shown appropriate photographs of before and after patients with similar procedures. The patient was encouraged schedule an additional appointment prior to the surgery to discuss any questions that the patient might have. The patient will be given information regarding the timing and costs of the procedure. IT HAS BEEN EXPLAINED IN DETAIL NOT TO TAKE ASPIRIN, ASPIRIN-CONTAINING PRODUCTS AND VITAMIN E FOR TWO TO THREE WEEKS PRIOR TO ELECTIVE SURGERY THESE INCREASE THE RISK OF BLEEDING AND HEMATOMA FORMATION. THE PATIENT WAS INFORMED THAT SMOKERS HAVE A GREATER RISK OF SKIN LOSS, SCARRING AND WOUND HEALING COMPLICATIONS. THE PATIENT WAS GIVEN NO GUARANTEE OF RESULTS. MAF/nn (Dictated, but not read.) Any concerns or questions prior to next appointment, patient is to call office or return sooner. Patricia Metz DO January 13, 2024 This note was generated with voice recognition software and may contain errors, including spelling, grammar, syntax and misrecognition of what was dictated, that are not fully corrected. documented in this encounter [facility] 08-10-2023 History of Present illness Narrative Marva Khan is a 58 year old female presenting for post op visit for excision of papilloma on 07/30/23. Patient has history of left lumpectomy and sentinel lymph node biopsy on 12/18/2019 for invasive ductal carcinoma grade 2, ER/WV+, H2N-. Breast MRI done on 04/27/23 due additional surveillance due to dense breast tissue. Suspicious right mass found. Status post US guided biopsy on 06/03/23 which returned papilloma. Patient underwent excision of right breast papilloma on 07/30/23. Patient has been doing well since surgery and has not experienced any drainage, swelling or erythema of the incision site. Denies right breast pain, fevers, chills, cough and SOB. Physical exam revealed a clean, dry and intact incision without erythema, swelling or bruising. Patient endorses left breast and shoulder pain and tightness which she feels to be related to scar tissue in that breast. Physical exam revealed scar tissue in left breast without any distinct masses. Shoulder exercises were given to patient to help improve the pain she is feeling in her shoulder. Discussed if these do not provide relief, physical therapy may be an option. Will schedule patient for mammogram in 6 months and plan to see patient in office at that time. Patient is agreeable to plan. Supervision of Medical Student Attestation Note I verified the medical student s documentation in the medical record. I personally performed a physical exam and medical decision making. I made appropriate changes to the documentation and the assessment and plan based on my verification, exam and medical decision making Ms Khan is a 58 year old female here today for post op appointment. She is status post excision of papilloma of right breast on 07/30/23. Pathology benign. Right incision clean dry and intact. History of left breast cancer. Having some tightness and pain. Discussed warm compresses and NSAIDs. Also try home exercises. Consider PT if needed. Follow up win 6 months with mammograms. I recommend geoffrey due to her dense breast tissue. Anticipate continued surveillance with MRIs due to dense tissue. She should continue monthly breast awareness and call with any concerns. Signature: Filomena Rizvi MD Date: 08/10/2023 Time: 4:13 PM documented in this encounter [facility] 08-10-2023 Instructions Filomena Rizvi MD - 08/10/2023 1:17 PM EST ARM EXERCISES The following exercises are recommended for the arm on the same side as your breast cancer surgery. ARM STRETCHES 1. With your arm straight, slowly raise it in front of you until you feel gentle resistance or discomfort. Hold it there and slowly count to 5. Slowly lower it back down to your side. Repeat this 2 more times. 2. With your arm straight, slowly raise it out to your side until you feel gentle resistance or discomfort. Hold it there and slowly count to 5. Lower your arm slowly back down to your side. Repeat this 2 more times. 3. With your arm straight, slowly raise it out behind you until you feel gentle resistance or discomfort. Hold it there and slowly count to 5. Lower your arm slowly back down to your side. Repeat this 2 more times. ARM CIRCLES 1. With your arm straight, slowly raise it in front of you until you feel gentle resistance or discomfort. Rotate your arm in a circular pattern, like you were circling a basketball with it. First rotate your arm to the left for 5 circles, then to the right for 5 more. Lower your arm gently back to your side. Repeat the circles with your arm out to your side and again with your arm extended behind you. FINGER WALKIING 1. Stand near a wall with your arm straight out in front of you. Let your fingers touch the wall. Gently walk your fingers up the wall. Stop at the point where you feel gentle resistance or discomfort. Then, walk your fingers back down the wall. Repeat this same motion with your arm out to the side. 2. Repeat this exercise, walking the palm of your hand up the wall. You may find it easier to do these exercises in a warm shower, especially the first few times you do them. If you have questions about these exercises, contact your doctor or nurse. documented in this encounter [facility] 08-10-2023 Nurse Note Marva Khan is a 58 year old female who presents for Post Op (Patient presents post RIGHT breast excision of a papilloma. Patient denies any swelling or drainage. Patient states that she sees a small amount of redness at the incision site. Patient denies any pain. Patient denies any concerns.) Yaritza Aden MA documented in this encounter [facility] 05-18-2023 History of Present illness Narrative Radiology Service Progress Note PATIENT NAME: Marva Khan DATE OF SERVICE: May 18, 2023 TIME: 2:58 PM PATIENT IDENTITY VERIFICATION COMPLETED USING TWO (2) IDENTIFIERS: Name and Date of confirmed by patient verbally. FALL SCREENING: Has the patient had 2 falls in the last year or 1 fall with injury or currently using an Ambulatory Assistive Device (Walker, Cane, Wheelchair, Crutches, etc.)? No PATIENT GENDER DATA: Female. status: : No status: NO. PATIENT RELEVANT IMPLANT DATA REVIEWED: Not Applicable RADIOLOGY DEPARTMENT: Ultrasound PERIPHERAL IV DATA: Not applicable SIGNED BY: RT Nabeel(Audra) May 18, 2023 2:58 PM documented in this encounter [facility] 04-30-2023 History of Present illness Narrative Radiology Service Progress Note DATE OF SERVICE: April 30, 2023 TIME: 9:06 AM PATIENT WEIGHT: 186LBS PATIENT IDENTITY VERIFICATION COMPLETED USING TWO (2) STANDARD IDENTIFIERS: Name and Date of confirmed by patient verbally and Name and Date of confirmed by identification band. FALL SCREENING: Has the patient had 2 falls in the last year or 1 fall with injury or currently using an Ambulatory Assistive Device (Walker, Cane, Wheelchair, Crutches, etc.)? No PATIENT GENDER DATA: Female. status: : No status: NO. ALLERGIES: Reviewed and unchanged CONTRAST ALLERGY: No EXAM: CT -CONTRAST INDUCED NEPHROPATHY RISK FACTORS: Not applicable CREATININE: Creatinine Date Value Ref Range Status 11/06/2016 0.75 0.58 - 0.96 mg/dL Final 11/04/2015 0.91 0.70 - 1.40 mg/dL Final eGFR-All Other Races Date Value Ref Range Status 11/06/2016 >60 . Final Comment: eGFR (Estimated GFR) Units of measure: mL/min/1.73 meters squared eGFR is derived from the reexpressed MDRD Study equation using the following parameters: serum creatinine, age, gender and race. The creatinine assay has been calibrated to be traceable to IDMS. An eGFR <60 mL/min/1.73m2 for >3 months is consistent with chronic kidney disease. Refer to KDOQI guidelines for clinical interpretation. In patients with unstable renal function, e.g. those with acute kidney injury, the eGFR may not accurately reflect actual GFR. eGFR- Date Value Ref Range Status 11/06/2016 >60 Final P.O.C.T. RESULTS: N/A April 30, 2023 TREATMENT: N/A IV SITE: Ambulatory: A peripheral IV was started in the Right antecubital site with a Angio cath: 20 gauge. IV SITE APPEARANCE: Clean,Dry and Intact SIGNATURE: Nimco Arce RN PATIENT NAME: Marva Khan DATE: April 30, 2023 TIME: 9:06 AM Radiology Service Progress Note PATIENT NAME: Marva Khan DATE OF SERVICE: April 30, 2023 TIME: 9:06 AM PATIENT IDENTITY VERIFICATION COMPLETED USING TWO (2) STANDARD IDENTIFIERS: Name and Date of confirmed by patient verbally and Name and Date of confirmed by identification band. PATIENT GENDER DATA: Female. status: : No status: NO. PATIENT RELEVANT IMPLANT DATA REVIEWED: Not Applicable ALLERGIES: Reviewed and unchanged MEDICATIONS REVIEWED: YES PROCEDURE TYPE: CT: Beta Blocking and CT: NTG SL PATIENT SCREENING: CHF: No, Heart Block: No, Aortic Stenosis: No, Aortic Insufficiency: No, Asthmatic/Bronchospastic Disease: No, IV Beta Blocking (Lopressor/Metoprolol Tartrate): No, and Medications that may enhance heart rate, slowing the effect of betablockers or calcium channel blockers: No Aortic Stenosis: No, Aortic Insufficiency: No, Constrictive Pericarditis: No, Hypertrophic/Restrictive Cardiomyopathy: No, Use of Phosphodiesterase - 5 Inhibitors: No, and Stress test planned for later today: No IV SITE: Ambulatory: A peripheral IV was started in the Right antecubital site with a Angio cath: 20 gauge. PERIPHERAL IV ACCESS: Discontinued CARDIAC MEDICATIONS: Nitroglycerin 0.3 mg SL given PATIENT DISCHARGED TO: Home/Self Care SIGNED BY: Nimco Arce RN April 30, 2023 9:06 AM PATIENT EDUCATION RADIOLOGY TOPIC: Procedure/Surgery: Coronary CTA READINESS TO LEARN COGNITIVE ABILITY: Alert and oriented MOTIVATION TO LEARN: Interested FAMILY SUPPORT: None - Unavailable/disinterested INSTRUCTION PROVIDED TO: Patient PATIENT LEARNS BEST BY: Verbal Instruction FACTORS AFFECTING LEARNING: None PHYSICAL LIMITATIONS AFFECTING LEARNING: None LEARNING RESPONSE Procedure: Angio Procedures: Radiology Procedures: Coronary CTA METHOD OF INSTRUCTION: Verbal instruction PATIENT / FAMILY RESPONSE: Verbalizes understanding of: Medical Regiment Pre Procedure Instructions Post Procedure Instructions FOLLOW-UP PLAN: Complete - No need for follow-up REFERRAL (RECOMMENDATION): None Radiology Service Progress Note PATIENT NAME: Marva Khan DATE OF SERVICE: April 30, 2023 TIME: 9:33 AM PATIENT IDENTITY VERIFICATION COMPLETED USING TWO (2) IDENTIFIERS: Name and Date of confirmed by patient verbally. FALL SCREENING: Has the patient had 2 falls in the last year or 1 fall with injury or currently using an Ambulatory Assistive Device (Walker, Cane, Wheelchair, Crutches, etc.)? No PATIENT GENDER DATA: Female. status: : No status: NO. PATIENT RELEVANT IMPLANT DATA REVIEWED: Yes RADIOLOGY DEPARTMENT: CT; Exam(s) Completed: CTA Cardiac PERIPHERAL IV DATA: Site assessment: Clean,Dry and Intact, Site disposition Discontinued SIGNED BY: RT Rodríguez(R) April 30, 2023 9:33 AM documented in this encounter [facility] 04-29-2023 Miscellaneous Notes Patient notified through [employer] that she will need additional imaging due to breast MRI finding. Orders placed for 2nd look US and biopsy. Patient is currently scheduled to see [employer]CH[employer]IC next month. Okay to keep that appointment as scheduled for now. Filomena Rizvi MD documented in this encounter [facility] 04-27-2023 History of Present illness Narrative Radiology Service Progress Note DATE OF SERVICE: April 27, 2023 TIME: 1:13 PM PATIENT IDENTITY VERIFICATION COMPLETED USING TWO (2) STANDARD IDENTIFIERS: Name and Date of confirmed by patient verbally. FALL SCREENING: Has the patient had 2 falls in the last year or 1 fall with injury or currently using an Ambulatory Assistive Device (Walker, Cane, Wheelchair, Crutches, etc.)? No PATIENT GENDER DATA: Female. status: : No status: NO. PATIENT RELEVANT IMPLANT DATA REVIEWED: Not Applicable ALLERGIES: Reviewed and unchanged CONTRAST ALLERGY: NO. EXAM: MRI - CONTRAST TYPE: GROUP II PERIPHERAL IV DATA: Ambulatory: A peripheral IV was started in the Right antecubital site with a Angio cath: 22 gauge. RADIOLOGY DEPARTMENT: MR; Exam(s) Completed: Chest: Breast SIGNATURE: Derek Laguna RT(R) PATIENT NAME: Marva Khan DATE: April 27, 2023 TIME: 1:13 PM documented in this encounter [facility] 04-26-2023 Instructions Audrey Rowe MD - 04/26/2023 3:22 PM EST PLAN AND RECOMMENDATIONS: To do the echo To do the CCTA To do bloods with your education trainer and send me results To see me once done to discuss Increase ambulation as tolerated with a goal to do moderate activity 30 minutes a day 5 days a week Work on weight loss Follow a heart healthy diet, rich in fruits and vegetables, fish and whole grains. Limited the amount of processed foods, sugary drinks, fried foods, red meat, pork, and salt CONTACT INFORMATION: Audrey Rowe MD, [facility] Sugar Presser and Rosin Barrel Filler, Acute Coronary Care [facility], [facility] [address] [place] [address], [id number] [place] [address] documented in this encounter [facility] 04-26-2023 History of Present illness Narrative Images from the original note were not included. Heart[facility] Romie Tracy Department of Cardiovascular Medicine SECTION OF INTERVENTIONAL CARDIOLOGY OUTPATIENT VISIT DATE 04/26/2023 OUTPATIENT VISIT TYPE NEW PRIMARY CARE PHYSICIAN: Patricia Winston [address] [place] [address] REFERRING PHYSICIAN: No referring provider defined for this encounter. CHIEF COMPLAINT: Patient presents withabnormal ECG New Patient HISTORY OF PRESENT ILLNESS: Ms. Khan is a 57 year old female who presents today to discuss abnromal ECG . She has a history of breast cancer treated with lumpectomy and RT and she has a history of thyroiditis and was treated with armour thyroid. She states that a few months ago she was noted to have high blood pressure by her CHEMICAL SPRAYER and went to the ER one day as it was high. While in the ER she had an ECG. She was not told it was abnromal but later it was formally read as a possible IWMI and she comes here for evaluaiton. She denies prior GA or other CRF. She does occasionally have elevated BP but is not on meds and attributed this to white coat syndrom. She states that when her thyroid is out of control she may feel a pressure like sensation and her heart races. She is walking about 3-5 miles a day and she siwms every day. She has no chest pain or PARRA NURSING INTAKE: The patient is a 57 year old female from [place], [place] here today for cardiovascular evaluation. In September she presented to [facility] for hypertension. She was checking her blood pressures at home due to one high reading at the doctor's office. It spiked to 170/100 and she felt she should go to the ER. She was asymptomatic. She had an ECG there and the result said Inferior infarct , age undetermined Abnormal ECG. No one discussed these findings with her at the hospital. She was on her mychart about 6 weeks ago and read the result, she wanted an evaluation. She feels well. She has never had a stress test. She recalls having an echocardiogram many years ago due to family hx of heart disease ( father - bicuspid mitral valve ) She has never been on antihypertensive medications. She has also noted 3-4 episodes of bradycardia. She states her heart rate has been in the 30s. She has a medical history significant for: Velma's thyroiditis, breast cancer s/p left breast lumpectomy and adjuvant radiation 2019 , migraines, COVID, irregular heart beat. She reports the following symptoms: chest pressure, palpitations, and leg swelling when she is on the wrong dosage of thyroid medication. She has only experienced these symptoms when her thyroid medication is the wrong dosage. She denies the following symptoms: shortness of breath, lightheaded/dizzy, syncope, claudication, coughing, wheezing, symptoms of stroke. She follows a regular diet. She participates in walking and swimming 5-7x per week for exercise/activity. PAST MEDICAL HISTORY Diagnosis Date Breast cancer (HCC) 2019 radiation and left lumpectomy COVID 04/2020 Velma's thyroiditis oN SYNTHROID EQUIVALENT Irregular heart beat Noted when she was first diagonsed with the thytoriditis and when on synthoid. Is pressure like and heavy and can go fastand stutters and then a big one Migraine PAST SURGICAL HISTORY Procedure Laterality Date ASPIRATION/BIOPSY Left breast FNA CHOLECYSTECTOMY HYSTERECTOMY HX 2013 PARTIAL MASTECTOMY Left 2020 SOCIAL HISTORY Social History Tobacco Use Smoking status: Never Smokeless tobacco: Never Tobacco comments: Smoked very little in college Vaping Use Vaping Use: Never used Substance Use Topics Alcohol use: Yes Comment: occasional Drug use: No FAMILY HISTORY Problem Relation Age of Onset Coronary Artery Disease Father dad garrick have had CAD and bypass at the time of valve Stroke Father 68 Hypertension Father no ms other (bicuspid mitral valve) Father Stroke Brother Hypertension Brother ALLERGIES: ALLERGIES Allergen Reactions Hayfever [Homeopath* Itching watery itchy eyes Ancef [Cefazolin] Hives Shellfish Containin* Diarrhea, GI Upset MEDICATIONS: Current Outpatient Medications Medication Sig flaxseed oil (OMEGA 3 ORAL) Take 1 capsule by mouth once daily. vitamin B complex (B COMPLEX 1 ORAL) Take 1 capsule by mouth once daily. OTC PRODUCT Take 1 capsule by mouth once daily. Rauri mushroom gummy- 3000 mg of functional mushrooms ARMOUR THYROID 90 mg tablet Take 90 mg by mouth once daily. MAGNESIUM MAL, THREON, CHELATE ORAL Take 1 capsule by mouth once daily. cholecalciferol (VITAMIN D3) 50 mcg (2,000 unit) tablet Take 2,000 Units by mouth once daily. rizatriptan (MAXALT) 10 mg tablet take 1 tablet by mouth AT ONSET OF MIGRAINE - REPEAT IN 2 HOURS IF NEEDED nitroglycerin sublingual (NITROQUICK) 0.3 mg SL tablet Dissolve 1 tablet under the tongue one time only for 1 dose. To be administered in Radiology for CTA exam iv contrast (will be provided with radiology test) MRI Breast TIM Inject, intravenously, once for 1 dose. No IV access, insert saline lock prior to the beginning of sedation, infusion, injection of imaging exam. Discontinue saline lock post exam. If Pt has a central line or IVAD, may access for administration according to line specific nursing protocol. Once exam is complete flush line and de-access according to line specific nursing protocol in the MR contrast administration guidelines link No current facility-administered medications for this visit. REVIEW OF SYSTEMS: Palpitations but mostly when thyroid out of control Chest pressure when thyroid out of control Notes her watch may wake her up when her HR is in the 30s Review of Systems Constitutional: Negative for chills, fever, weight gain and weight loss. Eyes: Negative for visual disturbance. Cardiovascular: Negative for chest pain, claudication, dyspnea on exertion, irregular heartbeat, leg swelling, near-syncope, orthopnea, palpitations, paroxysmal nocturnal dyspnea and syncope. Respiratory: Negative for cough, shortness of breath and wheezing. Endocrine: Negative for cold intolerance, heat intolerance, polydipsia and polyuria. Hematologic/Lymphatic: Does not bruise/bleed easily. Skin: Negative for rash and suspicious lesions. Musculoskeletal: Negative for joint pain, joint swelling, muscle weakness and myalgias. Gastrointestinal: Negative for abdominal pain, dysphagia, melena, nausea and vomiting. Genitourinary: Negative for frequency, nocturia and urgency. Neurological: Negative for light-headedness, numbness and paresthesias. PHYSICAL EXAMINATION: 04/26/23 1421 BP: 145/85 BP Site: Right Arm Pulse: (!) 51 Resp: 18 SpO2: 100% Weight: 84.4 kg (186 lb) Height: 167.6 cm (5' 6) Body mass index is 30.02 kg/m . General: Well appearing, in no acute distress, speaking in complete sentences. Skin: No clubbing, no cyanosis. Head/Eyes: Grossly normal. Neck: No jugular venous distention, no carotid bruits, Lungs: Clear to auscultation and no rales with good effort Heart: Regular rhythm,S1, S2 normal, no S3, no S4, no rub and no murmur. Abdomen: Soft, nontender, bowel sounds normal, no palpable organomegaly, no bruits. Extremities: No peripheral edema Pulses: +2 distal pulses Musculoskeletal: Normal gait and ambulation Neuro: Oriented to time, place and person CARDIOVASCULAR MEDICINE TESTING: All cardiovascular Testing: ECG 07/08/16-07/22/16 Zio: 10/12/2022 ECG: Test Reason : HTN Vent. Rate : 055 BPM Atrial Rate : 055 BPM P-R Int : 210 ms QRS Dur : 080 ms QT Int : 432 ms P-R-T Axes : 015 008 -02 degrees QTc Int : 413 ms Sinus bradycardia with sinus arrhythmia with 1st degree A-V block Inferior infarct , age undetermined Abnormal ECG 10/07/2022: Creat 0.99 GFR 75 BUN 17 Hgb 14.3 Hct 44.5 PLT 284 I have personally reviewed the Electrocardiogram. NSR and possible IWMI IMPRESSION: Ms. Khan is a 57 year old female with elevated blood pressure on occasion and history of breast cancer s/p lumpectomy and RT and history of Velma's thyroiditis who presents to discuss an abnormal ECG . She denies any symptoms of prior GA or chronic CP but has noted on occasions when her thyroid is out of control that she gets irregular heart beats and sometimes a pressure like sensation in her chest. I do not have an ECG from before but her ECG today shows NSR and a psosible IWMI. We discuss the implications of an abnormal ECG and the rationale for the readings being read as abnormal which can be turly abnormal vs false positive. .given her reports of chest pain at times (related to thyrpoid meds) and her abnormal ECG I do wish to exclude underlying CAD. (Elevated BP readings, over weight and abnormal ECG and chest pain) We do discuss the importance of RF modification with f/u and control of her BP and f/u of her lipids PLAN AND RECOMMENDATIONS: To do the echo To do the CCTA To do bloods with your education trainer and send me results To see me once done to discuss Increase ambulation as tolerated with a goal to do moderate activity 30 minutes a day 5 days a week Work on weight loss Follow a heart healthy diet, rich in fruits and vegetables, fish and whole grains. Limited the amount of processed foods, sugary drinks, fried foods, red meat, pork, and salt CONTACT INFORMATION: Audrey Rowe MD, [facility] Sugar Presser and [employer]in Barrel Filler, Acute Coronary Care [facility], [facility] [address] [place] [address], [phone] [place] [address] documented in this encounter [facility] 12-17-2022 History of Present illness Narrative Radiology Service Progress Note PATIENT NAME: Marva Khan DATE OF SERVICE: December 17, 2022 TIME: 9:34 AM PATIENT IDENTITY VERIFICATION COMPLETED USING TWO (2) IDENTIFIERS: Name and Date of confirmed by patient verbally. FALL SCREENING: Has the patient had 2 falls in the last year or 1 fall with injury or currently using an Ambulatory Assistive Device (Walker, Cane, Wheelchair, Crutches, etc.)? No PATIENT GENDER DATA: Female. status: : No status: NO. PATIENT RELEVANT IMPLANT DATA REVIEWED: Not Applicable RADIOLOGY DEPARTMENT: Mammography PERIPHERAL IV DATA: Not applicable SIGNED BY: RT Nura(R) December 17, 2022 9:34 AM Radiology Service Progress Note PATIENT NAME: Marva Khan DATE OF SERVICE: December 17, 2022 TIME: 10:08 AM PATIENT IDENTITY VERIFICATION COMPLETED USING TWO (2) IDENTIFIERS: Name and Date of confirmed by patient verbally. FALL SCREENING: Has the patient had 2 falls in the last year or 1 fall with injury or currently using an Ambulatory Assistive Device (Walker, Cane, Wheelchair, Crutches, etc.)? No PATIENT GENDER DATA: Female. status: : No status: NO. PATIENT RELEVANT IMPLANT DATA REVIEWED: Not Applicable RADIOLOGY DEPARTMENT: Ultrasound PERIPHERAL IV DATA: Not applicable SIGNED BY: RT Darian(R) December 17, 2022 10:08 AM documented in this encounter [facility] 07-30-2022 History of Present illness Narrative DATE OF PHOTOS: 07/30/2022 Body Part: Full Face and Eyes [facility] July 30, 2022 6:07 PM documented in this encounter [facility] 07-30-2022 History of Present illness Narrative Plastic Surgery Consult Note CC: Consult upper blepharoplasty PAIN SCALE: No: 0 on a scale of 0 to 10 HPI: Marva Khan 57 year old is here today for consult regarding an upper blepharoplasty. Patient states that she had shingles last year and now has some dropping on the left side of her face./ asymmetry BLEPHAROPLASTY CONCERNS: Tired appearance Drooping upper eyelids EYE HX: No pertinent past medical eye history. PAST MEDICAL HISTORY Diagnosis Date Breast cancer (HCC) 2019 Endometriosis Hypothyroid Malignant neoplasm of upper-outer quadrant of left breast in female, estrogen receptor positive (HCC) 12/05/2019 Migraine PCOS (polycystic ovarian syndrome) Preeclampsia PAST SURGICAL HISTORY Procedure Laterality Date ASPIRATION/BIOPSY Left breast FNA CHOLECYSTECTOMY HYSTERECTOMY HX 2013 PARTIAL MASTECTOMY Left 2019 Current Outpatient Medications on File Prior to Visit Medication Sig thyroid 30 mg tablet Take 60 mg by mouth once daily. naturethroid tamoxifen (NOLVADEX) 20 mg tablet Take 1 tablet (20 mg) by mouth once daily. (Patient not taking: Reported on 03/12/2022) levothyroxine (SYNTHROID) 125 mcg tablet Take 112 mcg by mouth once daily. (Patient not taking: Reported on 03/12/2022) cholecalciferol (VITAMIN D3) 50 mcg (2,000 unit) tablet Take 2,000 Units by mouth once daily. magnesium [id number] 42 mg (500 mg)- 250 mg TbER Take 1 capsule by mouth once daily. rizatriptan (MAXALT) 10 mg tablet take 1 tablet by mouth AT ONSET OF MIGRAINE - REPEAT IN 2 HOURS IF NEEDED No current facility-administered medications on file prior to visit. ALLERGIES Allergen Reactions Hayfever [Homeopath* Itching watery itchy eyes Ancef [Cefazolin] Hives Shellfish Containin* Diarrhea, GI Upset EXAM: A&O x3 Redundant skin over upper eyelids - more redundant skin on right upper eyelid compared to left Mild asymmetry within left and right side of face Right eyebrow is higher than left eyebrow More noticeable dyschromia on left cheek w solar elastosis ASSESSMENT/PLAN: facial aging w blepharochalasis for aesthetic rejuvenation Patient would benefit from an upper blepharoplasty and TCA peel to lower eyelids and face Prescription for retin-a and hydroquinone ordered I have reviewed risks, benefits, personnel and alternatives. Patient states understanding and wishes to proceed. Photos today Will provide cosmetic quote provided for procedure. Follow up in 1 month The patient is seen and examined by Kasandra Souza M.D. and the following reflects his service. Scribed by Geeta Ghosh RN I agree with the Chief Complaint, ROS, and Past Histories independently gathered by the clinical customer support advisor and the remaining scribed note accurately describes my personal service to the patient. patient's condition reviewed and examined plan of care and options of management, complexity, risk benefit limitation potential complication, success /failure of management, expected result and recovery discussed will set up pt to see supervisor incising and will follow up w her skin care and her future plan I spent 30 minutes in the visit, with more than 50% of the total [id number] time of the visit in counseling / coordination of care. Kasandra Souza MD documented in this encounter [facility] 03-12-2022 History of Present illness Narrative Per Dr. Rose, Marva was provided with Night Splint, size Medium, and instructed/educated in its application, wear, and care. All questions were answered, and patient was able to demonstrate competence with the necessary skills to utilize the above equipment. Patient signed Buddy SAN, splint billed by Buddy. Filomena Edgar RN Images from the original note were not included. Initial Podiatric Office Visit: Chief Complaint: This 56 year old female who presents with chief complaint:left heel pain and right great toe pain HPI Patient presents to clinic for evaluation of left heel. Patient has history of left plantar fasciitis. She states that she has recurrent plantar fasciitis, hurts her most severe after waking up in the morning. She is taking alleve prn. She may also rub biofreeze on the heel. She states the pain is causing her to change the way she walks and now her back is hurting. She also complains of pain in her right great toe. She states that her toe will cause her to experience flare-ups when she bends. PAIN EVALUATION 03/12/2022 0908 Pain Level: 8 1/10 baseline 8/10 when walking Pain Location: Other: See Comment Left heel and right great toe Description: Aching;Stabbing;Sharp Duration Amount of Time: 1 Duration Units: Years Frequency: Intermittent Intervention/Comfort measure: Reposition;Relaxation;Distractions Hemoglobin A1C (%) Date Value 11/06/2016 5.3 PCP: Patricia Winston DO PAST MEDICAL HISTORY Diagnosis Date Breast cancer (HCC) 2019 Endometriosis Hypothyroid Malignant neoplasm of upper-outer quadrant of left breast in female, estrogen receptor positive (HCC) 12/05/2019 Migraine PCOS (polycystic ovarian syndrome) Preeclampsia Current Outpatient Medications Medication Sig thyroid 30 mg tablet Take 60 mg by mouth once daily. naturethroid cholecalciferol (VITAMIN D3) 50 mcg (2,000 unit) tablet Take 2,000 Units by mouth once daily. magnesium S-xffwkl-tfhkqjsxwin 42 mg (500 mg)- 250 mg TbER Take 1 capsule by mouth once daily. rizatriptan (MAXALT) 10 mg tablet take 1 tablet by mouth AT ONSET OF MIGRAINE - REPEAT IN 2 HOURS IF NEEDED tamoxifen (NOLVADEX) 20 mg tablet Take 1 tablet (20 mg) by mouth once daily. (Patient not taking: Reported on 03/12/2022) levothyroxine (SYNTHROID) 125 mcg tablet Take 112 mcg by mouth once daily. (Patient not taking: Reported on 03/12/2022) No current facility-administered medications for this visit. ALLERGIES Allergen Reactions Hayfever [Homeopath* Itching watery itchy eyes Ancef [Cefazolin] Hives Shellfish Containin* Diarrhea, GI Upset PAST SURGICAL HISTORY Procedure Laterality Date ASPIRATION/BIOPSY Left breast FNA CHOLECYSTECTOMY HYSTERECTOMY HX 2013 PARTIAL MASTECTOMY Left 2020 FAMILY HISTORY Problem Relation Age of Onset Breast Cancer Paternal Aunt 63 triple negative reoccurance in her 70's Stroke Father 68 None Father no ms Social History Tobacco Use Smoking status: Never Smokeless tobacco: Never Vaping Use Vaping Use: Never used Substance Use Topics Alcohol use: Yes Comment: occasional Drug use: No REVIEW OF SYSTEMS GENERAL: Negative for Malaise, significant weight loss, fever RESPIRATORY: Negative for cough, wheezing and shortness of breath CARDIOVASCULAR: Negative for chest pain, leg swelling and palpitations GI: Negative for abdominal discomfort, blood in stools or black stools and change in bowel habits : Negative for dysuria, frequency and incontinence MUSCULOSKELETAL: Negative for joint pain or swelling, back pain, and muscle pain. SKIN: Negative for lesions, rash, and itching. HEMATOLOGY/LYMPHOLOGY Negative for prolonged bleeding, bruising easily, and swollen nodes. ENDOCRINE: Negative for cold or heat intolerance, polyuria, polydipsia and goiter. NEURO: negative Physical Exam: Constitutional: Pt is a well developed 56 year old female who is alert, oriented and cooperative Eyes: Following during examination. No redness or drainage. Respiratory: RR normal and nonlabored. Even breathing. No evidence of distress or shortness of breath. Psychology: Patient is engaged during conversation. Normal affect and mood. Does not appear depressed or anxious during encounter. Vascular: Dorsalis pedis and posterior tibial pulses palpable as b/l Capillary Fill time < 5 seconds to digits 1-5 b/l Skin temperature warm to warm proximal to distal b/l Hair growth present to digits Neurological: intact light touch/epicritic sensation - tinel b/l intact protective sensation no significant neurological deficits Dermatological: Nails 1-5 b/l appear normal. Webspaces clean and dry 1-4 b/l. Skin appears well hydrated and supple. good color, texture, turgor. No open lesions present. No callosities present. Musculoskeletal/Orthopaedic: Patient has pain to palpation of left plantar medial calcaneal tubercle Foot type is cavus structurally AJ ROM is full with knee extended and flexed 1st MPJ is decreased when loaded and no pain or crepitus are noted with ROM. Mild bunion of b/l 1st ray with decreased rom of b/l 1st mtpj consistent with arthritic bunion MTJ, STJ are full and free of pain and crepitus. +5/5 muscle strength dorsiflexion, plantarflexion, inversion, eversion b/l Radiographs: 3 views b/l foot ordered March 12, 2022: I have personally reviewed and interpreted these XR myself: there is high arch b/l. Mild bunion of b/l first ray with mild to moderate arthritis with subchondral cysts R>L ASSESSMENT: (M72.2) Plantar fasciitis of left foot (primary encounter diagnosis) (M20.5X1) Acquired hallux limitus of right foot PLAN: 1. History and physical examination performed. 2. XR reviewed with patient and interpreted today 3. Discussed plantar fasciitis of left foot. Recommend stretching, use of powerstep inserts, icing, over the counter pain relievers as needed. If pain and fails to improve, referral to physical therapy and/or steroid injection could be an option. 4. Discussed pain in right great toe. She has mild bunion deformity with moderate hallux limitus. Recommend firm sole shoes, one that limits bending of the first mtpj. Other options include steroid injection, custom orthotics with jensen extension and ultimately surgery. 5. Patient will monitor her right foot and perform stretching, icing and nsaids for left. If pain fails to improve, she can contact the office. Night splint ordered. Mobic ordered. Jonathan Rose DPM Podiatry [address] [facility] [address] Dept: [phone] Dept AMB ROOMING INTAKE FLOWSHEET DATA Risk Screening Do you have concerns about personal safety or safety in the home?: No Pain Pain Level: 8 (06/30 baseline 10 when walking) Pain Location: Other: See Comment (Left heel and right great toe) Description: Aching, Stabbing, Sharp Duration Amount of Time: 1 Duration Units: Years Frequency: Intermittent Intervention/Comfort measure: Reposition, Relaxation, Distractions Patient presents with: Left Heel - New, Pain Right Great Toe - New, Pain Right big toe joint pain x1 year. Left heel pain x3 months and getting worse. Filomena Edgar RN documented in this encounter [facility] 03-12-2022 Instructions Jonathan Milton - 03/12/2022 9:43 AM EDT Images from the original note were not included. What is Plantar Fasciitis? Plantar fasciitis is the most common cause of heel pain. The pain is caused by inflammation of the plantar fascia. If you strain your plantar fascia, it becomes weak, swollen and irritated (inflamed). The resulting pain may be isolated in the heel or may appear at different points on the bottom of the foot, from time to time; it may occur in one foot or both. Some think that plantar fasciitis pain is caused by irritation of nerves from tissue swelling or inflammation, but it is debatable. Plantar fasciitis is common in middle-aged people; it also occurs in younger people who are on their feet a lot, such as athletes or soldiers. The plantar fascia is a strong band of connective tissue that extends from the base of the toes, along the bottom of the foot, to the bottom of the heel (calcaneous bone); it acts like a bowstring to maintain the arch of the foot. What are heel spurs? The inflammatory reaction of the heel bone may produce spike-like projections of new bone, called heel spurs. The spurs sometimes show on X-rays. They neither cause the initial pain nor do they cause the initial problem. However, later, having to walk on spurs may cause sharp pain. What causes plantar fasciitis? Plantar fasciitis is caused by straining the ligament that supports your arch. Repeated strain can cause tiny tears in the ligament. These lead to pain and swelling. During walking, the plantar fascia experiences tension up to twice the body weight with each step. While this is normal, those who spend much time on their feet, such as nurses, softball umpire/waiters, and mail carriers, often experience plantar fasciitis. Athletes involved in tennis or other racquet sports, race walking, jogging or running also show a higher incidence of plantar fasciitis than do those participating in other activities. Thus, it's clear that plantar fasciitis is predominantly an overuse injury. In fact, any activity that results in prolonged tension and stress on the plantar fascia may cause plantar fasciitis. It is possible that changes in footwear may play a role in causing plantar fasciitis, no matter what activity is occurring. Those who are overweight are prone to plantar fasciitis. This is true even for sedentary people who get little physical activity. Abnormalities of the foot and ankle joints may predispose some individuals to development of plantar fasciitis (specifically, over pronation of the subtalar joint). Contributing Factors * Flat feet * Toe running, hill running * Sudden weight increase * High-arched, rigid feet * Soft terrain, e.g. running on sand * Obesity * Pronated feet (rolled inward) * Sudden increase in activity * Family tendency * Poor shoe support * Worn out or poorly fitted shoes * Increasing age * Walking, standing or running for long periods of time, especially on hard surfaces. How is the Injury Treated? Rest Your Feet: Limit, or if possible, stop activities that are causing your heel pain. Try to avoid running or walking on hard surfaces, such as concrete. Use pain as your guide. If your foot is too painful, rest it. Ice: Ice the sore area for 30 to 60 minutes, several times a day, to reduce inflammation and relieve pain. Apply a plastic bag of crushed ice (or a bag of frozen peas) over a towel. Ice the sore area for 15 minutes after activity/exercise. Application of heat is not generally recommended, as heat expands the bone and connective tissue, perhaps exerting greater pressure on nerves and thereby increasing pain. If heat is used, follow it with ice. Medication: If your condition developed recently, anti-inflammatory/analgesic medication, combined with heel pads (see below) may be all that is necessary to relieve pain and to reduce inflammation. If no pain relief has occurred after 2-3 weeks, however, your doctor may inject either cortisone or local anesthetic directly into the tender area. Exercises: Do simple exercises, such as calf stretches and towel stretches (see below) several times a day, especially when you first get up in the morning. These can help your ligament become more flexible and strengthen the muscles that support your arch. Shoes: Poorly fitting shoes can cause plantar fasciitis. The best type of shoe to wear is a good walking or running shoe with good shock absorption and excellent arch support. You should choose the one that fits the best. Dietrich with your athletic shoes to find a pair that is comfortable and causes fewer symptoms. Put your shoes on as soon as you get out of bed; going barefoot or wearing slippers may make your pain worse. Good brands include (but are not limited to): New Balance, Asics, Saucony, SAS and Merrel s. Taping: Your doctor may tape your foot to maintain the arch. This takes some of the tension off the plantar fascia. Weight Loss: If your weight is putting extra stress on your feet, your doctor may encourage you to try a weight-loss program. Orthotics: An orthotic insole is a molded piece of rubber, plastic, or other material that you insert into your shoe. It corrects the alignment of your foot and cushions your foot from excessive pounding. These may be prescription or non-prescription. Prescription orthotics are custom-fitted and may fit better and control pain better, but are very expensive. Night Splints: A night splint holds the foot with the toes pointed up and the ankle at a 90-degree angle. This position applies a constant, gentle stretch to the plantar fascia. Corticosteroid Shots: Steroids may be injected into the tender area to reduce inflammation. REHAB Exercises to stretch the plantar fascia, the calf muscles, and the Achilles tendon. Tightness of the muscles of the calves may contribute to plantar fasciitis, so stretching the calf muscles is important to rehabilitation, as is stretching of the plantar fascia itself. Plantar fascial stretches Assisted Dorsiflexion/Plantar Fascia Stretch: Sit on the floor or ground, barefoot, with both legs outstretched. Use a towel or elastic band and wrap it around the ball (and not the toes) of the affected foot. Use the towel or elastic band to provide resistance to upward movement of the forefoot. Pull foot upward (toward your body) with the help of the elastic band or towel, and then return to the starting position. Ten repetitions are recommended. Perform the sequence at least three times a day. Alternate Plantar Fascia Stretch: Sit upright in a chair, barefoot. Place the ankle of the affected foot on your opposite knee. Using the same hand as the affected foot, reach across and grab the toes. Flex the ankle toward and pull the toes toward the castro. To test the stretch, place the thumb of your hand on the bottom of the foot. You should be able to feel the cord-like plantar fascia, running the length of the foot. Hold the stretch for a count of 10, then relax. Repeat 10 times. Do the sequence at least three times a day. Achilles/Calf Stretches Strengthening the muscles of the calves may contribute to successful rehabilitation of plantar fasciitis, as well as prevent reoccurrence. The exercises below will help strengthen the calf muscles. Calf and Achilles Tendon Stretch (Gastrocnemius Stretch): Face a wall, standing an arm's length away. Place one foot back. Place both hands on the wall. Bend the elbows and knee of your forward leg, keeping the heel of the backward foot on the floor and keeping your body straight (aligned), until your forehead nearly touches the wall, or until significant stretch is felt in the muscles of the calf of the backward leg. Hold this position for 10 to 15 seconds. Extend elbows (straighten your arms and stand upright again) and maintain this position for 10 seconds. Repeat this cycle 15 to 20 times. Switch legs and repeat the exercise. documented in this encounter [facility] 03-12-2022 History of Present illness Narrative Radiology Service Progress Note PATIENT NAME: Marva Khan DATE OF SERVICE: March 12, 2022 TIME: 8:56 AM PATIENT IDENTITY VERIFICATION COMPLETED USING TWO (2) IDENTIFIERS: Name and Date of confirmed by patient verbally. FALL SCREENING: Has the patient had 2 falls in the last year or 1 fall with injury or currently using an Ambulatory Assistive Device (Walker, Cane, Wheelchair, Crutches, etc.)? No PATIENT GENDER DATA: Female. status: : No status: NO. PATIENT RELEVANT IMPLANT DATA REVIEWED: Not Applicable RADIOLOGY DEPARTMENT: General X-ray: Exam(s) Completed: Lower Extremity X-Ray(s): Foot, Bilateral and Wt. Bearing PERIPHERAL IV DATA: Not applicable SIGNED BY: RT Jose Antonio(Audra) March 12, 2022 8:56 AM documented in this encounter [facility] 12-30-2021 History of Present illness Narrative Radiology Service Progress Note PATIENT NAME: Marva Khan DATE OF SERVICE: December 30, 2021 TIME: 10:55 AM PATIENT IDENTITY VERIFICATION COMPLETED USING TWO (2) IDENTIFIERS: Name and Date of confirmed by patient verbally. FALL SCREENING: Has the patient had 2 falls in the last year or 1 fall with injury or currently using an Ambulatory Assistive Device (Walker, Cane, Wheelchair, Crutches, etc.)? No PATIENT GENDER DATA: Female. status: : No status: N/A PATIENT RELEVANT IMPLANT DATA REVIEWED: Not Applicable RADIOLOGY DEPARTMENT: Ultrasound PERIPHERAL IV DATA: Not applicable SIGNED BY: Zoraida Andrews RDMS T December 30, 2021 10:55 AM documented in this encounter [facility] 12-30-2021 History of Present illness Narrative Radiology Service Progress Note PATIENT NAME: Marva Khan DATE OF SERVICE: December 30, 2021 TIME: 9:28 AM PATIENT IDENTITY VERIFICATION COMPLETED USING TWO (2) IDENTIFIERS: Name and Date of confirmed by patient verbally. FALL SCREENING: Has the patient had 2 falls in the last year or 1 fall with injury or currently using an Ambulatory Assistive Device (Walker, Cane, Wheelchair, Crutches, etc.)? No PATIENT GENDER DATA: Female. status: : No status: NO. PATIENT RELEVANT IMPLANT DATA REVIEWED: Not Applicable RADIOLOGY DEPARTMENT: Mammography PERIPHERAL IV DATA: Not applicable SIGNED BY: Lindsay Ragland [employer] December 30, 2021 9:28 AM documented in this encounter [facility] 12-09-2021 History of Present illness Narrative Oncologic problem(s): 1) pT1b pN0(sln) M0 ER/WV positive, HER-2 nonamplified stage IA invasive ductal carcinoma the left breast HPI: Patient is a 54-year-old female the past medical history significant for hypothyroidism. She appreciated a lump in her left breast. Pathology: FINAL DIAGNOSIS: CORE BIOPSY OF LEFT BREAST MASS (1 O'CLOCK, 10 CM FROM NIPPLE) - INVASIVE MODERATELY DIFFERENTIATED DUCTAL CARCINOMA. COMMENT: The tumor is characterized by a near absence of tubule formation (tubule score = 3) and grade 2 nuclear atypia. Mitoses are rare (mitotic score = 1) for a total Melissa score of 6, corresponding to a grade II tumor. No in situ component is identified. No vascular invasion is found to be present. The largest focus of tumor in the biopsy measures 7 mm. This case was also reviewed by Dr. Derek Flores who agrees with the diagnosis. ER - - - - - Positive, 90%, [id number], diffuse staining. WV - - - - - Positive, 90%, strong diffuse staining. HER2 HER2 (ERBB2) IMMUNOHISTOCHEMISTRY ASSAY Interpretation: NEGATIVE for HER2 (ERBB2) Expression Score: 0 Underwent left-sided lumpectomy along with sentinel lymph node biopsy on 12/18/2019. Pathology: FINAL DIAGNOSIS: A) LEFT SENTINEL LYMPH NODE # 1 - NEGATIVE FOR MALIGNANCY. B) LEFT SENTINEL LYMPH NODE # 2 - NEGATIVE FOR MALIGNANCY. C) LEFT SENTINEL LYMPH NODE # 3 - NEGATIVE FOR MALIGNANCY. D) LEFT SENTINEL LYMPH NODE # 4 - NEGATIVE FOR MALIGNANCY. E) EXCISIONAL BIOPSY OF LEFT BREAST - 0.8 CM INVASIVE, MODERATELY DIFFERENTIATED DUCTAL CARCINOMA. PREVIOUS CORE BIOPSY SITE. RESECTION MARGINS ARE FREE OF TUMOR INVOLVEMENT. FIBROCYSTIC CHANGE WITH APOCRINE CYSTS, USUAL DUCTAL HYPERPLASIA, AND FLAT EPITHELIAL ATYPIA. F) NEW POSTERIOR MARGIN - NEGATIVE FOR MALIGNANCY. G) NEW SUPERIOR MARGIN - NEGATIVE FOR MALIGNANCY. H) NEW INFERIOR MARGIN - FIBROCYSTIC CHANGE WITH APOCRINE CYSTS AND USUAL DUCTAL HYPERPLASIA. NEGATIVE FOR MALIGNANCY. I) NEW MEDIAL MARGIN - NEGATIVE FOR MALIGNANCY. J) NEW LATERAL MARGIN - NEGATIVE FOR MALIGNANCY. K) NEW ANTERIOR MARGIN - NEGATIVE FOR MALIGNANCY. Invasive Carcinoma of the Breast Cancer Case Summary Procedure: Excision. Specimen laterality: Left. Tumor size: 0.8 cm (as measured on the microscopic slide). Histologic type: Invasive ductal carcinoma of no special type. Histologic grade: Glandular: 3. Nuclear: 2. Mitotic rate: 1. Overall grade: 6 corresponding to a grade 2 tumor. Tumor focality: Single focus of invasive carcinoma. DCIS: Not identified. Lymphovascular invasion: Not identified. Tumor extension: Skin: Not included in the specimen. Nipple: Not included in the specimen. Skeletal muscle: Not included in the specimen. Margins - Invasive carcinoma: Negative. Distance to closest margin: Approximately 1.5 cm. Specify margin: Medial. Regional lymph nodes: Number of sentinel nodes examined: 4. Total number of nodes examined: 4. Number involved: None. Pathologic stage: pT1b pN0(sn). Had hysterectomy 2012 with removal of one ovary for endometrioma. Has remaining ovary--evidently biochemical menopause documented. Presents for ongoing oncologic management. Interim history: Was intolerant to all 3 AIs. Cough with anastrozole, but had covid. Did not want to try tamoxifen due to potential CVS risks. PMH, medications and allergies personally reviewed by me today. Any changes documented in appropriate section. ROS: Constitutional: Denies episodes of fever and night sweats. Not significantly fatigued. Normal appetite. Neuro: Denies OLIVEIRA, vertigo, dizziness and imbalance. Denies symptoms of neuropathy. HEENT: No recent change in voice, vision or hearing. Resp: Denies cough, wheeze and hemoptysis. Denies shortness of breath at rest. Denies PARRA. CVS: Denies exertional chest pain, PND, orthopnea and LE edema. GI: Denies dysgeusia. Denies symptoms of stomatitis. Denies dysphagia and odynophagia. Denies reflux, n/v, change in bowel habits and abdominal pain. : Denies dysuria or gross hematuria. No symptoms of bladder outlet obstruction. Endo: Denies hot flashes. Denies polyuria and polydipsia. Denies heat and cold intolerance. Musculoskeletal: Denies bone, back, joint and muscular pain. Derm: Denies rash. Denies jaundice and diffuse pruritis. Heme: Denies unusual bleeding and unexplained bruising. Psych: Normal mood. PHYSICAL EXAM: Vitals: Blood pressure 132/83, pulse 60, temperature 36.4 C (97.5 F), weight 90.9 kg (200 lb 8 oz), SpO2 96 %. Well-appearing and in no acute distress. EYES: Sclerae are anicteric bilaterally. ENT: Oral mucosa is unremarkable. There is no sign of thrush or mucositis. NECK: Supple. No enlargement of thyroid. LYMPHATIC: There is no palpable cervical, supraclavicular, axillary or inguinal adenopathy. RESPIRATORY: Inspiratory breath sounds are of normal intensity in all reddy. No rales, wheezes or rhonchi. Expiratory phase is normal. CARDIOVASCULAR: Rhythm is regular. Normal intensity S1/S2. There is no gallop or murmur. 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 Well-healing incision upper outer quadrant of the breast. All underlying mass or induration. ABDOMEN: The abdomen is nondistended. No organomegaly. No tenderness. Extremities: No swelling or edema. SKIN: No jaundice or rash. No petechiae. 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 No focal motor weakness. ASSESSMENT/PLAN: (C50.412, Z17.0) Malignant neoplasm of upper-outer quadrant of left breast in female, estrogen receptor positive (HCC) (primary encounter diagnosis) Assessment: -pT1b pN0(sln) M0 ER/WV positive, HER-2 nonamplified stage IA invasive ductal carcinoma the left breast. -Oncotype DX test. Recurrence score 8. Estimated distant recurrence at 9 years with either aromatase inhibitor or tamoxifen alone 3%. -Was intolerant to all 3 AI medications and tamoxifen. -Reviewed the results of recent screening mammogram. Postoperative findings, surgical clips in the lumpectomy cavity and left breast. There was however an asymmetry in the left breast posterior depth outer region seen on craniocaudal view only. Diagnostic images and ultrasound recommended. -Used on [facility] predict analysis to illustrate potential benefit of aromatase inhibitor therapy on overall survival. After balance discussion of the potential side effects and potential benefits, she agreed to another trial of of anastrozole. -Discussed bone health issues. -Normal bone density 08/2020. Plan: -Diagnostic mammogram and US as scheduled. -Trial of anastrozole. -Check vitamin D. -She will be a candidate for every 6-month Zometa for up to 3 years beginning in about 6 months. Dental clearance form provided to her. -OV in about 6 weeks. Portions of this documentation were copied and pasted from previous office visit notes in order to provide a cohesive continuity of the history. The note has been reviewed and edited and updated as necessary. During this patient visit I have spent approximately 25 minutes out of 35 in counseling regarding medications and test results and coordinating care. Aman Cardoso DO documented in this encounter [facility] 11-24-2019 History of Past i llness Narrative Problem Noted Date Resolved Date Dense breast tissue 11/24/2019 11/30/2022 Acquired hypothyroidism 10/31/2015 11/06/19 17 documented as of this encounter (statuses as of 12/18/2022) [facility] History of Past illness Narrative* Problem Noted Date Diagnosed Date Resolved Date Dense breast tissue 11/24/2019 12/01/19 23 Acquired hypothyroidism 10/31/201510/19 documented as of this encounter (statuses as of 04/27/2023) [facility] History of Past illness Narrative* Problem Noted Date Diagnosed Date Resolved Date Dense breast tissue 11/24/2019 12/01/19 23 Acquired hypothyroidism 10/31/201510/19 documented as of this encounter (statuses as of 04/28/2023) [facility] History of Past illness Narrative* Problem Noted Date Diagnosed Date Resolved Date Dense breast tissue 11/24/2019 12/01/19 23 Acquired hypothyroidism 10/31/201510/19 documented as of this encounter (statuses as of 04/30/2023) [facility] History of Past illness Narrative* Problem Noted Date Diagnosed Date Resolved Date Dense breast tissue 11/24/2019 12/01/19 23 Acquired hypothyroidism 10/31/201510/19 documented as of this encounter (statuses as of 05/01/2023) [facility] History of Past illness Narrative* Problem Noted Date Diagnosed Date Resolved Date Dense breast tissue 11/24/2019 12/01/19 23 Acquired hypothyroidism 10/31/201510/19 documented as of this encounter (statuses as of 05/19/2023) [facility] History of Past illness Narrative* Problem Noted Date Diagnosed Date Resolved Date Dense breast tissue 11/24/2019 12/01/19 23 Acquired hypothyroidism 10/31/201510/19 documented as of this encounter (statuses as of 07/24/2023) [facility] History of Past illness Narrative* Problem Noted Date Diagnosed Date Resolved Date Dense breast tissue 11/24/2019 12/01/19 23 Acquired hypothyroidism 10/31/201510/19 documented as of this encounter (statuses as of 08/10/2023) [facility] of Past illness Narrative* Problem Noted Date Resolved Date Acquired hypothyroidism 10/31/2015 11/06/19 17 documented as of this encounter (statuses as of 11/25/2021) [facility] of Past illness Narrative* Problem Noted Date Resolved Date Acquired hypothyroidism 10/31/2015 11/06/19 17 documented as of this encounter (statuses as of 12/09/2021) [facility] of Past illness Narrative* Problem Noted Date Resolved Date Acquired hypothyroidism 10/31/2015 11/06/19 17 documented as of this encounter (statuses as of 12/31/2021) [facility] of Past illness Narrative* Problem Noted Date Resolved Date Acquired hypothyroidism 10/31/2015 11/06/19 17 documented as of this encounter (statuses as of 12/31/2021) [facility] of Past illness Narrative* Problem Noted Date Resolved Date Acquired hypothyroidism 10/31/2015 11/06/19 17 documented as of this encounter (statuses as of 03/11/2022) [facility] illness Narrative* Problem Noted Date Resolved Date Acquired hypothyroidism 10/31/2015 11/06/19 17 documented as of this encounter (statuses as of 03/13/2022) [facility] illness Narrative* Problem Noted Date Resolved Date Acquired hypothyroidism 10/31/2015 11/06/19 17 documented as of this encounter (statuses as of 03/14/2022) [facility] illness Narrative* Problem Noted Date Resolved Date Acquired hypothyroidism 10/31/2015 11/06/19 17 documented as of this encounter (statuses as of 05/04/2022) [facility] Narrative* Problem Noted Date Resolved Date Acquired hypothyroidism 10/31/2015 11/06/19 17 documented as of this encounter (statuses as of 07/31/2022) [facility] Narrative* Problem Noted Date Resolved Date Acquired hypothyroidism 10/31/2015 11/06/19 17 documented as of this encounter (statuses as of 08/06/2022) [facility] illness Narrative* Problem Noted Date Resolved Date Acquired hypothyroidism 10/31/2015 11/06/19 17 documented as of this encounter (statuses as of 08/06/2022) [facility] + Plan note No data available for this section [facility] Evaluation note* Diagnosis Onset Date Resolution Status Palpitations acute [facility] Work Phone: evaluation note* Diagnosis Malignant neoplasm of upper-outer quadrant of left breast in female, estrogen receptor positive (HCC)- Primary documented in this encounter [facility] note* Diagnosis Onset Date Resolution Status Palpitations acute 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 acute [facility] Work Phone: Evaluation note* Diagnosis Malignant neoplasm of upper-outer quadrant of left breast in female, estrogen receptor positive (HCC) Abnormal mammogram of left breast documented in this encounter [facility] note* Diagnosis Malignant neoplasm of upper-outer quadrant of left breast in female, estrogen receptor positive (HCC) Abnormal mammogram of left breast documented in this encounter [facility] noteNo assessment information [facility]WM[facility] Work Phone: evaluation note* Diagnosis Pain- Primary Generalized pain documented in this encounter [facility] note* Diagnosis Pain Generalized pain documented in this encounter [facility] note* Diagnosis Plantar fasciitis of left foot- Primary Plantar fascial fibromatosis Acquired hallux limitus of right foot documented in this encounter [facility] note* Diagnosis Encounter for cosmetic surgery- Primary Other plastic surgery for unacceptable cosmetic appearance [facility] Diagnosis Unspecified lump in axillary tail of the right breast Mass overlapping multiple quadrants of left breast documented in this encounter [facility] note* Diagnosis Chest pain, unspecified type- Primary Abnormal ECG Nonspecific abnormal electrocardiogram (ECG) (EKG) documented in this encounter [facility] note* Diagnosis Unspecified lump in axillary tail of the right breast Mass overlapping multiple quadrants of left breast History of breast cancer Personal history of malignant neoplasm of breast documented in this encounter [facility] note* Diagnosis Mass overlapping multiple quadrants of left breast- Primary [facility]* Diagnosis Chest pain, unspecified type Abnormal ECG Nonspecific abnormal electrocardiogram (ECG) (EKG) documented in this encounter [facility] note* Diagnosis Mass overlapping multiple quadrants of left breast [facility]* Diagnosis 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 documented in this encounter [facility] note* Diagnosis Papilloma of right breast- Primary documented in this encounter [facility] note* Diagnosis Encounter for cosmetic surgery- Primary Other plastic surgery for unacceptable cosmetic appearance documented in this encounter [facility] note* Diagnosis Dense breast tissue- Primary Malignant neoplasm of upper-outer quadrant of left breast in female, estrogen receptor positive (HCC) Malignant neoplasm of upper-outer quadrant of left breast in female, estrogen receptor positive (HCC)- Primary Dense breast tissue Lump of left breast- Primary Lump or mass in breast Malignant neoplasm of upper-outer quadrant of left breast in female, estrogen receptor positive (HCC) Unspecified lump in axillary tail of the right breast- Primary Mass overlapping multiple quadrants of left breast History of breast cancer Personal history of malignant neoplasm of breast Lymphedema of breast Other lymphedema Papilloma of right breast- Primary Malignant neoplasm of upper-outer quadrant of left breast in female, estrogen receptor positive (HCC) 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]- Primary Supraventricular tachycardia (HCC) Other specified cardiac dysrhythmias 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 Pre-op testing Preoperative examination, unspecified Papilloma of right breast documented in this encounter [facility] note* Diagnosis Dense breast tissue- Primary Malignant neoplasm of upper-outer quadrant of left breast in female, estrogen receptor positive (HCC) Malignant neoplasm of upper-outer quadrant of left breast in female, estrogen receptor positive (HCC)- Primary Dense breast tissue Lump of left breast- Primary Lump or mass in breast Malignant neoplasm of upper-outer quadrant of left breast in female, estrogen receptor positive (HCC) Unspecified lump in axillary tail of the right breast- Primary Mass overlapping multiple quadrants of left breast History of breast cancer Personal history of malignant neoplasm of breast Lymphedema of breast Other lymphedema Papilloma of right breast- Primary Malignant neoplasm of upper-outer quadrant of left breast in female, estrogen receptor positive (HCC) 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]- Primary Supraventricular tachycardia (HCC) Other specified cardiac dysrhythmias 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 History of left breast cancer. 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 Final pathology showed 4 negative lymph nodes and 0.8 cm cancer with negative margins. Final pathological stage IA [pT1b(0.8cm)N0(0/4)M0]. Completed adjuvant radiation in January 2020. Seeing Dr Cardoso. No chemo due to low oncotype.Unable to tolerate adjuvant endocrine. She is status post excision of papilloma of right breast on 07/30/23. Pathology benign. Today, mammograms and clinical exam negative. According to NCCN guidelines, she should have an H&P 1-4 times per year and annual mammograms. Discussed MRI for surveillance due to dense tissue and difficult clinical exam. Follow up in survivorship in 6 months with MRI. [facility] Dense [facility] tissue- Primary Malignant neoplasm of upper-outer quadrant of left breast in female, estrogen receptor positive (HCC) Malignant neoplasm of upper-outer quadrant of left breast in female, estrogen receptor positive (HCC)- Primary Dense breast tissue Lump of left breast- Primary Lump or mass in breast Malignant neoplasm of upper-outer quadrant of left breast in female, estrogen receptor positive (HCC) Unspecified lump in axillary tail of the right breast- Primary Mass overlapping multiple quadrants of left breast History of breast cancer Personal history of malignant neoplasm of breast Lymphedema of breast Other lymphedema Papilloma of right breast- Primary Malignant neoplasm of upper-outer quadrant of left breast in female, estrogen receptor positive (HCC) 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]- Primary Supraventricular tachycardia (HCC) Other specified cardiac dysrhythmias 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 Pre-op testing Preoperative examination, unspecified Malignant neoplasm of female breast, unspecified estrogen receptor status, unspecified laterality, unspecified site of breast (HCC)- Primary Papilloma of right breast History of breast cancer Personal history of malignant neoplasm of breast Personal history of breast cancer- Primary Personal history of malignant neoplasm of breast Abnormal CT of the abdomen Nonspecific (abnormal) findings on radiological and other examination of abdominal area, including retroperitoneum [facility] Diagnosis Dense breast tissue- Primary Malignant neoplasm of upper-outer quadrant of left breast in female, estrogen receptor positive (HCC) Malignant neoplasm of upper-outer quadrant of left breast in female, estrogen receptor positive (HCC)- Primary Dense breast tissue Lump of left breast- Primary Lump or mass in breast Malignant neoplasm of upper-outer quadrant of left breast in female, estrogen receptor positive (HCC) Unspecified lump in axillary tail of the right breast- Primary Mass overlapping multiple quadrants of left breast History of breast cancer Personal history of malignant neoplasm of breast Lymphedema of breast Other lymphedema Papilloma of right breast- Primary Malignant neoplasm of upper-outer quadrant of left breast in female, estrogen receptor positive (HCC) 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]- Primary Supraventricular tachycardia (HCC) Other specified cardiac dysrhythmias 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 Pre-op testing Preoperative examination, unspecified Malignant neoplasm of female breast, unspecified estrogen receptor status, unspecified laterality, unspecified site of breast (HCC)- Primary Papilloma of right breast History of breast cancer Personal history of malignant neoplasm of breast Gastritis, presence of bleeding unspecified, unspecified chronicity, unspecified gastritis type- Primary Personal history of breast cancer Personal history of malignant neoplasm of breast Abnormal CT of the abdomen Nonspecific (abnormal) findings on radiological and other examination of abdominal area, including retroperitoneum Colon cancer screening Special screening for malignant neoplasms, colon documented in this encounter [facility] note* Diagnosis Dense breast tissue- Primary Malignant neoplasm of upper-outer quadrant of left breast in female, estrogen receptor positive (HCC) Malignant neoplasm of upper-outer quadrant of left breast in female, estrogen receptor positive (HCC)- Primary Dense breast tissue Lump of left breast- Primary Lump or mass in breast Malignant neoplasm of upper-outer quadrant of left breast in female, estrogen receptor positive (HCC) Unspecified lump in axillary tail of the right breast- Primary Mass overlapping multiple quadrants of left breast History of breast cancer Personal history of malignant neoplasm of breast Lymphedema of breast Other lymphedema Papilloma of right breast- Primary Malignant neoplasm of upper-outer quadrant of left breast in female, estrogen receptor positive (HCC) 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]- Primary Supraventricular tachycardia (HCC) Other specified cardiac dysrhythmias 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 Pre-op testing Preoperative examination, unspecified Malignant neoplasm of female breast, unspecified estrogen receptor status, unspecified laterality, unspecified site of breast (HCC)- Primary Papilloma of right breast History of breast cancer Personal history of malignant neoplasm of breast Malignant neoplasm of female breast, unspecified estrogen receptor status, unspecified laterality, unspecified site of breast (HCC) documented in this encounter [facility] note* Diagnosis Dense breast tissue- Primary Malignant neoplasm of upper-outer quadrant of left breast in female, estrogen receptor positive (HCC) Malignant neoplasm of upper-outer quadrant of left breast in female, estrogen receptor positive (HCC)- Primary Dense breast tissue Lump of left breast- Primary Lump or mass in breast Malignant neoplasm of upper-outer quadrant of left breast in female, estrogen receptor positive (HCC) Unspecified lump in axillary tail of the right breast- Primary Mass overlapping multiple quadrants of left breast History of breast cancer Personal history of malignant neoplasm of breast Lymphedema of breast Other lymphedema Papilloma of right breast- Primary Malignant neoplasm of upper-outer quadrant of left breast in female, estrogen receptor positive (HCC) 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]- Primary Supraventricular tachycardia (HCC) Other specified cardiac dysrhythmias 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 Pre-op testing Preoperative examination, unspecified Malignant neoplasm of female breast, unspecified estrogen receptor status, unspecified laterality, unspecified site of breast (HCC)- Primary Papilloma of right breast History of breast cancer Personal history of malignant neoplasm of breast Malignant neoplasm of female breast, unspecified estrogen receptor status, unspecified laterality, unspecified site of breast (HCC)- Primary Papilloma of right breast Unspecified lump in axillary tail of the right breast Breast pain, left Mastodynia Breast pain, right Mastodynia documented in this encounter [facility] Discharge instructions Additional Instructions Please continue to check your blood pressure a few times each week but deya's visit did not show any signs of endorgan damage associated with this and without treatment your blood pressure returned to normal. Follow-up with your family doctor to discuss need for further testing or the beginning of blood pressure medications and return to the ER should you have any further [facility] Work Phone: Hospital Discharge instructions No data available for this section [facility] Progress note No data available for this section [facility] Reason for referral (narrative)* Diagnostic Procedure Only (Routine) - Closed Specialty Diagnoses / Procedures Referred By Mikaelaac t Referred To Contact [facility] Diagnoses Malignant neoplasm of upper-outer quadrant of left breast in female, estrogen receptor positive (HCC) Abnormal mammogram of left breast Procedures US BREAST LTD LT BREAST [facility] REAL TIME WITH IMAGE LIMITED Isabel Watt APRN.CNP [address] [place] [address] [facility] [address] [place] [address] Referral ID Status Reason Start Date Expiration Date V isits Requested Visits Authorized [id number] Closed Auto-Generate d Referral 11/25/2021 12/25/2022 1 1 [facility] for referral (narrative)* Diagnostic Procedure Only (Routine) - Authorized Specialty Diagnoses / Procedures Referred By Contac t Referred To Contact XR IMAGING Diagnoses Pain Procedures XR FOOT GENERAL 3V AP/LAT/OBL BILATERAL RADEX FOOT COMPLETE MINIMUM 3 VIEWS MiltonJonathan [address] [place] [address] Xr Imaging Referral ID Status Reason Start Date Expiration Date Visits Requested Visits Authorized [id number] Authorized Auto-Generat ed Referral 03/11/2022 04/10/2023 1 1 [facility] for referral (narrative)* Diagnostic Procedure Only (Routine) - Closed Specialty Diagnoses / Procedures Referred By Contac t Referred To Contact XR IMAGING Diagnoses Pain Procedures XR FOOT GENERAL 3V AP/LAT/OBL BILATERAL RADEX FOOT COMPLETE MINIMUM 3 VIEWS [place] [address] [place] [address] Xr Imaging Referral ID Status Reason Start Date Expiration Date V isits Requested Visits Authorized [id number] Closed Auto-Generate d Referral 03/11/2022 04/10/2023 1 1 [facility] for referral (narrative)* Diagnostic Procedure Only (Routine) - Closed Specialty Diagnoses / Procedures Referred By Contac t Referred To Contact [facility] Diagnoses Unspecified lump in axillary tail of the right breast Procedures US BREAST LTD RIGHT US BREAST UNI REAL TIME WITH IMAGE LIMITED Filomena Rizvi MD [address] [place] [place] [address] [facility] [address] [place] [address] Referral ID Status Reason Start Date Expiration Date V isits Requested Visits Authorized [id number] Closed Auto-Generate d Referral 11/30/2022 12/30/2023 1 1 * Diagnostic Procedure Only (Routine) - Closed Specialty Diagnoses / Procedures Referred By Contac t Referred To Contact [facility] Diagnoses Mass overlapping multiple quadrants of left breast Procedures US BREAST LTD LEFT US BREAST UNI REAL TIME WITH IMAGE LIMITED Filomena Rizvi MD [address] [place] [address] [facility] [address] [place] [address] Referral ID Status Reason Start Date Expiration Date V isits Requested Visits Authorized [id number] Closed Auto-Generate d Referral 11/30/2022 12/30/2023 1 1 * Diagnostic Procedure Only (Routine) - Closed Specialty Diagnoses / Procedures Referred By Contjoao t Referred To Contact [facility] Diagnoses Unspecified lump in axillary tail of the right breast Mass overlapping multiple quadrants of left breast Procedures BRYSON DIAG W GEOFFREY BILATERAL DIGITAL BREAST TOMOSYNTHESIS BILATERAL Filomena Rizvi MD [address] [facility] [address] [place] [address] [facility] [address] [place] [address] Referral ID Status Reason Start Date Expiration Date V isits Requested Visits Authorized [id number] Closed Auto-Generate d Referral 11/30/2022 12/30/2023 1 1 [facility] for referral (narrative)* Diagnostic Procedure Only (Routine) - Closed Specialty Diagnoses / Procedures [facility] Referred To Contact [facility] Diagnoses Mass overlapping multiple quadrants of left breast Procedures US BREAST LTD RIGHT US BREAST UNI REAL TIME WITH IMAGE LIMITED Filomena Rizvi MD 1 [address] T[address] Rol[address] FLR [place] [address] [facility] [address] [place] [address] Referral ID Status Reason Start Date Expiration Date V isits Requested Visits Authorized [id number] Closed Auto-Generate d Referral 04/29/2023 05/28/2024 1 1 [facility] for referral (narrative)* Diagnostic Procedure Only (Routine) - Authorized Specialty Diagnoses / Procedures Referred By Contac t Referred To Contact BR IMAGING Diagnoses Papilloma of right breast Procedures BYRSON DIAG W GEOFFREY BILATERAL DIGITAL BREAST TOMOSYNTHESIS BILATERAL Filomena Rizvi MD [address] 1ST [place] [address] [facility] [address] [place] [address] Referral ID Status Reason Start Date Expiration Date Visits Requested Visits Authorized [id number] Authorized Auto-Generat ed Referral 08/10/2023 09/08/2024 1 1 [facility] for referral (narrative)* Diagnostic Procedure Only (Routine) - Closed Specialty Diagnoses / Procedures [facility] Referred To Contact BR IMAG[facility] Diagnoses Papilloma of right breast Procedures BRYSON DIAG W GEOFFREY BILATERAL DIGITAL BREAST TOMOSYNTHESIS BILATERAL Filomena Rizvi MD 1 [facility] 1ST OHR [facility] [place] [address] Br Imaging [address] [place] [address] Referral ID Status Reason Start Date Expiration Date V isits Requested Visits Authorized [id number] Closed Auto-Generate d Referral 08/10/2023 09/08/2024 1 1 [facility] for referral (narrative)* Outpatient Procedure (Routine) - Authorized Specialty Diagnoses / Procedures [facility] Referred To Contact [facility] Diagnoses Personal history of breast cancer Colon cancer screening Procedures COLONOSCOPY SCREENING COLONOSCOPY FLX DX W/COLLJ SPEC WHEN Suzanne Dawn PA-C [address] [place] [address] [facility] [address] [place] [address] Referral ID Status Reason Start Date Expiration Date Visits Requested Visits Authorized [id number] Authorized Auto-Generat ed Referral 05/30/2025 1 1 * Outpatient Procedure (Routine) - Authorized Specialty Diagnoses / Procedures Referred By Bob kern Referred To Contact [facility] Diagnoses Abnormal CT of the abdomen Gastritis, presence of bleeding unspecified, unspecified chronicity, unspecified gastritis type Procedures EGD DIAGNOSTIC ESOPHAGOGASTRODUODENOSC OPY TRANSORAL DIAGNOSTIC Suzanne Gonzalez PA-C [address] [place] [address] [facility] [address] [place] [address] Referral ID Status Reason Start Date Expiration Date Visits Requested Visits Authorized [id number] Authorized Auto-Generat ed Referral 4 05/30/2025 1 1 [facility] for visit Narrative* Diagnostic Procedure Only (Routine) - Closed Specialty Diagnoses / Procedures Referred By Bob kern Referred To Contact BR IMAGING Diagnoses Malignant neoplasm of upper-outer quadrant of left breast in female, estrogen receptor positive (HCC) Abnormal mammogram of left breast Procedures BRYSON DIAGNOSTIC LT DIAGNOSTIC MAMMOGRAPHY COMPUTER-AIDED DETCJ [facility] Isabel Watt, AUDI.JEREMIAH [address] [place] [address] [facility] [address] [place] [address] Referral ID Status Reason Start Date Expiration Date V isits Requested Visits Authorized [id number] Closed Auto-Generate d Referral 11/25/2021 12/25/2022 1 1 [facility] for visit Narrative* Diagnostic Procedure Only (Routine) - Closed Specialty Diagnoses / Procedures Referred By Bob t Referred To Contact XR IMAGING Diagnoses Pain Procedures XR FOOT GENERAL 3V AP/LAT/OBL BILATERAL RADEX FOOT COMPLETE MINIMUM 3 VIEWS Jonathan Rose [address] [place] [address] Xr Imaging Referral ID Status Reason Start Date Expiration Date V isits Requested Visits Authorized [id number] Closed Auto-Generate d Referral 03/11/2022 04/10/2023 1 1 [facility] for visit Narrative* Diagnostic Procedure Only (Routine) - Closed Specialty Diagnoses / Procedures Referred By Bob t Referred To Contact BR IMAGING Diagnoses Unspecified lump in axillary tail of the right breast Mass overlapping multiple quadrants of left breast Procedures BRYSON DIAG W GEOFFREY BILATERAL DIGITAL BREAST TOMOSYNTHESIS BILATERAL Filomena Rizvi MD 1 [facility] 1ST [place] [address] [facility] [address] [place] [address] Referral ID Status Reason Start Date Expiration Date V isits Requested Visits Authorized [id number] Closed Auto-Generate d Referral 11/30/2022 12/30/2023 1 1 [facility] for visit Narrative* Diagnostic Procedure Only (Routine) - Closed Specialty Diagnoses / Procedures Referred By Bob kern Referred To Contact BR IMAG[facility] Diagnoses Mass overlapping multiple quadrants of left breast Procedures US BREAST LTD RIGHT US BREAST UNI REAL TIME WITH IMAGE LIMITED Filomena Rizvi MD 1 [facility] 1ST FLR [facility] [place] [address] [facility] [address] [place] [address] Referral ID Status Reason Start Date Expiration Date V isits Requested Visits Authorized [id number] Closed Auto-Generate d Referral 04/29/2023 05/28/2024 1 1 [facility] for visit Narrative* Diagnostic Procedure Only (Routine) - Closed Specialty Diagnoses / Procedures Referred By Bob kern Referred To Contact BR IMAGING Diagnoses Papilloma of right breast Procedures US LOC BREAST RIGHT PERQ BREAST LOC [facility] 1ST [place]ES[place] US IMAG Filomena Rizvi MD 1 [facility] 1[address] [place] [address] [facility] [address] [place] [address] Referral ID Status Reason Start Date Expiration Date V isits Requested Visits Authorized [id number] Closed Auto-Generate d Referral 06/09/2023 2024 1 1 [facility] for visit Narrative* Diagnostic Procedure Only (Routine) - Closed Specialty Diagnoses / Procedures Referred By Bob kern Referred To Contact BR IMAGING Diagnoses Papilloma of right breast Procedures BRYSON DIAG W GEOFFREY BILATERAL DIGITAL BREAST TOMOSYNTHESIS BILATERAL Filomena Rizvi MD 1 [facility] 1[address] [place] [address] Br Imaging [address] [place] [address] Referral ID Status Reason Start Date Expiration Date V isits Requested Visits Authorized [id number] Closed Auto-Generate d Referral 08/10/2023 09/08/2024 1 [facility] (Routine) - Closed Specialty Diagnoses / Procedures Referred By Bob kern Referred To Contact MR IMAGING Diagnoses Malignant neoplasm of female breast, unspecified estrogen receptor status, unspecified laterality, unspecified site of breast (HCC) Procedures MRI BREAST WO/W IVCON BILATERAL MRI BREAST WITHOUT&WITH CONTRAST W/CAD BILATERAL Filomena Rizvi MD [address] [facility] [place] [address] Phone: tel: fax: [place] [address] Referral ID Status Reason Start Date Expiration Date V isits Requested Visits Authorized [id number] Closed Auto-Generate d Referral 10/02/2024 11/30/2024 1 1 [facility] Summary Purpose Family History No Family History Records Found Relationship Condition Age at Onset Recorded Date/T kassandra aunt Malignant neoplasm of breast Unknown grandfather Malignant neoplasm of prostate Unknown Advance Directives No Advanced Directives Records FoundDocuments on File Type Date Recorded 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 Advance Directive(s) 12/18/2019 6:54 AM Documents on File Type Date Recorded 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 Advance Directive(s) 12/18/2019 6:54 AM Advance Directive Response Recorded Date/ Time Living Will No October 07, 2022 12:49am Power of Quarter Lining Smoother No October 07 12:49am Chief Complaint and Reason for Visit Chief Complaint Amb Documentation PALPS (SELF) PALPITATIONS Reason for Visit Palpitations Chief Complaint Amb Documentation PALPS (SELF) PALPITATIONS ER FU Reason for Visit Palpitations 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 Chief Complaint LEFT SIDED FACIAL WE AKNESS Chief Complaint LEFT SIDED FACIAL WE AKNESS BACK, HIP, AND LEG PAIN Chief Complaint LEFT SIDED FACIAL WE AKNESS BACK, HIP, AND LEG PAIN LUMBAR RAD Chief Complaint BACK, HIP, AND LEG P AIN LUMBAR RAD htn Reason for Referral Specialty Diagnoses / Procedures Referred By Contac t Referred To Contact CT IMAGING Diagnoses Chest pain, unspecified type Abnormal ECG Procedures CTA CORONARY W IVCON CTA HRT CORNRY ART/BYPASS GRFTS CONTRST 3D POST Audrey Rowe MD [address] [place] [address] Ct Imaging [place] [address] Referral ID Status Reason Start Date Expiration Date Visits Requested Visits Authorized [id number] Authorized Auto-Generat ed Referral 04/26/2023 05/25/2024 1 1 Specialty Diagnoses / Procedures Referred By Contac t Referred To Contact [facility] [place] Diagnoses Chest pain, unspecified type Abnormal ECG Procedures ECHO ECHO TTHRC R-T 2D W/WOM-MODE COMPL SPEC&COLR D Audrey Rowe MD [address] [place] [address] [place] [address] Referral ID Status Reason Start Date Expiration Date Visits Requested Visits Authorized [id number] Authorized Auto-Generat ed Referral 04/27/2023 04/25/2024 1 1 Specialty Diagnoses / Procedures Referred By Contac t Referred To Contact [facility] [place] Diagnoses Chest pain, unspecified type Abnormal ECG Procedures ECG COMPLETE ECG ROUTINE ECG W/LEAST 12 LDS W/I&R Audrey Rowe MD [address] [place] [address] [address] [place] [address] Referral ID Status Reason Start Date Expiration Date Visits Requested Visits Authorized [id number] Pending Review Auto-Generat ed Referral 04/26/2023 04/25/2024 1 1 Specialty Diagnoses / Procedures Referred By Contac t Referred To Contact Procedures CARDIOVASCULAR MEDICINE OP FOLLOW UP APPT ORDER Audrey Rowe MD [address] [place] [address] Referral ID Status Reason Start Date Expiration Date Visits Requested Visits Authorized [id number] Ref Not Required PCP Requested Referral 05/26/2023 04/25/2024 1 1 Specialty Diagnoses / Procedures Referred By Contac t Referred To Contact MR IMAGING Diagnoses Mass overlapping multiple quadrants of left breast Procedures MRI BREAST BX WO/W IVCON RIGHT BX BREAST W/DEVICE 1ST LESION MAGNETIC RES GUID Filomena Rizvi MD [address] [place] [address] [place] [address] Referral ID Status Reason Start Date Expiration Date Visits Requested Visits Authorized [id number] Pending Review Auto-Generat ed Referral 04/29/2023 05/28/2024 1 1 Specialty Diagnoses / Procedures Referred By Contac t Referred To Contact BR IMAGING Diagnoses Mass overlapping multiple quadrants of left breast Procedures US BIOPSY BREAST RIGHT BX BREAST W/DEVICE 1ST LESION ULTRASOUND GUID Filomena Rizvi MD [address] 1[address] [place] [address] [facility] [address] [place] [address] Referral ID Status Reason Start Date Expiration Date Visits Requested Visits Authorized [id number] Pending Review Auto-Generat ed Referral 04/29/2023 05/28/2024 1 1 Specialty Diagnoses / Procedures Referred By Contac t Referred To Contact BR IMAGING Diagnoses Mass overlapping multiple quadrants of left breast Procedures US BREAST LTD RIGHT US BREAST UNI REAL TIME WITH IMAGE LIMITED Filomena Rizvi MD 1 [facility] [place] [address] [facility] Imaging [address] [place] [address] Referral ID Status Reason Start Date Expiration Date Visits Requested Visits Authorized [id number] Authorized Auto-Generat ed Referral 04/29/2023 05/28/2024 1 1 Referral ID Status Reason Start Date Expiration Date V isits Requested Visits Authorized [id number] Closed Auto-Generate d Referral 04/26/2023 05/25/2024 1 1 Specialty Diagnoses / Procedures Referred By Contac t Referred To Contact MR IMAGING Diagnoses Malignant neoplasm of female breast, unspecified estrogen receptor status, unspecified laterality, unspecified site of breast (HCC) Procedures MRI BREAST WO/W IVCON BILATERAL MRI BREAST WITHOUT&WITH CONTRAST W/CAD BILATERAL Filomena Rizvi MD [address] [place] [address] [place] [address] Referral ID Status Reason Start Date Expiration Date Visits Requested Visits Authorized [id number] Pending Review Auto-Generat ed Referral 10/17/2024 05/18/2025 1 1 Specialty Diagnoses / Procedures Referred By Contac t Referred To Contact Gastroenterology Diagnoses Personal history of breast cancer Abnormal CT of the abdomen Procedures CONSULT TO GASTROENTEROLOGY OFFICE/OUTPATIENT [facility] 60 MINUTES Isabel Watt APRN.OCCUPATIONAL WORK EXPERIENCE TEACHER [address] [place] [address] Referral ID Status Reason Start Date Expiration Date Visits Requested Visits Authorized [id number] Authorized PCP Requested Referral 05/25/2024 05/25/2025 1 1 Additional Source Comments INFORMATION SOURCE (unrecogn ized section and content) DATE CREATED AUTHOR 11/26/2020 [facility] DATE CREATED AUTHOR AUTHOR'S ORGANIZ ATION 08/27/2022 [facility] DATE CREATED AUTHOR AUTHOR'S ORGANIZ ATION 08/27/2022 [employer] DATE CREATED AUTHOR AUTHOR'S ORGANIZ ATION 08/04/2024 [facility] DATE CREATED AUTHOR AUTHOR'S ORGANIZ ATION 09/03/2024 [facility] DATE CREATED AUTHOR AUTHOR'S ORGANIZ ATION 10/26/[address] [facility] DATE CREATED AUTHOR AUTHOR'S ORGANIZ ATION 11/18/2024 [facility] Goals (unrecognized section and content) Goals may be documented in a n alternate sectionGoals may be documented in an alternate sectionGoals may be documented in an alternate sectionGoals may be documented in an alternate sectionGoals may be documented in an alternate sectionGoals may be documented in an alternate sectionGoals may be documented in an alternate sectionGoals may be documented in an alternate sectionGoals may be documented in an alternate sectionGoals may be documented in an alternate section No data available for this section Source Comments (unrecognize d section and content) In the event this informatio n is protected by the Federal Confidentiality of Alcohol and Drug Abuse Patient Records regulations: The Federal rules restrict any use of the information to criminally investigate or prosecute any alcohol or drug abuse patient.[facility] the event this information is protected by the Federal Confidentiality of Alcohol and Drug Abuse Patient Records regulations: The Federal rules restrict any use of the information to criminally investigate or prosecute any alcohol or drug abuse patient.[facility] the event this information is protected by the Federal Confidentiality of Alcohol and Drug Abuse Patient Records regulations: The Federal rules restrict any use of the information to criminally investigate or prosecute any alcohol or drug abuse patient.[facility] the event this information is protected by the Federal Confidentiality of Alcohol and Drug Abuse Patient Records regulations: The Federal rules restrict any use of the information to criminally investigate or prosecute any alcohol or drug abuse patient.[facility] the event this information is protected by the Federal Confidentiality of Alcohol and Drug Abuse Patient Records regulations: The Federal rules restrict any use of the information to criminally investigate or prosecute any alcohol or drug abuse patient.[facility] the event this information is protected by the Federal Confidentiality of Alcohol and Drug Abuse Patient Records regulations: The Federal rules restrict any use of the information to criminally investigate or prosecute any alcohol or drug abuse patient.[facility] the event this information is protected by the Federal Confidentiality of Alcohol and Drug Abuse Patient Records regulations: The Federal rules restrict any use of the information to criminally investigate or prosecute any alcohol or drug abuse patient.[facility] the event this information is protected by the Federal Confidentiality of Alcohol and Drug Abuse Patient Records regulations: The Federal rules restrict any use of the information to criminally investigate or prosecute any alcohol or drug abuse patient.[facility] Hospital[facility] the event this information is protected by the Federal Confidentiality of Alcohol and Drug Abuse Patient Records regulations: The Federal rules restrict any use of the information to criminally investigate or prosecute any alcohol or drug abuse patient.[facility] HospitalIn the event this information is protected by the Federal Confidentiality of Alcohol and Drug Abuse Patient Records regulations: The Federal rules restrict any use of the information to criminally investigate or prosecute any alcohol or drug abuse patient.[facility] Hospital[facility] the event this information is protected by the Federal Confidentiality of Alcohol and Drug Abuse Patient Records regulations: The Federal rules restrict any use of the information to criminally investigate or prosecute any alcohol or drug abuse patient.[facility] Hospital[facility] the event this information is protected by the Federal Confidentiality of Alcohol and Drug Abuse Patient Records regulations: The Federal rules restrict any use of the information to criminally investigate or prosecute any alcohol or drug abuse patient.[facility] HospitalIn the event this information is protected by the Federal Confidentiality of Alcohol and Drug Abuse Patient Records regulations: The Federal rules restrict any use of the information to criminally investigate or prosecute any alcohol or drug abuse patient.[facility] HospitalIn the event this information is protected by the Federal Confidentiality of Alcohol and Drug Abuse Patient Records regulations: The Federal rules restrict any use of the information to criminally investigate or prosecute any alcohol or drug abuse patient.[facility] HospitalIn the event this information is protected by the Federal Confidentiality of Alcohol and Drug Abuse Patient Records regulations: The Federal rules restrict any use of the information to criminally investigate or prosecute any alcohol or drug abuse patient.[facility] HospitalIn the event this information is protected by the Federal Confidentiality of Alcohol and Drug Abuse Patient Records regulations: The Federal rules restrict any use of the information to criminally investigate or prosecute any alcohol or drug abuse patient.[facility] HospitalIn the event this information is protected by the Federal Confidentiality of Alcohol and Drug Abuse Patient Records regulations: The Federal rules restrict any use of the information to criminally investigate or prosecute any alcohol or drug abuse patient.[facility] HospitalIn the event this information is protected by the Federal Confidentiality of Alcohol and Drug Abuse Patient Records regulations: The Federal rules restrict any use of the information to criminally investigate or prosecute any alcohol or drug abuse patient.[facility] HospitalIn the event this information is protected by the Federal Confidentiality of Alcohol and Drug Abuse Patient Records regulations: The Federal rules restrict any use of the information to criminally investigate or prosecute any alcohol or drug abuse patient.[facility] HospitalIn the event this information is protected by the Federal Confidentiality of Alcohol and Drug Abuse Patient Records regulations: The Federal rules restrict any use of the information to criminally investigate or prosecute any alcohol or drug abuse patient.[facility] HospitalIn the event this information is protected by the Federal Confidentiality of Alcohol and Drug Abuse Patient Records regulations: The Federal rules restrict any use of the information to criminally investigate or prosecute any alcohol or drug abuse patient.[facility] HospitalIn the event this information is protected by the Federal Confidentiality of Alcohol and Drug Abuse Patient Records regulations: The Federal rules restrict any use of the information to criminally investigate or prosecute any alcohol or drug abuse patient.[facility] HospitalIn the event this information is protected by the Federal Confidentiality of Alcohol and Drug Abuse Patient Records regulations: The Federal rules restrict any use of the information to criminally investigate or prosecute any alcohol or drug abuse patient.[facility] HospitalIn the event this information is protected by the Federal Confidentiality of Alcohol and Drug Abuse Patient Records regulations: The Federal rules restrict any use of the information to criminally investigate or prosecute any alcohol or drug abuse patient.[facility] HospitalIn the event this information is protected by the Federal Confidentiality of Alcohol and Drug Abuse Patient Records regulations: The Federal rules restrict any use of the information to criminally investigate or prosecute any alcohol or drug abuse patient.[facility] HospitalIn the event this information is protected by the Federal Confidentiality of Alcohol and Drug Abuse Patient Records regulations: The Federal rules restrict any use of the information to criminally investigate or prosecute any alcohol or drug abuse patient.[facility] HospitalIn the event this information is protected by the Federal Confidentiality of Alcohol and Drug Abuse Patient Records regulations: The Federal rules restrict any use of the information to criminally investigate or prosecute any alcohol or drug abuse patient.[facility] HospitalIn the event this information is protected by the Federal Confidentiality of Alcohol and Drug Abuse Patient Records regulations: The Federal rules restrict any use of the information to criminally investigate or prosecute any alcohol or drug abuse patient.[facility] HospitalIn the event this information is protected by the Federal Confidentiality of Alcohol and Drug Abuse Patient Records regulations: The Federal rules restrict any use of the information to criminally investigate or prosecute any alcohol or drug abuse patient.[facility] HospitalIn the event this information is protected by the Federal Confidentiality of Alcohol and Drug Abuse Patient Records regulations: The Federal rules restrict any use of the information to criminally investigate or prosecute any alcohol or drug abuse patient.[facility] Reason for Visit (unrecogniz ed section and content) Reason Comments Mammogram Result Call Back Reason Comments Radiology US Specialty Diagnoses / Procedures Referred By Contac t Referred To Contact BR IMAGING Diagnoses Malignant neoplasm of upper-outer quadrant of left breast in female, estrogen receptor positive (HCC) Abnormal mammogram of left breast Procedures US BREAST LTD LT US BREAST UNI REAL TIME WITH IMAGE LIMITED Isabel Watt, AUDI.OCCUPATIONAL WORK EXPERIENCE TEACHER [address] [place] [address] [address] [facility] [place] [address] Referral ID Status Reason Start Date Expiration Date V isits Requested Visits Authorized [id number] Closed Auto-Generate d Referral 11/25/2021 12/25/2022 1 1 Reason Comments New Pain Reason Comments PHOTOS TAKEN Reason Comments Consult Reason Comments [facility] Called pt per Dr. Souza's request to offer consulation on products/services. Pt declined, has no questions at this time. Reason Comments New Patient Specialty Diagnoses / Procedures Referred By Bob t Referred To Contact MR IMAGING Diagnoses Unspecified lump in axillary tail of the right breast Mass overlapping multiple quadrants of left breast History of breast cancer Procedures MRI BREAST WO/W IVCON BILATERAL MRI BREAST WITHOUT&WITH CONTRAST W/CAD BILATERAL Filomena Rizvi MD 1 [facility] 1ST [place] [address] Mr Imaging [place] [address] Referral ID Status Reason Start Date Expiration Date V isits Requested Visits Authorized [id number] Closed Auto-Generate d Referral 11/30/2022 12/30/2023 1 1 Reason Comments Appointment Reason Comments Radiology CTA Specialty Diagnoses / Procedures Referred By Bob t Referred To Contact CT IMAGING Diagnoses Chest pain, unspecified type Abnormal ECG Procedures CTA CORONARY W IVCON CTA HRT CORNRY ART/BYPASS GRFTS CONTRST 3D POST Audrey Rowe MD [address] [place] [address] Ct Imaging [id number] Referral ID Status Reason Start Date Expiration Date V isits Requested Visits Authorized [id number] Closed Auto-Generate d Referral 04/26/2023 05/25/2024 1 1 Reason Comments Post Op Patient presents pos t RIGHT breast excision of a papilloma. Patient denies any swelling or drainage. Patient states that she sees a small amount of redness at the incision site. Patient denies any pain. Patient denies any concerns. Reason Comments Follow Up Tests Results Reason Comments abnormal ct Specialty Diagnoses / Procedures Referred By Contac t Referred To Contact Gastroenterology Diagnoses Personal history of breast cancer Abnormal CT of the abdomen Procedures CONSULT TO GASTROENTEROLOGY OFFICE/OUTPATIENT [facility] 60 MINUTES Isabel Watt APRN.OCCUPATIONAL WORK EXPERIENCE TEACHER [address] [place] [address] Referral ID Status Reason Start Date Expiration Date V isits Requested Visits Authorized [id number] Closed PCP Requested Referral 05/25/2024 05/25/2025 1 1 Reason Comments Appointment Reason Comments Office note faxed to [facility] dated 04/26/23 Reason Comments Breast MRI approval Reason Comments 6 Month Exam Results Care Teams (unrecognized sec tion and content) Swatch Clerk Relationship Specialty Start Date End Date Patricia Winston DO PCP - General Family Practice 10/31/15 Marylou Weaver MD, [address] [place], [place] [id number] Physician Radiation Oncology 12/06/19 Filomena Rizvi MD [address] 1[address] FLR ACC BREAST [facility] [place], [place] [id number] Referring General Surgery 01/22/20 Bethany Mejia, RN Specialty Groover And Striper Operator Oncology 02/14/20 Aman Cardoso DO [address] [place] [address] Physician Hematology/Oncology 06/27/20 Swatch Clerk Relationship Specialty Start Date End Date Patricia Winston DO PCP - General Family Practice 10/31/15 Marylou Weaver MD, [address] [place] [place] [id number] [phone] Physician Radiation Oncology 12/06/19 Filomena Rizvi MD [address] FLR ACC BREAST [facility] [place], [place] [id number] Referring General Surgery 01/22/20 Bethany Mejia RN Specialty Groover And Striper Operator Oncology 02/14/20 Aman Cardoso, DO [address] [place] [address] Physician Hematology/Oncology 06/27/20 Swatch Clerk Relationship Specialty Start Date End Date Patricia Winston DO PCP - General Family Practice 10/31/15 Marylou Weaver MD, [address] [place] [address] Physician Radiation Oncology 12/06/19 Filomena Rizvi MD [address] [place] [address] Referring General Surgery 01/22/20 Bethany Mejia RN Specialty Groover And Striper Operator Oncology 02/14/20 Aman Cardoso, DO [address] [place] [address] Physician Hematology/Oncology 06/27/20 Swatch Clerk Relationship Specialty Start Date End Date Patricia Winston DO PCP - General Family Practice 10/31/15 Marylou Weaver MD, [address] [place] [address] Physician Radiation Oncology 12/06/19 Filomena Rizvi MD [address] [place] [address] Referring General Surgery 01/22/20 Bethany Mejia RN Specialty Groover And Striper Operator Oncology 02/14/20 Aman Cardoso, DO [address] [place] [address] Physician Hematology/Oncology 06/27/20 Swatch Clerk Relationship Specialty Start Date End Date Catrachito Patricia Felton, PCP - General Family Medicine 10/31/15 Marylou Weaver MD, [address] [facility] [place] [address] Physician Radiation Oncology 12/06/19 Filomena Rizvi MD [address] [place] [address] Referring General Surgery 01/22/20 Bethany Mejia RN Specialty Groover And Striper Operator Oncology 02/14/20 Aman Cardoso, DO [address] [place] [address] Physician Hematology/Oncology 06/27/20 Swatch Clerk Relationship Specialty Start Date End Date Patricia Winston DO PCP - General Family Medicine 10/31/15 Marylou Weaver MD, [address] [place] [address] Physician Radiation Oncology 12/06/19 Filomena Rizvi MD [address] 1ST FLR [facility] [place] [address] Referring General Surgery 01/22/20 Bethany Mejia RN Specialty Groover And Striper Operator Oncology 02/14/20 Aman Cardoso, DO [address] [place] [address] Physician Hematology/Oncology 06/27/20 Swatch Clerk Relationship Specialty Start Date End Date Patricia Winston DO PCP - General Family Medicine 10/31/15 Marylou Weaver MD, [address] [place] [address] Physician Radiation Oncology 12/06/19 Filomena Rizvi MD [address] 1ST OHR [facility] [place] [address] Referring General Surgery 01/22/20 Bethany Mejia RN Specialty Groover And Striper Operator Oncology 02/14/20 Aman Cardoso, DO [address] [place] [address] Physician Hematology/Oncology 06/27/20 Swatch Clerk Relationship Specialty Start Date End Date Patricia Winston DO PCP - General Family Medicine 10/31/15 Marylou Weaver MD, [address] [place] [address] Physician Radiation Oncology 12/06/19 Filomena Rizvi MD [address] 1ST OHR [facility] [place] [address] Referring General Surgery 01/22/20 Bethany Mejia RN Specialty Groover And Striper Operator Oncology 02/14/20 Aman Cardoso, [address] [place] [address] Physician Hematology/Oncology 06/27/20 Team Status: Active Member Role Status Dates Dr. Patricia Winston DO Family Provider Active Dr. Patricia Winston DO Primary Care Provider Active Team Status: Inactive Member Role Status Dates Dr. Patricia Winston DO Primary Care Provider, Attendin g Provider Active Team Status: Inactive Member Role Status Dates Dr. Patricia Winston DO Primary Care Prov ider, Attending Provider, Referring Provider Active Swatch Clerk Relationship Specialty Start Date End Date Patricia Winston DO PCP - General Family Medicine 10/31/15 Marylou Weaver MD, [address] [place] [address] Physician Radiation Oncology 12/06/19 Filomena Rizvi MD [address] 1ST FLR [facility] [place] [address] Referring General Surgery 01/22/20 Bethany Mejia RN Specialty Groover And Striper Operator Oncology 02/14/20 Aman Cardoso, DO [address] [place] [address] Physician Hematology/Oncology 06/27/20 Swatch Clerk Relationship Specialty Start Date End Date Patricia Winston DO PCP - General Family Medicine 10/31/15 Marylou Weaver MD, [address] [place] [address] Physician Radiation Oncology 12/06/19 Filomena Rizvi MD 1 [place] [facility] 1ST OHR [facility] [place] [address] Referring General Surgery 01/22/20 Bethany Mejia RN Specialty Groover And Striper Operator Oncology 02/14/20 Aman Cardoso, DO [address] [place] [address] Physician Hematology/Oncology 06/27/20 Swatch Clerk Relationship Specialty Start Date End Date Patricia Winston DO PCP - General Family Medicine 10/31/15 Marylou Weaver MD, [address] [place] [address] Physician Radiation Oncology 12/06/19 Filomena Rizvi MD [address] 1[address] [place] [address] Referring General Surgery 01/22/20 Bethany Mejia RN Specialty Groover And Striper Operator Oncology 02/14/20 Aman Cardoso DO [address] [place] [address] Physician Hematology/Oncology 06/27/20 Team Status: Inactive Member Role Status Dates Dr. Patricia Winston DO Primary Care Provider Active Dr. Russel Castillo DO Emergency Provider Active Swatch Clerk Relationship Specialty Start Date End Date Patricia Winston DO PCP - General Family Medicine 10/31/15 Marylou Weaver MD, [address] [place] [address] Physician Radiation Oncology 12/06/19 Filomena Rizvi MD [address] [place] [address] Referring General Surgery 01/22/20 Bethany Mejia RN Specialty Groover And Striper Operator Oncology 02/14/20 Aman Cardoso DO [address] [place] [address] Physician Hematology/Oncology 06/27/20 Swatch Clerk Relationship Specialty Start Date End Date Patricia Winston DO PCP - General Family Medicine 10/31/15 Marylou Weaver MD, MD [address] [place] [address] Physician Radiation Oncology 12/06/19 Filomena Rizvi MD [address] [place] [address] Referring General Surgery 01/22/20 Bethany Mejia RN Specialty Groover And Striper Operator Oncology 02/14/20 Aman Cardoso DO [address] [place], [place] [address] Physician Hematology/Oncology 06/27/20 Audrey Rowe MD [address] [place] [address] Primary Staff Physician Cardiology 04/26/23 Swatch Clerk Relationship Specialty Start Date End Date Patricia Winston DO PCP - General Family Medicine 10/31/15 Marylou Weaver MD, [address] [place], [place] [address] Physician Radiation Oncology 12/06/19 Filomena Rizvi MD [address] 1[address] OHR [facility] [place] [address] Referring General Surgery 01/22/20 Bethany Mejia RN Specialty Groover And Striper Operator Oncology 02/14/20 Aman Cardoso DO [address] [place], [place] [address] Physician Hematology/Oncology 06/27/20 Audrey Rowe MD [address] [place] [address] Primary Staff Physician Cardiology 04/26/23 Swatch Clerk Relationship Specialty Start Date End Date Patricia Winston DO PCP - General Family Medicine 10/31/15 Marylou Weaver MD, [address] [place], [place] [address] Physician Radiation Oncology 12/06/19 Filomena Rizvi MD [address] [place] [address] Referring General Surgery 01/22/20 Bethany Mejia RN Specialty Groover And Striper Operator Oncology 02/14/20 Aman Cardoso DO [address], [place] [address] Physician Hematology/Oncology 06/27/20 Audrey Rowe MD [address] [place] [address] Primary Staff Physician Cardiology 04/26/23 Swatch Clerk Relationship Specialty Start Date End Date Patricia Winston PCP - General Family Medicine 10/31/15 Marylou Weaver MD, [address] [place] [address] Physician Radiation Oncology 12/06/19 Filomena Rizvi MD [address] [place] [address] Referring General Surgery 01/22/20 Bethany Mejia RN Specialty Groover And Striper Operator Oncology 02/14/20 Aman Cardoso DO [address] [place], [place] [address] Physician Hematology/Oncology 06/27/20 Audrey Rowe MD [address] [place] [address] Primary Staff Physician Cardiology 04/26/23 Swatch Clerk Relationship Specialty Start Date End Date Patricia Winston DO PCP - General Family Medicine 10/31/15 Marylou Wevaer MD, MD [address] [place], [place] [address] Physician Radiation Oncology 12/06/19 Filomena Rizvi MD [address] [place] [address] Referring General Surgery 01/22/20 Bethany Mejia, RN Specialty Groover And Striper Operator Oncology 02/14/20 Aman Cardoso DO [address] [place], [place] [address] Physician Hematology/Oncology 06/27/20 Audrey Rowe MD [address] [place] [address] Primary Staff Physician Cardiology 04/26/23 Swatch Clerk Relationship Specialty Start Date End Date Patricia Winston DO PCP - General Family Medicine 10/31/15 Marylou Weaver MD, [address] [place], [place] [id number] Physician Radiation Oncology 12/06/19 Filomena Rizvi MD [address] [facility] [address] [place], [place] [id number] Referring General Surgery 01/22/20 Bethany Mejia, RN Specialty Groover And Striper Operator Oncology 02/14/20 Aman Cardoso DO [address] [facility] [place], [place] [id number] Physician Hematology/Oncology 06/27/20 Audrey Rowe MD [address] [place] [address] Primary Staff Physician Cardiology 04/26/23 Swatch Clerk Relationship Specialty Start Date End Date Patricia Winston DO PCP - General Family Medicine 10/31/15 Marylou Weaver MD [address] [place], [place] [address] Physician Radiation Oncology 12/06/19 Filomena Rizvi MD [address] [place] [address] [place] [address] Referring General Surgery 01/22/20 Bethany Mejia RN Specialty Groover And Striper Operator Oncology 02/14/20 Aman Cardoso DO [address] [place], [place] [id number] Physician Hematology/Oncology 06/27/20 Audrey Rowe MD [address] [place] [address] Primary Staff Physician Cardiology 04/26/23 Swatch Clerk Relationship Specialty Start Date End Date Patricia Winston DO PCP - General Family Medicine 10/31/15 Marylou Weaver MD [address], [place] [id number] Physician Radiation Oncology 12/06/19 Filomena Rizvi MD [address] 1ST FLR ACC [address] [facility] [place], [place] [id number] Referring General Surgery 01/22/20 Bethany Mejia RN Specialty Groover And Striper Operator Oncology 02/14/20 Aman Cardoso DO [address], [place] [id number] Physician Hematology/Oncology 06/27/20 Audrey Rowe MD [address] [place] [address] Primary Staff Physician Cardiology 04/26/23 Swatch Clerk Relationship Specialty Start Date End Date Patricia Winston DO PCP - General Family Medicine 10/31/15 Marylou Weaver MD [address] [place], [place] [id number] Physician Radiation Oncology 12/06/19 Filomena Rizvi MD [address] 1[address] FLR ACC [address] [facility] [place], [place] [id number] Referring General Surgery 01/22/20 Bethany Mejia RN Specialty Groover And Striper Operator Oncology 02/14/20 Aman Cardoso DO [address] [place], [place] [address]01 Physician Hematology/Oncology 06/27/20 Audrey Rowe MD [address] [place] [address] Primary Staff Physician Cardiology 04/26/23 Swatch Clerk Relationship Specialty Start Date End Date Patricia Winston DO PCP - General Family Medicine 10/31/15 Marylou Weaver MD [address] [facility] [place], [place] [address] Physician Radiation Oncology 12/06/19 Filomena Rizvi MD [address] [place] [place] [address] Referring General Surgery 01/22/20 Bethany Mejia RN Specialty Groover And Striper Operator Oncology 02/14/20 Aman Cardoso DO [address] [facility] [place], [place] [address] Physician Hematology/Oncology 06/27/20 Audrey Rowe MD [address] [place] [address] Primary Staff Physician Cardiology 04/26/23 Swatch Clerk Relationship Specialty Start Date End Date Patricia Winston DO PCP - General Family Medicine 10/31/15 Marylou Weaver MD [address], [place] [address] Physician Radiation Oncology 12/06/19 Filomena Rizvi MD [address] 1[address] [place] [address] Referring General Surgery 01/22/20 Bethany Mejia RN Specialty Groover And Striper Operator Oncology 02/14/20 Aman Cardoso DO [address] [facility] [place], [place] [id number] Physician Hematology/Oncology 06/27/20 Audrey Rowe MD [address] [place] [address] Primary Staff Physician Cardiology 04/26/23 Swatch Clerk Relationship Specialty Start Date End Date Patricia Winston DO PCP - General Family Medicine 10/31/15 Marylou Weaver MD [address] [place], [place] [address] Physician Radiation Oncology 12/06/19 Filomena Rizvi MD [address] 1ST [place] [address] Referring General Surgery 01/22/20 Bethany Mejia RN Specialty Groover And Striper Operator Oncology 02/14/20 Aman Cardoso DO [address] [place], [place] [address] Physician Hematology/Oncology 06/27/20 Audrey Rowe MD [address] [place] [address] Primary Staff Physician Cardiology 04/26/23 Swatch Clerk Relationship Specialty Start Date End Date Patricia Winston DO PCP - General Family Medicine 10/31/15 Marylou Weaver MD [address] [facility] [place], [place] [address] Physician Radiation Oncology 12/06/19 Filomena Rizvi MD [address] 1[address] [place] [address] Referring General Surgery 01/22/20 Bethany Mejia, RICARDO Specialty Groover And Striper Operator Oncology 02/14/20 Aman Cardoso DO [address] [facility] [place], [place] [address] Physician Hematology/Oncology 06/27/20 Audrey Rowe MD [address] [place] [address] Primary Staff Physician Cardiology 04/26/23 Swatch Clerk Relationship Specialty Start Date End Date Patricia Winston DO PCP - General Family Medicine 10/31/15 Marylou Weaver MD [address] [place] [address] [place] [address] Physician Radiation Oncology 12/06/19 Filomena Rizvi MD [address] 1[address] [place] [address] Referring General Surgery 01/22/20 Bethany Mejia RN Specialty Groover And Striper Operator Oncology 02/14/20 Aman Cardoso DO [address] [place], [place] [address] Physician Hematology/Oncology 06/27/20 Audrey Rowe MD [address] [place] [address] Primary Staff Physician Cardiology 04/26/23 Swatch Clerk Relationship Specialty Start Date End Date Patricia Winston DO PCP - General Family Medicine 10/31/15 Marylou Weaver MD [address] [place] [address] Physician Radiation Oncology 12/06/19 Filomena Rizvi MD 1 [facility] 1ST [place] [address] Referring General Surgery 01/22/20 Bethany Mejia RN Specialty Groover And Striper Operator Oncology 02/14/20 Aman Cardoso DO [address], [place] [address] Physician Hematology/Oncology 06/27/20 Audrey Rowe MD [address] [place] [address] Primary Staff Physician Cardiology 04/26/23 Swatch Clerk Relationship Specialty Start Date End Date Patricia Winston DO PCP - General Family Medicine 10/31/15 Marylou Weaver MD [address] [place], [place] [address] Physician Radiation Oncology 12/06/19 Filomena Rizvi MD [address] [place] [address] Referring General Surgery 01/22/20 Bethany Mejia, RICARDO Specialty Groover And Striper Operator Oncology 02/14/20 Aman Cardoso DO [address] [place], [place] [address] Physician Hematology/Oncology 06/27/20 Audrey Rowe MD [address] [place] [address] Primary Staff Physician Cardiology 04/26/23 Inactive Administered Medications - up to 3 most recent administrations Administered Medications (un recognized section and content) Medication Order MAR Action Action Date Dose Rate Site lidocaine 10 mg/mL (1 %) injection (XYLOCAINE) OTHER, NEEDED, Starting on Wed07/23/23 at 1511, Until Wed07/23/23 at 1511, Intraprocedure Given 07/23/2023 3:11 PM EST 50 mg Breast, Right FOR RECORDS PERTAINING TO PATIENTS WHO ARE OR HAVE BEEN ENROLLED IN A CHEMICAL DEPENDENCY/SUBSTANCEABUSE PROGRAM, SOME INFORMATION MAY BE OMITTED. This clinical summary was aggregated from multiple sources. Caution should be exercised in using it in the provision of clinical care. This summary normalizes information from multiple sources, and as a consequence, information in this document may materially change the coding, format and clinical context of patient data. In addition, data may be omitted in some cases. CLINICAL DECISIONS SHOULD BE BASED ON THE PRIMARY CLINICAL RECORDS. [employer] [facility]. provides no warranty or guarantee of the accuracy or completeness of information in this document.
--- OUTSIDE RECORDS SUMMARY | 2025-01-24 11:37 | XMS RPT_ITS | CCD ---
Author Organization [facility] Care Team Providers Care Stamps Or Coins Salesperson Name Role Phone Dr. Patricia Winston Primary Care Provider Shi Mendoza Attending Provider Unavailable Dr. Patricia Winston Referring Provider Dr. Liam Chou Attending Provider Patricia Winston DO Primary Care Provider Owen FOSS MD, Daesung Unavailable Filomena Rizvi MD Unavailable Jackie RN, Bethany Unavailable Unavailable Masci DO, Aman A Unavailable Dr. Torres Robin Attending Provider Patricia Winston DO Primary Care Provider Owen FOSS MD, Daesung Unavailable Filomena Rizvi MD Unavailable Jackie RN, Bethany Unavailable Unavailable Masci DO, Aman A Unavailable Patricia Winston DO Primary Care Provider Owen FOSS MD, Daesung Unavailable Filomena Rizvi MD Unavailable Jackie RN, Bethany Unavailable Unavailable Masci DO, Aman A Unavailable [facility] De[facility] Miller Referring Unavailable Dr. Patricia Winston Primary Care Unavaila Dr. David Hammond Attending Unava ilclaire Mejia RN, Bethany Unavailable Unavailable Soledad FOSS, Audrey Unavailable [phone] Owen FOSS, Daesung Unavailable Catrachitoisaac VANEGAS, Patricia [...] Allergy 06-27-19 21 Cough, Other: See Comments [facility] (20 sources) ceFAZolin; Translations: [CEFAZOLIN] Drug Allergy 12-18-19 20 Hives [facility] (20 sources) DULoxetine; Translations: [DULOXETINE] Drug Allergy 01-24-20 19 Other: See Comments [facility] (2 sources) Seasonal allergy Propensity to adverse reactions 09-11-19 22 itchy, watery eyes [facility] Work Phone: (1 source) letrozole Drug Allergy 06-27-19 21 Cough [facility] (20 sources) Shellfish; Translations: [SHELLFISH CONTAINING PRODUCTS] Drug Intolerance 11-06-19 17 Diarrhea, GI Upset [facility] (20 sources) Homeopathic Products Propensity to adverse reactions 09-11-19 09 Itching [facility] Work Phone: (9 sources) Seasonal Allergies: Uncoded; Translations: [Seasonal Allergies: Uncoded] Propensity to adverse reactions 02-04-20 22 ITCHY, WATERY EYES [facility] (1 source) thyroid (PENITENTIARY); Translations: [thyroid desiccated] Drug Allergy Swelling (morphologic abnormality) [facility] (1 source) anastrozole Drug Allergy 08-09-19 25 [facility] Repository (1 source) ceFAZolin Drug Allergy 08-09-19 25 [facility] Repository (1 source) DULoxetine Drug Allergy 08-09-19 25 [facility] Repository Medications Current Medications Medication Drug Class(es) [...] Take 1 tablet by kanwal once daily. 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 thyroid (PENITENTIARY) 90 MG Oral Tablet [Adthyza] (1 source) [...] once daily. Take 1 capsule by mo [facility] once daily. hydroquinone 40 mg/ml topical cream [...] 2020 12:00am September 09, 2021 1:22pm magnesium E-knjhjx-zctjpcxfs de 42 mg (500 mg)- 250 mg TbER (13 sources) End: 3 take 1 capsule by mouth once daily magnesium D-fsucyx-uwajhcqvqhv 42 mg (500 mg)- 250 mg TbER Take 1 capsule by mouth once daily. 0 04/26/2023 Discontinued (Course of therapy completed) take 1 capsule by mouth once steffany ly magnesium X-fepeai-wfjbachnhnx 42 mg (500 mg)- 250 mg TbER Take 1 capsule by mouth once daily. 0 Active Comment on above: Take 1 capsule by [facility] once daily. naltrexone hydrochloride 50 mg [...] Test Name Value Interpretation Reference Range Facility [facility] 11-15-2024 CNOV Office Visit (HEMBAK ) MARVA KHAN ([id number]) 1965 F Date Time Provider Department 11/15/24 [...] APRN.JEREMIAH 11/15/2024 1:39 PM Signed [facility] [address] [place], [place] [id number] Date of Visit: 11/15/2024 Patient Name: Marva [...] clinical breast exam. She is an established [facility] patient and was last seen in the [...] 12/18/2019 for invasive ductal carcinoma grade 2, ER/SC+, H2N-. Final pathology showed 4 negative lymph [...] 1 capsule by mouth once daily. K2 hhare-4-ggj-epa-dpa-fis h oil 1,050 mg(300 mg -675 mg-75 [...] in colle (more content not included)... Normal [facility] MR Breast - bilateral WO and W contrast Kennedy 11-02-2024 IMPRESSION: There is no MRI evidence of malignancy in either breast. Routine screening mammogram is recommended. Annual mammogram will be due in 1 year. Patient is followed by Dr. Rizvi. BI-RADS Category 2: Benign Interpreting Radiologist: Abdiaziz Hammond M.D. Electronically signed on: 11/02/2024 Duplicator Punch Set Up Operator: CANDY Transcribe Date/Time: Nov 02 2024 7:37A Dictated by : ABDIAZIZ HAMMOND MD This examination was interpreted and the report reviewed and electronically signed by: ABDIAZIZ HAMMOND MD on Nov 02 2024 10:33AM [facility] RADIOLOGY SYNGO * * *Final Report* * * DATE OF EXAM: Nov 02 2024 8:06AM [facility] 0773 - MRI BREAST WO/W IVCON TIM / PROCEDURE REASON: Malignant neoplasm of female breast, unspecified estrogen receptor status, unspe * * * * Physician Interpretation * * * * [facility] [address] [place] [address] #[id number] - MRI BREAST WO/W IVCON TIM HISTORY: [...] completed on an independent workstation. An additional 1-oihfxw-stwk resolution sequence was performed after the first [...] no right axillary nor internal mammary lymphadenopathy. [facility] SYNGO [facility], [facility] [place] - 11/02/2024 * * *Final Report* * * DATE OF EXAM: Nov 02 2024 8:06AM [facility] 0773 - MRI BREAST WO/W IVCON TIM / PROCEDURE REASON: Malignant neoplasm of female breast, unspecified estrogen receptor status, unspe * * * * Physician Interpretation * * * * [facility] [address] [facility] [place] [id number] #[id number] - MRI BREAST WO/W IVCON TIM HISTORY: [...] completed on an independent workstation. An additional 7-tyhogt-zkmx resolution sequence was performed after the first two 1 minute post-contrast sequences. Complex volumetric analysis requiring post processing was performed using a semi-automated software MondeCafesacad, on an independent workstation by the physician, [...] Abdiaziz Hammond M.D. Electronically signed on: 11/02/2024 Duplicator Punch Set Up Operator: CANDY Transcribe Date/Time: Nov 02 2024 7:37A Dictated by : ABDIAZIZ HAMMOND MD This examination was interpreted and the report reviewed and electronically signed by: ABDIAZIZ HAMMOND MD on Nov 02 2024 10:33AM EST [facility] Radiology Study observation (narrative) [facility] MR Breast - bilateral WO and W contrast IVOrdered By: Ccf Provider on 11-02-2024 [facility] MRI BREAST WO/W IVCON BILon 11-02-2024 MRI BREAST WO/W IVCON TIM * * *Final Report* * * DATE OF EXAM: Nov 02 2024 8:06AM [facility] 0773 - MRI BREAST WO/W IVCON TIM / PROCEDURE REASON: Malignant neoplasm of female breast, unspecified estrogen receptor status, unspe * * * * Physician Interpretation * * * * [facility] [address] [facility] [place] [id number] #[id number] - MRI BREAST WO/W IVCON TIM HISTORY: [...] completed on an independent workstation. An additional 3-rzrglt-qwip resolution sequence was performed after the first two 1 minute post-contrast sequences. Complex volumetric analysis requiring post processing was performed using a semi-automated software MondeCafesacad, on an independent workstation by the physician, [...] Abdiaziz Hammond M.D. Electronically signed on: 11/02/2024 Duplicator Punch Set Up Operator: CANDY Transcribe Date/Time: Nov 02 2024 7:37A Dictated by : ABDIAZIZ HAMMOND MD This examination was interpreted and the report reviewed and electronically signed by: ABDIAZIZ HAMMOND MD on Nov 02 2024 10:33AM EST [id number] [facility] AGUSTINA Telephone (AGGBRCR) MARVA KHAN ([id number]) 1965 F Date Time Provider Department 10/11/24 LACY REYNOLDS During your visit today, we recorded the following information about you: Lacy Reynolds APRN.CNP 10/11/2024 2:12 PM Signed Peer to Peer completed with Dr Saleem at [facility]. Breast MRI was approved - scheduled for 10/17/2024. Authorization # [id number], valid 10/11/2024 - 11/30/2024. Lacy Reynolds APRN-QUARRY EXTRACTION WORKER Allergies As of Date: 10/11/2024 Noted Allergy [...] Status:Closed by LACY REYNOLDS on 10/11/24 Normal [facility] Inital Evaluation (1) - PTon 08-21-2024 Inital Evaluation (1) - PT [facility] Physical Therapy [facility] [address] [place] [address] / REHABILITATION SERVICES INITIAL EVALUATION MR#: [id number] Acct: [id number] Name: MARVA KHAN Rep #: [id number] : 1965 59 From: Dani HOWARDT Referring Dr.: Dr. Patricia Winston DO Status: RE G RCR Insurance: ? SELF PAY INSURANCE Patient's Visit Information Visit [...] oxygenation perfusion (more content not included)... Normal [facility] Gastroenterology Visit Repor ton 08-09-2024 Gastroenterology Visit Report [facility] Gastroenterology [address] [place] [address] OFFICE VISIT Date of Service: 08/09/24 MR#: [id number] Acct: [id number] Name: MARVA KHAN [facility] Rep #: [id number] : 1965 Provider: LIZETH john Age/Sex: 59/F [place] [facility] Status: Signed Intake Vital Signs 05/19/24 13:14 07/26/24 06:18 08/09/24 09:33 Height 5 ft 7 in 5 ft 7 in 5 ft 7 in Weight: 160 lb BMI 25.0 BP 97/64 Respiration 16 Pulse 69 Pulse Oximetry (%) 97 Oxygen Delivery Method room air Intake Visit Reasons: Test Result Chief Complaint: pain Jamb Cutter Required: No Is patient in pain?: No [...] istory mg-fish oil 597 mg capsule,delay rel (Taft-3) thyroid (pork) 90 mg tablet 90 mg [...] are helping (more content not included)... Normal [facility] Ivan 08-02-2024 [facility] Telephone (CATHMN) ERINMARVA ([id number]) 1965 F Date Time Provider Department 08/02/24 [...] Visit: Office note faxed [Other] Cmt: to [facility] dated 04/26/23 Prescriptions as of 08/02/2024 - [...] Status:Closed by BABITA VITALE on 08/02/24 Normal [facility] Thyroid Stim Hormone (TSH)on 08-02-2024 TSH 0.390 uIU/mL Normal 0.358-3.740 [facility] Comment on above: Order Comment: CHRISTIANE Marshall ADD A TSH FROM 07/31/24 Performed By: #### L 501.9520, L501.65986, L506.0400, L500.4100 ####[facility] [address] [place], [address] Free T3on 07-31-2024 Free T3 [Mass/Vol] 2.6 pg/mL Normal 2.18-3.98 [facility] Comment on above: Performed By: #### L 501.9520, L501.51767, L506.0400, L500.4100 ####[facility] [address] [place], [address] Lipid Profileon 07-31-2024 Cholesterol [Mass/Vol] 241 mg/dL High 200 [facility] Comment on above: Result Comment: <200 mg/dL Desirable 200-240 mg/dL Borderline >240 mg/dL High Risk Performed By: #### L 501.9520, L501.56927, L506.0400, L500.4100 ####[facility] [address] [place], [address] Cholesterol in HDL [Mass/Vol] 67 mg/dL Normal [facility] Comment on above: Result Comment: The drugs N-Acetylcysteine and Metamizole may falsely depress this assay. Reference Range HDL <40 mg/dL Low HDL Cholesterol HDL >or= 60 mg/dL High HDL Cholesterol Performed By: #### L 501.9520, L501.12093, L506.0400, L500.4100 ####[facility] [address] [place], [address] Cholesterol in LDL [Mass/Vol] 150 mg/dL High 0-130 [facility] Comment on above: Performed By: #### L 501.9520, L501.32728, L506.0400, L500.4100 ####[facility] [address] [place], [address] Cholesterol in VLDL [Mass/Vol] 24 mg/dL Normal 5-40 [facility] Comment on above: Performed By: #### L 501.9520, L501.80076, L506.0400, L500.4100 ####[facility] [address] [place], [address] Triglyceride [Mass/Vol] 121 mg/dL Normal [facility] Comment on above: Result Comment: The drugs N-Acetylcysteine and Metamizole may falsely depress this assay. Serum Triglycerides Reference Interval Normal <150 mg/dL Borderline high 150 - 199 mg/dL High 200 - 499 mg/dL Very High > or = 500 mg/dL Performed By: #### L 501.9520, L501.70836, L506.0400, L500.4100 ####[facility] [address] [place], [address] T4 Free Directon 07-31-2024 T4 FREE DIRECT 0.86 ng/dL Normal 0.76-1.46 [facility] Comment on above: Performed By: #### L 501.9520, L501.41428, L506.0400, L500.4100 ####[facility] [address] [place], [address] Colonoscopy Reporton 025 Colonoscopy Report [facility] Medical Records Department [address] [place] [address] Colonoscopy Report MR#: [id number] Acct: [id number] Name: MARVA KHAN [facility] Rep #: [id number] : 1965 59 From: Go Aguila DO PCP: Dr. Patricia Winston DO Status:REG [facility] Patient Name: Marva Khan Procedure Date: 07/26/2024 [...] screening purposes. Procedure Code(s): --- Professional --- 99520, Colonoscopy, flexible; with biopsy, single or multiple CPT copyright 2021 [employer]. All rights reserved. The codes documented in this report are preliminary and upon medical records coder review may be revised to meet current compliance requirements. Go Aguila DO 07/26/2024 8:05:35 AM This report has been signed electronically. Number of Addenda: 0 Note Initiated On: 07/26/2024 7:20 AM 07/26/24 0805 Date Go Aguila DO Cosigner Signature: Date (if indicated) CC: Dr. Patricia Winston DO; Go Aguila DO Date Dictated: 07/26/24 0720 Date Transcribed: Duplicator Punch Set Up Operator: RL Signed Normal [facility] EGD Reporton 07-26-2024 EGD Report [facility] Medical Records Department [address] [place] [address] EGD Report MR#: [id number] Acct: [id number] Name: MARVA KHAN [facility] Rep #: [id number] : 1965 59 From: Go Aguila DO PCP: Dr. Patricia Winston DO Status:REG [facility] Patient Name: Marva Khan Procedure Date: 07/26/2024 7:06 AM Date of : 1965 Age: 59 Procedure: Upper GI endoscopy Indications: Epigastric abdominal pain, Dyspepsia Providers: Go Aguila DO Referring MD: Patricia [...] check healing. Procedure Code(s): --- Professional --- 85050, Esophagogastroduodenosc opy, flexible, transoral; with biopsy, single or multiple CPT copyright 2021 [employer]. All rights reserved. The codes documented in this report are preliminary and upon medical records coder review may be revised to meet current compliance requirements. Go Aguila DO 07/26/2024 7:44:36 AM This report has been signed electronically. Number of Addenda: 0 Note Initiated On: 07/26/2024 7:06 AM 07/26/24 0744 Date Go Carter (more content not included)... Normal [facility] H Pylori (initial)on 025 H Pylori (initial) --- Patient Age/Sex Location Account Attending Physician MARVA KHAN PRLindsay 59/F EN [id number] Go Aguila DO Specimen: [id number] Received: 07/26/24 Status: BRAULIO Moore Num: [id number] Spec Type: IMMUNO Subm Dr: Go Aguila, PHYSICIAN INSTITUTION [place] [address] SPECIMEN INFORMATION: Tissue Source: A- Gastric body biopsy Clinical Info: Abnormal CT scan, gastrointestinal tract, gastritis Specimen Number: [id number] CPT code: 89345 METHODOLOGY: Deparaffinized sections of prefer/formalin-fixed tissue or [...] developed and their performance characteristics determined by [facility] Laboratory. They may not have been cleared or approved by the U.S. Food and Drug Administration. The FDA has determined that such clearance or approval is not necessary. The above immunohistochemical/anupam Bisi markers are ordered and reviewed by the Pathologist. INTERPRETATION: A. Gastric body, biopsy: Negative for Helicobacter pylori organisms. 07/27/2024 Signed (signature on file) Dr. Frank Barba MD 07/27/24 1247 Normal [facility] Comment on above: Performed By: #### P H.PYLORI #### [facility] Laboratory [address] [facility] [place], [address] MR/CON.PCM.GIon 07-26-2024 MR/CON.PCM.GI [facility] Medical Records Department [address] [place] [address] Consultation - GI 07/26/24 0659 MR#: [id number] Acct: [id number] Name: MARVA KHAN [facility] Rep #: [id number] : 1965 59 From: Go Friend DO PCP: Dr. Patricia Winston, DO Status:[facility] Location: [place] [address] HPI Consult Data Date of Consult: 07/26/24 [...] istory mg-fish oil 597 mg capsule,delay rel (Taft-3) thyroid (pork) 90 mg tablet 90 mg [...] Exam Const a (more content not included)... [facility] MR/POSTOP.ANEon 07-26-2024 MR/POSTOP.[facility] Medical Records Department [address] [place] [address] Anesthesia Postop Eval I 07/26/24 0738 MR#: [id number] Acct: [id number] Name: MARVA KHAN [facility] Rep #: [id number] : 1965 59 From: Ashley Guillen PCP: Dr. Patricia Winston, DO Status:[facility] Y Race: C Location: EN Anesthesia: [...] Date Ashley Joyce Signature: Date CC: Signed [facility] MR/EZSFSYTA9ea 07-26-2024 MR/POSTOPAN2 [facility] Medical Records Department [address] [place] [place] [address] Anesthesia Postop Eval II 07/26/24 0851 MR#: [id number] Acct: [id number] Name: MARVA KHAN [facility] Rep #: [id number] : 1965 59 From: Jamarcus Hill MD PCP: Dr. Patricia Winston, DO Status:[facility] Y Race: C Location: EN Anesthesia Postop Eval I Sum Postop Eval Completion status Anesthesia document: Postop Eval 1 completed: Yes Anesthesia Postop Eval I Summary Anesthesia Postop Eval I Summary: Anesthesia Postop Eval I: Assessment Summary Airway patent Yes 07/26/24 08:42 REPAIR MANAGER.GDOTT Spontaneous unlabored Yes 07/26/24 08:42 REPAIR MANAGER.GDOTT respirations Mental status Awake,Calm 07/26/24 08:42 REPAIR MANAGER.GDOTT nausea No 07/26/24 08:42 REPAIR MANAGER.GDOTT Vomiting No 07/26/24 08:42 REPAIR MANAGER.GDOTT Anesthesia Postop Eval I: Fluid Summary Crystalloid volume administer 10 07/26/24 08:42 REPAIR MANAGER.GDOTT (ml) Colloids volume administered ( ml) Blood Product volume administered (ml) Total IV fluid infused 10 07/26/24 08:42 REPAIR MANAGER.GDOTT Anesthesia Postop Eval I: Summary Notes Anesthesia Complication No 07/26/24 08:42 REPAIR MANAGER.GDOTT Anesthesia Complication Comment: Post-operative progress note Anesthesia: Postop Eval II Evaluation Mental status: Awake Pain Level: 0 nausea: No Vomiting: No 07/26/2451 Date Jamarcus Joyce Signature: Date CC: Signed Normal [facility] Special Stain Group Ion 02-0 Special Stain Group I ----- Patient Age/Sex Location Account Attending Physician ERINMARVA NATALIIA 59/F EN [id number] Go Aguila DO Specimen: [id number] Received: 07/26/24 Status: BRAULIO Oscar Num: [id number] Spec Type: COLON BX Subm Dr: Go [...] for Helicobacter pylori will be reported separately ([id number]). C. Alcian blue/PAS stain with matched control is used in the evaluation of the specimen. D. Prominent lymphoid aggregates are noted. MICROSCOPIC DESCRIPTION Slides are reviewed. A. The specimen shows fragments of gastric mucosa with chronic inflammatory cell infiltrates in the lamina propria consisting of lymphocytes and plasma cells, consistent with mild chronic gastritis. Patient Age/Sex Location Account Attending Physician MARVA KHAN PRLindsay 59/F EN [id number] Go Aguila DO GROSS DESCRIPTION A. Received [...] totally submitted in one cassette. 07/26/2024 TC:3 [facility]:[id number] Patient Age/Sex Location Account Attending Physician MARVA KHAN 59/F XIMENA [id number] Go Aguila DO Signed (signature on file) Dr. Frank Barba MD 07/27/24 1224 Normal [facility] Comment on above: Performed By: #### P SSI ####[facility] [address] [facility] [facility] [place], [place], [address] MR/PATJUANJOSEon 07-25-2024 MR/PAT.LANIE [facility] Medical Records Department [address] [place] [address] PAT - Anesthesia 07/25/24 1628 MR#: [id number] Acct: [id number] Name: MARVA KHAN [facility] Rep #: [id number] : 1965 59 From: Johan Albright MD PCP: Dr. Patricia Winston, DO Status:PRE 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 Hx Hospitalization Yes: ABD ISSUES 04/202407/24/24 11:24 [...] take am of surgery PONV PONV - apprentice funeral director: PONV - apprentice funeral director Female Yes 07/24/24 11:24 HX of Motion [...] 05/19/24 13:14 Respiratory Assessment Respiratory Assessment - apprentice funeral director: Respiratory Tract Infection Hx - apprentice funeral director Hx Respiratory Tract Infection No 07/24/24 11:24 STOP Sleep Apnea STOP Sleep Apnea - apprentice funeral director: STOP Sleep Apnea - apprentice funeral director Hx Hypertension Yes: DURING 07/24/24 11:24 Hx [...] Tobacco Use History Tobacco Use History - apprentice funeral director: Tobacco Use History - apprentice funeral director Tobacco Use Smoking Status Never smoker 07/24/24 11:24 Hx Tobacco Use No 07/24/24 11:24 Years Smoking Packs Smoked per Day Smoking Cessation Date was within the last 15 years Hx Smoking Cessation Date Hx Smoking Cessation Counseling Hematologic Medial History Hematologic Hx - apprentice funeral director: 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 Normal [facility] Spine Thoracic W/WO Contrast on 07-11-2024 Spine Thoracic W/WO Contrast [facility] Imaging Services [address] [place] [address] Spine Thoracic W/WO Contrast MR#: [id number] Acct: [id number] Name: MARVA KHAN [facility] Rep #: [id number] : 1965 F 59 From: Amanda beckman MD PCP: Dr. Patricia Winston DO Status: REG CLI Study: Spine Thoracic W/WO Contrast Date of Exam: Exam# [id number] Ordering Dr: [place] [id number] HISTORY: Low back pain, upper back pain [...] EST , CC: Dr. Patricia Winston DO Duplicator Punch Set Up Operator: Signed Normal [facility] Ivan 06-01-2024 [facility] ([employer]) MARVA KHAN ([id number]) 1965 F Date Time Provider Department 06/01/24 [...] Status:Closed by MALIHA APPLE on 06/05/24 Normal [facility] Gastroenterology Visit Repor ton 05-24-2024 Gastroenterology Visit Report [facility] Gastroenterology [address] [place] [address] OFFICE VISIT Date of Service: 05/24/24 MR#: [id number] Acct: [id number] Name: MARVA KHAN [facility] Rep #: [id number] : 1965 Provider: LIZETH john Age/Sex: 58/F [facility] [facility] Status: Signed Intake Vital Signs 05/19/24 13:14 05/24/24 08:40 05/24/24 08:42 Height 5 ft 7 in Weight: 168 lb 4 oz BP 105/68 Respiration 16 Pulse 68 Pulse Oximetry (%) 94 Oxygen Delivery Method room air Intake Visit Reasons: Vomiting and diarrhea Chief Complaint: pain Jamb Cutter Required: No Is patient in pain?: Yes [...] History mg-fish oil 597 mg capsule,delay rel (Taft-3) thyroid (pork) 90 mg tablet 90 mg [...] like cramping in mid area. [facility] Medical History COVID (04/2020) Breast cancer, left [...] character, coffee (more content not included)... Normal [facility] ENTERIC PATHOGEN PANEL STOOL on 05-20-2024 EP [...] VIBRIO Not Detected Yersinia Not Detected Normal [facility] Comment on above: Performed By: #### M 100.319 ####[facility] [address] [place], [address] CBC W/Diff, Automatedon 11- Absolute Lymph 2.50 X10 3/uL Normal 0.83-4.51 [facility] Comment on above: Performed By: #### L 500.4050, L100.0100 ####[facility] [address] [place], [address] Absolute Neut 3.1 X10 3/uL Normal 2.0-7.7 [facility] Comment on above: Performed By: #### L 500.4050, L100.0100 ####[facility] [address] [place], [address] Basophils/100 WBC (Bld) 0.8 % Normal 0-1 [facility] Comment on above: Performed By: #### L 500.4050, L100.0100 ####[facility] [address] [place], [address] Eosinophils/100 WBC (Bld) 2.4 % Normal 0-5 [facility] Comment on above: Performed By: #### L 500.4050, L100.0100 ####[facility] [address] [place], [address] Erythrocyte distribution width (RBC) [Ratio] 13.2 % Normal 11.6-14.6 [facility] Comment on above: Performed By: #### L 500.4050, L100.0100 ####[facility] [address] [place], [address] Hematocrit (Bld) [Volume fraction] 36.7 % Low 37-47 [facility] Comment on above: Performed By: #### L 500.4050, L100.0100 ####[facility] [address] [place], [address] Hemoglobin (Bld) [Mass/Vol] 12.1 g/dL Normal 12.0-15.0 [facility] Comment on above: Performed By: #### L 500.4050, L100.0100 ####[facility] [address] [place], [address] IG% 0.200 Normal 0.0-0.9 [facility] Comment on above: Result Comment: IG% - Immature Granulocytes (promyelocytes, myelocytes and metamyelocytes) > 1% indicates that a LEFT SHIFT is Present. Performed By: #### L 500.4050, L100.0100 ####[facility] [address] [place], [address] Lymphocytes/100 WBC (Bld) 40.3 % Normal 19-41 [facility] Comment on above: Performed By: #### L 500.4050, L100.0100 ####[facility] [address] [place], [address] MCH (RBC) [Entitic mass] 30.0 pg Normal 27.0-32.0 [facility] Comment on above: Performed By: #### L 500.4050, L100.0100 ####[facility] [address] [place], [address] MCHC (RBC) [Mass/Vol] 33.0 g/dL Normal 32-36 [facility] Comment on above: Performed By: #### L 500.4050, L100.0100 ####[facility] [address] [place], [address] MCV (RBC) [Entitic vol] 91.1 fL Normal 81-99 [facility] Comment on above: Performed By: #### L 500.4050, L100.0100 ####[facility] [address] [place], [address] Monocytes/100 WBC (Bld) 6.9 % Normal 0-10 [facility] Comment on above: Performed By: #### L 500.4050, L100.0100 ####[facility] [address] [place], [address] Neutrophils/100 WBC (Bld) 49.4 % Normal 47-70 [facility] Comment on above: Performed By: #### L 500.4050, L100.0100 ####[facility] [address] [place], [address] Nucleated RBC (Bld) [#/Vol] 0 10*3/uL Normal 0-5 [facility] Comment on above: Performed By: #### L 500.4050, L100.0100 ####[facility] [address] [place], [address] Platelet mean volume (Bld) [Entitic vol] 9.7 fL Normal 6.2-12.0 [facility] Comment on above: Performed By: #### L 500.4050, L100.0100 ####[facility] [address] [place], Platelets (Bld) [#/Vol] 219 10*3/uL Normal 150-450 [facility] Comment on above: Performed By: #### L 500.4050, L100.0100 ####[facility] [address] [place], [address] RBC (Bld) [#/Vol] 4.03 10*6/uL Low 4.2-5.4 [facility] Comment on above: Performed By: #### L 500.4050, L100.0100 ####[facility] [address] [place], [address] RDW SD 43.8 fl Normal 35.1-43.9 [facility] Comment on above: Performed By: #### L 500.4050, L100.0100 ####[facility] [address] [place], [address] WBC (Bld) [#/Vol] 6.2 10*3/uL Normal 4.4-11.0 [facility] Comment on above: Performed By: #### L 500.4050, L100.0100 ####[facility] [address] [place], [address] Comprehensive Metabolic Prof ilon 05-19-2024 Albumin [Mass/Vol] 3.0 g/dL Low 3.2-5.0 [facility] Comment on above: Performed By: #### L 500.4050, L100.0100 ####[facility] [address] [place], [address] Albumin/Globulin [Mass ratio] 1.2 {ratio} Normal 0.9-2.4 [facility] Comment on above: Performed By: #### L 500.4050, L100.0100 ####[facility] [address] [place], [address] ALK P 49 U/L Normal 45-117 [facility] Comment on above: Performed By: #### L 500.4050, L100.0100 ####[facility] [address] [place], [address] ALT [Catalytic activity/Vol] 13 U/L Normal 13-56 [facility] Comment on above: Performed By: #### L 500.4050, L100.0100 ####[facility] [address] [place], [address] AST [Catalytic activity/Vol] 12 U/L Low 15-37 [facility] Comment on above: Performed By: #### L 500.4050, L100.0100 ####[facility] [address] [place], [address] Bilirubin [Mass/Vol] 0.30 mg/dL Normal 0.20-1.00 [facility] Comment on above: Result Comment: For patients on eltrombopag therapy, use of Dimension [place] TBIL is not recommended. Performed By: #### L 500.4050, L100.0100 ####[facility] [address] [place], [address] BUN/CRE 7.4 RATIO Low 10-20 [facility] Comment on above: Performed By: #### L 500.4050, L100.0100 ####[facility] [address] [place], [address] CA,Total 8.7 mg/dL Normal 8.5-10.1 [facility] Comment on above: Performed By: #### L 500.4050, L100.0100 ####[facility] [address] [place], [address] Chloride [Moles/Vol] 110 mmol/L High 98-107 [facility] Comment on above: Performed By: #### L 500.4050, L100.0100 ####[facility] [address] [place], [address] CO2 [Moles/Vol] 26.0 mmol/L Normal 21.0-32.0 [facility] Comment on above: Performed By: #### L 500.4050, L100.0100 ####[facility] [address] [place], [address] Creatinine [Mass/Vol] 0.95 mg/dL Normal 0.55-1.02 [facility] Comment on above: Result Comment: The validity of the calculated GFR GFRAA in patients over 70 years has not been determined. Clinical correlation is essential. Performed By: #### L 500.4050, L100.0100 ####[facility] [address] [place], [address] ECRCL 68.94 ml/min Normal [facility] Comment on above: Performed By: #### L 500.4050, L100.0100 ####[facility] [address] [place], [address] EST GFR - AA 78 mL/min Normal >60 [facility] Comment on above: Result Comment: Afri can [place] GFR Calc Performed By: #### L 500.4050, L100.0100 ####[facility] [address] [place], [address] GAP 5 Normal 5-15 [facility] Comment on above: Performed By: #### L 500.4050, L100.0100 ####[facility] [address] [place], [address] GFR/1.73 sq M.predicted among non-blacks MDRD (S/P/Bld) [Vol rate/Area] 64 mL/min/{1.73_m2} Normal >60 [facility] Comment on above: Result Comment: Non- GFR Calc Performed By: #### L 500.4050, L100.0100 ####[facility] [address] [place], [address] Globulin (S) [Mass/Vol] 2.6 g/dL Normal 2.2-4.2 [facility] Comment on above: Performed By: #### L 500.4050, L100.0100 ####[facility] [address] [place], [address] Glucose [Mass/Vol] 86 mg/dL Normal 74-106 [facility] Comment on above: Performed By: #### L 500.4050, L100.0100 ####[facility] [address] [place], [address] Potassium [Moles/Vol] 3.7 mmol/L Normal 3.5-5.1 [facility] Comment on above: Performed By: #### L 500.4050, L100.0100 ####[facility] [address] [place], [address] Sodium [Moles/Vol] 142 mmol/L Normal 136-145 [facility] Comment on above: Performed By: #### L 500.4050, L100.0100 ####[facility] [address] [place], [address] T PROT 5.6 g/dL Low 6.4-8.2 [facility] Comment on above: Performed By: #### L 500.4050, L100.0100 ####[facility] [address] [place], [address] Urea nitrogen [Mass/Vol] 7 mg/dL Normal 7-18 [facility] Comment on above: Performed By: #### L 500.4050, L100.0100 ####[facility] [address] [place], [address] Urine Drug Screen (VISTA)on 05-19-2024 AMPHETAMINES Negative Normal <1000 ng/mL [facility] Comment on above: Performed By: #### L 505.5000 ####[facility] [address] [place], [address] BARBITIURATES Negative Normal < 200 ng/mL [facility] Comment on above: Performed By: #### L 505.5000 ####[facility] [address] [place], [address] BENZODIAZIPINE Negative Normal < 200 ng/mL [facility] Comment on above: Performed By: #### L 505.5000 ####[facility] [address] [place], [address] COCAINE Negative Normal < 300 ng/mL [facility] Comment on above: Performed By: #### L 505.5000 ####[facility] [address] [place], [address] ECSTACY Negative Normal < 500 ng/mL [facility] Comment on above: Performed By: #### L 505.5000 ####[facility] [address] [place], [address] METHADONE Negative Normal < 300 ng/mL [facility] Comment on above: Performed By: #### L 505.5000 ####[facility] [address] [place], [address] OPIATES Positive Abnormal < 300 ng/mL [facility] Comment on above: Performed By: #### L 505.5000 ####[facility] [address] [place], [address] PCP Negative Normal < 25 ng/mL [facility] Comment on above: Performed By: #### L 505.5000 ####[facility] [address] [place], [address] THC Negative Normal < 50 ng/mL [facility] Comment on above: Performed By: #### L 505.5000 ####[facility] [address] [place], [address] VISTA UDS PH 5 Normal [facility] Comment on above: Performed By: #### L 505.5000 ####[facility] [address] [place], [address] Abdomen/Pelvis W IV Cont ONL Yon 05-18-2024 Abdomen/Pelvis W IV Cont ONLY [facility] Imaging Services [address] [place] [address] Abdomen/Pelvis W IV Cont ONLY MR#: [id number] Acct: [id number] Name: MARVA KHAN [facility] Rep #: [id number] : 1965 F 58 From: Regina Larkin PCP: Dr. Patricia Winston, Status: REG ER Study: Abdomen/Pelvis W IV Cont ONLY Date of Exam: Exam# [id number] Ordering [place]: [place] [id number] EXAM: CT Abdomen And Pelvis W/ Contrast [...] Hudson Medley, DO; Dr. Patricia Winston, DO Duplicator Punch Set Up Operator: Signed Normal [facility] Basic Metabolic Profile (BMP )on 05-18-2024 BUN/CRE 10.4 RATIO Normal 10-20 [facility] Comment on above: Performed By: #### L 100.0100, L501.2450, L500.2500, L500.3400 #### [facility] [address] [place], [address] CA,Total 9.9 mg/dL Normal 8.5-10.1 [facility] Comment on above: Performed By: #### L 100.0100, L501.2450, L500.2500, L500.3400 #### [facility] [address] [place], [address] Chloride [Moles/Vol] 107 mmol/L Normal 98-107 [facility] Comment on above: Performed By: #### L 100.0100, L501.2450, L500.2500, L500.3400 #### [facility] [address] [place], [address] CO2 [Moles/Vol] 29.0 mmol/L Normal 21.0-32.0 [facility] Comment on above: Performed By: #### L 100.0100, L501.2450, L500.2500, L500.3400 #### [facility] [address] [place], [address] Creatinine [Mass/Vol] 0.96 mg/dL Normal 0.55-1.02 [facility] Comment on above: Result Comment: The validity of the calculated GFR GFRAA in patients over 70 years has not been determined. Clinical correlation is essential. Performed By: #### L 100.0100, L501.2450, L500.2500, L500.3400 #### [facility] [address] [place], [address] ECRCL 62.87 ml/min Normal [facility] Comment on above: Performed By: #### L 100.0100, L501.2450, L500.2500, L500.3400 #### [facility] [address] [place], [address] EST GFR - AA 77 mL/min Normal >60 [facility] Comment on above: Result Comment: Afri can [place] GFR Calc Performed By: #### L 100.0100, L501.2450, L500.2500, L500.3400 #### [facility] [address] [place], [address] GAP 6 Normal 5-15 [facility] Comment on above: Performed By: #### L 100.0100, L501.2450, L500.2500, L500.3400 #### [facility] [address] [place], [address] GFR/1.73 sq M.predicted among non-blacks MDRD (S/P/Bld) [Vol rate/Area] 63 mL/min/{1.73_m2} Normal >60 [facility] Comment on above: Result Comment: Non- GFR Calc Performed By: #### L 100.0100, L501.2450, L500.2500, L500.3400 #### [facility] [address] [place], [address] Glucose [Mass/Vol] 108 mg/dL High 74-106 [facility] Comment on above: Result Comment: Fast ing Glucose result from 100 to 125 mg/dL suggests IMPAIRED HOMEOSTASIS per A.D.A. criteria. Performed By: #### L 100.0100, L501.2450, L500.2500, L500.3400 #### [facility] [address] [place], [address] Potassium [Moles/Vol] 3.5 mmol/L Normal 3.5-5.1 [facility] Comment on above: Performed By: #### L 100.0100, L501.2450, L500.2500, L500.3400 #### [facility] [address] [place], [address] Sodium [Moles/Vol] 142 mmol/L Normal 136-145 [facility] Comment on above: Performed By: #### L 100.0100, L501.2450, L500.2500, L500.3400 #### [facility] [address] [place], [address] Urea nitrogen [Mass/Vol] 10 mg/dL Normal 7-18 [facility] Comment on above: Performed By: #### L 100.0100, L501.2450, L500.2500, L500.3400 #### [facility] [address] [place], [address] CBC W/Diff, Automatedon 11- Absolute Lymph 2.03 X10 3/uL Normal 0.83-4.51 [facility] Comment on above: Performed By: #### L 100.0100, L501.2450, L500.2500, L500.3400 #### [facility] [address] [place], [address] Absolute Neut 4.4 X10 3/uL Normal 2.0-7.7 [facility] Comment on above: Performed By: #### L 100.0100, L501.2450, L500.2500, L500.3400 #### [facility] [address] [place], [address] Basophils/100 WBC (Bld) 0.6 % Normal 0-1 [facility] Comment on above: Performed By: #### L 100.0100, L501.2450, L500.2500, L500.3400 #### [facility] [address] [place], [address] Eosinophils/100 WBC (Bld) 0.6 % Normal 0-5 [facility] Comment on above: Performed By: #### L 100.0100, L501.2450, L500.2500, L500.3400 #### [facility] [address] [place], [address] Erythrocyte distribution width (RBC) [Ratio] 12.8 % Normal 11.6-14.6 [facility] Comment on above: Performed By: #### L 100.0100, L501.2450, L500.2500, L500.3400 #### [facility] [address] [place], [address] Hematocrit (Bld) [Volume fraction] 42.4 % Normal 37-47 [facility] Comment on above: Performed By: #### L 100.0100, L501.2450, L500.2500, L500.3400 #### [facility] [address] [place], [address] Hemoglobin (Bld) [Mass/Vol] 14.3 g/dL Normal 12.0-15.0 [facility] Comment on above: Performed By: #### L 100.0100, L501.2450, L500.2500, L500.3400 #### [facility] [address] [place], [address] IG% 0.100 Normal 0.0-0.9 [facility] Comment on above: Result Comment: IG% - Immature Granulocytes (promyelocytes, myelocytes and metamyelocytes) > 1% indicates that a LEFT SHIFT is Present. Performed By: #### L 100.0100, L501.2450, L500.2500, L500.3400 #### [facility] [address] [place], [address] Lymphocytes/100 WBC (Bld) 29.0 % Normal 19-41 [facility] Comment on above: Performed By: #### L 100.0100, L501.2450, L500.2500, L500.3400 #### [facility] [address] [place], [address] MCH (RBC) [Entitic mass] 30.0 pg Normal 27.0-32.0 [facility] Comment on above: Performed By: #### L 100.0100, L501.2450, L500.2500, L500.3400 #### [facility] [address] [place], [address] MCHC (RBC) [Mass/Vol] 33.7 g/dL Normal 32-36 [facility] Comment on above: Performed By: #### L 100.0100, L501.2450, L500.2500, L500.3400 #### [facility] [address] [place], [address] MCV (RBC) [Entitic vol] 88.9 fL Normal 81-99 [facility] Comment on above: Performed By: #### L 100.0100, L501.2450, L500.2500, L500.3400 #### [facility] [address] [place], [address] Monocytes/100 WBC (Bld) 6.6 % Normal 0-10 [facility] Comment on above: Performed By: #### L 100.0100, L501.2450, L500.2500, L500.3400 #### [facility] [address] [place], [address] Neutrophils/100 WBC (Bld) 63.1 % Normal 47-70 [facility] Comment on above: Performed By: #### L 100.0100, L501.2450, L500.2500, L500.3400 #### [facility] [address] [place], [address] Nucleated RBC (Bld) [#/Vol] 0 10*3/uL Normal 0-5 [facility] Comment on above: Performed By: #### L 100.0100, L501.2450, L500.2500, L500.3400 #### [facility] [address] [place], [address] Platelet mean volume (Bld) [Entitic vol] 9.0 fL Normal 6.2-12.0 [facility] Comment on above: Performed By: #### L 100.0100, L501.2450, L500.2500, L500.3400 #### [facility] [address] [place], [address] Platelets (Bld) [#/Vol] 269 10*3/uL Normal 150-450 [facility] Comment on above: Performed By: #### L 100.0100, L501.2450, L500.2500, L500.3400 #### [facility] [address] [place], [address] RBC (Bld) [#/Vol] 4.77 10*6/uL Normal 4.2-5.4 [facility] Comment on above: Performed By: #### L 100.0100, L501.2450, L500.2500, L500.3400 #### [facility] [address] [place], [address] RDW SD 42.0 fl Normal 35.1-43.9 [facility] Comment on above: Performed By: #### L 100.0100, L501.2450, L500.2500, L500.3400 #### [facility] [address] [place], [address] WBC (Bld) [#/Vol] 7.0 10*3/uL Normal 4.4-11.0 [facility] Comment on above: Performed By: #### L 100.0100, L501.2450, L500.2500, L500.3400 #### [facility] [address] [place], [address] Emergency Department Summary on 05-18-2024 Emergency Department Summary [facility] Medical Records Department [address] [place] [address] Emergency Department Summary 05/18/24 MR#: [id number] Acct: [id number] Name: MARVA KHAN [facility] Rep #: [id number] : 1965 58 From: Hudson Medley DO PCP: Dr. Patricia Winston DO Status:ADM IN Location: [facility] [id number] HPI History of Present Illness Chief Complaint: [...] of dry heaving with some bilious vomiting. [facility] Medical History COVID (04/2020) Breast cancer, left [...] History mg-fish oil 597 mg capsule,delay rel (Taft-3) thyroid (pork) 90 mg tablet 90 mg [...] moist mucous (more content not included)... Normal [facility] H AND P Exam - [place] 05-18-2024 H&P Exam - Hospitalist [facility] Medical Records Department [address] [place] [address] H P Exam - Hospitalist 05/18/24 1150 MR#: [id number] Acct: [id number] Name: MARVA KHAN [facility] Rep #: [id number] : 1965 58 From: Jay Seymour DO PCP: Dr. Patricia Winston DO Status:ADM IN Location: [facility] [id number] HPI - General General Date of Admission: [...] and pantoprazole in the ED. [facility] Medical History COVID (04/2020) Breast cancer, left [...] History mg-fish oil 597 mg capsule,delay rel (Taft-3) thyroid (pork) 90 mg tablet 90 mg [...] WBC 7.0, (more content not included)... Normal [facility] Lipaseon 05-18-2024 Lipase [Catalytic activity/Vol] 40 U/L Normal 13-75 [facility] Comment on above: Result Comment: Linette crews note: LIPASE revised reference range effective 22. New Lipase methodology. Expected to produce lower values than the previous assay method. NEW Reference Range: 13 - 75 U/L Performed By: #### L 100.0100, L501.2450, L500.2500, L500.3400 #### [facility] [address] [place], [address] Liver Profileon 05-18-2024 Albumin [Mass/Vol] 3.7 g/dL Normal 3.2-5.0 [facility] Comment on above: Performed By: #### L 100.0100, L501.2450, L500.2500, L500.3400 #### [facility] [address] [place], [address] ALK P 65 U/L Normal 45-117 [facility] Comment on above: Performed By: #### L 100.0100, L501.2450, L500.2500, L500.3400 #### [facility] [address] [place], [address] ALT [Catalytic activity/Vol] 14 U/L Normal 13-56 [facility] Comment on above: Performed By: #### L 100.0100, L501.2450, L500.2500, L500.3400 #### [facility] [address] [place], [address] AST [Catalytic activity/Vol] 17 U/L Normal 15-37 [facility] Comment on above: Performed By: #### L 100.0100, L501.2450, L500.2500, L500.3400 #### [facility] [address] [place], [address] Bilirubin [Mass/Vol] 0.30 mg/dL Normal 0.20-1.00 [facility] Comment on above: Result Comment: For patients on eltrombopag therapy, use of Dimension [place] TBIL is not recommended. Performed By: #### L 100.0100, L501.2450, L500.2500, L500.3400 #### [facility] [address] [place], [address] Bilirubin.direct [Mass/Vol] 0.09 mg/dL Normal 0.00-0.30 [facility] Comment on above: Performed By: #### L 100.0100, L501.2450, L500.2500, L500.3400 #### [facility] [address] [place], [address] Globulin (S) [Mass/Vol] 3.3 g/dL Normal 2.2-4.2 [facility] Comment on above: Performed By: #### L 100.0100, L501.2450, L500.2500, L500.3400 #### [facility] [address] [place], [address] T PROT 7.0 g/dL Normal 6.4-8.2 [facility] Comment on above: Performed By: #### L 100.0100, L501.2450, L500.2500, L500.3400 #### [facility] [address] [place], [address] CNOVon 04-18-2024 CN Office Visit ([facility]) MARVA KHAN ([id number]) 1965 F Date Time Provider Department 04/18/24 1:30 PM FILOMENA RIZVI [facility] During your visit today, we recorded the following information about you: Pulse Blood pressure Weight Height 52/minute 119/80 73.9 kg 1.702 Davidson Blakely LPN 05/01/2024 12:03 PM Signed Patient presents for follow up after imaging.Patient stated right side pain that wraps around her rib cage the pain is intermittent. LM Ibrahim Amanda M, MD 05/01/2024 12:03 PM Signed Filomena Rizvi MD [place] [id number] SUBJECTIVE Chief Complaint: Patient presents with: Follow Up Tests Results HPI Marva Khan is a 58 year old female here today for follow up. History of left breast cancer. She is status post left lumpectomy sentinel lymph node biopsy on 12/18/2019 for invasive ductal carcinoma grade 2, ER/SC+, H2N-. Final pathology showed 4 negative lymph [...] right breast PONV (postoperative nausea and vomiting) Scuddy Martins auricular syndrome PAST SURGICAL HISTORY Procedure [...] nursing protocol (more content not included)... Normal [facility] DBT Breast - bilateral diagn ostic for implanton 04-18-2024 IMPRESSION: There is no mammographic evidence of malignancy. Clinical follow up recommended for the reported palpable finding in the right axilla. Annual screening mammogram is recommended. The patient will be due in 1 year. BI-RADS Category 2: Benign Interpreting Radiologist: Tg Pardo M.D. Electronically signed on: 04/18/2024 Duplicator Punch Set Up Operator: CANDY Transcribe Date/Time: Apr 18 2024 1:32P Dictated by : TG PARDO MD This examination was interpreted and the report reviewed and electronically signed by: TG PARDO MD on Apr 18 2024 4:33PM EST [employer] [facility] * * *Final Report* * * DATE OF EXAM: Apr 18 2024 1:41PM AAW 0627 - BRYSON DIAG W GEOFFREY TIM / PROCEDURE REASON: Papilloma of right breast * * * * Physician Interpretation * * * * [facility] [address] [facility] [place] [address] HISTORY: Patient is 58 years old and [...] [facility] Provider, Cc Diana waldron [place] - 04/18/2024 * * *Final Report* * * DATE OF EXAM: Apr 18 2024 1:41PM AAW 0627 - BRYSON SHIN MURRIETA TIM / PROCEDURE REASON: Papilloma of right breast * * * * Physician Interpretation * * * * [facility] [address] [facility] [place] [address] HISTORY: Patient is 58 years old and [...] Tg Pardo M.D. Electronically signed on: 04/18/2024 Du[employer]ator Punch Set Up Operator: CANDY Transcririccardo Date/Time: Apr 18 2024 1:32P Dictated by : TG PARDO MD This examination was interpreted and the report reviewed and electronically signed by: TG PARDO MD on Apr 18 2024 4:33PM EST [facility] Radiology Study observation (narrative) [facility] BRYSON GUOO BILon 2023 BRYSON BRIANChun Felipe GEOFFREY TIM * * *Final Report* * * DATE OF EXAM: Apr 18 2024 1:41PM AAW 0627 - BRYSON Wang GEOFFREY TIM / PROCEDURE REASON: Papilloma of right breast * * * * Physician Interpretation * * * * [facility] [address] [facility] [place] [id number] HISTORY: Patient is 58 years old and [...] Tg Pardo M.D. Electronically signed on: 04/18/2024 Duplicator Punch Set Up Operator: CANDY Transcribe Date/Time: Apr 18 2024 1:32P Dictated by : TG PARDO MD This examination was interpreted and the report reviewed and electronically signed by: TG PARDO MD on Apr 18 2024 4:33PM EST [id number] Normal [facility] US AXILLA ONLY RTon 10-2 [facility] US AXILLA ONLY RT * * *Final Report* * * DATE OF EXAM: Apr 18 2024 2:26PM AAW 0592 - [facility] US AXILLA ONLY RT / PROCEDURE REASON: Papilloma of right breast * * * * Physician Interpretation * * * * [facility] BREAST [facility] [address] [place] [id number] HISTORY: Patient is 58 years old and [...] ultrasound of the indicated area was performed. Sylvetser scale images were saved. ULTRASOUND FINDINGS: Finding [...] Tg Pardo M.D. Electronically signed on: 04/18/2024 Duplicator Punch Set Up Operator: CANDY Transcribe Date/Time: Apr 18 2024 2:16P Dictated by : TG PARDO MD This examination was interpreted and the report reviewed and electronically signed by: TG PARDO MD on Apr 18 2024 4:33PM EST [id number] Normal [facility] No Panel InformationOrdered By: Ccf Provider on 04-18-2024 [facility] Axilla - righton 04-18-20 IMPRESSION: There is no mammographic evidence of malignancy. Clinical follow up recommended for the reported palpable finding in the right axilla. Annual screening mammogram is recommended. The patient will be due in 1 year. BI-RADS Category 2: Benign Interpreting Radiologist: Tg Pardo M.D. Electronically signed on: 04/18/2024 Duplicator Punch Set Up Operator: CANDY Transcribe Date/Time: Apr 18 2024 2:16P Dictated by : TG PARDO MD This examination was interpreted and the report reviewed and electronically signed by: TG PARDO MD on Apr 18 2024 4:33PM EST [facility] * * *Final Report* * * DATE OF EXAM: Apr 18 2024 2:26PM MIKA 0592 - BRYSON US AXILLA ONLY RT / PROCEDURE REASON: Papilloma of right breast * * * * Physician Interpretation * * * * [facility] [address] [facility] [place] [id number] HISTORY: Patient is 58 years old and [...] no evidence of any suspicious sonographic findings. [facility] * * *Final Report* * * DATE OF EXAM: Apr 18 2024 2:26PM MIKA 0592 Cuca [facility] US AXILLA ONLY RT / PROCEDURE REASON: Papilloma of right breast * * * * Physician Interpretation * * * * [facility] [address] [facility] [place] [address] HISTORY: Patient is 58 years old and [...] Tg Pardo M.D. Electronically signed on: 04/18/2024 Duplicator Punch Set Up Operator: MAGVIW Transcribe Date/Time: Apr 18 2024 2:16P Dictated by : TG PARDO MD This examination was interpreted and the report reviewed and electronically signed by: TG PARDO MD on Apr 18 2024 4:33PM EST [facility] Radiology Study observation (narrative) [facility] Serum measles virus IgG anti body assay by immunoassay (units/volume)Ordered By: Patricia Winston on 10-19-2023 MeV IgG IA Qn (S) 33.4 AU/mL Immune >16.4 [facility] Comment on above: Negative <13.5 Equiv ocal 13.5 - 16.4 Positive >16.4Presence of antibodies to Rubeola is presumptive evidenceof immunity except when acute infection is suspected.Performed at: [facility] [id number] Director: Rajesh Myles PhD, Phone: [phone] No Panel InformationOrdered By: Patrciia Winston on 10-18-2023 Free Triiodothyronine (T3) pg/dL 4.8 pg/mL 2.18-3.98 [facility] Rubella IgG Antibody Reactive Nonreactive [facility] Comment on above: Antibody Results Int erpretation of Immune Status Non Reactive Presumed Non-Immune Equivocal Equivocal Reactive Presumed Immune Serum or plasma thyroid stim ulating hormone (TSH) measurement (units/volume)Ordered By: Patricia Winston on 10-18-2023 TSH Qn 0.37 uIU/mL 0.358-3.74 [facility] Thin prep Papanicolaou smear with manual screeningOrdered By: Patricia Winston on 10-18-2023 Thin prep Papanicolaou smear with manual screening 0.83 ng/dL 0.76-1.46 [facility] US BREAST LTD RIGHTon 2022 [facility] CTA CORONARY W IVCONon 04-30 [facility] ECG COMPLETEon 04-27-2023 Atrial Rate 59 BPM [facility] Calculated P [place] 9 degrees [facility] Calculated R [place] -7 degrees [facility] Calculated T [place] 7 degrees [facility] P-R Interval 178 ms [facility] QRS Duration 84 ms [facility] QT Interval 422 ms [facility] QTC Calculation (Bazett) 417 ms [facility] Ventricular Rate 59 BPM [facility] MRI BREAST WO/W IVCON BILATE RALon 04-27-2023 [facility] BRYSON DIAG W GEOFFREY BILATERALon 12-17-2022 [facility] No Panel Informationon 12-17 [facility] Absolute lymphocyte countOrd ered By: Russel Castillo on 10-07-2022 Lymphocytes Auto (Unsp spec) [#/Vol] 3.29 10*3/uL 0.83-4.51 [facility] Basophil percentageOrdered B y: Russel Castillo on 10-07-2022 Basophils/100 WBC (Bld) 0.7 % 0-1 [facility] Chloride [Moles/Vol] 107 mmol/L 98-107 [facility] Eosinophils/100 WBC (Bld) 2.8 % 0-5 [facility] Glucose [Mass/Vol] 99 mg/dL 74-106 [facility] Neutrophils (Bld) [#/Vol] 2.7 10*3/uL 2.0-7.7 [facility] Neutrophils/100 WBC (Bld) 40.6 % 47-70 [facility] Potassium [Moles/Vol] 3.9 mmol/L 3.5-5.1 [facility] Sodium [Moles/Vol] 139 mmol/L 136-145 [facility] WBC (Bld) [#/Vol] 6.8 10*3/uL 4.4-11.0 [facility] Blood erythrocytes count (nu mber/volume)Ordered By: Russel Castillo on 10-07-2022 RBC (Bld) [#/Vol] 4.71 10*6/uL 4.2-5.4 [facility] Blood hemoglobin measurement (mass/volume)Ordered By: Russel Castillo on 10-07-2022 Hemoglobin (Bld) [Mass/Vol] 14.3 g/dL 12.0-15.0 [facility] Blood lymphocytes/100 leukoc ytesOrdered By: Russel Castillo on 10-07-2022 Lymphocytes/100 WBC (Bld) 48.7 % 19-41 [facility] Blood monocytes/100 leukocyt esOrdered By: Russel Castillo on 10-07-2022 Monocytes/100 WBC (Bld) 7.1 % 0-10 [facility] Blood platelet mean volumeOr dered By: Russel Castillo on 10-07-2022 Platelet mean volume (Bld) [Entitic vol] 9.1 fL 6.2-12.0 [facility] Determination of erythrocyte mean corpuscular volume (MCV)Ordered By: Russel Castillo on 10-07-2022 MCV (RBC) [Entitic vol] 94.5 fL 81-99 [facility] Hematocrit Auto (Bld) [Volum e fraction]Ordered By: Russel Castillo on 10-07-2022 Hematocrit (Bld) [Volume fraction] 44.5 % 37-47 [facility] Laboratory - Chemistry and C hemistry - challengeOrdered By: Russel Castillo on 10-07-2022 CO2 [Moles/Vol] 29.0 mmol/L 21.0-32.0 [facility] Urea nitrogen/Creatinine [Mass ratio] 17.2 mg/mg 10-20 [facility] Laboratory - Hematology and Cell countsOrdered By: Russel Castillo on 10-07-2022 Erythrocyte distribution width (RBC) [Entitic vol] 45.6 fL 35.1-43.9 [facility] Erythrocyte distribution width (RBC) [Ratio] 13.0 % 11.6-14.6 [facility] Immature granulocytes/100 WBC (Bld) 0.100 % 0.0-0.9 [facility] Comment on above: IG% - Immature Granu locytes (promyelocytes, myelocytes and metamyelocytes) > 1% indicates that a LEFT SHIFT is Present. MCH (RBC) [Entitic mass] 30.4 pg 27.0-32.0 [facility] Nucleated RBC/100 WBC (Bld) [Ratio] 0 % 0-5 [facility] MCHC Auto (RBC) [Mass/Vol]Or dered By: Russel Castillo on 10-07-2022 MCHC (RBC) [Mass/Vol] 32.1 g/dL 32-36 [facility] No Panel InformationOrdered By: Russel Castillo on 10-07-2022 Estimated Creatinine Clearance Calc 61.70 ml/min [facility] Estimated GFR (MDRD) Amer 75 mL/min >60 [facility] Comment on above: GFR Calc Estimated GFR (MDRD) Non-Af Amer 62 mL/min >60 [facility] Comment on above: Non- GFR Calc Thyroid Stimulating Hormone (TSH) 3.19 uIU/mL 0.358-3.74 [facility] Troponin I High Sensitivity 5 pg/mL 3.0-54.0 [facility] Comment on above: Please Note: [place] t Units and Gender Specific Reference Ranges. For more information see Policy Stat Procedure [place] High Sensitivity Troponin (TNIH) and attachments. Platelets bldOrdered By: Luis F Castillo on 10-07-2022 Platelets (Bld) [#/Vol] 284 10*3/uL 150-450 [facility] Serum or plasma calcium ana urement (mass/volume)Ordered By: Russel Castillo on 10-07-2022 Calcium [Mass/Vol] 9.4 mg/dL 8.5-10.1 [facility] Serum or plasma creatinine m easurement (mass/volume)Ordered By: Russel Castillo on 10-07-2022 Creatinine [Mass/Vol] 0.99 mg/dL 0.55-1.02 [facility] Comment on above: The validity of the calculated GFR & GFRAA in patients over 70 years has not been determined. Clinical correlation is essential. Serum or plasma urea nitroge n measurement (mass/volume)Ordered By: Russel Castillo on 10-07-2022 Urea nitrogen [Mass/Vol] 17 mg/dL 7-18 [facility] Thin prep Papanicolaou smear with manual screeningOrdered By: Russel Castillo on 10-07-2022 Thin prep Papanicolaou smear with manual screening 3 5-15 [facility] Laboratory - Chemistry and C hemistry - challengeOrdered By: Dr. Winston on 04-14-2022 Free T4 [Mass/Vol] 0.63 ng/dL 0.76-1.46 [facility] No Panel InformationOrdered By: Dr. Winston on 04-14-2022 Free Triiodothyronine (T3) pg/dL 2.2 pg/mL 2.18-3.98 [facility] Thyroid Stimulating Hormone (TSH) 2.47 uIU/mL 0.358-3.74 [facility] Basophil percentageon 2021 Bilirubin [Mass/Vol] 0.30 mg/dL 0.20-1.00 [facility] Work Phone: [phone] Comment on above: For patients on eltr ombopag therapy, use of Dimension [place] TBIL is not recommended. Chloride [Moles/Vol] 106 mmol/L 98-107 [facility] Work Phone: Glucose [Mass/Vol] 90 mg/dL 74-106 [facility] Work Phone: Potassium [Moles/Vol] 4.3 mmol/L 3.5-5.1 [facility] Work Phone: Protein [Mass/Vol] 7.6 g/dL 6.4-8.2 [facility] Work Phone: Sodium [Moles/Vol] 138 mmol/L 136-145 [facility] Work Phone: [phone] Laboratory - Chemistry and C hemistry - challengeon 02-13-2022 ALP [Catalytic activity/Vol] 88 U/L 45-117 [facility] Work Phone: ALT [Catalytic activity/Vol] 30 U/L 13-56 [facility] Work Phone: CO2 [Moles/Vol] 26.0 mmol/L 21.0-32.0 [facility] Work Phone: Free T4 [Mass/Vol] 1.28 ng/dL 0.76-1.46 [facility] Work Phone: Globulin (S) [Mass/Vol] 3.4 g/dL 2.2-4.2 [facility] Work Phone: T4 [Mass/Vol] 12.3 ug/dL 4.8-13.9 [facility] Work Phone: Urea nitrogen/Creatinine [Mass ratio] 19.4 mg/mg 10-20 [facility] Work Phone: No Panel Informationon 02-13 Estimated GFR (MDRD) Amer 71 mL/min >60 [facility] Work Phone: Comment on above: GFR Calc Estimated GFR (MDRD) Non-Af Amer 59 mL/min >60 [facility] Work Phone: Comment on above: Non- GFR Calc Free Triiodothyronine (T3) pg/dL 2.8 pg/mL 2.18-3.98 [facility] Work Phone: Thyroid Stimulating Hormone (TSH) 0.23 uIU/mL 0.358-3.74 [facility] Work Phone: Total Triiodothyronine 1.16 ng/mL 0.6-1.81 [facility] Work Phone: Serum or plasma albumin ana urement (mass/volume)on 02-13-2022 Albumin [Mass/Vol] 4.2 g/dL 3.2-5.0 [facility] Work Phone: Serum or plasma albumin/glob ulin mass ratioon 02-13-2022 Albumin/Globulin [Mass ratio] 1.2 {ratio} 0.9-2.4 [facility] Work Phone: Serum or plasma calcium ana urement (mass/volume)on 02-13-2022 Calcium [Mass/Vol] 9.1 mg/dL 8.5-10.1 [facility] Work Phone: Serum or plasma creatinine m easurement (mass/volume)on 02-13-2022 Creatinine [Mass/Vol] 1.03 mg/dL 0.55-1.02 [facility] Work Phone: Comment on above: The validity of the calculated GFR & GFRAA in patients over 70 years has not been determined. Clinical correlation is essential. Serum or plasma urea nitroge n measurement (mass/volume)on 02-13-2022 Urea nitrogen [Mass/Vol] 20 mg/dL 7-18 [facility] Work Phone: Thin prep Papanicolaou smear with manual screeningon 02-13-2022 Thin prep Papanicolaou smear with manual screening 20 U/L 15-37 [facility] Work Phone: Thin prep Papanicolaou smear with manual screening 6 5-15 [facility] Work Phone: BRYSON MURRIETA LTon 12-30- 022 [facility] US BREAST LTD LTon 2 [facility] Laboratory - Chemistry and C hemistry - challengeon 12-09-2021 Free T4 [Mass/Vol] 1.01 ng/dL 0.76-1.46 [facility] Work Phone: No Panel Informationon 12-09 Thyroid Stimulating Hormone (TSH) 0.15 uIU/mL 0.358-3.74 [facility] Work Phone: Vitamin D 25-Hydroxy 46.2 ng/mL [facility] Work Phone: Comment on above: Vitamin D 25(OH) Sta tus Range Deficiency <20 ng/mL (50nmol/L) Insufficiency 20 - 30 ng/mL (50 - 75 nmol/L) Sufficiency 30 - 100 ng/mL (75 - 250 nmol/L) Toxicity >100 ng/mL (>250 nmol/L) Laboratory - Chemistry and C hemistry - challengeon 08-20-2021 Free T4 [Mass/Vol] 1.08 ng/dL 0.76-1.46 [facility] Work Phone: No Panel Informationon 08-20 Thyroid Stimulating Hormone (TSH) 0.04 uIU/mL 0.358-3.74 [facility] Work Phone: [facility] NDL LOC W BRYSON GD LTon [facility] NDL LOC W [facility] GD LT Final Report DATE OF EXAM: Dec 18 2019 8:53AM AAW 0634 - [facility] NDL LOC W BRYSON GD LT / PROCEDURE REASON: multiple diagnoses Physician Interpretation #[id number] - [facility] NDL LOC W BRYSON GD LT [...] ultrasound biopsy, 11/24/2019 mammogram, 11/24/2019 ultrasound - [facility], 11/17/2019 mammogram, and 11/17/2019 ultrasound - [facility]. A wire localization using digital mammography guidance [...] 09:19:21 copy to: FILOMENA RIZVI, ph: [phone] Occupational Health Nurse Manager(s): RT Laura(R)(M), [facility] Multiple national specialty organizations have released breast cancer screening guidelines for women at average risk for developing breast cancer - guidelines that are based on both evidence and opinion, yet differ on when to start and how often to screen for breast cancer. With representation from Breast Imaging, Internal Medicine, Women's Health, Family Medicine, and Medical/Surgical Oncology, the [facility] has carefully reviewed the data and reached [...] their providers when to stop screening mammograms. [employer] P[employer] Set Up Operator: Muna Transcribe Date/Time: Dec 18 2019 8:53A Dictated by : MIAH WILKINSON MD This examination was interpreted and the report reviewed and electronically signed by: MIAH WILKINSON MD on Dec 18 2019 9:19AM EST Normal [facility] [facility] SURGICAL BREAST SPECIMEN LTon 12-18-2019 [facility] SURGICAL BREAST SPECIMEN LT Final Report DATE OF EXAM: Dec 18 2019 12:04PM AKO [id number] - [facility] SURGICAL BREAST SPECIMEN LT / PROCEDURE REASON: NEEDLE LOC BIOPSY Physician Interpretation #[id number] - [facility] SURGICAL BREAST SPECIMEN LT UNI-PLANAR RADIOGRAPH SPECIMEN IMAGING LEFT BREAST: 12/18/2019 HISTORY: Needle Loc Biopsy Breast specimen radiograph. Correlation is made to exams dated: 12/18/2019 localization, 11/24/2019 mammogram, 11/24/2019 ultrasound biopsy, 11/24/2019 ultrasound - [facility], 11/17/2019 mammogram, and 11/17/2019 ultrasound - [facility]. A lumpectomy specimen was imaged using uni-planar radiograph specimen imaging for the previous biopsy site located in the left breast. IMPRESSION: UNI-PLANAR RADIOGRAPH SPECIMEN IMAGING The imaged specimen includes a biopsy clip and the distal portion of the localization wire. The specimen shows characteristics of the findings. Miah Wilkinson M.D. tab/penrad:12/18/2019 15:05:03 copy to: FILOMENA RIZVI, ph: [phone] Occupational Health Nurse Manager(s): [facility] Multiple national specialty organizations have released breast cancer screening guidelines for women at average risk for developing breast cancer - guidelines that are based on both evidence and opinion, yet differ on when to start and how often to screen for breast cancer. With representation from Breast Imaging, Internal Medicine, Women's Health, Family Medicine, and Medical/Surgical Oncology, the [facility] has carefully reviewed the data and reached [...] their providers when to stop screening mammograms. Duplicator Punch Set Up Operator: Muna Transcribe Date/Time: Dec 18 2019 2:49P Dictated by : MIAH WILKINSON MD This examination was interpreted and the report reviewed and electronically signed by: MIAH WILKINSON MD on Dec 18 2019 3:05PM EST Normal [facility] NM INJ SENT NODE BREAST LTon 12-18-2019 NM INJ SENT NODE BREAST LT Final Report DATE OF EXAM: Dec 18 2019 10:56AM IDN [id number] - NM INJ SENT NODE BREAST LT / PROCEDURE REASON: sen node Physician Interpretation INJECTION FOR BREAST SENTINEL NODE LOCALIZATION: HISTORY: Breast cancer. TECHNIQUE: Prior to radiopharmaceutical administration, the injection site was verified with the electronic medical record and with the computer technologist. 1.0 mCi of filtered technetium-99m Lymphoseek were injected in left breast by Dr. Wilkinson. No images were acquired. IMPRESSION: Injection in left breast for intraoperative [place] lymph node localization. Duplicator Punch Set Up Operator: STACEY Transcribe Date/Time: Dec 25 2019 4:42P Dictated by : STEPHAN MAGALLANES MD This examination was interpreted and the report reviewed and electronically signed by: STEPHAN MAGALLANES MD on Dec 25 2019 4:54PM EST Normal [facility] Pathology Miscellaneouson Pathology Miscellaneous Test performed at [place] [address] NAME: MARVA KHAN REQUESTING: FILOMENA RIZVI M.D. DIAGNOSIS: Oncotype DX: See complete report from [employer]. SPECIMEN: (A) TISSUE FOR SEND-OUT, Oncotype (B) SLIDE REVIEW FOR SENDOUTS EXTERNAL CONSULT, PATHOLOGIST (Electronic signature on file) Signed out: 01/04/2020 10:10 PRINTED: 01/04/2020 Page 1 of 1 [facility], [place] Comment on above: Performed By: #### M ISC #### [place] [id number] Surgical Tissue Examon 12-17 Surgical Tissue Exam Test performed at A [address], [place], [place] [address] NAME: MARVA KHAN REQUESTING: FILOMENA RIZVI M.D. COPY TO: [facility] RADIOLOGY; TUMOR REGISTRY; INVOICE CLERK FINAL DIAGNOSIS: A) LEFT SENTINEL LYMPH NODE [...] #2 (two) hot and blue ex-vivo count [id number] Received in formalin labeled sentinel lymph node #2 hot and blue ex-vivo [id number] is one almeida soft lymph node measuring [...] by adherent soft tissue. Serially sectioning reveals almeida smooth cut surfaces. Totally submitted in 2 [...] with medial (more content not included)... Normal [facility] Comment on above: Performed By: #### S URG #### [place] [id number] Vital Signs Date Time Vital Sign Value Performing Clinician Enrique mcmillan 11-15-2024 09:15-0400 Body height 170.2 cm Lacy Reynolds APRN.QUARRY EXTRACTION WORKER Work Phone: [facility] 11-15-2024 09:15-0400 Body mass index (BMI) [Ratio] 23.65 kg/m2 Lacy Mitch SEISMOGRAPH SHOOTER.QUARRY EXTRACTION WORKER Work Phone: [facility] 11-15-2024 09:15-0400 Body weight 68.49 kg Lacy Mitch SEISMOGRAPH SHOOTER.QUARRY EXTRACTION WORKER Work Phone: [facility] 11-15-2024 09:15-0400 Diastolic blood pressure 72 mm[Hg] Lacy Reynolds SEISMOGRAPH SHOOTER.QUARRY EXTRACTION WORKER Work Phone: [facility] 11-15-2024 09:15-0400 Heart rate 51 /min Lacy Reynolds SEISMOGRAPH SHOOTER.QUARRY EXTRACTION WORKER Work Phone: [facility] 11-15-2024 09:15-0400 Systolic blood pressure 118 mm[Hg] Lacy Reynolds SEISMOGRAPH SHOOTER.QUARRY EXTRACTION WORKER Work Phone: [facility] 04-18-2024 14:56-0400 Body height 170.2 cm Filomena Rizvi MD Work Phone: [facility] 04-18-2024 14:56-0400 Body mass index (BMI) [Ratio] 25.53 kg/m2 Filomena Rizvi MD Work Phone: [facility] 04-18-2024 14:56-0400 Body weight 73.94 kg Filomena Rizvi MD Work Phone: [facility] 04-18-2024 14:56-0400 Diastolic blood pressure 80 mm[Hg] Filomena Rizvi MD Work Phone: [facility] 04-18-2024 14:56-0400 Heart rate 52 /min Filomena Rizvi MD Work Phone: [facility] 04-18-2024 14:56-0400 Systolic blood pressure 119 mm[Hg] Filomena Rizvi MD Work Phone: [facility] 01-13-2024 15:59-0400 Body height 167.6 cm Patricia Foglietti DO Work Phone: [facility] 01-13-2024 15:59-0400 Body mass index (BMI) [Ratio] 28.25 kg/m2 Patricia Foglietti DO Work Phone: [facility] 01-13-2024 15:59-0400 Body weight 79.38 kg Patricia Foglietti DO Work Phone: [facility] 08-10-2023 12:55-0500 Body height 167.6 cm Filomena Rizvi MD Work Phone: [facility] 08-10-2023 12:55-0500 Body weight 87.09 kg Filomena Rizvi MD Work Phone: [facility] 08-10-2023 12:55-0500 Diastolic blood pressure 86 mm[Hg] Filomena Rizvi MD Work Phone: [facility] 08-10-2023 12:55-0500 Heart rate 65 /min Filomena Rizvi MD Work Phone: [facility] 08-10-2023 12:55-0500 Systolic blood pressure 138 mm[Hg] Filomena Rizvi MD Work Phone: [facility] 04-30-2023 09:34-0500 Diastolic blood pressure 77 mm[Hg] Ct (I-Stat) Work Phone: [facility] 04-30-2023 09:34-0500 Heart rate 63 /min Ct (I-Stat) Work Phone: [facility] 04-30-2023 09:34-0500 Systolic blood pressure 137 mm[Hg] Ct (I-Stat) Work Phone: [facility] 04-26-2023 14:21-0500 Body height 167.6 cm Audrey Rowe MD Work Phone: [facility] 04-26-2023 14:21-0500 Body weight 84.37 kg Audrey Rowe MD Work Phone: [facility] 04-26-2023 14:21-0500 Diastolic blood pressure 85 mm[Hg] Audrey Rowe MD Work Phone: [facility] 04-26-2023 14:21-0500 Heart rate 51 /min Audrey Rowe MD Work Phone: [facility] 04-26-2023 14:21-0500 Respiratory rate 18 /min Audrey Rowe MD Work Phone: [facility] 04-26-2023 14:21-0500 SaO2% (BldA) [Mass fraction] 100 % Audrey Rowe MD Work Phone: [facility] 04-26-2023 14:21-0500 Systolic blood pressure 145 mm[Hg] Audrey Rowe MD Work Phone: [facility] 10-07-2022 02:49-0400 Diastolic blood pressure 74 mm[Hg] [facility] 10-07-2022 02:49-0400 Systolic blood pressure 119 mm[Hg] [facility] 10-07-2022 02:15-0400 Heart rate 54 /min [facility] 10-07-2022 02:15-0400 Respiratory rate 13 /min [facility] 10-07-2022 02:15-0400 SaO2% (BldA) [Mass fraction] 95 % [facility] 10-07-2022 00:36-0400 Body mass index (BMI) [Ratio] 32.7 kg/m2 [facility] 10-07-2022 00:36-0400 Body weight 94.7 kg [facility] 10-06-2022 22:51-0400 Body height 170.18 cm [facility] 10-06-2022 22:51-0400 Body temperature 96.3 [degF] [facility] 07-30-2022 17:12-0500 Body temperature 98.1 [degF] Kasandra Souza MD Work Phone: [facility] 07-30-2022 17:12-0500 Diastolic blood pressure 68 mm[Hg] Kasandra Souza MD Work Phone: [facility] 07-30-2022 17:12-0500 Heart rate 55 /min Kasandra Souza MD Work Phone: [facility] 07-30-2022 17:12-0500 Systolic blood pressure 134 mm[Hg] Kasandra Souza MD Work Phone: [facility] 12-09-2021 10:12-0400 Body temperature 97.5 [degF] Aman Masci DO Work Phone: [facility] 12-09-2021 10:12-0400 Body weight 90.95 kg Aman Masci DO Work Phone: [facility] 12-09-2021 10:12-0400 Diastolic blood pressure 83 mm[Hg] Aman Masci DO Work Phone: [facility] 12-09-2021 10:12-0400 Heart rate 60 /min Aman Masci DO Work Phone: [facility] 12-09-2021 10:12-0400 SaO2% (BldA) [Mass fraction] 96 % Aman Masci DO Work Phone: [facility] 12-09-2021 10:12-0400 Systolic blood pressure 132 mm[Hg] Aman Masci DO Work Phone: [facility] 10-09-2021 16:33-0400 Body height 167.[address] Patricia Winston Work Phone: [facility] Work Phone: 10-09-2021 16:33-0400 Body mass index (BMI) [Ratio] 32.1 kg/m2 Dr. Patricia Winston Work Phone: [facility] Work Phone: 10-09-2021 16:33-0400 Body temperature 97.3 [degF] Dr. Patricia Winston Work Phone: [facility] Work Phone: 10-09-2021 16:33-0400 Body weight 90.[address] Patricia Winston Work Phone: [facility] Work Phone: 10-09-2021 16:33-0400 Diastolic blood pressure 78 mm[Hg] Dr. Patricia Winston Work Phone: [facility] Work Phone: 10-09-2021 16:33-0400 Heart rate 88 /min Dr. Patricia Winston Work Phone: [facility] Work Phone: 10-09-2021 16:33-0400 Respiratory rate 18 /min Dr. Patricia Winston Work Phone: [facility] Work Phone: 10-09-2021 16:33-0400 SaO2% (BldA) [Mass fraction] 96 % Dr. Patricia Winston Work Phone: [facility] Work Phone: 10-09-2021 16:33-0400 Systolic blood pressure 122 mm[Hg] Dr. Patricia Winston Work Phone: [facility] Work Phone: 09-10-2021 11:50-0400 Body mass index (BMI) [Ratio] 32.8 kg/m2 Dr. Patricia Winston Work Phone: [facility] Work Phone: 09-10-2021 11:50-0400 Body weight 92.[address] Patricia Winston Work Phone: [facility] Work Phone: 09-10-2021 11:50-0400 Body height 167.[address] Patricia Winston Work Phone: [facility] Work Phone: 09-10-2021 11:50-0400 Body mass index (BMI) [Ratio] 32.8 kg/m2 Dr. Patricia Winston Work Phone: [facility] Work Phone: 09-10-2021 11:50-0400 Body weight 92.[address] Patricia Winston Work Phone: [facility] Work Phone: Encounters Encounter Date Encounter Type Care Provider Facility Start: 01-15-2025 ambulatory Go Aguila Facility :[facility] Start: 11-15-2024 End: 11-15-2024 ambulatory PATRICIA WINSTON Facility:[facility] Start: 11-15-2024 End: 11-15-2024 Patient encounter procedure Lacy Reynolds APRN.CNP Work Phone: [facility] Comment on above: Malignant neoplasm o f female breast, unspecified estrogen receptor status, unspecified laterality, unspecified site of breast (HCC) (Primary Dx); Papilloma of right breast; Unspecified lump in axillary tail of the right breast; Breast pain, left; Breast pain, right Start: 11-02-2024 ambulatory FILOMENA Silvestre ity:[facility] Start: 11-02-2024 End: 11-02-2024 Subsequent hospital visit by physician Mri 3 [place] [facility] (I-Stat/Lg Bore/1.5t) Work Phone: [facility] Comment on above: Malignant neoplasm o f female breast, unspecified estrogen receptor status, unspecified laterality, unspecified site of breast (HCC) [C50.919] Start: 10-13-2024 ambulatory [facility] Facility: [facility] Start: 10-11-2024 End: 10-11-2024 Telephone encounter Lacy Reynolds APRN.CNP Work Phone: [facility] Comment on above: Breast MRI approval Start: 08-15-2024 Encounter for genera l adult medical examination without abnormal findings [facility] Start: 08-09-2024 End: 08-09-2024 ambulatory Aby Figueroa [facility] Start: 08-03-2024 End: 08-03-2024 ambulatory JOSE ALFREDO IVEY MD Facility:A Start: 08-03-2024 End: 08-03-2024 Patient encounter procedure JOSE ALFREDO IVEY MD [facility] Start: 08-02-2024 End: 08-02-2024 Telephone encounter Audrey Rowe MD Work Phone: Cardiology Comment on above: Office note faxed (t o [facility] dated 04/26/23) Start: 07-31-2024 End: 07-31-2024 ambulatory [facility] Facility:[facility] Start: 07-28-2024 End: 07-28-2024 ambulatory [facility] Facility:[facility] Start: 07-26-2024 ambulatory [facility] Facility :[facility] Start: 07-26-2024 End: 07-26-2024 ambulatory [facility] Facility:[facility] Start: 07-11-2024 End: 07-11-2024 ambulatory [facility] Facility:[facility] Start: 06-01-2024 End: 06-05-2024 Telephone encounter Jonathan [...] End: 05-30-2024 Telemedicine consultation with patient Suzanne Gonzlaez PAULIE Work Phone: Gastroenterology Start: 05-25-2024 End: 05-25-2024 ambulatory Isabel Watt APRN.CNP Work Phone: Hematology/Oncology Comment on above: CT SCAN OF STOMACH Start: 05-24-2024 End: 05-24-2024 ambulatory Aby Figueroa Facility:[facility] Start: 05-18-2024 ambulatory Jay Seymour Facility:[facility] Start: 05-18-2024 End: 05-19-2024 Evaluation and management of inpatient [facility] Facility:[facility] Start: 04-18-2024 End: 04-18-2024 Patient encounter procedure Filomena Rizvi MD Work Phone: [facility] Comment on above: Malignant neoplasm o f female breast, unspecified estrogen receptor status, unspecified laterality, unspecified site of breast (HCC) (Primary Dx); Papilloma of right breast; History of breast cancer Start: 04-18-2024 End: 04-18-2024 ambulatory FILOMENA RIZVI [facility] Start: 04-18-2024 End: 04-18-2024 Subsequent hospital visit by physician Diagnostic Mammo [place] [facility] 2 [facility] Comment on above: Papilloma of right b reast [D24.1] Start: 01-22-2024 ambulatory [facility] Facility: [facility] Start: 01-13-2024 End: 01-13-2024 Office outpatient new 30 minutes Patricia Metz DO Work Phone: [facility]. Comment on above: Encounter for cosmet ic surgery (Primary Dx) Start: 10-18-2023 End: 10-18-2023 ambulatory [facility] Work Phone: Start: 10-18-2023 End: 10-18-2023 Patient encounter procedure [facility]-Ivette Turner [facility] Start: 08-10-2023 End: 08-10-2023 Patient encounter procedure Filomena Rizvi MD Work Phone: [facility] Comment on above: Papilloma of right b reast (Primary Dx) Start: 07-30-2023 Patient encounter status Filomena Rizvi MD Work Phone: [facility] Work Phone: Start: 07-23-2023 End: 07-23-2023 Subsequent hospital visit by physician Stereo/Ultrasound Biopsy [place] [facility] Comment on above: Papilloma of right b reast [D24.1] Start: 07-20-2023 Patient encounter status Stereo/Ultrasound Hosp [facility] Work Phone: Start: 05-18-2023 End: 05-18-2023 Subsequent hospital visit by physician Procedure Mammo [place] [facility] Comment on above: Mass overlapping mul tiple quadrants of left breast [N63.25] Start: 04-30-2023 End: 04-30-2023 Subsequent hospital visit by physician Ct [facility] (I-Stat) Work Phone: Radiology Comment on above: Chest pain, unspecif ied type [R07.9] Start: 04-29-2023 Telephone encounter Filomena restrepo MD Work Phone: [facility] Comment on above: Appointment Start: 04-27-2023 End: 04-27-2023 Subsequent hospital visit by physician Mri [place] (1.5t/Lg Bore 70cm) Work Phone: [facility] Comment on above: Unspecified lump in axillary tail of the right breast [N63.31] Start: 04-26-2023 End: 04-26-2023 Office outpatient new 45 minutes Audrey Rowe MD Work Phone: Cardiology Comment on above: Chest pain, unspecif ied type (Primary Dx); Abnormal ECG Start: 12-17-2022 End: 12-17-2022 Subsequent hospital visit by physician Procedure Mammo [place] [facility] Comment on above: Unspecified lump in axillary tail of the right breast [N63.31] Start: 10-06-2022 End: 10-07-2022 Emergency department patient visit [facility]-Emergency Department Start: 08-25-2022 ambulatory [facility] Facility: 93 Start: 08-06-2022 Telephone encounter Shi [...] PHOTOS TAKEN Start: 07-16-2022 End: 07-16-2022 ambulatory [facility] Work Phone: Start: 07-16-2022 End: 07-16-2022 Patient encounter procedure [facility]-MRI - [facility] Start: 06-16-2022 End: 06-16-2022 ambulatory [facility] Work Phone: Start: 06-16-2022 End: 06-16-2022 Patient encounter procedure [facility]-Radiology, [place] Start: 05-11-2022 End: 05-11-2022 ambulatory [facility] Work Phone: Start: 05-11-2022 End: 05-11-2022 Patient encounter procedure [facility]-Cat Scan, [facility] Start: 05-03-2022 ambulatory Isabel horton QUARRY EXTRACTION WORKER Work Phone: Hematology/Oncology Comment on above: cancellation Start: 04-14-2022 End: 04-14-2022 Patient encounter procedure [facility] Start: 04-08-2022 End: 04-08-2022 ambulatory [facility] Work Phone: Start: 04-08-2022 End: 04-08-2022 Patient encounter procedure [facility] Start: 03-12-2022 End: 03-12-2022 Patient encounter procedure Jonathan Rubioviviana Work Phone: Podiatry Comment on above: Plantar fasciitis of left foot (Primary Dx); Acquired hallux limitus of right foot Start: 03-12-2022 End: 03-12-2022 Subsequent hospital visit by physician [facility] Work Phone: Radiology Comment on above: Pain [R52] Start: 03-11-2022 Orders Only Jonathan Contreras noreen Work Phone: [facility] [place] Comment on above: Pain (Primary Dx) Start: 02-13-2022 End: 02-13-2022 ambulatory [facility] Work Phone: Start: 02-13-2022 End: 02-13-[address] [facility] Start: 12-30-2021 End: 12-30-2021 Subsequent hospital visit by physician Diagnostic Mammo [facility]amm[facility] Comment on above: Malignant neoplasm o f upper-outer quadrant of left breast in female, estrogen receptor positive (HCC) [C50.412, Z17.0] Start: 12-09-2021 End: 12-09-[address] Patricia Winston Work Phone: [facility], [place] Start: 12-09-2021 End: 12-09-2021 ambulatory Aman Cardoso DO Work Phone: Hematology/Oncology Comment on above: Malignant neoplasm o f upper-outer quadrant of left breast in female, estrogen receptor positive (HCC) (Primary Dx) Start: 12-09-2021 End: 12-09-2021 Patient encounter procedure Aman Purnima Cardoso DO Work Phone: [facility] Start: 11-25-2021 Telephone encounter Noreen Doe MD Work Phone: Mammography Comment on above: Mammogram Result Lenard l Back Start: 10-09-2021 End: 10-09-[address] Patricia Winston Work Phone: [facility] Endocrinology Start: 09-18-2021 End: 09-18-[address] Patricia Winston Work Phone: [facility]-Pulmonary Services/Neurology Start: 09-10-2021 End: 09-10-[address] Patricia Winston Work Phone: [facility] Start: 09-09-2021 Non-patient / Non-visit Dr. Patricia Winston Work Phone: [facility] Start: 08-20-2021 End: 08-20-[address] Patricia Winston Work Phone: [facility]-Laboratory, [facility] Procedures Date Procedure Procedure Detail Performing [...] t kassandra with image limited Isabel Watt SEISMOGRAPH SHOOTER.QUARRY EXTRACTION WORKER Work Phone: Start: 12-30-2021 [facility] DIAG W GEOFFREY LT Shannon Watt SEISMOGRAPH SHOOTER.QUARRY EXTRACTION WORKER Work Phone: Start: 12-08-2021 Adult depression scr [...] procedure 04/19/2025 2:15 PM EDT Office Visit [facility] 1 [facility] [address] [place] [address] Fliomena Rizvi MD [address] [place] [address] bilat diagnostic mammogram and ultrasound to see dr Rizvi afterwards. [facility] Comment on above: bilat diagnostic bryson mogram and ultrasound to see dr Rizvi afterwards. Start: 04-19-2025 End: 12-15-2025 DBT Breast - bilateral diagnostic for implant BRYSON DIAG W GEOFFREY BILATERAL Radiology Routine Papilloma of right breast Malignant neoplasm of female breast, unspecified estrogen receptor status, unspecified laterality, unspecified site of breast (HCC) Expected: 04/19/2025, Expires: 12/15/2025 [facility] Work Phone: Comment on above: Expected: 04/19/2025 , Expires: 12/15/2025 Start: 04-19-2025 End: 12-15-2025 US Breast - left limited US BREAST LTD LEFT Radiology Routine Malignant neoplasm of female breast, unspecified estrogen receptor status, unspecified laterality, unspecified site of breast (HCC) Expected: 04/19/2025, Expires: 12/15/2025 [facility] Comment on above: Expected: 04/19/2025 , Expires: 12/15/2025 Start: 04-19-2025 End: 12-15-2025 US Breast - right limited US BREAST LTD RIGHT Radiology Routine Papilloma of right breast Unspecified lump in axillary tail of the right breast Expected: 04/19/2025, Expires: 12/15/2025 [facility] Comment on above: Expected: 04/19/2025 , Expires: 12/15/2025 Start: 04-19-2025 End: 04-19-2025 Patient encounter procedure 04/19/2025 12:45 PM EDT Appointment [facility] [address] [place] [address] bilat diagnostic mammogram and bilat ultrasounds to see dr Rizvi afterwards. [facility] Comment on above: bilat diagnostic bryson mogram and bilat ultrasounds to see dr Rizvi afterwards. Start: 04-18-2025 Screening for malign ant neoplasm of breast Mammogram Screening [facility] Start: 11-15-2024 End: 11-15-2024 Patient encounter procedure 11/15/2024 9:00 AM EDT Office Visit [facility] [place] [id number] Lacy Reynolds, SEISMOGRAPH SHOOTER.QUARRY EXTRACTION WORKER [address] [place] [address] follow up mri results. [facility] Comment on above: follow up mri result s. Start: 10-24-2024 End: 10-24-2024 Patient encounter procedure 10/24/2024 11:30 AM EDT Office Visit [facility] [address] [place] [phone] Lacy Reynolds, SEISMOGRAPH SHOOTER.QUARRY EXTRACTION WORKER [address] [place] [address] mri follow up results. [facility] Comment on above: mri follow up result s. Start: 10-17-2024 End: 05-18-2025 MR Breast - bilateral WO and W contrast IV MRI BREAST WO/W IVCON BILATERAL Radiology Routine Malignant neoplasm of female breast, unspecified estrogen receptor status, unspecified laterality, unspecified site of breast (HCC) Expected: 10/17/2024, Expires: 05/18/2025 [facility] Work Phone: Comment on above: Expected: 10/17/2024 , Expires: 05/18/2025 Start: 10-17-2024 End: 05-18-2025 MRI BREAST 3D POST PROCESSING MRI BREAST 3D POST PROCESSING Radiology Routine Papilloma of right breast History of breast cancer Expected: 10/17/2024, Expires: 05/18/2025 [facility] Comment on above: Expected: 10/17/2024 , Expires: 05/18/2025 Start: 10-17-2024 End: 10-17-2024 Patient encounter procedure 10/17/2024 12:45 PM EDT Appointment [facility] [address] [place] [address] mri wo/w ivcon bilat [id number] [facility] Comment on above: mri wo/w ivcon bilat [id number] Start: 09-22-2024 Shingrix Vaccine (2 of 2) Castro grix Vaccine (2 of 2) [facility] Start: 07-25-2024 End: 07-25-2024 Patient encounter procedure 07/25/2024 1:00 PM EST Appointment Ambulatory Surgery [address] [place] [phone] Della Walker MD [address] [place] [address] COLONOSCOPY SCREENING, Personal history of breast cancer [Z85.3] Ambulatory Surgery Comment on above: COLONOSCOPY SCREENIN G, Personal history of breast cancer [Z85.3] Start: 06-15-2024 End: 06-15-2024 Patient encounter procedure 06/15/2024 9:45 AM EST Appointment [facility] [address] [place] [address] Jonathan Barr MD [address] [place] [address] Gastritis, presence of bleeding unspecified, unspecified chronicity, unspecified... [facility] Comment on above: Gastritis, presence of bleeding unspecified, unspecified chronicity, unspecified... Start: 03-10-2024 End: 03-10-2024 Patient encounter procedure 03/10/2024 1:00 PM EDT Office Visit [facility] 1 [facility] [address] [place] [address] Zoraida German, MS [facility] [address] [place], [place] [id number] family history of breast cancer [facility] Comment on above: family history of br east cancer Start: 02-20-2024 Covid-19 Vaccine ( season) Covid-19 Vaccine ( season) [facility] Start: 02-20-2024 Influenza vaccination Influenza Vacc ine (#1) [facility] Start: 02-16-2024 End: 02-16-2024 Patient encounter procedure 02/16/2024 1:45 PM EDT Office Visit [facility] 1 [facility] [address] [place] [address] Filomena Rizvi MD [address] [facility] [address] [place] [address] 6 month follow up [facility] Comment on above: 6 month follow up Start: 02-16-2024 End: 02-16-2024 Patient encounter procedure 02/16/2024 12:15 PM EDT Appointment [facility] [address] [place] [address] Diagnostic Mammogram with Geoffrey Bilateral [facility] Comment on above: Diagnostic Mammogram with Geoffrey Bilateral Start: 12-18-2023 Mammography [facility] Start: 12-18-2023 Screening for malign ant neoplasm of breast Mammogram Screening [facility] Start: 06-21-2023 Depression Assessment Depression Ass essment [facility] Start: 04-27-2023 End: 04-26-2024 Echocardiography ECHO Cardiology Routine Chest pain, unspecified type Abnormal ECG Expected: 04/27/2023, Expires: 04/26/2024 [facility] Work Phone: Comment on above: Expected: 04/27/2023 , Expires: 04/26/2024 Start: 02-19-2023 Influenza vaccination INFLUENZ A (Season Ended) [facility] Start: 12-08-2022 Adult depression scr eening assessment DEPRESSION SCREENING [facility] Start: 11-24-2022 Mammography MAMMOGRAM [facility] Start: 06-21-2022 DEPRESSION ASSESSMENT DEPRESSION ASS ESSMENT [facility] Start: 02-19-2022 Influenza vaccination C [facility] Start: 12-09-2021 End: 02-08-2022 25-hydroxyvitamin D3 [Mass/volume] in Serum or Plasma VITAMIN D 25 HYDROXY Lab Routine Malignant neoplasm of upper-outer quadrant of left breast in female, estrogen receptor positive (HCC) Expected: 12/09/2021, Expires: 02/08/2022 [facility] Work Phone: Comment on above: Expected: 12/09/2021 , Expires: 02/08/2022 Start: 09-10-2021 Evaluation of diagno stic study results [facility] Work Phone: Start: 09-03-2021 COVID-19 VACCINE (4 - Booster for Pfizer series) COVID-19 VACCINE (4 - Booster for Pfizer series) [facility] Start: 08-06-2021 COVID-19 VACCINE (4 - Booster for Pfizer series) COVID-19 VACCINE (4 - Booster for Pfizer series) [facility] Start: 07-01-2021 COVID-19 VACCINE (4 - Booster for Pfizer series) COVID-19 VACCINE (4 - Booster for Pfizer series) [facility] Start: 06-21-2021 DEPRESSION ASSESSMENT DEPRESSION ASS ESSMENT [facility] Start: 04-23-2021 Adult depression scr eening assessment DEPRESSION SCREENING [facility] Start: 11-07-2019 DIABETES SCREEN DIABETES SCREEN [facility] Start: 11-07-2019 Diabetes Screening Diabetes Screenin g [facility] Start: 2016 Pneumococcal Vaccine : 50+ (1 of 1 - PCV) Pneumococcal Vaccine: 50+ (1 of 1 - PCV) [facility] Start: 2016 SHINGRIX VACCINE (1 of 2) CASTRO GRIX VACCINE (1 of 2) [facility] Start: 2011 COLOGUARD (FIT-DNA) COLOGUARD (FIT-D NA) [facility] Start: 2011 Colonoscopy COLONOSCOPY [facility] Start: 2011 COLORECTAL CANCER SCREENING COLORECTAL CANCER SCREENING [facility] Start: [address] COLONOGRAPHY [facility] Start: 2011 FECAL OCCULT BLOOD FECAL OCCULT BLOO D [facility] Start: 2011 Lipid 1996 panel - S francoise or Plasma Lipid Screening [facility] Start: 2011 Lipid panel Lipid Screening [facility] Start: 2011 LIPID SCREEN LIPID SCREEN [facility] Start: 2011 Screening for malign ant neoplasm of colon [facility] Start: 2011 SIGMOIDOSCOPY SIGMOIDOSCOPY [facility] Start: 1996 HPV TESTING HPV TESTING [facility] Start: 1996 Screening for malign ant neoplasm of cervix HPV Testing [facility] Start: 1987 PAP TESTING PAP TESTING [facility] Start: 1987 Screening for malign ant neoplasm of cervix [facility] Start: 1985 Hepatitis B Vaccine (1 of 3 - 19+ 3-dose series) Hepatitis B Vaccine (1 of 3 - 19+ 3-dose series) [facility] Start: 1985 SHINGRIX VACCINE (1 of 2) CASTRO GRIX VACCINE (1 of 2) [facility] Start: 1985 Urine microalbumin profile [facility] Start: 1984 Annual PCP Team Bruise Trimmer zachary Disease Visit Annual PCP Team Chronic Disease Visit [facility] Start: 1984 Anxiety Screening Anxiety Screening [facility] Start: 1984 Depression Screening Depression Scre ening [facility] Start: 1984 HEPATITIS C SCREENING HEPATITIS [facility] Start: 1984 Hepatitis C screening Hepatitis C [facility] Start: 1984 HIV SCREENING HIV SCREENING [facility] Start: 1984 HIV screening HIV Screening [facility] Start: 1972 PNEUMOCOCCAL (1 - PCV) PNEUMOCOCCAL (1 - PCV) [facility] Start: 1966 HEPATITIS B (1 of 3 - 3-dose series) HEPATITIS B (1 of 3 - 3-dose series) [facility] Start: 1966 Hepatitis B Vaccine (1 of 3 - 3-dose series) Hepatitis B Vaccine (1 of 3 - 3-dose series) [facility] End: 05-25-2024 Cta hrt cornry art/bypass grfts contrst 3d post CTA CORONARY W IVCON Radiology Routine Chest pain, unspecified type Abnormal ECG 1 Occurrences starting 04/26/2023 until 05/25/2024 [facility] Work Phone: Comment on above: 1 Occurrences starti ng 04/26/2023 until 05/25/2024 End: 09-08-2024 DBT Breast - bilateral diagnostic for implant BRYSON DIAG W GEOFFREY BILATERAL Radiology Routine Papilloma of right breast 1 Occurrences starting 08/10/2023 until 09/08/2024 [facility] Work Phone: Comment on above: 1 Occurrences starti ng 08/10/2023 until 09/08/2024 End: 04-26-2024 ECG COMPLETE ECG COMPLETE ECG Routine Chest pain, unspecified type Abnormal ECG 1 Occurrences starting 04/26/2023 until 04/26/2024 [facility] Work Phone: Comment on above: 1 Occurrences starti ng 04/26/2023 until 04/26/2024 End: 05-30-2025 EGD DIAGNOSTIC EGD DIAGNOSTIC Endoscopy Routine Abnormal CT of the abdomen Gastritis, presence of bleeding unspecified, unspecified chronicity, unspecified gastritis type 1 Occurrences starting 05/30/2024 until 05/30/2025 [facility] Work Phone: Comment on above: 1 Occurrences starti ng 05/30/2024 until 05/30/2025 Evaluation of diagno stic study results [facility] Work Phone: End: 05-28-2024 MRI BREAST BX WO/W IVCON RIGHT MRI BREAST BX WO/W IVCON RIGHT Radiology Routine Mass overlapping multiple quadrants of left breast 1 Occurrences starting 04/29/2023 until 05/28/2024 [facility] Work Phone: Comment on above: 1 Occurrences starti ng 04/29/2023 until 05/28/2024 Patient Education ED Hypertensio n, To Be Confirmed [facility] Work Phone: Patient referral [facility] Work Phone: End: 05-30-2025 Screening colonoscopy COLONOSCOPY SCREENING Endoscopy Routine Personal history of breast cancer Colon cancer screening 1 Occurrences starting 05/30/2024 until 05/30/2025 [facility] Comment on above: 1 Occurrences starti ng 05/30/2024 until 05/30/2025 End: 05-28-2024 US BIOPSY BREAST RIGHT US BIOPSY BREAST RIGHT Radiology Routine Mass overlapping multiple quadrants of left breast 1 Occurrences starting 04/29/2023 until 05/28/2024 [facility] Work Phone: Comment on above: 1 Occurrences starti ng 04/29/2023 until 05/28/2024 End: 05-28-2024 US BREAST LTD RIGHT US BREAST LTD RIGHT Radiology Routine Mass overlapping multiple quadrants of left breast 1 Occurrences starting 04/29/2023 until 05/28/2024 [facility] Work Phone: Comment on above: 1 Occurrences starti ng 04/29/2023 until 05/28/2024 [facility] Work Phone: US LOC BREAST RIGHT US LOC BREAS T RIGHT Radiology Routine Papilloma of right breast 07/23/2023 3:21 PM EST [facility] Work Phone: End: 04-10-2023 XR FOOT GENERAL 3V AP/LAT/OBL BILATERAL XR FOOT GENERAL 3V AP/LAT/OBL BILATERAL Radiology Routine Pain 1 Occurrences starting 03/11/2022 until 04/10/2023 [facility] Work Phone: Comment on above: 1 Occurrences starti ng 03/11/2022 until 04/10/2023 End: 03-12-2022 XR FOOT GENERAL 3V AP/LAT/OBL BILATERAL [facility] Work Phone: Comment on above: 1 Occurrences starti ng 03/12/2022 until 03/12/2022 [facility] Immunizations Immunization Date Immunization Notes Care Provider Gama allen 03-15-2023 influenza virus vacc ine, unspecified formulation Patricia Pollackfabiomisbah DO Work Phone: [facility] Payers Date Payer Category Payer Blue [employer] Blue [facility] BLUE CARD PPO OOS [id number] 2024 Unknown [id number] 2024 Self-pay [id number] 2020 Private Health Insurance MMO SUP ERMED PPO [id number] 2020 Unknown MMO MMO SUPERMED PLUS [id number] 2020-Present [phone] [address] [place] [address] PPO [id number] 2020 Unknown [id number] 2020 Unknown [id number] 2013 Private Health Insurance [id number] 1966 Unknown [id number] 1966 Unknown [id number]. 627 Unknown [id number] 2.840.1.617658.3.579.2. 462 Unknown [id number] .[id number]. 462 Unknown [id number] .[id number]. 462 Unknown [id number] .[id number]. 462 Unknown [id number] 2.840.1.999119.3.579.2. 462 Unknown [id number] 2.840.1.286554.3.579.2. 462 Unknown [id number] 2.840.1.426597.3.579.2. 462 Unknown [id number] 2.840.1.463715.3.579.2. 462 Unknown [id number] 2.840.1.271632.3.579.2. 462 Unknown [id number] 2.840.1.325837.3.579.2. 462 Unknown [id number] 2.840.1.579909.3.579.2. 462 Unknown [id number] 2.840.1.976678.3.579.2. 462 Unknown [id number]. 462 Social History Date Type Detail Facility Start: 09-10-2021 End: 10-07-2022 Tobacco smoking status NHIS Unknown if ever smoked [facility] Start: 1965 Sex Assigned At Female C [facility] Start: 11-24-2019 End: 04-26-2023 Tobacco smoking status NHIS Never smoked tobacco [facility] Start: 06-10-2021 End: 11-15-2024 Alcohol intake Current drinker of alcohol (finding) [facility] Start: 11-14-2021 End: 03-12-2022 Exposure to SARS-CoV-2 (event) Not sure [facility] Start: 11-24-2019 End: 04-26-2023 Tobacco use and exposure Smokeless tobacco non-user [facility] Start: 11-23-2022 End: 04-26-2023 History of Social function [facility] Start: 11-23-2022 End: 04-26-2023 Tobacco use panel [facility] Adult Depression Screening Assessment 0 [facility] Start: 04-26-2023 Tobacco Comment Smoked very li ttle in college [facility] Start: 04-23-2020 Gender identity Identifies as female gender (finding) [facility] Start: 04-23-2020 Sexual orientation Heterosexual (lindsay symth) [facility] Sexual Orientation [facility] [employer] Start: 08-11-2018 Sex Female (finding) [facility] Functional Status Date Assessment Result Facility 07-04-2014 Are you deaf, or do you have serious difficulty hearing No 07/04/2014 3:27 PM Tg Crump)(Hist), [place] No [facility] 07-04-2014 Are you blind, or do you have serious difficulty seeing, even when wearing glasses Yes 07/04/2014 3:27 PM Tg Crump)(Hist), [place] Yes [facility] 07-04-2014 Do you have serious difficulty walking or climbing stairs Yes 07/04/2014 3:27 PM Tg Crump)(Hist), [place] Yes [facility] 07-04-2014 Do you have difficul ty dressing or bathing No 07/04/2014 3:27 PM Tg Crump)(Hist), [place] No [facility] 07-04-2014 Because of a physica l, mental, or emotional condition, do you have difficulty doing errands alone such as visiting a physician's office or shopping No 07/04/2014 3:27 PM Tg Crump)(Hist), [place] No [facility] Mental Status Date Assessment Result Facility 10-07-2022 Cognitive function Level Of Cons ciousness Awake;Alert;Appropriate;Fol lows Commands [facility] Work Phone: 07-04-2014 Because of a physica l, mental, or emotional condition, do you have serious difficulty concentrating, remembering, or making decisions Yes 07/04/2014 3:27 PM Tg Crump)(Hist), [place] Yes [facility] Clinical Notes 10-31-2015 to 11-15-2024 Patient InstructionsCoLacy gupta APRN.[facility] - 11/15/2024 9:25 AM EDNoe Hdez LPN - 11/15/2024 9:05 AM Adolfo De La Cruz MRI Tech - 11/02/2024 7:30 AM EDTPatient Instructions Note Date & Type Note Facility 11-15-2024 Instructions Lacy Reynolds APRN.[facility] - 11/15/2024 9:52 AM EDT Images from [...] small circular motions. Continue around the entire tatitlek until you reach 12 o'clock again. Keep your fingers flat and in constant contact with your breast. When the tatitlek is complete, move in one inch toward the nipple and complete another tatitlek around the clock. Continue in this pattern [...] skin on the breast or nipple References [employer]. Breast Cancer Accessed 05/22/2013. Luisa P, Patricio M, Buzz H. Breast disorders and breast cancer screening. In: Gaviota DYER, ed. [facility]: Current Clinical Medicine 2010. 2nd ed. [place]: Edward Mendez; 2010:section 15. Copyright 7623-8273 [facility]. All rights reserved This information is provided by the [facility] and is not intended to replace the medical advice of your doctor or health care provider. Please consult your health care provider for advice about a specific medical condition. For additional health information, please contact the Center for Consumer Health Information at the [facility] or toll-free extension [phone]. If you prefer, you may visit [email or web address] documented in this encounter [facility] 11-15-2024 Note HNO ID: [id number] Author: LACY REYNOLDS APRN.CNP Service: ? Author Type: Nurse Practitioner Type: Progress Notes Filed: 11/15/2024 13:39 Note Text: [facility] [address] [place], [place] [id number] Date of Visit: 11/15/2024 Patient Name: Marva [...] clinical breast exam. She is an established [facility] patient and was last seen [...] 12/18/2019 for invasive ductal carcinoma grade 2, ER/SC+, H2N-. Final pathology showed 4 negative lymph [...] 1 capsule by mouth once daily. K2 knllm-6-ecg-zip-clc-scxg oil 1,050 mg(300 mg -675 mg-75 mg) [...] right breast PONV (postoperative nausea and vomiting) Scuddy Martins auricular syndrome PAST SURGICAL HISTORY Procedure [...] Allergen Reactions A (more content not included)... [facility] 11-15-2024 History of Present illness Narrative Images from the original note were not included. Lacy Reynolds APRN-[place] [id number] Date of Visit: 11/15/2024 Patient Name: Marva [...] clinical breast exam. She is an established [facility] patient and was last seen in the [...] 12/18/2019 for invasive ductal carcinoma grade 2, ER/SC+, H2N-. Final pathology showed 4 negative lymph [...] 1 capsule by mouth once daily. K2 xfiug-5-kkt-nsj-vhm-qjsm oil 1,050 mg(300 mg -675 mg-75 mg) [...] social history were reviewed by Lacy Reynolds APRN.QUARRY EXTRACTION WORKER ALLERGIES Allergen Reactions Ancef [Cefazolin] Hives Duloxetine Other: See Comments Shellfish Containin* Diarrhea, GI Upset Current Outpatient Medications Medication Sig OTC PRODUCT Take 1 capsule by mouth once daily. K2 kqqzc-6-uzk-mtg-cwx-tgvn oil 1,050 mg(300 mg -675 mg-75 mg) [...] discussed with the Patient or Patient's Authorized Foundry Manager. As applicable, any other physician, advance practice provider, medical student, or other health professional student that will be observing or involved in the sensitive examination for educational or training purposes was discussed with the Patient or Authorized Foundry Manager. The Patient or Authorized Foundry Manager has agreed to proceed with the sensitive examination. (Sensitive examination includes inspection and/or palpation of the breasts, pelvis, prostate and anorectal regions) ASSESSMENT/PLAN: 1. Malignant neoplasm of female breast, unspecified estrogen receptor status, unspecified laterality, unspecified site of breast (HCC) - ICD9: 174.9, ICD10: C50.919 (primary diagnosis) - [facility] DIAG W GEOFFREY BILATERAL - US [...] Making Level: 3 - Low Lacy Reynolds APRN.QUARRY EXTRACTION WORKER I verified the medical insurance claims specialist/nurse documentation in the medical record, and made appropriate changes. I personally performed a history,physical exam and medical decision making. Lacy Reynolds SEISMOGRAPH SHOOTER-QUARRY EXTRACTION WORKER, OCN Marva Khan is a 59 year [...] Noe Spann LPN documented in this encounter [facility] 11-15-2024 Note HNO ID: [id number] Author: NOE SPANN LPN Service: ? Author [...] C/o Right nipple retraction Noe Spann LPN [facility] 11-02-2024 History of Present illness Narrative [...] PATIENT PRESENTS WITH AN IMPLANTABLE OR ATTACHED INVESTIGATOR WELFARE: No ALLERGIES: Reviewed and unchanged CONTRAST ALLERGY: [...] TIME: 7:38 AM documented in this encounter [facility] 11-02-2024 Note HNO ID: [id number] Author: ADOLFO LICONA MRI Tech Service: Radiology [...] PATIENT PRESENTS WITH AN IMPLANTABLE OR ATTACHED INVESTIGATOR WELFARE: No ALLERGIES: Reviewed and unchanged CONTRAST ALLERGY: NO. EXAM: MRI - CONTRAST TYPE: GROUP II PERIPHERAL IV DATA: Ambulatory: A peripheral IV was started in the Right antecubital site with a Angio cath: 22 gauge. RADIOLOGY DEPARTMENT: MR; Exam(s) Completed: Chest: Breast. Lavender Administered: No SIGNATURE: Adolfo BrewerdanettejoseAISHA PATIENT NAME: Marva Khan DATE: November 02, 2024 TIME: 7:38 AM [facility] 10-11-2024 Telephone encounter Note Peer to Peer completed with Dr Saleem at [facility]. Breast MRI was approved - scheduled for 10/17/2024. Authorization # [id number], valid 10/11/2024 - 11/30/2024. Lacy MENDOZA [facility] Work Phone: 10-11-2024 Miscellaneous Notes Peer to Peer completed with Dr Saleem at [facility]. Breast MRI was approved - scheduled for 10/17/2024. Authorization # [id number], valid 10/11/2024 - 11/30/2024. Lacy MENDOZA documented in this encounter [facility] 08-02-2024 Telephone encounter Note Images from the original note were not included. [facility] 08-02-2024 Miscellaneous Notes Images from the original note were not included. documented in this encounter [facility] 06-01-2024 Telephone encounter Note Patient on schedule for EGD and colonoscopy with DR Barr Needs follow up after with ordering provider Suzanne Gonzalez sent to schedulers to schedule Maliha Apple RN June 01, 2024 3:54 PM [facility] 06-01-2024 Miscellaneous Notes Patient on schedule for EGD and colonoscopy with DR Barr Needs follow up after with ordering provider Suzanne Gonzalez sent to schedulers to schedule Maliha Apple RN June 01, 2024 3:54 PM documented in this encounter [facility] 05-30-2024 Instructions Suzanne Gonzalez PA-C - 05/30/2024 10:19 AM EST Please call [phone] to schedule your EGD and colonoscopy Prep [...] am on dialysis? A: Please consult your switchboard troubleshooter prior to scheduling to get instructions pertinent [...] inadequate prep quality. documented in this encounter [facility] 05-30-2024 History of Present illness Narrative Images from the original note were not included. VIRTUAL VISIT NEW PATIENT NAME: Marva Tracey [place] [facility] NO: [id number] DATE: 05/30/2024 REASON FOR VISIT Marva Figueroagoner [id number] 1965 has requested a video telemedicine initial [...] Mail. Patient location at time of call: [place] This visit was conducted as a virtual visit. I have communicated my name and active licensure. The patient's identity and physical location were verified at the time of this visit. Either the patient or their legal retail service representative has been informed of the risks [...] right breast PONV (postoperative nausea and vomiting) Scuddy Martins auricular syndrome PAST SURGICAL HISTORY PAST [...] the date of the service which included jods-iy-vyuz patient care, completing clinical documentation, counseling and educating the patient/family/caregiver, and ordering medications, tests, or procedures. Suzanne Gonzalez PA-C May 30, 2024 10:00 AM documented in this encounter [facility] 05-30-2024 Note HNO ID: [id number] Author: SUZANNE GONZALEZ PA-C Service: ? Author Type: Physician Sign Language Instructor Type: Progress Notes Filed: 05/30/2024 11:07 Note Text: VIRTUAL VISIT NEW PATIENT NAME: Marva Khan [facility] NO: [id number] DATE: 05/30/2024 REASON FOR VISIT Marva Khan [id number] 1965 has requested a video telemedicine initial [...] Mail. Patient location at time of call: [place] This visit was conducted as a virtual visit. I have communicated my name and active licensure. The patient's identity and physical location were verified at the time of this visit. Either the patient or their legal retail service representative has been informed of the risks [...] beginning of sedation, (more content not included)... [facility] 05-25-2024 Telephone encounter Note Please see my chart message. Pt. cancelled follow ups here since 2021. Please assist in GI consult in [facility] for abnormal CT abd-gastric thickening. Needs EGD. Thank you. Isabel Watt APRN.QUARRY EXTRACTION WORKER [facility] 05-25-2024 Miscellaneous Notes Please see my chart message. Pt. cancelled follow ups here since 2021. Please assist in GI consult in [facility] for abnormal CT abd-gastric thickening. Needs EGD. Thank you. Isabel Watt APRN.QUARRY EXTRACTION WORKER documented in this encounter [facility] 05-19-2024 Note [facility] Medical Records Department [address] [place] [address] Discharge Summary 05/19/24 [id number] MR#: [id number] Acct: [id number] Name: MARVA KHAN [facility] Rep #: [id number] : 1965 58 From: Jay Seymour DO PCP: Dr. Patricia Winston DO Status:ADM IN Location: [place] [address] Providers Date of Admission: 05/18/24 Primary Care [...] 90 mg-fish oil 597 mg capsule,delay rel (Taft-3) 1 cap PO DAILY 05/18/24 thyroid (pork) [...] % (Auto) 49.4, Lymph % (Auto) 40.3, Jenkins % (Auto) 6.9, Eos % (Auto) 2.4, [...] Dosing Therapy Refe (more content not included)... [facility] 04-18-2024 Note HNO ID: [id number] Author: FILOMENA RIZVI MD Service: ? Author Type: Physician Type: Progress Notes Filed: 05/01/2024 12:03 Note Text: Filomena Rizvi MD Breast [facility] [address] [place], [place] [id number] SUBJECTIVE Chief Complaint: Patient presents with: Follow Up Tests Results HPI Marva Khan is a 58 year old female here today for follow up. History of left breast cancer. She is status post left lumpectomy sentinel lymph node biopsy on 12/18/2019 for invasive ductal carcinoma grade 2, ER/SC+, H2N-. Final pathology showed 4 negative lymph [...] right breast PONV (postoperative nausea and vomiting) Scuddy Martins auricular syndrome PAST SURGICAL HISTORY Procedure [...] discussed with the Patient or Patient's Authorized Foundry Manager. As applicable, any other physician, advance practice provider, medical student, or other health professional student that will be observing or (more content not included)... [facility] 04-18-2024 History of Present illness Narrative Images from the original note were not included. Filomena Rizvi MD [facility] [address] [id number] SUBJECTIVE Chief Complaint: Patient presents with: Follow Up Tests Results HPI Marva Khan is a 58 year old female here today for follow up. History of left breast cancer. She is status post left lumpectomy sentinel lymph node biopsy on 12/18/2019 for invasive ductal carcinoma grade 2, ER/SC+, H2N-. Final pathology showed 4 negative lymph [...] right breast PONV (postoperative nausea and vomiting) Scuddy Martins auricular syndrome PAST SURGICAL HISTORY Procedure [...] discussed with the Patient or Patient's Authorized Foundry Manager. As applicable, any other physician, advance practice provider, medical student, or other health professional student that will be observing or involved in the sensitive examination for educational or training purposes was discussed with the Patient or Authorized Foundry Manager. The Patient or Authorized Foundry Manager has agreed to proceed with the sensitive [...] 12/18/2019 for invasive ductal carcinoma grade 2, ER/SC+, H2N-. Final pathology showed 4 negative lymph [...] MRI. Follow up: Return for MRI and DENTAL ASSISTANT INSTRUCTOR 6 months. Filomena Rizvi MD 04/18/2024 3:01 PM Patient presents for follow up after imaging.Patient stated right side pain that wraps around her rib cage the pain is intermittent. Davidson Wilkinson LPN documented in this encounter [facility] 04-18-2024 Note HNO ID: [id number] Author: DAVIDSON WILKINSON LPN Service: ? Author Type: LICENSED NURSE Type: Progress Notes Filed: 05/01/2024 12:03 Note Text: Patient presents for follow up after imaging.Patient stated right side pain that wraps around her rib cage the pain is intermittent. Davidson Wilkinson LPN [facility] 04-18-2024 History of Present illness Narrative [...] PATIENT PRESENTS WITH AN IMPLANTABLE OR ATTACHED INVESTIGATOR WELFARE: No RADIOLOGY DEPARTMENT: Mammography PERIPHERAL IV DATA: Not applicable SIGNED BY: JOSE JUAN Rodriguez) April 18, 2024 1:32 PM documented in this encounter [facility] 04-18-2024 Note HNO ID: [id number] Author: SHANKAR KELLY RT (R) Service: ? [...] PATIENT PRESENTS WITH AN IMPLANTABLE OR ATTACHED INVESTIGATOR WELFARE: No RADIOLOGY DEPARTMENT: Mammography PERIPHERAL IV DATA: Not applicable SIGNED BY: JOSE JUAN Rodriguez) April 18, 2024 1:32 PM [facility] 01-13-2024 History of Present illness Narrative [facility] Patricia Metz DO, ARAN[facility], [facility]* Name: Marva Khan She is here to [...] not fully corrected. documented in this encounter [facility] 08-10-2023 History of Present illness Narrative Marva Khan is a 58 year old female presenting for post op visit for excision of papilloma on 07/30/23. Patient has history of left lumpectomy and sentinel lymph node biopsy on 12/18/2019 for invasive ductal carcinoma grade 2, ER/SC+, H2N-. Breast MRI done on 04/27/23 due [...] Time: 4:13 PM documented in this encounter [facility] 08-10-2023 Instructions Filomena Rizvi MD - 08/10/2023 [...] doctor or nurse. documented in this encounter [facility] 08-10-2023 Nurse Note Marva Khan is a 58 year old female who presents for Post Op (Patient presents post RIGHT breast excision of a papilloma. Patient denies any swelling or drainage. Patient states that she sees a small amount of redness at the incision site. Patient denies any pain. Patient denies any concerns.) Yaritza Aden MA documented in this encounter [facility] 05-18-2023 History of Present illness Narrative Radiology [...] 2023 2:58 PM documented in this encounter [facility] 04-30-2023 History of Present illness Narrative Radiology [...] 2023 9:33 AM documented in this encounter [facility] 04-29-2023 Miscellaneous Notes Patient notified through [employer] that she will need additional imaging due to breast MRI finding. Orders placed for 2nd look US and biopsy. Patient is currently scheduled to see DENTAL ASSISTANT INSTRUCTOR next month. Okay to keep that appointment as scheduled for now. Filomena Rizvi MD documented in this encounter [facility] 04-27-2023 History of Present illness Narrative Radiology [...] TIME: 1:13 PM documented in this encounter [facility] 04-26-2023 Instructions Audrey Rowe MD - 04/26/2023 3:22 PM EST PLAN AND RECOMMENDATIONS: To do the echo To do the CCTA To do bloods with your supervisor paste mixing and send me results To see me [...] and salt CONTACT INFORMATION: Audrey Rowe MD, [facility], [facility] Furnace Repair Mechanic and Radio Television Announcer, Acute Coronary Care [facility], [facility] [place] [address] [place] [address], [phone] [place] [address] documented in this encounter [facility] 04-26-2023 History of Present illness Narrative Images from the original note were not included. [facility] [place] Romie Tracy Department of Cardiovascular Medicine SECTION OF INTERVENTIONAL CARDIOLOGY OUTPATIENT VISIT DATE 04/26/2023 OUTPATIENT VISIT TYPE NEW PRIMARY CARE PHYSICIAN: Patricia Winston [address] [place] [address] REFERRING PHYSICIAN: No referring provider defined for [...] to have high blood pressure by her [employer] and went to the ER one day as it was high. While in the ER she had an ECG. She was not told it was abnromal but later it was formally read as a possible IWMI and she comes here for evaluaiton. She denies prior MS or other CRF. She does occasionally have [...] is a 57 year old female from [place], [place] here today for cardiovascular evaluation. In September she presented to [facility] for hypertension. She was checking her blood [...] Electrocardiogram. NSR and possible IWMI IMPRESSION: Ms. 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 She denies any symptoms of prior MS or chronic CP but has noted on [...] the CCTA To do bloods with your supervisor paste mixing and send me results To see me [...] and salt CONTACT INFORMATION: Audrey Rowe MD, [facility], [facility], [facility] Furnace Repair Mechanic and Radio Television Announcer, Acute Coronary Care [facility], [facility] [place] [address] [place] [address], [address] [place] [address] documented in this encounter [facility] 12-17-2022 History of Present illness Narrative Radiology [...] 2022 10:08 AM documented in this encounter [facility] 07-30-2022 History of Present illness Narrative DATE OF PHOTOS: 07/30/2022 Body Part: Full Face and Eyes [facility] July 30, 2022 6:07 PM documented in this encounter [facility] 07-30-2022 History of Present illness Narrative Plastic [...] 2,000 Units by mouth once daily. magnesium J-yuxfgd-mpvogaulukc 42 mg (500 mg)- 250 mg TbER [...] Past Histories independently gathered by the clinical product support engineer and the remaining scribed note accurately describes my personal service to the patient. patient's condition reviewed and examined plan of care and options of management, complexity, risk benefit limitation potential complication, success /failure of management, expected result and recovery discussed will set up pt to see white lead filterer and will follow up w her skin care and her future plan I spent 30 minutes in the visit, with more than 50% of the total cldg-st-vwlb time of the visit in counseling / coordination of care. Kasandra Souza MD documented in this encounter [facility] 03-12-2022 History of Present illness Narrative Per [...] 2,000 Units by mouth once daily. magnesium A-amwvwp-yqhljffoebp 42 mg (500 mg)- 250 mg TbER [...] Rose DPM Podiatry [address] [place] [facility] [address] Dept: [phone] Dept AMB ROOMING INTAKE FLOWSHEET DATA Risk [...] Filomena Edgar RN documented in this encounter [facility] 03-12-2022 Instructions Jonathan Milton - 03/12/2022 9:43 [...] time on their feet, such as nurses, commercial loan administrator/waiters, and mail carriers, often experience plantar fasciitis. [...] choose the one that fits the best. [place] with your athletic shoes to find a [...] repeat the exercise. documented in this encounter [facility] 03-12-2022 History of Present illness Narrative Radiology [...] 2022 8:56 AM documented in this encounter [facility] 12-30-2021 History of Present illness Narrative Radiology [...] 2021 10:55 AM documented in this encounter [facility] 12-30-2021 History of Present illness Narrative Radiology [...] DATA: Not applicable SIGNED BY: Lindsay Ragland Azimuth December 30, 2021 9:28 AM documented in this encounter [facility] 12-09-2021 History of Present illness Narrative Oncologic problem(s): 1) pT1b pN0(sln) M0 ER/SC positive, HER-2 nonamplified stage IA invasive ductal [...] - - - - - Positive, 90%, szzrpteo-ft-cskaud, diffuse staining. SC - - - - - Positive, 90%, [...] is no gallop or murmur. BREAST: Declined yarn rewinder. Well-healing incision upper outer quadrant of the breast. All underlying mass or induration. ABDOMEN: The abdomen is nondistended. No organomegaly. No tenderness. Extremities: No swelling or edema. SKIN: No jaundice or rash. No petechiae. NEUROLOGIC: activities concierge II-XII are grossly intact. No focal motor weakness. ASSESSMENT/PLAN: (C50.412, Z17.0) Malignant neoplasm of upper-outer quadrant of left breast in female, estrogen receptor positive (HCC) (primary encounter diagnosis) Assessment: -pT1b pN0(sln) M0 ER/SC positive, HER-2 nonamplified stage IA invasive ductal [...] Aman Cardoso DO documented in this encounter [facility] 11-24-2019 History of Past i llness Narrative Problem Noted Date Resolved Date Dense breast tissue 11/24/2019 11/30/2022 Acquired hypothyroidism 10/31/2015 11/06/19 17 documented as of this encounter (statuses as of 12/18/2022) [facility] History of Past illness Narrative* Problem Noted Date Diagnosed Date Resolved Date Dense breast tissue 11/24/2019 12/01/19 23 Acquired hypothyroidism 10/31/201510/19 documented as of this encounter (statuses as of 04/27/2023) [facility] History of Past illness Narrative* Problem Noted Date Diagnosed Date Resolved Date Dense breast tissue 11/24/2019 12/01/19 23 Acquired hypothyroidism 10/31/201510/19 documented as of this encounter (statuses as of 04/28/2023) [facility] History of Past illness Narrative* Problem Noted Date Diagnosed Date Resolved Date Dense breast tissue 11/24/2019 12/01/19 23 Acquired hypothyroidism 10/31/201510/19 documented as of this encounter (statuses as of 04/30/2023) [facility] History of Past illness Narrative* Problem Noted Date Diagnosed Date Resolved Date Dense breast tissue 11/24/2019 12/01/19 23 Acquired hypothyroidism 10/31/201510/19 documented as of this encounter (statuses as of 05/01/2023) [facility] History of Past illness Narrative* Problem Noted Date Diagnosed Date Resolved Date Dense breast tissue 11/24/2019 12/01/19 23 Acquired hypothyroidism 10/31/201510/19 documented as of this encounter (statuses as of 05/19/2023) [facility] History of Past illness Narrative* Problem Noted Date Diagnosed Date Resolved Date Dense breast tissue 11/24/2019 12/01/19 23 Acquired hypothyroidism 10/31/201510/19 documented as of this encounter (statuses as of 07/24/2023) [facility] History of Past illness Narrative* Problem Noted Date Diagnosed Date Resolved Date Dense breast tissue 11/24/2019 12/01/19 23 Acquired hypothyroidism 10/31/201510/19 documented as of this encounter (statuses as of 08/10/2023) [facility] of Past illness Narrative* Problem Noted Date Resolved Date Acquired hypothyroidism 10/31/2015 11/06/19 17 documented as of this encounter (statuses as of 11/25/2021) [facility] of Past illness Narrative* Problem Noted Date Resolved Date Acquired hypothyroidism 10/31/2015 11/06/19 17 documented as of this encounter (statuses as of 12/09/2021) [facility] of Past illness Narrative* Problem Noted Date Resolved Date Acquired hypothyroidism 10/31/2015 11/06/19 17 documented as of this encounter (statuses as of 12/31/2021) [facility] of [facility] illness Narrative* Problem Noted Date Resolved Date Acquired hypothyroidism 10/31/2015 11/06/19 17 documented as of this encounter (statuses as of 12/31/2021) [facility] of [facility] illness Narrative* Problem Noted Date Resolved Date Acquired hypothyroidism 10/31/2015 11/06/19 17 documented as of this encounter (statuses as of 03/11/2022) [facility] of [facility] Narrative* Problem Noted Date Resolved Date Acquired hypothyroidism 10/31/2015 11/06/19 17 documented as of this encounter (statuses as of 03/13/2022) [facility] of [facility] Narrative* Problem Noted Date Resolved Date Acquired hypothyroidism 10/31/2015 11/06/19 17 documented as of this encounter (statuses as of 03/14/2022) [facility] of [facility] Narrative* Problem Noted Date Resolved Date Acquired hypothyroidism 10/31/2015 11/06/19 17 documented as of this encounter (statuses as of 05/04/2022) [facility] of [facility] Narrative* Problem Noted Date Resolved Date Acquired hypothyroidism 10/31/2015 11/06/19 17 documented as of this encounter (statuses as of 07/31/2022) [facility] of [facility] Narrative* Problem Noted Date Resolved Date Acquired hypothyroidism 10/31/2015 11/06/19 17 documented as of this encounter (statuses as of 08/06/2022) [facility] of [facility] Narrative* Problem Noted Date Resolved Date Acquired hypothyroidism 10/31/2015 11/06/19 17 documented as of this encounter (statuses as of 08/06/2022) [facility] + Plan note No data available for this section [facility] Evaluation note* Diagnosis Onset Date Resolution Status Palpitations acute [facility] Work Phone: evaluation note* Diagnosis Malignant neoplasm of upper-outer quadrant of left breast in female, estrogen receptor positive (HCC)- Primary documented in this encounter [facility] note* Diagnosis Onset Date Resolution Status Palpitations acute 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 acute [facility] Work Phone: Evaluation note* Diagnosis Malignant neoplasm of upper-outer quadrant of left breast in female, estrogen receptor positive (HCC) Abnormal mammogram of left breast documented in this encounter [facility] note* Diagnosis Malignant neoplasm of upper-outer quadrant of left breast in female, estrogen receptor positive (HCC) Abnormal mammogram of left breast documented in this encounter [facility] noteNo assessment information availableWTogus [facility] Work Phone: evaluation note* Diagnosis Pain- Primary Generalized pain documented in this encounter [facility] note* Diagnosis Pain Generalized pain documented in this encounter [facility] note* Diagnosis Plantar fasciitis of left foot- Primary Plantar fascial fibromatosis Acquired hallux limitus of right foot documented in this encounter [facility] note* Diagnosis Encounter for cosmetic surgery- Primary Other plastic surgery for unacceptable cosmetic appearance [facility]* Diagnosis Unspecified lump in axillary tail of the right breast Mass overlapping multiple quadrants of left breast documented in this encounter [facility] note* Diagnosis Chest pain, unspecified type- Primary Abnormal ECG Nonspecific abnormal electrocardiogram (ECG) (EKG) documented in this encounter [facility] note* Diagnosis Unspecified lump in axillary tail of the right breast Mass overlapping multiple quadrants of left breast History of breast cancer Personal history of malignant neoplasm of breast documented in this encounter [facility] note* Diagnosis Mass overlapping multiple quadrants of left breast- Primary [facility]* Diagnosis Chest pain, unspecified type Abnormal ECG Nonspecific abnormal electrocardiogram (ECG) (EKG) documented in this encounter [facility] note* Diagnosis Mass overlapping multiple quadrants of left breast [facility]* Diagnosis 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 documented in this encounter [facility] note* Diagnosis Papilloma of right breast- Primary documented in this encounter [facility] note* Diagnosis Encounter for cosmetic surgery- Primary Other plastic surgery for unacceptable cosmetic appearance documented in this encounter [facility] note* Diagnosis Dense breast tissue- Primary Malignant [...] of right breast documented in this encounter [facility] note* Diagnosis Dense breast tissue- Primary Malignant [...] 12/18/2019 for invasive ductal carcinoma grade 2, ER/SC+, H2N-. Final pathology showed 4 negative lymph [...] months with MRI. [facility] Dense breast tissue- Primary Malignant [...] area, including retroperitoneum [facility]* Diagnosis Dense breast tissue- Primary Malignant [...] malignant neoplasms, colon documented in this encounter [facility] note* Diagnosis Dense breast tissue- Primary Malignant [...] of breast (HCC) documented in this encounter [facility] note* Diagnosis Dense breast tissue- Primary Malignant [...] pain, right Mastodynia documented in this encounter [facility] Discharge instructions Additional Instructions Please continue [...] the ER should you have any further concernsWTogus [facility] Work Phone: Hospital Discharge instructions No data available for this section [facility] Progress note No data available for this section [facility] Reason for referral (narrative)* Diagnostic Procedure Only (Routine) - Closed Specialty Diagnoses / Procedures Referred By Mikaelaac t Referred To Contact [facility] Diagnoses Malignant neoplasm of upper-outer quadrant of left breast in female, estrogen receptor positive (HCC) Abnormal mammogram of left breast Procedures US BREAST LTD LT BREAST [facility] REAL TIME WITH IMAGE LIMITED Isabel Watt APRN.CNP [address] [place] [address] [facility] [address] [place] [address] Referral ID Status Reason Start Date Expiration Date V isits Requested Visits Authorized [id number] Closed Auto-Generate d Referral 11/25/2021 12/25/2022 1 1 [facility] for referral (narrative)* Diagnostic Procedure Only (Routine) - Authorized Specialty Diagnoses / Procedures Referred By Contac t Referred To Contact XR IMAGING Diagnoses Pain Procedures XR FOOT GENERAL 3V AP/LAT/OBL BILATERAL RADEX FOOT COMPLETE MINIMUM 3 VIEWS MiltonJonathan [address] [place] [address] Xr Imaging Referral ID Status Reason Start Date Expiration Date Visits Requested Visits Authorized [id number] Authorized Auto-Generat ed Referral 03/11/2022 04/10/2023 1 1 [facility] for referral (narrative)* Diagnostic Procedure Only (Routine) - Closed Specialty Diagnoses / Procedures Referred By Contac t Referred To Contact XR IMAGING Diagnoses Pain Procedures XR FOOT GENERAL 3V AP/LAT/OBL BILATERAL RADEX FOOT COMPLETE MINIMUM 3 VIEWS MiltonJonathan [address] [place] [address] Xr Imaging Referral ID Status Reason Start Date Expiration Date V isits Requested Visits Authorized [id number] Closed Auto-Generate d Referral 03/11/2022 04/10/2023 1 1 [facility] for referral (narrative)* Diagnostic Procedure Only (Routine) - Closed Specialty Diagnoses / Procedures Referred By Contac t Referred To Contact BR IMAGING Diagnoses Unspecified lump in axillary tail of the right breast Procedures US BREAST LTD RIGHT US BREAST UNI REAL TIME WITH IMAGE LIMITED Filomena Rizvi MD [address] [place] [address] Br Imaging [address] [place] [address] Referral ID Status Reason Start Date Expiration Date V isits Requested Visits Authorized [id number] Closed Auto-Generate d Referral 11/30/2022 12/30/2023 1 1 * Diagnostic Procedure Only (Routine) - Closed Specialty Diagnoses / Procedures Referred By Contac t Referred To Contact BR IMAGING Diagnoses Mass overlapping multiple quadrants of left breast Procedures US BREAST LTD LEFT US BREAST UNI REAL TIME WITH IMAGE LIMITED Filomena Rizvi MD 1 [address] [place] [address] Br Imaging [address] [place] [address] Referral ID Status Reason Start Date Expiration Date V isits Requested Visits Authorized [id number] Closed Auto-Generate d Referral 11/30/2022 12/30/2023 1 1 * Diagnostic Procedure Only (Routine) - Closed Specialty Diagnoses / Procedures Referred By Contjoao t Referred To Contact BR IMAGING Diagnoses Unspecified lump in axillary tail of the right breast Mass overlapping multiple quadrants of left breast Procedures BRYSON DIAG W GEOFFREY BILATERAL DIGITAL BREAST TOMOSYNTHESIS BILATERAL Filomena Rizvi MD [address] [facility] 1ST [place] [address] Br Imaging [address] [place] [address] Referral ID Status Reason Start Date Expiration Date V isits Requested Visits Authorized [id number] Closed Auto-Generate d Referral 11/30/2022 12/30/2023 1 1 [facility] for referral (narrative)* Diagnostic Procedure Only (Routine) - Closed Specialty Diagnoses / Procedures [facility] To Contact BR IMAGING Diagnoses Mass overlapping multiple quadrants of left breast Procedures US BREAST LTD RIGHT US BREAST UNI REAL TIME WITH IMAGE LIMITED Filomena Rizvi MD 1 [address] Rolando 1ST [place] [address] Br Imaging [address] [place] [address] Referral ID Status Reason Start Date Expiration Date V isits Requested Visits Authorized [id number] Closed Auto-Generate d Referral 04/29/2023 05/28/2024 1 1 [facility] for referral (narrative)* Diagnostic Procedure Only (Routine) - Authorized Specialty Diagnoses / Procedures Referred By Contac t Referred To Contact BR IMAGING Diagnoses Papilloma of right breast Procedures BRYSON DIAG W GEOFFREY BILATERAL DIGITAL BREAST TOMOSYNTHESIS BILATERAL Filomena Rizvi MD [address] 1ST [place] [address] Br Imaging [address] [place] [address] Referral ID Status Reason Start Date Expiration Date Visits Requested Visits Authorized [id number] Authorized Auto-Generat ed Referral 08/10/2023 09/08/2024 1 1 [facility] for referral (narrative)* Diagnostic Procedure Only (Routine) - Closed Specialty Diagnoses / Procedures [facility] Ref[facility] To Contact BR IMAGING Diagnoses Papilloma of right breast Procedures BRYSON DIAG W GEOFFREY BILATERAL DIGITAL BREAST TOMOSYNTHESIS BILATERAL Filomena Rizvi MD 1 [facility] 1ST ORR [facility] [place] [address] Br Imaging [address] [place] [address] Referral ID Status Reason Start Date Expiration Date V isits Requested Visits Authorized [id number] Closed Auto-Generate d Referral 08/10/2023 09/08/2024 1 1 [facility] for referral (narrative)* Outpatient Procedure (Routine) - Authorized Specialty Diagnoses / Procedures [facility] Referred To Contact [facility] Diagnoses Personal history of breast cancer Colon cancer screening Procedures COLONOSCOPY SCREENING COLONOSCOPY FLX DX W/COLLJ SPEC WHEN Suzanne Dawn PA-C [address] [place] [address] [facility] [address] [place] [address] Referral ID Status Reason Start Date Expiration Date Visits Requested Visits Authorized [id number] Authorized Auto-Generat ed Referral 05/30/2025 1 1 * Outpatient Procedure (Routine) - Authorized Specialty Diagnoses / Procedures Referred By Bob kern Referred To Contact [facility] Diagnoses Abnormal CT of the abdomen Gastritis, presence of bleeding unspecified, unspecified chronicity, unspecified gastritis type Procedures EGD DIAGNOSTIC ESOPHAGOGASTRODUODENOSC OPY TRANSORAL DIAGNOSTIC Suzanne Gonzalez PA-C [address] [place] [address] [facility] [address] [place] [address] Referral ID Status Reason Start Date Expiration Date Visits Requested Visits Authorized [id number] Authorized Auto-Generat ed Referral 4 05/30/2025 1 1 [facility] for visit Narrative* Diagnostic Procedure Only (Routine) - Closed Specialty Diagnoses / Procedures Referred By Bob kern Referred To Contact BR IMAGING Diagnoses Malignant neoplasm of upper-outer quadrant of left breast in female, estrogen receptor positive (HCC) Abnormal mammogram of left breast Procedures BRYSON DIAGNOSTIC LT DIAGNOSTIC MAMMOGRAPHY COMPUTER-AIDED [facility]CJ [facility] Isabel Watt, AUDI.JEREMIHA [address] [place] [address] Br Imaging [address] [place] [address] Referral ID Status Reason Start Date Expiration Date V isits Requested Visits Authorized [id number] Closed Auto-Generate d Referral 11/25/2021 12/25/2022 1 1 [facility] for visit Narrative* Diagnostic Procedure Only (Routine) - Closed Specialty Diagnoses / Procedures Referred By Bob t Referred To Contact XR IMAGING Diagnoses Pain Procedures XR FOOT GENERAL 3V AP/LAT/OBL BILATERAL RADEX FOOT COMPLETE MINIMUM 3 VIEWS Jonathan Rose [address] [place] [address] Xr Imaging Referral ID Status Reason Start Date Expiration Date V isits Requested Visits Authorized [id number] Closed Auto-Generate d Referral 03/11/2022 04/10/2023 1 1 [facility] for visit Narrative* Diagnostic Procedure Only (Routine) - Closed Specialty Diagnoses / Procedures Referred By Bob t Referred To Contact BR IMAGING Diagnoses Unspecified lump in axillary tail of the right breast Mass overlapping multiple quadrants of left breast Procedures BRYSON DIAG W GEOFFREY BILATERAL DIGITAL BREAST TOMOSYNTHESIS BILATERAL Filomena Rizvi MD 1 [facility] 1ST [place] [address] Br Imaging [address] [place] [address] Referral ID Status Reason Start Date Expiration Date V isits Requested Visits Authorized [id number] Closed Auto-Generate d Referral 11/30/2022 12/30/2023 1 1 [facility] for visit Narrative* Diagnostic Procedure Only (Routine) - Closed Specialty Diagnoses / Procedures Referred By Bob kern Referred To Contact BR IMAGING Diagnoses Mass overlapping multiple quadrants of left breast Procedures US BREAST LTD RIGHT US BREAST UNI REAL TIME WITH IMAGE LIMITED Filomena Rizvi MD 1 [facility] 1ST FLR [facility] [place] [address] Br Imaging [address] [place] [address] Referral ID Status Reason Start Date Expiration Date V isits Requested Visits Authorized [id number] Closed Auto-Generate d Referral 04/29/2023 05/28/2024 1 1 [facility] for visit Narrative* Diagnostic Procedure Only (Routine) - Closed Specialty Diagnoses / Procedures Referred By Bob kern Referred To Contact BR IMAGING Diagnoses Papilloma of right breast Procedures US LOC BREAST RIGHT PERQ BREAST LOC DEVICE PLACE[facility] 1ST LESIO US IMAG Filomena Rizvi MD 1 [facility] 1ST [place] [address] Br Imaging [address] [place] [address] Referral ID Status Reason Start Date Expiration Date V isits Requested Visits Authorized [id number] Closed Auto-Generate d Referral 06/09/2023 2024 1 1 [facility] for visit Narrative* Diagnostic Procedure Only (Routine) - Closed Specialty Diagnoses / Procedures Referred By Bob kern Referred To Contact BR IMAGING Diagnoses Papilloma of right breast Procedures BRYSON DIAG W GEOFFREY BILATERAL DIGITAL BREAST TOMOSYNTHESIS BILATERAL Filomena Rizvi MD 1 [facility] 1ST [place] [address] Br Imaging [address] [place] [address] Referral ID Status Reason Start Date Expiration Date V isits Requested Visits Authorized [id number] Closed Auto-Generate d Referral 08/10/2023 09/08/2024 1 1 [facility]/CT (Routine) - Closed Specialty Diagnoses / Procedures Referred By Bob kern Referred To Contact MR IMAGING Diagnoses Malignant neoplasm of female breast, unspecified estrogen receptor status, unspecified laterality, unspecified site of breast (HCC) Procedures MRI BREAST WO/W IVCON BILATERAL MRI BREAST WITHOUT&WITH CONTRAST W/CAD BILATERAL Filomena Rizvi MD [address] [place] [address] Phone: tel: fax: [place] [id number] Referral ID Status Reason Start Date Expiration Date V isits Requested Visits Authorized [id number] Closed Auto-Generate d Referral 10/02/2024 11/30/2024 1 1 [facility] Summary Purpose Family History No Family History Records Found Relationship Condition Age at Onset Recorded Date/T kassandra aunt Malignant neoplasm of breast Unknown grandfather Malignant neoplasm of prostate Unknown Advance Directives No Advanced Directives Records FoundDocuments on File Type Date Recorded 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 Advance Directive(s) 12/18/2019 6:54 AM Documents on File Type Date Recorded 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 Advance Directive(s) 12/18/2019 6:54 AM Advance Directive Response Recorded Date/ Time Living Will No October 07, 2022 12:49am 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 No October 07 12:49am Chief Complaint and [...] GRFTS CONTRST 3D POST Audrey Rowe MD [address] [place] [address] [facility] [place] [address] Referral ID Status Reason Start Date Expiration Date Visits Requested Visits Authorized [id number] Authorized Auto-Generat ed Referral 04/26/2023 05/25/2024 1 1 Specialty Diagnoses / Procedures Referred By Contac t Referred To Contact [facility] Diagnoses Chest pain, unspecified type Abnormal ECG Procedures ECHO ECHO TTHRC R-T 2D W/WOM-MODE COMPL SPEC&COLR D Audrey Rowe MD [address] [place] [address] [place] [address] Referral ID Status Reason Start Date Expiration Date Visits Requested Visits Authorized [id number] Authorized Auto-Generat ed Referral 04/27/2023 04/25/2024 1 1 Specialty Diagnoses / Procedures Referred By Contac t Referred To Contact [facility] Diagnoses Chest pain, unspecified type Abnormal ECG Procedures ECG COMPLETE ECG ROUTINE ECG W/LEAST 12 LDS W/I&R Audrey Rowe MD [address] [place] [address] [address] [place] [address] Referral ID Status Reason Start Date Expiration Date Visits Requested Visits Authorized [id number] Pending Review Auto-Generat ed Referral 04/26/2023 04/25/2024 1 1 Specialty Diagnoses / Procedures Referred By Contac t Referred To Contact Procedures CARDIOVASCULAR MEDICINE OP FOLLOW UP APPT ORDER Audrey Rowe MD [address] [place] [address] Referral ID Status Reason Start Date Expiration Date Visits Requested Visits Authorized [id number] Ref Not Required PCP Requested Referral 05/26/2023 04/25/2024 1 1 Specialty Diagnoses / Procedures Referred By Contac t Referred To Contact MR IMAGING Diagnoses Mass overlapping multiple quadrants of left breast Procedures MRI BREAST BX WO/W IVCON RIGHT BX BREAST W/DEVICE 1ST LESION MAGNETIC RES GUID Filomena Rizvi MD [address] 1ST [place] [address] [place] [id number] Referral ID Status Reason Start Date Expiration Date Visits Requested Visits Authorized [id number] Pending Review Auto-Generat ed Referral 04/29/2023 05/28/2024 1 1 Specialty Diagnoses / Procedures Referred By Contac t Referred To Contact BR IMAGING Diagnoses Mass overlapping multiple quadrants of left breast Procedures US BIOPSY BREAST RIGHT BX BREAST W/DEVICE 1ST LESION ULTRASOUND GUID Filomena Rizvi MD [address] 1ST [place] [address] Br Imaging [address] [place] [address] Referral ID Status Reason Start Date Expiration Date Visits Requested Visits Authorized [id number] Pending Review Auto-Generat ed Referral 04/29/2023 05/28/2024 1 1 Specialty Diagnoses / Procedures Referred By Contac t Referred To Contact BR IMAGING Diagnoses Mass overlapping multiple quadrants of left breast Procedures US BREAST LTD RIGHT US BREAST UNI REAL TIME WITH IMAGE LIMITED Filomena Rizvi MD [email or web address] [facility] [place] [address] Br Imaging [address] [place] [address] Referral ID Status Reason Start Date Expiration Date Visits Requested Visits Authorized [id number] Authorized Auto-Generat ed Referral 04/29/2023 05/28/2024 1 1 Referral ID Status Reason Start Date Expiration Date V isits Requested Visits Authorized [id number] Closed Auto-Generate d Referral 04/26/2023 05/25/2024 1 1 Specialty Diagnoses / Procedures Referred By Contac t Referred To Contact MR IMAGING Diagnoses Malignant neoplasm of female breast, unspecified estrogen receptor status, unspecified laterality, unspecified site of breast (HCC) Procedures MRI BREAST WO/W IVCON BILATERAL MRI BREAST WITHOUT&WITH CONTRAST W/CAD BILATERAL Filomena Rizvi MD [address] [place] [address] [place] [id number] Referral ID Status Reason Start Date Expiration Date Visits Requested Visits Authorized [id number] Pending Review Auto-Generat ed Referral 10/17/2024 05/18/2025 1 1 Specialty Diagnoses / Procedures Referred By Contac t Referred To Contact Gastroenterology Diagnoses Personal history of breast cancer Abnormal CT of the abdomen Procedures CONSULT TO GASTROENTEROLOGY OFFICE/OUTPATIENT [facility] 60 MINUTES Isabel Watt APRN.QUARRY EXTRACTION WORKER [address] [place] [address] Referral ID Status Reason Start Date Expiration Date Visits Requested Visits Authorized [id number] Authorized PCP Requested Referral 05/25/2024 05/25/2025 1 1 Additional Source Comments INFORMATION SOURCE (unrecogn ized section and content) DATE CREATED AUTHOR 11/26/2020 [facility] DATE CREATED AUTHOR AUTHOR'S ORGANIZ ATION 08/27/2022 [facility] DATE CREATED AUTHOR AUTHOR'S ORGANIZ ATION 08/27/2022 [employer] DATE CREATED AUTHOR AUTHOR'S ORGANIZ ATION 08/04/2024 [facility] DATE CREATED AUTHOR AUTHOR'S ORGANIZ ATION 09/03/2024 [facility] DATE CREATED AUTHOR AUTHOR'S ORGANIZ ATION 10/26/2024 [facility] DATE CREATED AUTHOR AUTHOR'S ORGANIZ ATION 11/18/2024 [facility] dical Center Goals (unrecognized section and content) [...] or prosecute any alcohol or drug abuse patient.[facility] the event this information is protected by the Federal Confidentiality of Alcohol and Drug Abuse Patient Records regulations: The Federal rules restrict any use of the information to criminally investigate or prosecute any alcohol or drug abuse patient.[facility] CenterIn the event this information is protected by the Federal Confidentiality of Alcohol and Drug Abuse Patient Records regulations: The Federal rules restrict any use of the information to criminally investigate or prosecute any alcohol or drug abuse patient.[facility] CenterIn the event this information is protected by the Federal Confidentiality of Alcohol and Drug Abuse Patient Records regulations: The Federal rules restrict any use of the information to criminally investigate or prosecute any alcohol or drug abuse patient.[facility] CenterIn the event this information is protected by the Federal Confidentiality of Alcohol and Drug Abuse Patient Records regulations: The Federal rules restrict any use of the information to criminally investigate or prosecute any alcohol or drug abuse patient.[facility] CenterIn the event this information is protected by the Federal Confidentiality of Alcohol and Drug Abuse Patient Records regulations: The Federal rules restrict any use of the information to criminally investigate or prosecute any alcohol or drug abuse patient.[facility] CenterIn the event this information is protected by the Federal Confidentiality of Alcohol and Drug Abuse Patient Records regulations: The Federal rules restrict any use of the information to criminally investigate or prosecute any alcohol or drug abuse patient.[facility] CenterIn the event this information is protected by the Federal Confidentiality of Alcohol and Drug Abuse Patient Records regulations: The Federal rules restrict any use of the information to criminally investigate or prosecute any alcohol or drug abuse patient.[facility] CenterIn the event this information is protected by the Federal Confidentiality of Alcohol and Drug Abuse Patient Records regulations: The Federal rules restrict any use of the information to criminally investigate or prosecute any alcohol or drug abuse patient.[facility] CenterIn the event this information is protected by the Federal Confidentiality of Alcohol and Drug Abuse Patient Records regulations: The Federal rules restrict any use of the information to criminally investigate or prosecute any alcohol or drug abuse patient.[facility] CenterIn the event this information is protected by the Federal Confidentiality of Alcohol and Drug Abuse Patient Records regulations: The Federal rules restrict any use of the information to criminally investigate or prosecute any alcohol or drug abuse patient.[facility] CenterIn the event this information is protected by the Federal Confidentiality of Alcohol and Drug Abuse Patient Records regulations: The Federal rules restrict any use of the information to criminally investigate or prosecute any alcohol or drug abuse patient.[facility] CenterIn the event this information is protected by the Federal Confidentiality of Alcohol and Drug Abuse Patient Records regulations: The Federal rules restrict any use of the information to criminally investigate or prosecute any alcohol or drug abuse patient.[facility] CenterIn the event this information is protected by the Federal Confidentiality of Alcohol and Drug Abuse Patient Records regulations: The Federal rules restrict any use of the information to criminally investigate or prosecute any alcohol or drug abuse patient.[facility] CenterIn the event this information is protected by the Federal Confidentiality of Alcohol and Drug Abuse Patient Records regulations: The Federal rules restrict any use of the information to criminally investigate or prosecute any alcohol or drug abuse patient.[facility] CenterIn the event this information is protected by the Federal Confidentiality of Alcohol and Drug Abuse Patient Records regulations: The Federal rules restrict any use of the information to criminally investigate or prosecute any alcohol or drug abuse patient.[facility] CenterIn the event this information is protected by the Federal Confidentiality of Alcohol and Drug Abuse Patient Records regulations: The Federal rules restrict any use of the information to criminally investigate or prosecute any alcohol or drug abuse patient.[facility] CenterIn the event this information is protected by the Federal Confidentiality of Alcohol and Drug Abuse Patient Records regulations: The Federal rules restrict any use of the information to criminally investigate or prosecute any alcohol or drug abuse patient.[facility] CenterIn the event this information is protected by the Federal Confidentiality of Alcohol and Drug Abuse Patient Records regulations: The Federal rules restrict any use of the information to criminally investigate or prosecute any alcohol or drug abuse patient.[facility] CenterIn the event this information is protected by the Federal Confidentiality of Alcohol and Drug Abuse Patient Records regulations: The Federal rules restrict any use of the information to criminally investigate or prosecute any alcohol or drug abuse patient.[facility] CenterIn the event this information is protected by the Federal Confidentiality of Alcohol and Drug Abuse Patient Records regulations: The Federal rules restrict any use of the information to criminally investigate or prosecute any alcohol or drug abuse patient.[facility] CenterIn the event this information is protected by the Federal Confidentiality of Alcohol and Drug Abuse Patient Records regulations: The Federal rules restrict any use of the information to criminally investigate or prosecute any alcohol or drug abuse patient.[facility] CenterIn the event this information is protected by the Federal Confidentiality of Alcohol and Drug Abuse Patient Records regulations: The Federal rules restrict any use of the information to criminally investigate or prosecute any alcohol or drug abuse patient.[facility] CenterIn the event this information is protected by the Federal Confidentiality of Alcohol and Drug Abuse Patient Records regulations: The Federal rules restrict any use of the information to criminally investigate or prosecute any alcohol or drug abuse patient.[facility] CenterIn the event this information is protected by the Federal Confidentiality of Alcohol and Drug Abuse Patient Records regulations: The Federal rules restrict any use of the information to criminally investigate or prosecute any alcohol or drug abuse patient.[facility] CenterIn the event this information is protected by the Federal Confidentiality of Alcohol and Drug Abuse Patient Records regulations: The Federal rules restrict any use of the information to criminally investigate or prosecute any alcohol or drug abuse patient.[facility] CenterIn the event this information is protected by the Federal Confidentiality of Alcohol and Drug Abuse Patient Records regulations: The Federal rules restrict any use of the information to criminally investigate or prosecute any alcohol or drug abuse patient.[facility] CenterIn the event this information is protected by the Federal Confidentiality of Alcohol and Drug Abuse Patient Records regulations: The Federal rules restrict any use of the information to criminally investigate or prosecute any alcohol or drug abuse patient.[facility] CenterIn the event this information is protected by the Federal Confidentiality of Alcohol and Drug Abuse Patient Records regulations: The Federal rules restrict any use of the information to criminally investigate or prosecute any alcohol or drug abuse patient.[facility] CenterIn the event this information is protected by the Federal Confidentiality of Alcohol and Drug Abuse Patient Records regulations: The Federal rules restrict any use of the information to criminally investigate or prosecute any alcohol or drug abuse patient.[facility] Reason for Visit (unrecogniz ed section and [...] REAL TIME WITH IMAGE LIMITED Isabel Watt, AUDI.QUARRY EXTRACTION WORKER [address] [place] [address] [facility] [place] [address] Referral ID Status Reason Start Date Expiration Date V isits Requested Visits Authorized [id number] Closed Auto-Generate d Referral 11/25/2021 12/25/2022 1 [...] CONTRAST W/CAD BILATERAL Filomena Rizvi MD [address] [facility] 1ST [place] [address] Mr Imaging [place] [address] Referral ID Status Reason Start Date Expiration Date V isits Requested Visits Authorized [id number] Closed Auto-Generate d Referral 11/30/2022 12/30/2023 1 1 Reason Comments Appointment Reason Comments Radiology CTA Specialty Diagnoses / Procedures Referred By Bob t Referred To Contact CT IMAGING Diagnoses Chest pain, unspecified type Abnormal ECG Procedures CTA CORONARY W IVCON CTA HRT CORNRY ART/BYPASS GRFTS CONTRST 3D POST Audrey Rowe MD [address] [place] [address] Ct Imaging [facility] Referral ID Status Reason Start Date Expiration Date V isits Requested Visits Authorized [id number] Closed Auto-Generate d Referral 04/26/2023 05/25/2024 1 [...] the abdomen Procedures CONSULT TO GASTROENTEROLOGY OFFICE/OUTPATIENT [facility] 60 MINUTES Isabel Watt APRN.QUARRY EXTRACTION WORKER [address] [place] [address] Referral ID Status Reason Start Date Expiration Date V isits Requested Visits Authorized [id number] Closed PCP Requested Referral 05/25/2024 05/25/2025 1 1 Reason Comments Appointment Reason Comments Office note faxed to [facility] dated 04/26/23 Reason Comments Breast MRI approval Reason Comments 6 Month Exam Results Care Teams (unrecognized sec tion and content) Stamps [employer] Coins Salesperson Relationship Specialty Start Date End Date Patricia Winston DO PCP - General Family Practice 10/31/15 Marylou Weaver MD, [address] [place], [place] [id number] Physician Radiation Oncology 12/06/19 Filomena Rizvi MD [address] 1ST FLR [facility] BRE[facility] [place], [place] [id number] Referring General Surgery 01/22/20 Bethany Mejia, RN Specialty Broomcorn Seeder Oncology 02/14/20 Aman Cardoso DO [address] [address] Physician Hematology/Oncology 06/27/20 Stamps Or Coins Salesperson Relationship Specialty Start Date End Date Patricia Winston DO PCP - General Family Practice 10/31/15 Marylou Weaver MD, [address] [facility] [place] [phone] Physician Radiation Oncology 12/06/19 Filomena Rizvi MD [address] 1ST FLR [facility] [place], [place] [phone] Referring General Surgery 01/22/20 Bethany Mejia RN Specialty Broomcorn Seeder Oncology 02/14/20 Aman Cardoso, DO [address] [place] [address] Physician Hematology/Oncology 06/27/20 Stamps Or Coins Salesperson Relationship Specialty Start Date End Date Patricia Winston DO PCP - General Family Practice 10/31/15 Marylou Weaver MD, [address] [place] [address] Physician Radiation Oncology 12/06/19 Filomena Rizvi MD [address] 1ST [place] [address] Referring General Surgery 01/22/20 Bethany Mejia RN Specialty Broomcorn Seeder Oncology 02/14/20 Aman Cardoso, DO [address] [place] [address] Physician Hematology/Oncology 06/27/20 Stamps Or Coins Salesperson Relationship Specialty Start Date End Date Patricia Winston DO PCP - General Family Practice 10/31/15 Marylou Weaver MD, [address] [place] [address] Physician Radiation Oncology 12/06/19 Filomena Rizvi MD [address] 1[address] [place] [address] Referring General Surgery 01/22/20 Bethany Mejia RN Specialty Broomcorn Seeder Oncology 02/14/20 Aman Cardoso, DO [address] [place] [address] Physician Hematology/Oncology 06/27/20 Stamps Or Coins Salesperson Relationship Specialty Start Date End Date Catrachito Patricia Felton, PCP - General Family Medicine 10/31/15 Marylou Weaver MD, [address] [facility] [place] [address] Physician Radiation Oncology 12/06/19 Filomena Rizvi MD [address] 1[address] [place] [address] Referring General Surgery 01/22/20 Bethany Mejia RN Specialty Broomcorn Seeder Oncology 02/14/20 Aman Cardoso, DO [address] [place] [address] Physician Hematology/Oncology 06/27/20 Stamps Or Coins Salesperson Relationship Specialty Start Date End Date Patricia Winston DO PCP - General Family Medicine 10/31/15 Marylou Weaver MD, [address] [facility] [place] [address] Physician Radiation Oncology 12/06/19 Filomena Rizvi MD [address] 1ST FLR [facility] [place] [address] Referring General Surgery 01/22/20 Bethany Mejia RN Specialty Broomcorn Seeder Oncology 02/14/20 Aman Cardoso, DO [address] [facility] [place] [address] Physician Hematology/Oncology 06/27/20 Stamps Or Coins Salesperson Relationship Specialty Start Date End Date Patricia Winston DO PCP - General Family Medicine 10/31/15 Marylou Weaver MD, [address] [place] [address] Physician Radiation Oncology 12/06/19 iFlomena Rizvi MD [address] 1ST ORR [facility] [place] [address] Referring General Surgery 01/22/20 Bethany Mejia RN Specialty Broomcorn Seeder Oncology 02/14/20 Aman Cardoso, DO [address] [place] [address] Physician Hematology/Oncology 06/27/20 Stamps Or Coins Salesperson Relationship Specialty Start Date End Date Patricia Winston DO PCP - General Family Medicine 10/31/15 Marylou Weaver MD, [address] [place] [address] Physician Radiation Oncology 12/06/19 Filomena Rizvi MD [address] 1ST ORR [facility] [place] [address] Referring General Surgery 01/22/20 Bethany Mejia RN Specialty Broomcorn Seeder Oncology 02/14/20 Aman Cardoso, [address] [place] [address] Physician Hematology/Oncology 06/27/20 Team Status: Active Member Role Status Dates Dr. Patricia Winston DO Family Provider Active Dr. Patricia Winston DO Primary Care Provider Active Team Status: Inactive Member Role Status Dates Dr. Patricia Winston DO Primary Care Provider, Attendin g Provider Active Team Status: Inactive Member Role Status Dates Dr. Patricia Winston DO Primary Care Prov ider, Attending Provider, Referring Provider Active St[employer] Co[employer] Salesperson Relationship Specialty Start Date End Date Patricia Winston DO PCP - General Family Medicine 10/31/15 Marylou Weaver MD, [address] [place] [address] Physician Radiation Oncology 12/06/19 Filomena Rizvi MD [address] 1ST FLR [facility] [place] [address] Referring General Surgery 01/22/20 Bethany Mejia RN Specialty Broomcorn Seeder Oncology 02/14/20 Aman Cardoso, DO [address] [place] [address] Physician Hematology/Oncology 06/27/20 Stamps Or Coins Salesperson Relationship Specialty Start Date End Date Patricia Winston DO PCP - General Family Medicine 10/31/15 Marylou Weaver MD, [address] [place] [address] Physician Radiation Oncology 12/06/19 Filomena Rizvi MD 1 [facility] 1ST ORR [facility] [place] [address] Referring General Surgery 01/22/20 Bethany Mejia RN Specialty Broomcorn Seeder Oncology 02/14/20 Aman Cardoso, DO [address] [place] [address] Physician Hematology/Oncology 06/27/20 Stamps Or Coins Salesperson Relationship Specialty Start Date End Date Patricia Winston DO PCP - General Family Medicine 10/31/15 Marylou Weaver MD, [address] [place] [address] Physician Radiation Oncology 12/06/19 Filomena Rizvi MD [address] 1ST [place] [address] Referring General Surgery 01/22/20 Bethany Mejia RN Specialty Broomcorn Seeder Oncology 02/14/20 Aman Cardoso DO [address] [facility] [place] [address] Physician Hematology/Oncology 06/27/20 Team Status: Inactive Member Role Status Dates Dr. Patricia Winston DO Primary Care Provider Active Dr. Russel Castillo DO Emergency Provider Active St[employer] Co[employer] Salesperson Relationship Specialty Start Date End Date Patricia Winston DO PCP - General Family Medicine 10/31/15 Marylou Weaver MD, [address] [place] [address] Physician Radiation Oncology 12/06/19 Filomena Rizvi MD [address] 1ST [place] [address] Referring General Surgery 01/22/20 Bethany Mejia RN Specialty Broomcorn Seeder Oncology 02/14/20 Aman Cardoso DO [address] [place] [address] Physician Hematology/Oncology 06/27/20 Stamps Or Coins Salesperson Relationship Specialty Start Date End Date Patricia Winston DO PCP - General Family Medicine 10/31/15 Marylou Weaver MD, MD [address] [place] [address] Physician Radiation Oncology 12/06/19 Filomena Rizvi MD [address] 1ST [place] [address] Referring General Surgery 01/22/20 Bethany Mejia RN Specialty Broomcorn Seeder Oncology 02/14/20 Aman Cardoso DO [address] [place], [place] [address] Physician Hematology/Oncology 06/27/20 Audrey Rowe MD [address] [place] [address] Primary Staff Physician Cardiology 04/26/23 Stamps Or Coins Salesperson Relationship Specialty Start Date End Date Patricia Winston DO PCP - General Family Medicine 10/31/15 Marylou Weaver MD, [address] [place], [place] [address] Physician Radiation Oncology 12/06/19 Filomena Rizvi MD [address] [facility] 1ST ORR [facility] [place] [address] Referring General Surgery 01/22/20 Bethany Mejia RN Specialty Broomcorn Seeder Oncology 02/14/20 Aman Cardoso DO [address] [place], [place] [address] Physician Hematology/Oncology 06/27/20 Audrey Rowe MD [address] [place] [address] Primary Staff Physician Cardiology 04/26/23 Stamps Or Coins Salesperson Relationship Specialty Start Date End Date Patricia Winston DO PCP - General Family Medicine 10/31/15 Marylou Weaver MD, [address] [place], [place] [address] Physician Radiation Oncology 12/06/19 Filomena Rizvi MD [address] 1[address] [place] [address] Referring General Surgery 01/22/20 Bethany Mejia RN Specialty Broomcorn Seeder Oncology 02/14/20 Aman Cardoso DO [address] [place], [place] [address] Physician Hematology/Oncology 06/27/20 Audrey Rowe MD [address] [place] [address] Primary Staff Physician Cardiology 04/26/23 Stamps Or Coins Salesperson Relationship Specialty Start Date End Date Patricia Winston PCP - General Family Medicine 10/31/15 Marylou Weaver MD, [address] [place] [address] Physician Radiation Oncology 12/06/19 Filomena Rizvi MD [address] 1[address] [place] [address] Referring General Surgery 01/22/20 Bethany Mejia RN Specialty Broomcorn Seeder Oncology 02/14/20 Aman Cardoso DO [address] [place], [place] [address] Physician Hematology/Oncology 06/27/20 Audrey Rowe MD [address] [place] [address] Primary Staff Physician Cardiology 04/26/23 Stamps Or Coins Salesperson Relationship Specialty Start Date End Date Patricia Winston DO PCP - General Family Medicine 10/31/15 Marylou Weaver MD, MD [address] [place], [place] [address] Physician Radiation Oncology 12/06/19 Filomena Rizvi MD [address] [place] [address] Referring General Surgery 01/22/20 Bethany Mejia, RN Specialty Broomcorn Seeder Oncology 02/14/20 Aman Cardoso DO [address] [place], [place] [address] Physician Hematology/Oncology 06/27/20 Audrey Rowe MD [address] [place] [address] Primary Staff Physician Cardiology 04/26/23 Stamps Or Coins Salesperson Relationship Specialty Start Date End Date Patricia Winston DO PCP - General Family Medicine 10/31/15 Marylou Weaver MD, [address] [place], [place] [address] Physician Radiation Oncology 12/06/19 Filomena Rizvi MD [address] [facility] BRE[address] [place], [place] [phone] Referring General Surgery 01/22/20 Bethany Mejia, RN Specialty Broomcorn Seeder Oncology 02/14/20 Aman Cardoso DO [address] [facility] [place], [place] [id number] Physician Hematology/Oncology 06/27/20 Audrey Rowe MD [address] [place] [address] Primary Staff Physician Cardiology 04/26/23 Stamps Or Coins Salesperson Relationship Specialty Start Date End Date Patricia Winston DO PCP - General Family Medicine 10/31/15 Marylou Weaver MD [address] [place], [place] [id number] Physician Radiation Oncology 12/06/19 Filomena Rizvi MD [address] [place] [address] [place] [address] Referring General Surgery 01/22/20 Bethany Mejia RN Specialty Broomcorn Seeder Oncology 02/14/20 Aman Cardoso DO [address] [place], [place] [phone] Physician Hematology/Oncology 06/27/20 Audrey Rowe MD [address] [place] [address] Primary Staff Physician Cardiology 04/26/23 Stamps Or Coins Salesperson Relationship Specialty Start Date End Date Patricia Winston DO PCP - General Family Medicine 10/31/15 Marylou Weaver MD [address] [place], [place] [id number] Physician Radiation Oncology 12/06/19 Filomena Rizvi MD [address] 1ST FLR [facility] [place], [place] [phone] Referring General Surgery 01/22/20 Bethany Mejia RN Specialty Broomcorn Seeder Oncology 02/14/20 Aman Cardoso DO [address] [place], [place] [phone] Physician Hematology/Oncology 06/27/20 Audrey Rowe MD [address] [place] [address] Primary Staff Physician Cardiology 04/26/23 Stamps Or Coins Salesperson Relationship Specialty Start Date End Date Patricia Winston DO PCP - General Family Medicine 10/31/15 Marylou Weaver MD [address] [place], [place] [id number] Physician Radiation Oncology 12/06/19 Filomena Rizvi MD [address] 1ST FLR [facility] [place], [place] [id number] Referring General Surgery 01/22/20 Bethany Mejia RN Specialty Broomcorn Seeder Oncology 02/14/20 Aman Cardoso DO [address] [facility] [place], [place] [address] Physician Hematology/Oncology 06/27/20 Audrey Rowe MD [address] [place] [address] Primary Staff Physician Cardiology 04/26/23 Stamps Or Coins Salesperson Relationship Specialty Start Date End Date Patricia Winston DO PCP - General Family Medicine 10/31/15 Marylou Weaver MD [address] [facility] [place], [place] [address] Physician Radiation Oncology 12/06/19 Filomena Rizvi MD [address] [place] [address] Referring General Surgery 01/22/20 Bethany Mejia RN Specialty Broomcorn Seeder Oncology 02/14/20 Aman Cardoso DO [address] [facility] [place], [place] [address] Physician Hematology/Oncology 06/27/20 Audrey Rowe MD [address] [place] [address] Primary Staff Physician Cardiology 04/26/23 Stamps Or Coins Salesperson Relationship Specialty Start Date End Date Patricia Winston DO PCP - General Family Medicine 10/31/15 Marylou Weaver MD [address] [place], [place] [address] Physician Radiation Oncology 12/06/19 Filomena Rizvi MD [address] 1ST [place] [address] Referring General Surgery 01/22/20 Bethany Mejia RN Specialty Broomcorn Seeder Oncology 02/14/20 Aman Cardoso DO [address] [facility] [place], [place] [phone] Physician Hematology/Oncology 06/27/20 Audrey Rowe MD [address] [place] [address] Primary Staff Physician Cardiology 04/26/23 Stamps Or Coins Salesperson Relationship Specialty Start Date End Date Patricia Winston DO PCP - General Family Medicine 10/31/15 Marylou Weaver MD [address] [place], [place] [address] Physician Radiation Oncology 12/06/19 Filomena Rizvi MD [address] 1ST [place] [address] Referring General Surgery 01/22/20 Bethany Mejia RN Specialty Broomcorn Seeder Oncology 02/14/20 Aman Cardoso DO [address] [place], [place] [address] Physician Hematology/Oncology 06/27/20 Audrey Rowe MD [address] [place] [address] Primary Staff Physician Cardiology 04/26/23 Stamps Or Coins Salesperson Relationship Specialty Start Date End Date Patricia Winston DO PCP - General Family Medicine 10/31/15 Marylou Weaver MD [address] [facility] [place], [place] [address] Physician Radiation Oncology 12/06/19 Filomena Rizvi MD [address] 1ST [place] [address] Referring General Surgery 01/22/20 Bethany Mejia, RICARDO Specialty Broomcorn Seeder Oncology 02/14/20 Aman Cardoso DO [address] [facility] [place], [place] [address] Physician Hematology/Oncology 06/27/20 Audrey Rowe MD [address] [place] [address] Primary Staff Physician Cardiology 04/26/23 Stamps Or Coins Salesperson Relationship Specialty Start Date End Date Patricia Winston DO PCP - General Family Medicine 10/31/15 Marylou Weaver MD [address] [facility] [place] [address] Physician Radiation Oncology 12/06/19 Filomena Rizvi MD [address] 1[address] [place] [address] Referring General Surgery 01/22/20 Bethany Mejia RN Specialty Broomcorn Seeder Oncology 02/14/20 Aman Cardoso DO [address] [place], [place] [address] Physician Hematology/Oncology 06/27/20 Audrey Rowe MD [address] [place] [address] Primary Staff Physician Cardiology 04/26/23 Stamps Or Coins Salesperson Relationship Specialty Start Date End Date Patricia Winston DO PCP - General Family Medicine 10/31/15 Marylou Weaver MD [address] [place] [address] Physician Radiation Oncology 12/06/19 Filomena Rizvi MD [address] [facility] 1ST [place] [address] Referring General Surgery 01/22/20 Bethany Mejia RN Specialty Broomcorn Seeder Oncology 02/14/20 Aman Cardoso DO [address] [place], [place] [address] Physician Hematology/Oncology 06/27/20 Audrey Rowe MD [address] [place] [address] Primary Staff Physician Cardiology 04/26/23 Stamps Or Coins Salesperson Relationship Specialty Start Date End Date Patricia Winston DO PCP - General Family Medicine 10/31/15 Marylou Weaver MD [address] [place], [place] [address] Physician Radiation Oncology 12/06/19 Filomean Rizvi MD [address] [place] [address] Referring General Surgery 01/22/20 Bethany Mejia, RICARDO Specialty Broomcorn Seeder Oncology 02/14/20 Aman Cardoso DO [address] [place], [place] [address] Physician Hematology/Oncology 06/27/20 Audrey Rowe MD [address] [place] [address] Primary Staff Physician Cardiology 04/26/23 Inactive Administered [...] BE BASED ON THE PRIMARY CLINICAL RECORDS. [employer] [facility]. provides no warranty or guarantee of the accuracy or completeness of information in this document.
[2025-01-24 13:16] LABS: Free T3 2.2 pg/mL (2.18-3.98); T3 Total - Triiodothyronine 0.82 ng/mL (0.80-2.00); T4 Total, Thyroxin 5.8 ug/dL (4.8-13.9)
== END | disposition home or self-care (01) ==
LOC: BFHLAB 09:38
PROVIDERS: PCP Family Medicine; Visit Provider Family Medicine
DX: E03.9 Hypothyroidism, unspecified (principal)
CPT/HCPCS: 36415; 84436; 84439; 84443; 84480; 84481; 86376; 86800

== ENCOUNTER → 2025-03-28 | Outpatient (CLI) | payer BC, SELFPAY ==
[2020-01-23 09:03] VITALS: BMI 33.0
--- NOTE | 2025-03-28 16:23 | RAD_ITS ---
PROCEDURE: CHEST PA AND LATERAL 03/28/2025 REASON FOR EXAM: PAIN ON RIGHT LOWER RIBS WITH PALPATION TECHNIQUE: Procedure Code: RADCXR Modality: DX Procedure: CHEST PA AND LATERAL COMPARISON: None. FINDINGS: The lungs are clear. The heart borders mediastinum and pulmonary vascular pattern are normal. The upper abdominal bowel gas pattern is normal. Status post left breast biopsy. No evidence of acute bony injury to the chest. RAD/Chest PA and Lateral IMPRESSION: No evidence of acute cardiopulmonary pathology. No evidence of acute bony inju ry. Reading Location: [id number]
--- NOTE | 2025-03-28 16:30 | RAD_ITS ---
PROCEDURE: RIBS UNIL 2V NO CXR 03/28/2025 REASON FOR EXAM: RIGHT LOWER RIB PAIN, NO INJURY TECHNIQUE: Procedure Code: [id number] Modality: DX Procedure: RIBS UNIL 2V NO CXR COMPARISON: None FINDINGS: Four views of the right ribs were obtained. Findings: Normal mineralization of the osseous structures is noted. No displaced rib fractures are seen. Other: There is no lung contusion, atelectasis, consolidation, effusion, pneumonic infiltrate or pneumothorax.. RAD/Ribs Unil 2V No CXR IMPRESSION: Unremarkable right rib study. Reading Location: [id number]
== END | disposition home or self-care (01) ==
LOC: MTRAD 16:22
PROVIDERS: PCP Family Medicine; Referring Provider Clinical Nurse Specialist Adult Health; Visit Provider Clinical Nurse Specialist Adult Health
DX: R07.89 Other chest pain (principal)
CPT/HCPCS: 71046; 71100